=== PATIENT | male | born 1940 | race Caucasian/White ===

== ENCOUNTER 2023-10-12 15:30 | Inpatient (IN) | payer BC, SELFPAY ==
[2023-10-12 11:20] VITALS: BMI 30.5
[2023-10-12 11:23] VITALS: BP 116/66
[2023-10-12 11:57] LABS: % Basophils 0.5 % (0-2); % Eosinophils 4.1 % (0-6); % Immature Granulocytes 0.6 % (0-0.5); % Lymphocytes 19.3 % (20.5-51.1); % Monocytes 10.8 % (1.7-9.3); % Neutrophils 64.7 % (42.2-75.2); Absolute Eosinophils 0.3 10^3/uL (0-0.7); Absolute Immature Granulocytes 0.1 10^3/uL (0-0.05); Absolute Lymphocytes 1.6 10^3/uL (1.2-3.4); Absolute Monocytes 0.9 10^3/uL (0.1-0.6); Absolute Neutrophils 5.4 10^3/uL (1.4-6.5); Hematocrit 33.3 % (39.0-52.0); Hemoglobin 10.9 g/dL (13.0-18.0); Mean Corp Hgb Conc. 32.7 g/dL (33.0-37.0); Mean Corpuscular Hgb 30.1 pg (27.0-31.0); Mean Platelet Volume 9.4 fL (7.4-10.4); Nucleated Red Blood Cells % 0 % (-); Platelet Count 363 10^3/uL (130-400); Red Blood Cell Count 3.62 10^6/uL (4.70-6.10); Red Cell Dist. Width 12.8 % (11.5-14.5); White Blood Cell Count 8.4 10^3/uL (4.8-10.8)
[2023-10-12 12:00] VITALS: BP 109/48
[2023-10-12 12:03] LABS: INR 1.03; PT 13.3 Sec (11.4-14.6)
[2023-10-12 12:04] LABS: ALT (SGPT) 19 U/L (0-50); APTT 25.5 Sec (23.4-35.0); AST (SGOT) 25 U/L (17-59); Albumin 3.8 g/dl (3.5-5.0); Alkaline Phosphatase 104 U/L (38-126); Blood Urea Nitrogen 37 mg/dl (9-20); Calcium 9.1 mg/dl (8.4-10.2); Carbon Dioxide 31 mmol/L (22-30); Chloride 104 mmol/L (98-107); Estimated Creatinine Clearance 35 ml/min; Glucose 108 mg/dl (70-99); Potassium 4.3 mmol/L (3.5-5.1); Sodium 140 mmol/L (135-145); Total Bilirubin 0.3 mg/dl (0.2-1.3); Total Protein 6.3 g/dl (6.3-8.2); eGFR 30.85
[2023-10-12 12:20] LABS: Urine Albumin Negative (Neg - Trace); Urine Bilirubin Negative (Negative); Urine Character Clear (Clear); Urine Color Yellow; Urine Glucose Negative (Negative); Urine Ketone Negative (Negative); Urine Leukocyte Negative (Negative); Urine Nitrite Negative (Negative); Urine Occult Blood Negative (Negative); Urine Specific Gravity 1.015 (<1.030); Urine Urobilinogen Negative (Neg - 1+)
[2023-10-12 12:21] LABS: Troponin I 0.046 ng/ml
[2023-10-12 13:09] VITALS: BP 127/61
[2023-10-12] MEDS: NSS 500 IV (13:16)
--- NOTE | 2023-10-12 13:40 | ED.GENMED ---
History of Present Illness
<Khai Mathew MD - Last Filed: 10/12/23 15:04>
General
Chief Complaint: Change in Mental Status
Time Seen by Provider: 10/12/23 11:27
<Isadora Zimmerman MD, Resident - Last Filed: 10/12/23 14:49>
History of Present Illness
History of Present Illness:
83-year-old male, Mr. Preet Linda was brought to the ER by EMS for evaluation of mental status. History is taken from EMS and patient's who is at bedside. She mentioned that the patient was asleep from 6:30 AM until 9:30 AM in the morning
and after he woke up, she tried to take him to the restroom. He was not able to ambulate from his wheelchair onto the toilet seat and started screaming. Patient was at his baseline mental status until today a.m. No history of new onset focal
neurological deficit, recent acute vision loss, headaches, fevers. Patient has been complaining that his whole body hurts, his leg hurts from the past 2 to 3 weeks. Patient was started on doxycycline 2 weeks ago for his left lower extremity wound
and sacral wounds, and was being managed by wound care physician. Patient was seen earlier on August 27, 2019 by a psychiatrist who started him on memantine.
If applicable-neuro sx onset
Onset of symptoms known: Yes
Date of onset of symptoms: 10/12/23
Date last time pt seen normal: 10/11/23
Past History
<Khai Mathew MD - Last Filed: 10/12/23 15:04>
Past History
ED Past Medical History: CVA (Left sided weakness, right parietal stroke in 2011), HTN, Hypercholesterolemia and Other (Renal calculus, UTi, Scrotal hernia, Cellulitis)
ED Past Surgical History: Cardiac (pacemaker, RBBB), Tonsilectomy (and adnoids), Urological (Kidney stones) and Other (Right carotid endarterectomy herniorrhaphy, left orchiectomy)
Social History
Tobacco: Non-smoker
Alcohol: None
Drug: None
Personal:
Living: with family
Employment: Retired
Family History
Family History: Hypertension
Review of Systems
<Isadora Zimmerman MD, Resident - Last Filed: 10/12/23 14:49>
Review of Systems
All Other Systems: ROS reviewed and negative except as documented in HPI and ROS
Phy Exam
<Isadora Zimmerman MD, Resident - Last Filed: 10/12/23 14:49>
Physical Exam
Physical Exam:
GEN: Patient is moaning and screaming. Patient is responding 'I do not know' for the questions at the beginning of the encounter.
Eyes: PERRLA, EOMs intact, no scleral icterus, no photophobia
HENT: NCAT, oral mucosa slightly dry, no JVD, no cervical adenopathy.
Lungs: CTAB, no wheezes, rales, rhonchi, normal chest wall excursion
Cardiac: RRR, no M/R/G, no peripheral edema. Radial pulses 2+ bilat
Abdomen: S, NT, ND, NABS, no masses or hepatosplenomegaly, umbilical hernia
Neuro: Alert, follows some commands, not oriented to time, place and location. No pronator drift, sensations intact, right upper and lower extremity strength normal. Left upper and lower extremity-strength 4 /5.
Skin: No rashes, petechiae. Normal color, no pallor or jaundice. Open wound on the left dorsal aspect of the foot
Psych: Agitated
Course
<Khai Mathew MD - Last Filed: 10/12/23 15:04>
Orders/Labs/Results
Orders:
Orders
10/12/23 11:25
Electrocardiogram (*1) Urgent
Reason for Study: Other
Other Reason for Exam: Possible Stroke
EKG- Treatment ONCE
10/12/23 11:39
Complete Blood Count/With Diff Urgent
Comprehensive Metabolic Panel Urgent
PTT Urgent
Prothrombin Time Urgent
Troponin I Urgent
Urinalysis Reflex To Culture Urgent
Date Specimen was Collected: 10/12/23
Time Specimen was Collected: 11:25
10/12/23 12:36
CT Head W/o Iv Contrast Urgent
Comment:
Reason For Exam: mental status change
0.9% Sodium Chloride 500 ml [Nss] 500 ml IV BOLUS
10/12/23 13:19
Blood Culture Urgent
VIKI Source: Blood/Venous
Specimen Description:
10/12/23 13:20
Blood Culture Routine
VIKI Source: Blood/Venous
Specimen Description:
10/12/23 14:52
Admit/Transfer Patient As Directed
Co-Sign Provider:
Level of Care: Inpatient admission
Assign to:: Telemetry
Physician / Group: beni tena
Diagnosis: WARD, toxic metabolic encephalopathy,cellulitis
Reason for Telemetry: Arrhythmia
Date to Stop Telemetry: 10/15/23
Time to Stop Telemetry: 11:00
Reason for Hospitalization: WARD, toxic metabolic encephalopathy,cellulitis
Expected length of stay greater than two midnights?: Yes
ELOS- Estimated Length of Stay in days: 3
I certify the patient meets the requirements for IP care: Yes
Urine Creatinine Routine
Urine Sodium Routine
Bladder Scan As Directed
Follow Bladder Retention/Intermittent Cath Algorithm?: Yes
PRN if no void in __ hours: 6
Frequency: Per Retention Algorithm
If Bladder Scan Result >: 400
then:: Straight cath
Straight Cath As Directed
Frequency: Per Retention Algorithm
Additional Instructions: straight cath as needed per acute urinary retention algorithm for 24 hrs
Additional Instructions: for bladder scan greater than 400 mL
10/12/23 14:53
PRN Pain Medication Management As Directed
May give lesser potent ordered pain med per pt: Yes
preference::
Protocol:: Medication orders for pain may be administered in a
manner that supports deferring to patient preference
when the pt is:
- Requesting an ordered lesser potent pain medication.
Least to most potent pain medications are defined
as: acetaminophen < NSAID < tramadol < opioids
(morphine, oxycodone, hydromorphone).
- Requesting a lesser dose of the same medication IF
ORDERED.
- Requesting a less intrusive route of administration
if both routes are prescribed by the provider (PO <
IV).
10/12/23 14:54
Code Status As Directed
Resuscitation Status: Do not resuscitate
Reached after discussion with pt or family/Healthcare POA: Yes
10/12/23 14:55
DNR Bracelet Application ONCE
10/12/23 14:57
WOUND/OSTOMY CONSULT Routine
Reason for Consult: left foot ulcer, sacral wound
10/12/23 16:00
CeFAZolin 2 grams IV Push Q8H CeFAZolin 2 GRAM [Ancef] 2 grams in 10 ml IV Q8H
10/15/23 11:00
DC Protocol for Telemetry ONCE
Abnormal Lab Results
10/12/23
11:39
RBC 3.62 L 10^6/uL
(4.70-6.10)
Hgb 10.9 L g/dL
(13.0-18.0)
Hct 33.3 L %
(39.0-52.0)
MCHC 32.7 L g/dL
(33.0-37.0)
Abs Immat Gran (auto) 0.1 H 10^3/uL
(0-0.05)
Absolute Monos (auto) 0.9 H 10^3/uL
(0.1-0.6)
Immature Gran % 0.6 H %
(0-0.5)
Lymphocytes % 19.3 L %
(20.5-51.1)
Monocytes % 10.8 H %
(1.7-9.3)
Carbon Dioxide 31 H mmol/L
(22-30)
BUN 37 H mg/dl
(9-20)
Creatinine 2.1 H mg/dL
(0.7-1.3)
Glucose 108 H mg/dl
(70-99)
Troponin I 0.046 H* ng/ml
10/12/23 11:39
10/12/23 11:39
Vital Signs
Initial and Last Documented VS:
Initial Vital Signs
Temp
98.4 F
10/12/23 11:20
Last Documented Vital Signs
Temp Pulse Resp BP Pulse Ox
98.4 F 61 15 127/61 94
10/12/23 11:20 10/12/23 13:45 10/12/23 13:45 10/12/23 13:09 10/12/23 13:45
<[facility] Billy Sandy Zimmerman MD, Resident - Last Filed: 10/12/23 14:49>
Orders/Labs/Results
Orders:
Orders
10/12/23 11:25
Electrocardiogram (*1) Urgent
Reason for Study: Other
Other Reason for Exam: Possible Stroke
EKG- Treatment ONCE
10/12/23 11:39
Complete Blood Count/With Diff Urgent
Comprehensive Metabolic Panel Urgent
PTT Urgent
Prothrombin Time Urgent
Troponin I Urgent
Urinalysis Reflex To Culture Urgent
Date Specimen was Collected: 10/12/23
Time Specimen was Collected: 11:25
10/12/23 12:36
CT Head W/o Iv Contrast Urgent
Comment:
Reason For Exam: mental status change
0.9% Sodium Chloride 500 ml [Nss] 500 ml IV BOLUS
10/12/23 13:19
Blood Culture Urgent
VIKI Source: Blood/Venous
Specimen Description:
10/12/23 13:20
Blood Culture Routine
VIKI Source: Blood/Venous
Specimen Description:
10/12/23 14:52
Admit/Transfer Patient As Directed
Co-Sign Provider:
Level of Care: Inpatient admission
Assign to:: Telemetry
Physician / Group: beni tena
Diagnosis: WARD, toxic metabolic encephalopathy,cellulitis
Reason for Telemetry: Arrhythmia
Date to Stop Telemetry: 10/15/23
Time to Stop Telemetry: 11:00
Reason for Hospitalization: WARD, toxic metabolic encephalopathy,cellulitis
Expected length of stay greater than two midnights?: Yes
ELOS- Estimated Length of Stay in days: 3
I certify the patient meets the requirements for IP care: Yes
Urine Creatinine Routine
Urine Sodium Routine
Bladder Scan As Directed
Follow Bladder Retention/Intermittent Cath Algorithm?: Yes
PRN if no void in __ hours: 6
Frequency: Per Retention Algorithm
If Bladder Scan Result >: 400
then:: Straight cath
Straight Cath As Directed
Frequency: Per Retention Algorithm
Additional Instructions: straight cath as needed per acute urinary retention algorithm for 24 hrs
Additional Instructions: for bladder scan greater than 400 mL
10/12/23 14:53
PRN Pain Medication Management As Directed
May give lesser potent ordered pain med per pt: Yes
preference::
Protocol:: Medication orders for pain may be administered in a
manner that supports deferring to patient preference
when the pt is:
- Requesting an ordered lesser potent pain medication.
Least to most potent pain medications are defined
as: acetaminophen < NSAID < tramadol < opioids
(morphine, oxycodone, hydromorphone).
- Requesting a lesser dose of the same medication IF
ORDERED.
- Requesting a less intrusive route of administration
if both routes are prescribed by the provider (PO <
IV).
10/12/23 14:54
Code Status As Directed
Resuscitation Status: Do not resuscitate
Reached after discussion with pt or family/Healthcare POA: Yes
10/12/23 14:55
DNR Bracelet Application ONCE
10/12/23 14:57
WOUND/OSTOMY CONSULT Routine
Reason for Consult: left foot ulcer, sacral wound
10/12/23 16:00
CeFAZolin 2 grams IV Push Q8H CeFAZolin 2 GRAM [Ancef] 2 grams in 10 ml IV Q8H
10/15/23 11:00
DC Protocol for Telemetry ONCE
Abnormal Lab Results
10/12/23
11:39
RBC 3.62 L 10^6/uL
(4.70-6.10)
Hgb 10.9 L g/dL
(13.0-18.0)
Hct 33.3 L %
(39.0-52.0)
MCHC 32.7 L g/dL
(33.0-37.0)
Abs Immat Gran (auto) 0.1 H 10^3/uL
(0-0.05)
Absolute Monos (auto) 0.9 H 10^3/uL
(0.1-0.6)
Immature Gran % 0.6 H %
(0-0.5)
Lymphocytes % 19.3 L %
(20.5-51.1)
Monocytes % 10.8 H %
(1.7-9.3)
Carbon Dioxide 31 H mmol/L
(22-30)
BUN 37 H mg/dl
(9-20)
Creatinine 2.1 H mg/dL
(0.7-1.3)
Glucose 108 H mg/dl
(70-99)
Troponin I 0.046 H* ng/ml
10/12/23 11:39
10/12/23 11:39
Vital Signs
Initial and Last Documented VS:
Initial Vital Signs
Temp
98.4 F
10/12/23 11:20
Last Documented Vital Signs
Temp Pulse Resp BP Pulse Ox
98.4 F 61 15 127/61 94
10/12/23 11:20 10/12/23 13:45 10/12/23 13:45 10/12/23 13:09 10/12/23 13:45
<Isadora Zimmerman MD, Resident - Last Filed: 10/12/23 14:49>
MDM/Problems Addressed
Differential Diagnosis Includes:
Delirium versus toxic metabolic encephalopathy-likely from polypharmacy versus dehydration versus bacteremia from open wounds.
Labs�anemia, elevated renal function tests, non-[place] elevation of troponins, no evidence of UTI.
CT head report�no acute intracranial abnormality.The ventricles and sulci are normal in size and configuration. The periventricular, subcortical, and deep white matter is unremarkable. Old right superior frontal and left external capsule infarcts
again seen. There is global parenchymal volume loss commensurate with the patient's age. Periventricular and subcortical white matter hypoattenuation is present which is nonspecific, however likely related to cerebral small vessel disease. There is
no mass effect. There are no findings of acute transcortical infarction. No intra or extra-axial hemorrhage.
Although no criteria for sepsis, blood cultures were sent , concern for bacteremia from open wounds, atypical presentation of sepsis possible due to the age.
<Isadora Zimmerman MD, Resident - Last Filed: 10/12/23 14:49>
*Critical Care Note
Total Time (30-74mins, 75-104mins- exclusive of procedures): Not Applicable
ED Attending Note
<Khai Mathew MD - Last Filed: 10/12/23 15:04>
ED Attending Note
Patient seen and examined by attending physician: Yes
ED Attending Note:
Patient currently receiving antibiotics secondary to left foot infection, presents to ED secondary to sudden onset of mental status change noted by at home this morning. After he woke up from his nap in the morning, he was assisted to
bathroom, where patient started to yell uncontrollably, and not answering questions. Upon arrival, patient is found to be in same mental state, where he is yelling without any further complaints. No further information obtained initially. Per
spouse, left foot infection appears to be improving with treatment. Patient has an appointment with wound care center tomorrow afternoon. Along with abx, however, patient was started on lasix by PMD last week.
Physical Exam
General: mild distress, not acutely ill. afebrile
Head: nc/at. eomi
Neck: supple. no meningeal signs.
Heart: s1/s2 regular rate and rhythm, no murmur. equal radial pulses.
Lungs: no acute respiratory distress. clear bilaterally
Abdomen: normal bowel sounds. not tender.
Neuro: alert and awake. no focal neurological deficits
Skin: left foot: ruptured blister noted over medial aspect with mild erythema, without any drainage.
Psychiatric: agitated. uncooperative.
Extremities: no edema. no calf tenderness.
CT head: No acute findings.
Patient with altered mental status noted during observation ED, with differential diagnosis including sepsis, dehydration, or medication reaction. Patient will be admitted for further evaluation and treatment.
Blood cultures ordered. Will defer antibiotics to admitting team.
-
Portions of this chart may have been created with voice recognition software.� Occasional wrong word or��sound alike� substitutions may have occurred due to the inherent limitations of voice recognition software.
Discharge Plan
Departure
Patient Disposition: Admit
Date of Disposition: 10/12/23
Time of Disposition: 13:40
Presentation/result/management discussed w/ accepting MD/DO: Hospitalist
Discharge Problem:
Altered mental status
Prescriptions:
No Action
amlodipine 10 MG tablet
10 mg PO QPM
tamsulosin [Flomax] 0.4 MG capsule
0.4 mg PO DAILY
atorvastatin 80 MG tablet
40 mg PO QPM
calcium carbonate 600 MG tablet
600 mg PO DAILY
hydrochlorothiazide 25 MG tablet
25 mg PO DAILY
coenzyme [id number] [Co Q-10 (with Vit E)] 1 EACH capsule
100 mg PO QPM
metoprolol succinate [Toprol XL] 100 MG tablet extended release 24 hr
100 mg PO DAILY@1200
milk thistle 150 mg Capsule
300 mg PO QPM
Green Tea Capsule
2 cap PO NOON
baclofen 10 MG tablet
10 mg PO TID
aspirin 81 mg Tablet,Delayed Release (Dr/Ec)
81 mg PO DAILY
cephalexin 500 mg Capsule
500 mg PO Q8H
nystatin-triamcinolone 100,000-0.1 unit/g-% cream
1 applic TOPICAL BID
vitamin B complex [B Complete] Tablet
1 tab PO DAILY
furosemide [Lasix] 20 mg Tablet
20 mg PO DAILY
memantine 5 mg Tablet
5 mg PO DAILY
duloxetine [Cymbalta] 30 mg Capsule,Delayed Release(Dr/Ec)
60 mg PO HS
cyanocobalamin (vitamin B-12) 1,000 mcg Lozenge
1,000 mcg SUBLINGUAL DAILY@1200
mupirocin 2 % Ointment
1 applic TOPICAL DAILY
rivastigmine tartrate 4.5 mg Capsule
4.5 mg PO BID
Referrals:
Dubiel,Demetria, PA-C [Family Provider] -
Interventions
Interventions:
*Risk Screen - Suicide Last Done: 10/12/23 11:20
*General Assessment Last Done: 10/12/23 11:20
*Neglect/Abuse Screening Last Done: 10/12/23 11:20
*ED COVID-19 Vaccine History Last Done: 10/12/23 11:20
ED- Pulmonary Assessment Last Done: 10/12/23 11:42
ED- Neurological Assessment Last Done: 10/12/23 11:42
ED- Cardiac Assessment Last Done: 10/12/23 11:42
Discharge Date and Time
Print Language: KAZAKH
--- NOTE | 2023-10-12 14:58 | HPS.HSE ---
Family Physician
-
Family Physician: Demetria Parsons
Chief Complaint
-
Change in mental status
History of Present Illness
83-year-old male with past medical history of CVA with residual left-sided weakness, hypertension, hyperlipidemia, nephrolithiasis, UTI, scrotal hernia, pacemaker, right carotid enterectomy, suspect vascular dementia, movement disorder came to the
hospital with change in mental status. Patient at this time is lethargic so most of the history was taken from spouse at bedside. Per spouse at baseline patient mental status is slowly declining however at baseline he can hold conversation but
forgetful majority of the times. Started today he has been very sleepy which prompted her to bring him to the ED for evaluation. Patient was recently started on Lasix along with antibiotics by his primary care provider. Per labs from 09/28 patient
had creatinine of 0.56 and creatinine today is 2.1.
Medical History
Past Medical History
Past Medical History: Reports CVA, HTN, Hypercholesterolemia and Other (Renal calculus, cellulitis, scrotal hernia, right bundle branch block, pacemaker, suspect dementia, movement disorder)
Past Surgical History: Reports Cardiac (Pacemaker), Tonsilectomy, Urological and Other (Right carotid enterectomy)
Social History
Tobacco: Non-smoker
Family History
Family History: Not pertinent
Allergies / Home Medications
Allergies reflects when Allergies were last updated in [facility].
Home Medications with original date entered in [facility]
Allergy/Medication List:
Allergies
Allergy/AdvReac Type Severity Reaction Status Date / Time
doxycycline monohydrate Allergy MIGRAINE Verified 09/08/22 00:05
[From Vibramycin]
Sulfa (Sulfonamide Allergy difficulty Verified 09/08/22 00:05
Antibiotics) breathing,
[Sulfa(Sulfonamide hives
Antibiotics)]
vancomycin Allergy Unknown Verified 09/08/22 00:05
Home Medications
amlodipine 10 mg tablet 10 mg PO QPM Blood pressure 09/29/17
tamsulosin 0.4 mg capsule (Flomax) 0.4 mg PO DAILY Urinary issue 08/11/20
atorvastatin 80 mg tablet 40 mg PO QPM 06/17/21
calcium carbonate 600 mg PO DAILY 06/17/21
coenzyme [id number] E 100 mg-5 unit capsule (Co Q-10 (with Vit E)) 100 mg PO QPM 06/17/21
hydrochlorothiazide 25 mg tablet 25 mg PO DAILY 06/17/21
metoprolol succinate 100 mg tablet,extended release 24 hr (Toprol XL) 100 mg PO DAILY@1200 12/12/21
baclofen 10 mg tablet 10 mg PO TID 09/26/22
green tea leaf extract 2 cap PO NOON 09/26/22
milk thistle 150 mg capsule 300 mg PO QPM 09/26/22
aspirin 81 mg tablet,delayed release 81 mg PO DAILY 10/12/23
cephalexin 500 mg capsule 500 mg PO Q8H 10/12/23
cyanocobalamin (vitamin B-12) 1,000 mcg sublingual lozenge 1,000 mcg sublingual DAILY@1200 10/12/23
duloxetine 30 mg capsule,delayed release (Cymbalta) 60 mg PO HS 10/12/23
furosemide 20 mg tablet (Lasix) 20 mg PO DAILY 10/12/23
memantine 5 mg tablet 5 mg PO DAILY 10/12/23
mupirocin 2 % topical ointment 1 applic topical DAILY foot blister 10/12/23
nystatin-triamcinolone 100,000 unit/g-0.1 % topical cream 1 applic topical BID buttocks 10/12/23
rivastigmine tartrate 4.5 mg capsule 4.5 mg PO BID 10/12/23
vitamin B complex 1 tab PO DAILY 10/12/23
Review of Systems
-
Unable to obtain full review of systems at this time due to: Dementia
History Source: Patient and Family
A 12 point ROS was completed and negative except as noted: Yes
Constitutional: Reports Other (Pain)
Physical Exam
Vital Signs
Vital Signs
Temp Pulse Resp BP Pulse Ox
98.4 F 61 15 127/61 94
10/12/23 11:20 10/12/23 13:45 10/12/23 13:45 10/12/23 13:09 10/12/23 13:45
Physical Exam
General: No Apparent Distress and Comfortable
HEENT: Anicteric and Moist mucous membranes
Respiratory: Clear and Non Labored Respirations; No Wheezes
Cardiac: S1/S2 and Regular Rhythm
Breast: Deferred by me
GI: Soft, Non Tender, Non Distended and Normal Bowel Sounds
Genito-urinary: No Wilson
Musculoskeletal: Edema, Right Upper Extremity, Edema, Left Lower Extremity and Other (Left foot ulcer)
Neuro: Awake
Psych: Calm
Laboratory Results
-
10/12/23 11:39
10/12/23 11:39
Laboratory Results
PT 13.3 Sec (11.4-14.6) 10/12/23 11:39
INR 1.03 10/12/23 11:39
APTT 25.5 Sec (23.4-35.0) 10/12/23 11:39
Total Bilirubin 0.3 mg/dl (0.2-1.3) 10/12/23 11:39
AST 25 U/L (17-59) 10/12/23 11:39
ALT 19 U/L (0-50) 10/12/23 11:39
Alkaline Phosphatase 104 U/L (38-126) 10/12/23 11:39
Troponin I 0.046 ng/ml H* 10/12/23 11:39
Data Reviewed
-
Lab Data: Labs Reviewed by me and Discussed with Family
Impression/Plan
-
Change in mental status suspect likely toxic metabolic encephalopathy secondary to renal insufficiency and possible left lower extremity cellulitis
Start Ancef for now
Follow cultures
Wound care
Hold baclofen for now
Reviewed outpatient blood work from 09/29/2023 which showed creatinine of 0.56. Creatinine today 2.1
UA negative for UTI
Check bladder scan, urine lites
Gentle hydration
Acute renal insufficiency
Check bladder scan, urine lites
Monitor
Hold Lasix
mild trop elevation likely nonischemic myocardial injury
Continue to trend
History of CVA with residual left-sided weakness
Status post right carotid enterectomy
History of movement disorder
possible cognitive impairment; spouse unsure if has alzheimer's
Follows up with psychiatry at [place]
Recently put on memantine
Also on duloxetine, rivastigmine, baclofen, hold baclofen for now
History of right bundle branch block
History of pacemaker
History of CAD
History of hypertension
Continue therapy
History of renal calculus
History scrotal hernia
DVT prophylaxis
Heparin
DNR, discussed with spouse admission
I spent a total of 77 minutes with the patient or on the floor. More than 50% of this time involved counseling and coordination of care.
[2023-10-12] MEDS: ANCEF 10 IV ×2 (15:27→23:42)
[2023-10-12 16:30] VITALS: BP 120/59
[2023-10-12 16:45] LABS: Urine Sodium 101 mmol/L (30-90)
[2023-10-12] MEDS: NORVASC 10 MG PO (18:20)
[2023-10-12] MEDS: NSS 1000 IV (18:20)
[2023-10-12] MEDS: LIPITOR 40 MG PO (18:20)
[2023-10-12 19:20] VITALS: BP 117/54
[2023-10-12] MEDS: TYLENOL 650 MG PO (20:11)
[2023-10-12] MEDS: HEPARIN 5000 UNITS SC (20:12)
[2023-10-12] MEDS: MYCOLOG CREAM 1 APPLIC TOPICAL (21:41)
[2023-10-12] MEDS: CYMBALTA DELAYED RELEASE 60 MG PO (21:41)
[2023-10-12] MEDS: EXELON 4.5 MG PO (21:43)
[2023-10-12 22:21] LABS: Troponin I 0.055 ng/ml
[2023-10-12 23:19] VITALS: BP 143/67
[2023-10-13] VITALS (7 sets, daily range): BP systolic 121–155; BP diastolic 56–69; PULSE 68; O2SAT 99; BMI 28.6
[2023-10-13 04:14] LABS: % Basophils 0.6 % (0-2); % Eosinophils 3.4 % (0-6); % Immature Granulocytes 0.7 % (0-0.5); % Lymphocytes 18.7 % (20.5-51.1); % Neutrophils 66.6 % (42.2-75.2); Absolute Eosinophils 0.3 10^3/uL (0-0.7); Absolute Immature Granulocytes 0.1 10^3/uL (0-0.05); Absolute Lymphocytes 1.4 10^3/uL (1.2-3.4); Absolute Monocytes 0.7 10^3/uL (0.1-0.6); Absolute Neutrophils 4.8 10^3/uL (1.4-6.5); Hematocrit 27.6 % (39.0-52.0); Hemoglobin 9.3 g/dL (13.0-18.0); Mean Corp Hgb Conc. 33.7 g/dL (33.0-37.0); Mean Corpuscular Hgb 30.7 pg (27.0-31.0); Mean Corpuscular Volume 91.1 fL (80.0-94.0); Mean Platelet Volume 9.6 fL (7.4-10.4); Nucleated Red Blood Cells % 0 % (-); Platelet Count 328 10^3/uL (130-400); Red Blood Cell Count 3.03 10^6/uL (4.70-6.10); Red Cell Dist. Width 12.9 % (11.5-14.5); White Blood Cell Count 7.3 10^3/uL (4.8-10.8)
[2023-10-13 04:33] LABS: Blood Urea Nitrogen 30 mg/dl (9-20); Calcium 8.4 mg/dl (8.4-10.2); Carbon Dioxide 30 mmol/L (22-30); Chloride 105 mmol/L (98-107); Estimated Creatinine Clearance 40 ml/min; Glucose 91 mg/dl (70-99); Potassium 4.1 mmol/L (3.5-5.1); Sodium 140 mmol/L (135-145); eGFR 37.12
[2023-10-13 04:47] LABS: Troponin I 0.294 ng/ml
--- NOTE | 2023-10-13 05:00 | PTCARENOTE ---
0300 resulted at 0.294. Previous troponin was 0.055. Patient denies symptoms. Serial troponin ordered for 0900. Provider made aware of increase in lab.
--- NOTE | 2023-10-13 08:11 | VNURNOTE ---
Chart reviewed. Patient is current with [facility]. Will continue to follow hospital course.
[2023-10-13] MEDS: ANCEF 10 IV ×2 (08:33→16:00)
[2023-10-13] MEDS: B COMPLEX w/VITAMIN C 1 CAPLET PO (08:36)
[2023-10-13] MEDS: ASPIR LOW (ENTERIC COATED) 81 MG PO (08:37)
[2023-10-13] MEDS: EXELON 4.5 MG PO ×2 (08:37→21:28)
[2023-10-13] MEDS: FLOMAX 0.4 MG PO (08:37)
[2023-10-13] MEDS: OSCAL CAL 500 500 MG PO (08:37)
[2023-10-13] MEDS: HEPARIN 5000 UNITS SC ×2 (08:40→21:25)
[2023-10-13] MEDS: TYLENOL 650 MG PO (08:45)
[2023-10-13] MEDS: NAMENDA 5 MG PO (08:45)
[2023-10-13 09:54] LABS: Troponin I 0.456 ng/ml
--- NOTE | 2023-10-13 10:10 | CM ---
biodiesel division manager reviewed patient's chart and spoke with patient and spouse at bedside, case managers received a consult for AD however patient reports he has an AD copy of AD from prior admissions has been placed on patient's chart. Patient lives with
spouse in a 2 story home, patient has a first floor set up, patient is independent with adl's and uses a walker and w/c with ambulation. Patient is current with VN at home.
Pharmacy; [facility]
PCP: Demetria Parsons
Plan; To follow with patient progress and assist with discharge planning.
[2023-10-13] MEDS: MYCOLOG CREAM TOPICAL (12:31)
[2023-10-13] MEDS: VITAMIN B-12 1000 MCG PO (12:34)
[2023-10-13] MEDS: TOPROL XL 100 MG PO (12:34)
--- NOTE | 2023-10-13 12:36 | WOUNDNOTE ---
WON RN note: Patient admitted with altered mental status.
See H&P for complete history. Lives with , current with [facility]N.
PMH: CVA,HTN,UTI,PM(RBBB),R carotid endarterectomy, scrotal hernia with L orchiectomy.
Wound Location and type/assessment: Patient admitted with: L dorsal foot edema and open large blister. Sarah at bedside states blister on foot had allot of serous drainage, now dry. Tiny intact flat blisters noted on L 2nd and 3rd dorsal
toes. states he uses lymphedema pumps at home daily. + audible pulses with Doppler to L foot, palpable on R foot. Patient can ambulate to but mostly sits in recliner chair during the day, does not use an offloading cushion. Has 2 dry
suspected stage 2 PI on buttocks. Triamcinolone cream was ordered for buttocks. confirms that he is not incontinent, can make it to bathroom. Heels are intact. L groin skin fold mild MASD.
Appetite: Good.
Pressure redistribution devices in place: On versa care air bed, pillow under calves. Called [facility] for bariatric air chair cushion, nurse and PCT aware and will bring to . Smaller air cushion under L foot.
Plan: Honey gel applied to L foot with adaptic, ABD pad and chelsi. Skin prep and small Exuderm thins applied to buttocks. Will discontinue Triamcinolone cream for buttocks, fungal powder to skin folds. Adhesive foams applied to heels and silicone
foam to sacrum to protect. Will confirm orders with hospitalist and updated nurse Crys.
Updated care plan and will follow as needed.
Note to case management of equipment requested for discharge: Resume VN
Recommend follow up at wound care center upon discharge.
--- NOTE | 2023-10-13 13:02 | W.PN.HOSP.TC ---
Today's Communication/Plan
-
monitor vital signs and see plan
Echo
Continue to trend troponin
Cardiology evaluation
Monitor mental status
Monitor renal function
Assessment / Plan
Assessment / Plan
General: No Apparent Distress and Comfortable
HEENT: Anicteric and Moist mucous membranes
Respiratory: Clear and Non Labored Respirations; No Wheezes
Cardiac: S1/S2 and Regular Rhythm
GI: Soft, Non Tender, Non Distended and Normal Bowel Sounds
Genito-urinary: No Wilson
Musculoskeletal: Edema, Right Upper Extremity, Edema, Left Lower Extremity and Other (Left foot ulcer)
Neuro: Awake
Psych: Calm
Change in mental status suspect likely toxic metabolic encephalopathy secondary to renal insufficiency and possible left lower extremity cellulitis
Started Ancef for now
Follow cultures
Wound care
Restart baclofen, hold if needed
Reviewed outpatient blood work from 09/29/2023 which showed creatinine of 0.56. However his previous creatinine has always been 1.6-1.7 range. Does suspect he has some chronic kidney disease. Admission creatinine 2.1. Creatinine now 1.8
UA negative for UTI
Check bladder scan, urine lites
Gentle hydration
Acute renal insufficiency
Check bladder scan, urine lites
Monitor
Hold Lasix
mild trop elevation likely nonischemic myocardial injury
Continue to trend
check echo
History of CVA with residual left-sided weakness
Status post right carotid enterectomy
History of movement disorder
possible cognitive impairment; spouse unsure if has alzheimer's
Follows up with psychiatry at [facility]
Recently put on memantine
Also on duloxetine, rivastigmine, baclofen
History of right bundle branch block
History of pacemaker
History of CAD
History of hypertension
Continue therapy
History of renal calculus
History scrotal hernia
DVT prophylaxis
Heparin
DNR, discussed with spouse admission
Anticipated Discharge: 24 - 48 hours
Subjective/Interval History
-
Date of Service: October 13, 2023
denies pain
Objective Data
-
Labs:
Laboratory Results
10/13/23
03:01
WBC 7.3
Hgb 9.3 L
Hct 27.6 L
Plt Count 328
Sodium 140
Potassium 4.1
Chloride 105
Carbon Dioxide 30
BUN 30 H
Creatinine 1.8 H
Glucose 91
Calcium 8.4
Vital Signs:
Vital Signs
Temp Pulse Resp BP Pulse Ox
98.5 F 76 18 121/60 93
10/13/23 10:45 10/13/23 10:45 10/13/23 10:45 10/13/23 10:45 10/13/23 11:51
I&O
10/12/23 10/13/23 10/14/23
06:59 06:59 06:59
Intake Total 840 / 840
Output Total 650 / 650
Balance 190 / 190
[2023-10-13 14:22] LABS: Troponin I 0.354 ng/ml
--- NOTE | 2023-10-13 14:31 | CON.CAR ---
Addendum entered and electronically signed by Hugh Walter MD 10/13/23 17:26:
Patient seen and examined in collaboration with NURSE CASE MANAGER; agree with below.
-83-year-old male with medical history as outlined below, including permanent pacemaker implantation admitted with change in mental status; Cardiology consulted for confusion.
-The patient denies any cardiac symptoms currently.
-The patient's recent pacemaker interrogation (1 month ago) was unremarkable.
-The patient's echocardiogram today is unchanged compared to previous.
-The patient likely has a non-cardiac cause for his presentation.
-No further cardiac recommendations at this time; outpatient follow-up with Cardiology.
Original Note:
Consultation
Consultation Request
Date/Time Consultation Requested: 10/13/2023 13:00
Date/Time Consultation Performed: 10/13/2023 13:45
Requesting Provider: Dr. Levy
Performing Provider: AURELIO Rodriguez for Dr. Walter
Reason for Consultation: Abnormal troponin
Medical History
-
Chief Complaint: Change in mental status
History of Present Illness:
Preet Linda is an 83-year-old male (formerly known to Dr. Coyne, will be following with Dr. Cruz), with permanent pacemaker implant (complete heart block 05/2012), right carotid endarterectomy with old right-sided CVA with persistent
hemiparesis, hypertension, and dyslipidemia who presented to the emergency department with change in mental status. He presented yesterday after he woke up in the morning and was found to be confused and agitated. Per his daughter at the bedside,
he has been complaining of bodyaches for at least 2 weeks. At that time he was started on doxycycline for his left lower extremity wound in addition to his sacral wounds. A troponin was drawn and it was found to be abnormal. Cardiology has been
asked to consult. The patient has no chest pain, shortness of breath, dizziness, nor orthopnea.
Past Medical History
Past Medical History: Arrhythmias (Complete heart block s/p PPM [2013]), CVA, HTN and Hypercholesterolemia
Past Surgical History: Tonsilectomy and Other (CEA)
Social History
Alcohol: None
Drug: None
Personal:
Living: With Family
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
Family History
Family History: Reviewed & Not Pertinent
Allergies / Home Medications
Allergy/AdvReac Type Severity Reaction Status Date / Time
doxycycline monohydrate Allergy MIGRAINE Verified 10/12/23 18:35
[From Vibramycin]
Sulfa (Sulfonamide Allergy difficulty Verified 10/12/23 18:35
Antibiotics) breathing,
[Sulfa(Sulfonamide hives
Antibiotics)]
vancomycin Allergy dizziness,double Verified 10/12/23 18:35
vision
�Medication �Instructions �Recorded �Confirmed �Type
amlodipine 10 mg tablet 10 mg PO QPM Blood pressure 09/29/17 10/12/23 History
tamsulosin 0.4 mg capsule (Flomax) 0.4 mg PO DAILY Urinary issue 08/11/20 10/12/23 History
atorvastatin 80 mg tablet 40 mg PO QPM High Cholesterol 06/17/21 10/12/23 History
calcium carbonate 600 mg PO DAILY Supplement 06/17/21 10/12/23 History
coenzyme [id number] E 100 mg-5 100 mg PO QPM Supplement 06/17/21 10/12/23 History
unit capsule (Co Q-10 (with Vit E))
hydrochlorothiazide 25 mg tablet 25 mg PO DAILY Fluid 06/17/21 10/12/23 History
Retention/Swelling
metoprolol succinate 100 mg 100 mg PO DAILY@1200 Blood Pressure 12/12/21 10/12/23 History
tablet,extended release 24 hr
(Toprol XL)
baclofen 10 mg tablet 10 mg PO TID Muscle Spasms 09/26/22 10/12/23 History
green tea leaf extract 2 cap PO NOON Supplement 09/26/22 10/12/23 History
milk thistle 150 mg capsule 300 mg PO QPM Supplement 09/26/22 10/12/23 History
aspirin 81 mg tablet,delayed 81 mg PO DAILY Blood Clot 10/12/23 10/12/23 History
release Prevention/Tx
cephalexin 500 mg capsule 500 mg PO Q8H Infection 10/12/23 10/12/23 History
cyanocobalamin (vitamin B-12) 1,000 mcg sublingual DAILY@1200 10/12/23 10/12/23 History
1,000 mcg sublingual lozenge Supplement
duloxetine 30 mg capsule,delayed 60 mg PO HS Neurological Condition 10/12/23 10/12/23 History
release (Cymbalta)
furosemide 20 mg tablet (Lasix) 20 mg PO DAILY Fluid 10/12/23 10/12/23 History
Retention/Swelling
memantine 5 mg tablet 5 mg PO DAILY Alzheimer's 10/12/23 10/12/23 History
mupirocin 2 % topical ointment 1 applic topical DAILY foot blister 10/12/23 10/12/23 History
nystatin-triamcinolone 100,000 1 applic topical BID buttocks 10/12/23 10/12/23 History
unit/g-0.1 % topical cream
rivastigmine tartrate 4.5 mg 4.5 mg PO BID Neurological 10/12/23 10/12/23 History
capsule Condition
vitamin B complex 1 tab PO DAILY Supplement 10/12/23 10/12/23 History
Review of Systems
-
History Source: Patient
All other systems: Negative unless noted
Constitutional: Fatigue
EENT: No Symptoms
Respiratory: No Symptoms
Cardiac: No Symptoms
Abdomen/GI: No Symptoms
: No Symptoms
Musculoskeletal: No Symptoms
Skin: No Symptoms
Neurological: Weakness
Endocrine: No Symptoms
Hematologic/Lymphatic: No Symptoms
Physical Exam
Vital Signs
Temp Pulse Resp BP Pulse Ox
98.5 F 76 18 121/60 93
10/13/23 10:45 10/13/23 10:45 10/13/23 10:45 10/13/23 10:45 10/13/23 11:51
Lab Results
10/13/23 03:01
10/13/23 03:01
Troponin I 0.354 ng/ml H* 10/13/23 13:37
Physical Exam
General: Well Developed, Well Nourished, No Apparent Distress and Comfortable
HEENT: Normocephalic and Moist Mucous Membranes
Respiratory: Clear and Non Labored Respirations
Cardiac: S1/S2, Regular Rhythm and Peripheral Edema
Breast: Deferred by me
GI: Soft, Non Tender, Non Distended and Normal Bowel Sounds
Rectal: Deferred by Provider
Genito-urinary: No Costovertebral Tender
Musculoskeletal: No Clubbing and No Cyanosis
Skin: Warm and Dry
Neuro: Oriented (To himself and place)
Hematologic/Lymphatic: No Lymphadenopathy
Psych: Calm
Impression / Plan
-
Abnormal troponin, likely nonischemic myocardial injury
-Troponin peaked at 0.456
-No anginal symptoms
-His echocardiogram is pending
Hypertension, stable
Permanent pacemaker, placed 2012, generator change 2021, followed in outpatient device clinic, stable on last device check AP 19%, [employer] 100%, no atrial fibrillation episodes, no high ventricular rates
Acute confusion, per primary
RBBB
Chronic kidney disease
Chronic left lower extremity wound, chronic sacral wounds
Prior CVA with persistent hemiparesis
Status post right carotid endarterectomy
Left carotid artery stenosis, follows with vascular
Data Reviewed
-
EKG: Report Reviewed by me (Atrial sensed ventricular paced rhythm with PACs, rate 82)
CT Scan: Report Reviewed by me (Head: No acute intracranial abnormality)
Labs: Labs Reviewed by me
[2023-10-13] MEDS: LIORESAL 10 MG PO ×2 (16:04→21:24)
--- NOTE | 2023-10-13 17:03 | CARDSERVLU ---
Echocardiogram with [facility] completed after protocol screening completed. Allergies verified.
Patent IV site: _R hand___
IV site flushed with 0.9% NaCl pre and post administration.
Diluted bolus method utilized to enhance visualization of ventricular leung.
Total volume given: _3___ mL
Patient tolerated all procedures well without complications.
[2023-10-13] MEDS: LIPITOR 40 MG PO (17:26)
[2023-10-13] MEDS: NORVASC 10 MG PO (17:26)
[2023-10-13] MEDS: DESENEX/MITRAZOL/ZEASORB 1 APPLIC TOPICAL (21:24)
[2023-10-13] MEDS: CYMBALTA DELAYED RELEASE 60 MG PO (21:25)
[2023-10-14] VITALS (8 sets, daily range): BP systolic 109–139; BP diastolic 49–69; PULSE 70; O2SAT 92; BMI 29.2
[2023-10-14] MEDS: ANCEF 10 IV ×3 (00:24→16:54)
[2023-10-14] MEDS: B COMPLEX w/VITAMIN C 1 CAPLET PO (08:44)
[2023-10-14] MEDS: EXELON 4.5 MG PO ×2 (08:44→19:42)
[2023-10-14] MEDS: LIORESAL 10 MG PO ×3 (08:44→22:10)
[2023-10-14] MEDS: FLOMAX 0.4 MG PO (08:44)
[2023-10-14] MEDS: ASPIR LOW (ENTERIC COATED) 81 MG PO (08:44)
[2023-10-14] MEDS: HEPARIN 5000 UNITS SC ×2 (08:44→19:42)
[2023-10-14] MEDS: OSCAL CAL 500 500 MG PO (08:45)
[2023-10-14] MEDS: DESENEX/MITRAZOL/ZEASORB 1 APPLIC TOPICAL ×2 (08:45→19:44)
[2023-10-14] MEDS: NAMENDA 5 MG PO (08:45)
[2023-10-14 09:11] LABS: % Basophils 0.5 % (0-2); % Immature Granulocytes 0.7 % (0-0.5); % Lymphocytes 14.9 % (20.5-51.1); % Monocytes 9.7 % (1.7-9.3); % Neutrophils 72.2 % (42.2-75.2); Absolute Basophils 0.1 10^3/uL (0-0.2); Absolute Eosinophils 0.2 10^3/uL (0-0.7); Absolute Immature Granulocytes 0.1 10^3/uL (0-0.05); Absolute Lymphocytes 1.4 10^3/uL (1.2-3.4); Absolute Monocytes 0.9 10^3/uL (0.1-0.6); Absolute Neutrophils 6.6 10^3/uL (1.4-6.5); Hematocrit 33.5 % (39.0-52.0); Hemoglobin 11.2 g/dL (13.0-18.0); Mean Corp Hgb Conc. 33.4 g/dL (33.0-37.0); Mean Corpuscular Hgb 30.6 pg (27.0-31.0); Mean Corpuscular Volume 91.5 fL (80.0-94.0); Mean Platelet Volume 10.1 fL (7.4-10.4); Nucleated Red Blood Cells % 0 % (-); Platelet Count 326 10^3/uL (130-400); Red Blood Cell Count 3.66 10^6/uL (4.70-6.10); Red Cell Dist. Width 12.8 % (11.5-14.5); White Blood Cell Count 9.1 10^3/uL (4.8-10.8)
[2023-10-14 10:09] LABS: Blood Urea Nitrogen 25 mg/dl (9-20); Calcium 8.8 mg/dl (8.4-10.2); Carbon Dioxide 29 mmol/L (22-30); Chloride 104 mmol/L (98-107); Estimated Creatinine Clearance 43 ml/min; Glucose 98 mg/dl (70-99); Potassium 4.1 mmol/L (3.5-5.1); Sodium 138 mmol/L (135-145); eGFR 46.19
--- NOTE | 2023-10-14 13:06 | W.PN.HOSP.TC ---
Today's Communication/Plan
-
Monitor vital signs see plan
Monitor renal function
Monitor mental status
cw abx
Discussed with spouse at bedside
Assessment / Plan
Assessment / Plan
General: No Apparent Distress and Comfortable
HEENT: Anicteric and Moist mucous membranes
Respiratory: Clear and Non Labored Respirations; No Wheezes
Cardiac: S1/S2 and Regular Rhythm
GI: Soft, Non Tender, Non Distended and Normal Bowel Sounds
Genito-urinary: No Wilson
Musculoskeletal: Edema, Right Upper Extremity, Edema, Left Lower Extremity and Other (Left foot ulcer)
Neuro: Awake
Psych: Calm
Change in mental status suspect likely toxic metabolic encephalopathy secondary to renal insufficiency and possible left lower extremity cellulitis
Started Ancef for now
Follow cultures
Wound care
Restart baclofen, hold if needed
Reviewed outpatient blood work from 09/29/2023 which showed creatinine of 0.56. However his previous creatinine has always been 1.6-1.7 range. Does suspect he has some chronic kidney disease. Admission creatinine 2.1. Creatinine now 1.5
UA negative for UTI
Check bladder scan, urine lites
Gentle hydration
Acute renal insufficiency
Monitor
Hold Lasix
mild trop elevation likely nonischemic myocardial injury
echo noted, unchanged from prior
Cardiology following; f/u outpatient
History of CVA with residual left-sided weakness
Status post right carotid enterectomy
History of movement disorder
possible cognitive impairment; spouse unsure if has alzheimer's
gets periods of hallucinations at [facility] at [facility] per spouse
Follows up with psychiatry at [place]
Recently put on memantine
Also on duloxetine, rivastigmine, baclofen
History of right bundle branch block
History of pacemaker
History of CAD
History of hypertension
Continue therapy
History of renal calculus
History scrotal hernia
DVT prophylaxis
Heparin
DNR, discussed with spouse admission
Anticipated Discharge: Within 24 hours
Subjective/Interval History
-
Date of Service: October 14, 2023
No pain
Objective Data
-
Labs:
Laboratory Results
10/14/23
08:02
WBC 9.1
Hgb 11.2 L D
Hct 33.5 L
Plt Count 326
Sodium 138
Potassium 4.1
Chloride 104
Carbon Dioxide 29
BUN 25 H
Creatinine 1.5 H
Glucose 98
Calcium 8.8
Vital Signs:
Vital Signs
Temp Pulse Resp BP Pulse Ox
98.2 F 72 17 136/63 94
10/14/23 11:29 10/14/23 11:29 10/14/23 11:29 10/14/23 11:29 10/14/23 11:29
I&O
10/13/23 10/14/23 10/15/23
06:59 06:59 06:59
Intake Total 840 / 840 340 / 340
Output Total 650 / 650 250 / 250
Balance 190 / 190 90 / 90
[2023-10-14] MEDS: VITAMIN B-12 1000 MCG PO (13:23)
[2023-10-14] MEDS: TOPROL XL 100 MG PO (13:23)
--- NOTE | 2023-10-14 13:27 | PN.CDI ---
CDI
- -
CDI:
Physician Documentation Request
Admit Date: 10/12/23 15:30
Dear Doctor Cam,
Please review the following and provide your response in the progress notes.
Clinical Indicators:
10/13/23 12:36 (created 10/13/23 14:19) - Wound Note
Wound Location and type/assessment:
Patient admitted with:
#...L dorsal foot edema and open large blister.
#...Tiny intact flat blisters noted on L 2nd and 3rd dorsal toes.
#...+ audible pulses with Doppler to L foot, palpable on R foot.
#Has 2 dry suspected stage 2 PI on buttocks.
Physician documentation of the type and location of wounds is required for compliant documentation. Based on the above clinical findings and your assessment, please provide the following in your progress note:
Yes, Stage 2 PI buttocks(suspected), POA
No, Stage 2 PI buttocks
Other(please specify)
1. Location of the ulcer/wound, including laterality.
2. Type (etiology) of ulcer/wound:
- Diabetic ulcer
- Arterial (ischemic) ulcer
- Traumatic wound
- Venous stasis ulcer
- Pressure (decubitus) ulcer
3. If a pressure ulcer, please also include the stage* of the ulcer:
- Stage 1 - Skin intact, non-blanchable redness
- Stage 2 - Partial thickness loss of dermis, includes intact or open blister
- Stage 3 - Full thickness tissue not including bone, tendon or muscle
- Stage 4 - Full thickness tissue loss, including exposed bone, tendon or muscle
Use of terms such as suspected, likely, concern for, or probable (associated with a specific diagnosis that is being evaluated, monitored, or treated as if it exists) are acceptable and can be coded in the inpatient setting, when documented at the
time of discharge.
Thank you,
Caridad Anderson RN BSN CCDS
CDI Specialist
please contact via tiger text
Please use your independent medical judgment in providing your response.
*Source: National Pressure Ulcer Advisory Panel (NPUAP)
--- NOTE | 2023-10-14 13:34 | CM ---
Chart reviewed and patient to return to home with spouse when stable.
Plan; Home with spouse.
[2023-10-14] MEDS: LIPITOR 40 MG PO (16:55)
[2023-10-14] MEDS: NORVASC 10 MG PO (16:55)
[2023-10-14] MEDS: CYMBALTA DELAYED RELEASE 60 MG PO (22:10)
[2023-10-15] MEDS: ANCEF 10 IV ×3 (00:03→17:31)
[2023-10-15 03:14] VITALS: BP 125/61
[2023-10-15 05:26] VITALS: BMI 29.1
[2023-10-15 08:00] VITALS: BP 127/62
[2023-10-15 08:21] LABS: % Basophils 0.4 % (0-2); % Eosinophils 4.8 % (0-6); % Immature Granulocytes 0.8 % (0-0.5); % Monocytes 10.4 % (1.7-9.3); % Neutrophils 66.6 % (42.2-75.2); Absolute Eosinophils 0.4 10^3/uL (0-0.7); Absolute Immature Granulocytes 0.1 10^3/uL (0-0.05); Absolute Lymphocytes 1.4 10^3/uL (1.2-3.4); Absolute Monocytes 0.9 10^3/uL (0.1-0.6); Absolute Neutrophils 5.6 10^3/uL (1.4-6.5); Hematocrit 29.6 % (39.0-52.0); Hemoglobin 10.1 g/dL (13.0-18.0); Mean Corp Hgb Conc. 34.1 g/dL (33.0-37.0); Mean Corpuscular Hgb 30.7 pg (27.0-31.0); Mean Platelet Volume 9.4 fL (7.4-10.4); Nucleated Red Blood Cells % 0 % (-); Platelet Count 337 10^3/uL (130-400); Red Blood Cell Count 3.29 10^6/uL (4.70-6.10); Red Cell Dist. Width 12.9 % (11.5-14.5); White Blood Cell Count 8.5 10^3/uL (4.8-10.8)
[2023-10-15 08:52] LABS: Blood Urea Nitrogen 30 mg/dl (9-20); Calcium 8.5 mg/dl (8.4-10.2); Carbon Dioxide 29 mmol/L (22-30); Chloride 104 mmol/L (98-107); Estimated Creatinine Clearance 43 ml/min; Glucose 103 mg/dl (70-99); Potassium 3.9 mmol/L (3.5-5.1); Sodium 137 mmol/L (135-145); eGFR 46.19
[2023-10-15] MEDS: ASPIR LOW (ENTERIC COATED) 81 MG PO (08:57)
[2023-10-15] MEDS: LIORESAL 10 MG PO ×3 (08:57→21:48)
[2023-10-15] MEDS: EXELON 4.5 MG PO ×2 (08:57→20:42)
[2023-10-15] MEDS: HEPARIN 5000 UNITS SC ×2 (08:57→20:42)
[2023-10-15] MEDS: NAMENDA 5 MG PO (08:57)
[2023-10-15] MEDS: FLOMAX 0.4 MG PO (08:57)
[2023-10-15] MEDS: B COMPLEX w/VITAMIN C 1 CAPLET PO (08:57)
[2023-10-15] MEDS: OSCAL CAL 500 500 MG PO (08:57)
[2023-10-15] MEDS: DESENEX/MITRAZOL/ZEASORB 1 APPLIC TOPICAL ×2 (08:58→20:44)
[2023-10-15 11:14] LABS: Urine Albumin Negative (Neg - Trace); Urine Bilirubin Negative (Negative); Urine Character Clear (Clear); Urine Color Yellow; Urine Glucose Negative (Negative); Urine Ketone Negative (Negative); Urine Leukocyte Negative (Negative); Urine Nitrite Negative (Negative); Urine Occult Blood 1+ (Negative); Urine Specific Gravity 1.015 (<1.030); Urine Urobilinogen Negative (Neg - 1+)
--- NOTE | 2023-10-15 11:37 | WOUNDNOTE ---
[facility] RN NOTE: Reviewed chart and met with patient and Sarah. Patient seen by [facility] RNYaima on 10/12 for left foot and buttock wounds. Patient seen today for new serous filled blister of penis (stage 2 PI). Per TANIA Barriga report serous blister
occurred due to use of condom cath. The area was gently cleaned and petroleum gauze applied. Continence care provided with TANIA Barriga. Spoke to about prevention of skin breakdown at home as reports buttocks have recently broken down.
and patient willing to consider hospital bed and air overlay and heel off-loading boots. Foot wound care performed as ordered and wound appears to be progressing toward healing. Heels off-loaded on pillow, bariatric air cushion used to position
patient off-buttocks. TT with JACIEL Wynn about possibility of hospital bed at home with VN. Will confirm orders with hospitalist and update RN. Will follow as needed.
[2023-10-15 11:43] LABS: Urine Bacteria Few (Negative); Urine Red Blood Cell 16-20 /HPF (0-2)
--- NOTE | 2023-10-15 12:07 | W.PN.HOSP.TC ---
Addendum entered and electronically signed by Miguelito Levy MD 10/15/23 12:37:
patient has a medical condition which requires positioning of the body in ways not feasible with an ordinary bed and requires frequent body position changes. Patient with poor mobility.
Original Note:
Today's Communication/Plan
-
Monitor vital signs and see plan
Check urinalysis and culture again
Monitor renal function
Monitor mental status
Continue antibiotics
Assessment / Plan
Assessment / Plan
General: No Apparent Distress and Comfortable
HEENT: Anicteric and Moist mucous membranes
Respiratory: Clear and Non Labored Respirations; No Wheezes
Cardiac: S1/S2 and Regular Rhythm
GI: Soft, Non Tender, Non Distended and Normal Bowel Sounds
Genito-urinary: No Wilson
Musculoskeletal: Edema, Right Upper Extremity, Edema, Left Lower Extremity and Other (Left foot ulcer)
Neuro: Awake
Psych: Calm
Change in mental status suspect likely toxic metabolic encephalopathy secondary to renal insufficiency and possible left lower extremity cellulitis
Started Ancef for now
Follow cultures
Wound care
Restart baclofen, hold if needed
Reviewed outpatient blood work from 09/29/2023 which showed creatinine of 0.56. However his previous creatinine has always been 1.6-1.7 range. Does suspect he has some chronic kidney disease. Admission creatinine 2.1. Creatinine now 1.5
UA negative for UTI
Check bladder scan, urine lites
Gentle hydration
Outpatient urine cx with Pseudomonas
UA here on admission without any significant abnormality. Will check new urine culture to compare
patient mental status has been better
Acute renal insufficiency
Monitor
Hold Lasix
If creatinine does not improve then will likely stop memantine
mild trop elevation likely nonischemic myocardial injury
echo noted, unchanged from prior
Cardiology following; f/u outpatient
History of CVA with residual left-sided weakness
Status post right carotid enterectomy
History of movement disorder
possible cognitive impairment; spouse unsure if has alzheimer's
gets periods of hallucinations at [facility] at [facility] per spouse
Follows up with psychiatry at [place]
Recently put on memantine
Also on duloxetine, rivastigmine, baclofen
Stage 2 PI buttocks, POA
Left foot open large blister
History of right bundle branch block
History of pacemaker
History of CAD
History of hypertension
Continue therapy
History of renal calculus
History scrotal hernia
DVT prophylaxis
Heparin
DNR, discussed with spouse admission
Anticipated Discharge: Within 24 hours
Subjective/Interval History
-
Date of Service: October 15, 2023
denies pain
Objective Data
-
Labs:
Laboratory Results
10/15/23
07:54
WBC 8.5
Hgb 10.1 L
Hct 29.6 L
Plt Count 337
Sodium 137
Potassium 3.9
Chloride 104
Carbon Dioxide 29
BUN 30 H
Creatinine 1.5 H
Glucose 103 H
Calcium 8.5
Vital Signs:
Vital Signs
Temp Pulse Resp BP Pulse Ox
97.7 F 64 18 127/62 94
10/15/23 08:00 10/15/23 08:00 10/15/23 08:00 10/15/23 08:00 10/15/23 08:00
I&O
10/14/23 10/15/23 10/16/23
06:59 06:59 06:59
Intake Total 340 / 340 600 / 600
Output Total 1300 / 1300 750 / 750
Balance -960 / -960 -150 / -150
[2023-10-15 12:10] VITALS: BP 101/54
[2023-10-15] MEDS: TOPROL XL 100 MG PO (13:13)
[2023-10-15] MEDS: VITAMIN B-12 1000 MCG PO (13:13)
--- NOTE | 2023-10-15 13:22 | WOUNDNOTE ---
[facility] RN NOTE: Reviewed chart and met with patient and Sarah. Patient seen by [facility] RNYaima on 10/12 for left foot and buttock wounds. Patient seen today for new serous filled blister of penis. Per TANIA Barriga report serous blister occurred due to
use of condom cath. The area was gently cleaned and petroleum gauze applied. Continence care provided with TANIA Barriga. Spoke to about prevention of skin breakdown at home as reports buttocks have recently broken down. and patient
willing to consider hospital bed and air overlay and heel off-loading boots. Foot wound care performed as ordered and wound appears to be progressing toward healing. Heels off-loaded on pillow, bariatric air cushion used to position patient
off-buttocks. TT with JACIEL Wynn about possibility of hospital bed at home with VN. Will confirm orders with hospitalist and update RN. Will follow as needed.
--- NOTE | 2023-10-15 13:39 | VNURNOTE ---
Received information from that [facility] recommending hospital bed for home. Spoke to patient's spouse Sarah, who is agreeable to a hospital bed rental, would like info on cost/copays. DME info faxed to Erika at [facility]. Per Erika, there should not be a
copay as patient has a secondary insurance. They have a bed in stock, could be delivered either today or tomorrow. Awaiting confirmation from [facility].
[2023-10-15 16:00] VITALS: BP 119/63
[2023-10-15] MEDS: LIPITOR 40 MG PO (17:31)
[2023-10-15] MEDS: NORVASC PO (17:38)
[2023-10-15 19:43] VITALS: BP 121/59
--- NOTE | 2023-10-15 21:40 | PTCARENOTE ---
Pt reports feeling nauseous. House MEDICAL CASE WORKER Juliet Pace notified, order placed for IV Zofran 4mg q6h and provided to pt.
[2023-10-15] MEDS: ZOFRAN 4 MG IV (21:48)
[2023-10-15] MEDS: CYMBALTA DELAYED RELEASE 60 MG PO (21:48)
[2023-10-15] MEDS: TYLENOL 650 MG PO (21:48)
[2023-10-15 23:36] VITALS: BP 121/57
[2023-10-16] MEDS: ANCEF 10 IV ×2 (00:32→09:10)
[2023-10-16 05:35] VITALS: BP 115/63
[2023-10-16 06:00] VITALS: BMI 29.2
[2023-10-16 07:40] VITALS: BP 110/54
[2023-10-16 08:23] LABS: % Basophils 0.4 % (0-2); % Eosinophils 3.4 % (0-6); % Lymphocytes 11.5 % (20.5-51.1); % Monocytes 8.3 % (1.7-9.3); % Neutrophils 75.4 % (42.2-75.2); Absolute Eosinophils 0.3 10^3/uL (0-0.7); Absolute Immature Granulocytes 0.1 10^3/uL (0-0.05); Absolute Monocytes 0.7 10^3/uL (0.1-0.6); Absolute Neutrophils 6.7 10^3/uL (1.4-6.5); Hematocrit 30.4 % (39.0-52.0); Mean Corp Hgb Conc. 32.9 g/dL (33.0-37.0); Mean Corpuscular Volume 91.3 fL (80.0-94.0); Mean Platelet Volume 9.2 fL (7.4-10.4); Nucleated Red Blood Cells % 0 % (-); Platelet Count 327 10^3/uL (130-400); Red Blood Cell Count 3.33 10^6/uL (4.70-6.10); Red Cell Dist. Width 12.9 % (11.5-14.5); White Blood Cell Count 8.9 10^3/uL (4.8-10.8)
[2023-10-16 09:00] LABS: Blood Urea Nitrogen 30 mg/dl (9-20); Calcium 8.5 mg/dl (8.4-10.2); Carbon Dioxide 29 mmol/L (22-30); Chloride 104 mmol/L (98-107); Estimated Creatinine Clearance 43 ml/min; Glucose 106 mg/dl (70-99); Sodium 136 mmol/L (135-145); eGFR 46.19
[2023-10-16] MEDS: NAMENDA 5 MG PO (09:03)
[2023-10-16] MEDS: EXELON 4.5 MG PO (09:05)
[2023-10-16] MEDS: HEPARIN 5000 UNITS SC (09:06)
[2023-10-16] MEDS: B COMPLEX w/VITAMIN C 1 CAPLET PO (09:06)
[2023-10-16] MEDS: OSCAL CAL 500 500 MG PO (09:06)
[2023-10-16] MEDS: FLOMAX 0.4 MG PO (09:06)
[2023-10-16] MEDS: ASPIR LOW (ENTERIC COATED) 81 MG PO (09:06)
[2023-10-16] MEDS: DESENEX/MITRAZOL/ZEASORB 1 APPLIC TOPICAL (09:07)
[2023-10-16] MEDS: LIORESAL 10 MG PO ×2 (09:07→17:18)
[2023-10-16 11:00] VITALS: BP 121/60
--- NOTE | 2023-10-16 11:22 | W.PN.HOSP.TC ---
Addendum entered and electronically signed by Miguelito Levy MD 10/16/23 11:33:
Blood pressure has been normal here, discontinued HCTZ.
Original Note:
Today's Communication/Plan
-
Monitor vital signs and see plan
Discharge today on p.o. antibiotics
Repeat BMP next week
Patient to follow-up with psychiatry outpatient for memantine wean
Discussed with spouse at bedside
Time of discharge 37 minutes
Assessment / Plan
Assessment / Plan
General: No Apparent Distress and Comfortable
HEENT: Anicteric and Moist mucous membranes
Respiratory: Clear and Non Labored Respirations; No Wheezes
Cardiac: S1/S2 and Regular Rhythm
GI: Soft, Non Tender, Non Distended and Normal Bowel Sounds
Genito-urinary: No Wilson
Musculoskeletal: Edema, Right Upper Extremity, Edema, Left Lower Extremity and Other (Left foot ulcer)
Neuro: Awake
Psych: Calm
Change in mental status suspect likely toxic metabolic encephalopathy secondary to renal insufficiency and possible left lower extremity cellulitis
TME resolved
Started Ancef for now; switch to PO abx
Follow cultures
Wound care
Restart baclofen, hold if needed
Reviewed outpatient blood work from 09/29/2023 which showed creatinine of 0.56. However his previous creatinine has always been 1.6-1.7 range. Does suspect he has some chronic kidney disease. Admission creatinine 2.1. Creatinine now 1.5; advised
patient to get weaned off memantine outpatient. making good urine. repeat BMP next week outpatient
UA negative for UTI
Check bladder scan, urine lites
Gentle hydration
Outpatient urine cx with Pseudomonas
UA here on admission without any significant abnormality. Repeat UA with urine culture negative
patient mental status has been better
Acute renal insufficiency
Monitor
Hold Lasix
If creatinine does not improve then will likely stop memantine
mild trop elevation likely nonischemic myocardial injury
echo noted, unchanged from prior
Cardiology following; f/u outpatient
History of CVA with residual left-sided weakness
Status post right carotid enterectomy
History of movement disorder
possible cognitive impairment; spouse unsure if has alzheimer's
gets periods of hallucinations at at times at baseline per spouse
Follows up with psychiatry at [place]
Recently put on memantine
Also on duloxetine, rivastigmine, baclofen
Stage 2 PI buttocks, POA
Left foot open large blister
History of right bundle branch block
History of pacemaker
History of CAD
History of hypertension
Continue therapy
History of renal calculus
History scrotal hernia
DVT prophylaxis
Heparin
DNR, discussed with spouse admission
Anticipated Discharge: Today
Subjective/Interval History
-
Date of Service: October 16, 2023
denies pain
Objective Data
-
Labs:
Laboratory Results
10/16/23
08:05
WBC 8.9
Hgb 10.0 L
Hct 30.4 L
Plt Count 327
Sodium 136
Potassium 4.0
Chloride 104
Carbon Dioxide 29
BUN 30 H
Creatinine 1.5 H
Glucose 106 H
Calcium 8.5
Vital Signs:
Vital Signs
Temp Pulse Resp BP Pulse Ox
97.8 F 69 16 110/54 96
10/16/23 07:40 10/16/23 07:40 10/16/23 07:40 10/16/23 07:40 10/16/23 07:40
I&O
10/15/23 10/16/23 10/17/23
06:59 06:59 06:59
Intake Total 600 / 600 600 / 600
Output Total 750 / 750
Balance -150 / -150 600 / 600
--- NOTE | 2023-10-16 11:32 | W.DCSUMMARY ---
Discharge Summary
Discharge Data
Date of Admission: 10/12/23
Date of Discharge: 10/16/23
-
Pending Results: No
Hospital Course
83-year-old male with past medical history of CVA, movement disorder, cognitive impairment, right bundle branch block, history of pacemaker, CAD, hypertension, renal calculus history, scrotal hernia history came to the hospital with change in mental
status which was likely thought was secondary to toxic metabolic encephalopathy secondary to renal insufficiency and left lower extremity cellulitis. For his cellulitis he was started on IV antibiotics with no later transitioned to oral antibiotics
prior to discharge. For his renal insufficiency his creatinine continue to improve and stayed at 1.5 prior to discharge. He was instructed to speak to his psychiatrist regarding weaning off memantine and to also get his BMP checked outpatient.
His outpatient urine culture appears to be growing Pseudomonas however urine culture collected here was negative. His mental status continue to improve over time and was at baseline prior to discharge. Since his symptoms were improving, he was
then discharged home with instructions to follow-up with all his physicians outpatient.
Discharge Plan
-
Patient Disposition: Home with Home Care
Discharge Diagnosis/Procedures: Change in mental status suspect likely toxic metabolic encephalopathy secondary to renal insufficiency and possible left lower extremity cellulitis
Troponin elevation likely nonischemic myocardial injury
Diet: As tolerated
Activity: With assistance and As tolerated
Driving Restrictions: No driving
Bathing Restrictions: None
Blood Work: BMP next week with primary care provider
Activity Restrictions/Additional Instructions:
Wound Care Instructions
L foot: clean with soap and water, Honey gel, adaptic, ABD pad and chelsi daily.
Buttocks: clean with soap and water, Skin prep and small Exuderm thins change q 2-3 days and prn soilage.
Penis Wound/blister- Apply Petroleum gazue around wound daily and PRN
Bariatric air chair cushion can take home to use in chair
leg elevation when sitting, pillows under calves
Follow up at wound care center call for an appointment.
Referrals:
Demetria Parsons PA-C [Family Provider] - in less than 1 week
Additional Discharge Medication Instructions: We have stopped your hydrochlorothiazide
Prescriptions:
New
miconazole nitrate [Miconazorb AF] 2 % Powder
1 applic topical BID Qty: 85 0RF
Continued
amlodipine 10 MG tablet
10 mg PO QPM
tamsulosin [Flomax] 0.4 MG capsule
0.4 mg PO DAILY
atorvastatin 80 MG tablet
40 mg PO QPM
calcium carbonate 600 MG tablet
600 mg PO DAILY
coenzyme [id number] E [Co Q-10 (with Vit E)] 1 EACH capsule
100 mg PO QPM
metoprolol succinate [Toprol XL] 100 MG tablet extended release 24 hr
100 mg PO DAILY@1200
milk thistle 150 mg Capsule
300 mg PO QPM
green tea leaf extract Capsule
2 cap PO NOON
baclofen 10 MG tablet
10 mg PO TID
aspirin 81 mg Tablet,Delayed Release (Dr/Ec)
81 mg PO DAILY
nystatin-triamcinolone 100,000-0.1 unit/g-% cream
1 applic TOPICAL BID
vitamin B complex Tablet
1 tab PO DAILY
furosemide [Lasix] 20 mg Tablet
20 mg PO DAILY
memantine 5 mg Tablet
5 mg PO DAILY
duloxetine [Cymbalta] 30 mg Capsule,Delayed Release(Dr/Ec)
60 mg PO HS
cyanocobalamin (vitamin B-12) 1,000 mcg Lozenge
1,000 mcg SUBLINGUAL DAILY@1200
mupirocin 2 % Ointment
1 applic TOPICAL DAILY
rivastigmine tartrate 4.5 mg Capsule
4.5 mg PO BID
cephalexin 500 mg Capsule
500 mg PO Q8H Qty: 18 0RF
Discontinued
hydrochlorothiazide 25 MG tablet
25 mg PO DAILY
Discharge Orders:
Discharge Patient (As Directed); Ordered 10/16/23
Ordered By: Miguelito Levy
Discharge Date and Time
Discharge Date/Time: 10/16/23 18:43
Print Language: [place] CITIZEN
--- NOTE | 2023-10-16 11:43 | CM ---
technology program manager met with patient and spouse at bedside and plan is for discharge to home today, spouse to transport.
Plan; Home with VN.
[2023-10-16] MEDS: TYLENOL 650 MG PO (12:36)
[2023-10-16] MEDS: VITAMIN B-12 1000 MCG PO (12:37)
[2023-10-16] MEDS: TOPROL XL 100 MG PO (12:37)
--- NOTE | 2023-10-16 14:14 | VNURNOTE ---
This author spoke to patient's over the phone this AM to follow up on DME. She stated [facility] called her yesterday evening and she missed the call. Provided [facility] number to her. This author called Erika at [facility] who stated air mattress
overlay is not available until next week. They will swap out mattress at patient's home once available. Erika stated she will call today to coordinate delivery. Informed Erika patient is d/c'ed today.
[2023-10-16] MEDS: ANCEF IV (17:17)
[2023-10-16] MEDS: LIPITOR 40 MG PO (17:18)
[2023-10-16] MEDS: NORVASC 10 MG PO (17:18)
[2023-10-16 18:27] VITALS: BP 141/68
== END 2023-10-16 18:43 | disposition home health service (06) | DRG 602 ==
LOC: 4 WEST ACU 15:30
PROVIDERS: ADMITTING PHYSICIAN Internal Medicine; CONSULT PHYSICIAN Internal Medicine; EMERGENCY PHYSICIAN Emergency Medicine; FAMILY PHYSICIAN Physician Assistant
DX: L03.90 Cellulitis, unspecified (principal); G92.8 Other toxic encephalopathy; N17.9 Acute kidney failure, unspecified; I5A Non-ischemic myocardial injury (non-traumatic); N28.9 Disorder of kidney and ureter, unspecified; Z66 Do not resuscitate; L89.302 Pressure ulcer of unspecified buttock, stage 2
CPT/HCPCS: 70450; 80048; 80053; 81003; 81015; 82570; 84300; 84484; 85025; 85610; 85730; 87040; 87086; 93005; 93306; 96360; 97163; 97167; 97530; 99285; Q9950

== ENCOUNTER 2023-11-03 05:30 | Emergency (ER) | payer BC, SELFPAY ==
[2023-11-03 05:34] VITALS: BP 136/63
[2023-11-03 05:35] VITALS: BP 136/63; BMI 33.0
[2023-11-03 06:00] VITALS: BP 127/60
--- NOTE | 2023-11-03 07:02 | ED.GENMED ---
History of Present Illness
General
Chief Complaint: Fall
Source: patient
Exam Limitations: none
Time Seen by Provider: 11/03/23 06:25
Nursing documentation reviewed up to this point in time: agreed with
History of Present Illness
History of Present Illness:
Patient presents to ED for evaluation after fall in the bathroom this morning. Patient who typically utilizes wheelchair at all times, was once again wheeled to the bathroom by his to urinate. Shortly afterwards, he called for assistance.
did not hear any significant noise. When she went into the bathroom, patient was sitting in front of the toilet, leaning on the wall. Patient complained of back pain only. There was no blood noted in the bathroom. Per spouse, patient is
behaving normally. At the time exam in ED, patient is without any complaints. Denies headache. Denies neck pain. Denies chest pain. Denies abdominal pain. Denies loss of sensation or weakness. Patient currently has physical therapy and
Occupational Therapy coming to his house, as well as dizziness. Patient was recently admitted to the hospital and treated for acute drug reaction as well as left lower leg infection.
Past History
Past History
ED Past Medical History: CVA (Left sided weakness, right parietal stroke in 2011), HTN, Hypercholesterolemia and Other (Renal calculus, UTi, Scrotal hernia, Cellulitis)
ED Past Surgical History: Cardiac (pacemaker, RBBB), Tonsilectomy (and adnoids), Urological (Kidney stones) and Other (Right carotid endarterectomy herniorrhaphy, left orchiectomy)
Social History
Tobacco: Non-smoker
Alcohol: None
Drug: None
Personal:
Living: with family
Employment: Retired
Family History
Family History: Hypertension
Review of Systems
Review of Systems
Allergies reviewed?: Yes
All Other Systems: ROS reviewed and negative except as documented in HPI and ROS
Constitutional: Reports no symptoms
EENT: Reports no symptoms
Respiratory: Reports no symptoms
Cardiac: Reports no symptoms
ABD/GI: Reports no symptoms
Musculoskeletal: Reports back pain
Skin: Reports no symptoms
Neurological: Reports no symptoms
Phy Exam
Physical Exam
Physical Exam:
Physical Exam
General: no apparent distress, not acutely ill. afebrile
Head: nc/at. eomi
Neck: supple. normal range of motion.
Heart: s1/s2 regular rate and rhythm, no murmur. equal radial pulses.
Lungs: no acute respiratory distress. clear bilaterally. no chest wall tenderness to palpation.
Abdomen: normal bowel sounds. not tender.
Back: no midline tenderness.
Neuro: alert and oriented. no focal neurological deficits
Skin: no rash
Psychiatric: well kept. interactive and cooperative
Extremities: LE b/l edema. no calf tenderness.
Course
Vital Signs
Initial and Last Documented VS:
Initial Vital Signs
BP
136/63
11/03/23 05:34
Last Documented Vital Signs
Temp Pulse Resp BP Pulse Ox
97.9 F 60 15 132/74 96
11/03/23 05:35 11/03/23 07:19 11/03/23 07:19 11/03/23 07:19 11/03/23 06:00
MDM/Problems Addressed
MDM/Problems Addressed:
Patient without any significant evidence of trauma on exam. Patient subjectively and objectively without any pain on exam. Patient is able to stand with assistance without significant distress. at bedside confirms that he is currently at his
baseline, including difficulty standing up without assistance. As such, she feels comfortable having the patient be discharged home, especially with PT/OT already set up at home. In addition, discussed with regarding development of recurrent
small blister on the medial aspect of the left foot, which is to be reevaluated by visiting nurse this week.
*Critical Care Note
Total Time (30-74mins, 75-104mins- exclusive of procedures): Not Applicable
ED Attending Note
-
Portions of this chart may have been created with voice recognition software.� Occasional wrong word or��sound alike� substitutions may have occurred due to the inherent limitations of voice recognition software.
Discharge Plan
Departure
Patient Disposition: Home (Routine Discharge)
Date of Disposition: 11/03/23
Time of Disposition: 07:02
Patient with high blood pressure during this ER visit?: Yes
Condition: Good
Discharge Problem:
Fall
Instructions: Preventing falls in adults
Prescriptions:
No Action
amlodipine 10 MG tablet
10 mg PO QPM
tamsulosin [Flomax] 0.4 MG capsule
0.4 mg PO DAILY
atorvastatin 80 MG tablet
40 mg PO QPM
calcium carbonate 600 MG tablet
600 mg PO DAILY
coenzyme [id number] E [Co Q-10 (with Vit E)] 1 EACH capsule
100 mg PO QPM
metoprolol succinate [Toprol XL] 100 MG tablet extended release 24 hr
100 mg PO DAILY@1200
milk thistle 150 mg Capsule
300 mg PO QPM
green tea leaf extract Capsule
2 cap PO NOON
baclofen 10 MG tablet
10 mg PO TID
aspirin 81 mg Tablet,Delayed Release (Dr/Ec)
81 mg PO DAILY
nystatin-triamcinolone 100,000-0.1 unit/g-% cream
1 applic TOPICAL BID
vitamin B complex Tablet
1 tab PO DAILY
furosemide [Lasix] 20 mg Tablet
20 mg PO DAILY
memantine 5 mg Tablet
5 mg PO DAILY
duloxetine [Cymbalta] 30 mg Capsule,Delayed Release(Dr/Ec)
60 mg PO HS
cyanocobalamin (vitamin B-12) 1,000 mcg Lozenge
1,000 mcg SUBLINGUAL DAILY@1200
mupirocin 2 % Ointment
1 applic TOPICAL DAILY
rivastigmine tartrate 4.5 mg Capsule
4.5 mg PO BID
miconazole nitrate [Miconazorb AF] 2 % Powder
1 applic topical BID Qty: 85 0RF
cephalexin 500 mg Capsule
500 mg PO Q8H Qty: 18 0RF
Referrals:
Demetria Parsons PA-C [Family Provider] -
Activity Restrictions/Additional Instructions:
As discussed, please follow up with your primary care physician with any further concerns.
Interventions
Interventions:
*Risk Screen - Suicide Last Done: 11/03/23 05:35
*General Assessment Last Done: 11/03/23 05:35
*Neglect/Abuse Screening Last Done: 11/03/23 05:35
ED- Fall Risk Assessment Last Done: 11/03/23 05:35
*ED COVID-19 Vaccine History Last Done: 11/03/23 05:35
*Nursing Disposition Last Done: 11/03/23 07:52
ED-Musculoskeletal Assessment Last Done: 11/03/23 05:49
ED- Neurological Assessment Last Done: 11/03/23 07:00
ED-Skin Assessment Last Done: 11/03/23 05:49
Discharge Date and Time
Discharge Date/Time: 11/03/23 07:50
Print Language: ERITREAN
[2023-11-03 07:19] VITALS: BP 132/74
== END 2023-11-03 07:50 | disposition home or self-care (01) ==
LOC: EMR 05:30
PROVIDERS: EMERGENCY PHYSICIAN Emergency Medicine; FAMILY PHYSICIAN Physician Assistant
DX: M54.9 Dorsalgia, unspecified (principal); W19.XXXA Unspecified fall, initial encounter; I10 Essential (primary) hypertension
CPT/HCPCS: 99283

== ENCOUNTER 2024-01-31 20:59 | Inpatient (IN) | payer BC, SELFPAY ==
[2024-01-31 17:12] VITALS: BP 134/68
--- NOTE | 2024-01-31 17:50 | ED.GENMED ---
History of Present Illness
General
Chief Complaint: Skin Problem
Time Seen by Provider: 01/31/24 17:47
History of Present Illness
History of Present Illness:
TIME OF INITIAL ENCOUNTER: 5:55 PM
HPI:
I spoke to the daughter at bedside for history. The patient had been treating for blisters to the left lower extremity. He was placed on an ointment as well as Keflex. There was some improvement initially but now he has redness to the left foot
which is new. He also had some new abnormal movements today which concerned the family.
EXAM:
GENERAL: The patient appears chronically ill
HEENT: Moist oral mucosa
CARDIOVASCULAR: No murmurs, normal heart rate, regular rhythm, No chest wall tenderness
PULMONARY: No respiratory distress, breath sounds are clear and equal
ABDOMEN: Soft with no peritoneal signs, no tenderness
NEUROLOGIC: Fair strength all extremities, no coordination deficits
PSYCHIATRIC: Limited insight and judgment
EXTREMITIES: Excoriated tissue with unroofed blisters to the distal left foot, there is also edema noted along with warmth and erythema to the dorsal aspect of the left
SKIN: Pale
NUMBER AND COMPLEXITY OF PROBLEMS ADDRESSED AT THE ENCOUNTER
� Chronic conditions affecting care: High blood pressure, hyperlipidemia, BPH, has had stroke in the past, left-sided weakness
� Acute Exacerbation and/or Progression of Chronic Illness: This is an acute problem
� Differential Diagnosis includes: Cellulitis, sepsis, failure of outpatient treatment
AMOUNT AND/OR COMPLEXITY OF DATA TO BE REVIEWED AND ANALYZED
� I performed an independent evaluation of and my interpretation is:
EKG:
CT:
X-rays:
Laboratory Studies: White count 6.8, hemoglobin 10.3, creatinine 1.5 which is near baseline
Other:
� Review of other/old records: I reviewed records, the patient was treated with IV antibiotics for left lower extremity cellulitis and also had 'toxic metabolic encephalopathy'
� Clinical information was obtained by an independent historian: I spoke to the daughter at bedside
� Prescriptions/Medications Considered but not given:
� Further testing considered but not performed:
RISK OF COMPLICATIONS AND/OR MORBIDITY OR MORTALITY OF PATIENT MANAGEMENT
� Social determinants of health affecting care: Lives at home
� Discussion with other providers: I have asked hospitalist for admission at 7:37 PM, Dr. Martinez
� Escalation of care including admission/observation vs risk of discharge considered: The patient had already been on antibiotics. Had a foul-smelling odor earlier. However now has erythema and warmth. There is also concern
for increased change in mental status/abnormal movement. Given his overall debilitated state along with questionable change in his mental status similar to prior admission, will plan for admission to the hospital with IV antibiotics.
ANY OTHER UPDATES:
7:30 PM: On reassessment, the patient did have some desaturations while he slept in the emergency department down to 87%, the nurse placed him on supplemental oxygen. Daughter showed me a video of him on her phone and he had abnormal myoclonic
jerking movement as well. Overall he is generally chronically ill in appearance and recommend keeping him here for further evaluation.
Past History
Past History
ED Past Medical History: CVA (Left sided weakness, right parietal stroke in 2011), HTN, Hypercholesterolemia and Other (Renal calculus, UTi, Scrotal hernia, Cellulitis)
ED Past Surgical History: Cardiac (pacemaker, RBBB), Tonsilectomy (and adnoids), Urological (Kidney stones) and Other (Right carotid endarterectomy herniorrhaphy, left orchiectomy)
Social History
Tobacco: Non-smoker
Alcohol: None
Drug: None
Personal:
Living: with family
Employment: Retired
Family History
Family History: Hypertension
Phy Exam
Physical Exam
Physical Exam:
See HPI
Course
Orders/Labs/Results
Orders:
Orders
01/31/24 18:03
CeFAZolin 2 GRAM [Ancef] 2 grams in 10 ml IV NOW
01/31/24 18:11
Basic Metabolic Panel Urgent
Complete Blood Count/With Diff Urgent
Wound Culture [Wound/Abscess/Other Culture] Urgent
VIKI Source: Foot
Specimen Description: Left
Date Specimen was Collected: 01/31/24
Time Specimen was Collected: 18:09
01/31/24 18:19
Clindamycin 600 mg/50 ml [Cleocin] 600 mg in 50 ml IV NOW
01/31/24 19:49
Urinalysis Reflex To Culture Urgent
Abnormal Lab Results
01/31/24
18:11
RBC 3.46 L 10^6/uL
(4.70-6.10)
Hgb 10.3 L g/dL
(13.0-18.0)
Hct 33.1 L %
(39.0-52.0)
MCV 95.7 H fL
(80.0-94.0)
MCHC 31.1 L g/dL
(33.0-37.0)
Absolute Lymphs (auto) 0.8 L 10^3/uL
(1.2-3.4)
Absolute Monos (auto) 0.7 H 10^3/uL
(0.1-0.6)
Immature Gran % 0.6 H %
(0-0.5)
Lymphocytes % 11.8 L %
(20.5-51.1)
Monocytes % 10.6 H %
(1.7-9.3)
Carbon Dioxide 31 H mmol/L
(22-30)
BUN 28 H mg/dl
(9-20)
Creatinine 1.5 H mg/dL
(0.7-1.3)
Glucose 133 H mg/dl
(70-99)
01/31/24 18:11
01/31/24 18:11
Vital Signs
Initial and Last Documented VS:
Initial Vital Signs
Temp Pulse Resp BP Pulse Ox
98.3 F 92 16 134/68 96
01/31/24 17:12 01/31/24 17:12 01/31/24 17:12 01/31/24 17:12 01/31/24 17:12
Last Documented Vital Signs
Temp Pulse Resp BP Pulse Ox
98.3 F 72 19 144/67 95
01/31/24 17:12 01/31/24 18:45 01/31/24 18:45 01/31/24 18:14 01/31/24 18:55
*Critical Care Note
Total Time (30-74mins, 75-104mins- exclusive of procedures): Not Applicable
ED Attending Note
-
Portions of this chart may have been created with voice recognition software.� Occasional wrong word or��sound alike� substitutions may have occurred due to the inherent limitations of voice recognition software.
Discharge Plan
Departure
Patient Disposition: Admit
Date of Disposition: 01/31/24
Time of Disposition: 19:37
Presentation/result/management discussed w/ accepting MD/DO: Hospitalist
Discharge Problem:
Cellulitis
Prescriptions:
No Action
amlodipine 10 MG tablet
10 mg PO QPM
tamsulosin [Flomax] 0.4 MG capsule
0.4 mg PO DAILY
atorvastatin 80 MG tablet
40 mg PO QPM
calcium carbonate 600 MG tablet
600 mg PO DAILY
coenzyme [id number] E [Co Q-10 (with Vit E)] 1 EACH capsule
100 mg PO QPM
metoprolol succinate [Toprol XL] 100 MG tablet extended release 24 hr
100 mg PO DAILY@1200
milk thistle 150 mg Capsule
300 mg PO QPM
green tea leaf extract Capsule
2 cap PO NOON
baclofen 10 MG tablet
10 mg PO TID
aspirin 81 mg Tablet,Delayed Release (Dr/Ec)
81 mg PO DAILY
nystatin-triamcinolone 100,000-0.1 unit/g-% cream
1 applic TOPICAL BID
vitamin B complex Tablet
1 tab PO DAILY
furosemide [Lasix] 20 mg Tablet
20 mg PO DAILY
memantine 5 mg Tablet
5 mg PO DAILY
duloxetine [Cymbalta] 30 mg Capsule,Delayed Release(Dr/Ec)
60 mg PO HS
cyanocobalamin (vitamin B-12) 1,000 mcg Lozenge
1,000 mcg SUBLINGUAL DAILY@1200
mupirocin 2 % Ointment
1 applic TOPICAL DAILY
rivastigmine tartrate 4.5 mg Capsule
4.5 mg PO BID
miconazole nitrate [Miconazorb AF] 2 % Powder
1 applic topical BID Qty: 85 0RF
cephalexin 500 mg Capsule
500 mg PO Q8H Qty: 18 0RF
Referrals:
Demetria Parsons PA-C [Family Provider] -
Interventions
Interventions:
*Risk Screen - Suicide Last Done: 01/31/24 17:12
ED- Fall Risk Assessment Last Done: 01/31/24 18:55
ED-Skin Assessment Last Done: 01/31/24 18:55
Discharge Date and Time
Print Language: [place]
[2024-01-31 18:14] VITALS: BP 144/67
[2024-01-31 18:19] LABS: % Basophils 0.6 % (0-2); % Eosinophils 3.8 % (0-6); % Immature Granulocytes 0.6 % (0-0.5); % Lymphocytes 11.8 % (20.5-51.1); % Monocytes 10.6 % (1.7-9.3); % Neutrophils 72.6 % (42.2-75.2); Absolute Eosinophils 0.3 10^3/uL (0-0.7); Absolute Lymphocytes 0.8 10^3/uL (1.2-3.4); Absolute Monocytes 0.7 10^3/uL (0.1-0.6); Absolute Neutrophils 4.9 10^3/uL (1.4-6.5); Hematocrit 33.1 % (39.0-52.0); Hemoglobin 10.3 g/dL (13.0-18.0); Mean Corp Hgb Conc. 31.1 g/dL (33.0-37.0); Mean Corpuscular Hgb 29.8 pg (27.0-31.0); Mean Corpuscular Volume 95.7 fL (80.0-94.0); Mean Platelet Volume 9.4 fL (7.4-10.4); Nucleated Red Blood Cells % 0 % (-); Platelet Count 260 10^3/uL (130-400); Red Blood Cell Count 3.46 10^6/uL (4.70-6.10); Red Cell Dist. Width 13.2 % (11.5-14.5); White Blood Cell Count 6.8 10^3/uL (4.8-10.8)
[2024-01-31] MEDS: ANCEF 10 IV (18:23)
[2024-01-31 18:33] LABS: Blood Urea Nitrogen 28 mg/dl (9-20); Calcium 8.4 mg/dl (8.4-10.2); Carbon Dioxide 31 mmol/L (22-30); Chloride 106 mmol/L (98-107); Glucose 133 mg/dl (70-99); Potassium 4.4 mmol/L (3.5-5.1); Sodium 144 mmol/L (135-145); eGFR 46.19
[2024-01-31] MEDS: CLEOCIN 50 IV (18:35)
[2024-01-31 19:00] VITALS: BP 140/67
[2024-01-31 20:00] VITALS: BP 134/68
--- NOTE | 2024-01-31 20:13 | HPS.HSE ---
Family Physician
-
Family Physician: Demetria Parsons
Chief Complaint
-
L Foot Wounds / Malodor, Change in Mental Status
History of Present Illness
Patient is an 83y M with PMH significant for L hemiparesis s/p prior CVA, hypertension and dementia who presents to ED for evaluation of L foot swelling, redness and open, malodorous wounds of the toes. History obtained primarily from his
at the bedside. She states that the foot has been swollen and the toes started to weep with malodorous discharge about 5-6 days ago. On Thursday they presented to Urgent Care for evaluation. Cultures were reportedly obtained and patient was
started on Keflex at that time. The odor has improved according to his ; however, he has developed increased redness and swelling of the dorsum of the foot since that time.
Patient has had no fevers / chills, GI or complaints. He denies any cough or sore throat.
states that patient has also been more lethargic and more confused than usual. Today, he had some intermittent 'jerking movements' while sleeping that states he has had occasionally in the past with acute infections / illnesses.
At the time of my examination, patient is awake and interactive - if confused. states that he is more alert and talkative than earlier.
Medical History
Past Medical History
Past Medical History: Reports Other
Additional Past Medical History:
ASCVD / Prior CVA / Carotid Stenosis
L Hemiparesis
Hypertension
Heart Block
Nephrolithiasis
Dementia
Past Surgical History: Reports Other
Additional Past Surgical History:
Right CEA
T&A
PPM Placement
Herniorrhaphy
Left Orchiectomy
Ureteroscopies
Social History
Tobacco: Non-smoker
Alcohol: None
Drug: None
Personal:
Living: With Family
Family History
Family History: Not pertinent
Allergies / Home Medications
Allergies reflects when Allergies were last updated in [employer].
Home Medications with original date entered in [employer]
Allergy/Medication List:
Allergies
Allergy/AdvReac Type Severity Reaction Status Date / Time
doxycycline monohydrate Allergy MIGRAINE Verified 01/31/24 17:15
[From Vibramycin]
Sulfa (Sulfonamide Allergy difficulty Verified 01/31/24 17:15
Antibiotics) breathing,
[Sulfa(Sulfonamide hives
Antibiotics)]
vancomycin Allergy dizziness,double Verified 01/31/24 17:15
vision
Home Medications
amlodipine 10 mg tablet 10 mg PO QPM Blood pressure 09/29/17
tamsulosin 0.4 mg capsule (Flomax) 0.4 mg PO BID Urinary issue 08/11/20
atorvastatin 80 mg tablet 40 mg PO QPM High Cholesterol 06/17/21
calcium carbonate 600 mg PO DAILY Supplement 06/17/21
coenzyme [id number] 100 mg-5 unit capsule (Co Q-10 (with Vit E)) 100 mg PO QPM Supplement 06/17/21
metoprolol succinate 100 mg tablet,extended release 24 hr (Toprol XL) 100 mg PO DAILY@1200 Blood Pressure 12/12/21
baclofen 10 mg tablet 10 mg PO TID Muscle Spasms 09/26/22
green tea leaf extract 2 cap PO NOON Supplement 09/26/22
milk thistle 150 mg capsule 300 mg PO QPM Supplement 09/26/22
aspirin 81 mg tablet,delayed release 81 mg PO DAILY Blood Clot Prevention/Tx 10/12/23
cyanocobalamin (vitamin B-12) 1,000 mcg sublingual lozenge 1,000 mcg sublingual DAILY@1200 Supplement 10/12/23
duloxetine 30 mg capsule,delayed release (Cymbalta) 60 mg PO HS Neurological Condition 10/12/23
memantine 5 mg tablet 5 mg PO DAILY Alzheimer's 10/12/23
rivastigmine tartrate 4.5 mg capsule 4.5 mg PO BID Neurological Condition 10/12/23
vitamin B complex 1 tab PO DAILY Supplement 10/12/23
cephalexin 500 mg capsule 500 mg PO Q8H Infection #18 caps 10/16/23
Review of Systems
-
History Source: Patient and Family
A 12 point ROS was completed and negative except as noted: Yes
Constitutional: Reports Fatigue; Denies Fever or Chills
Respiratory: Reports Trouble Breathing (Chronic dyspnea with activity - very sedentary); Denies Cough
Cardiac: Denies Chest Pain or Palpitations
Abdomen/GI: Denies Abdominal Pain, Nausea, Vomiting or Diarrhea
: Reports Incontinence; Denies Dysuria, Frequency or Flank Pain
Musculoskeletal: Reports Edema; Denies Joint Pain
Neurological: Reports Weakness; Denies Dizzy or Headache
Psych: Reports Dementia; Denies Depression or Anxiety
Physical Exam
Vital Signs
Vital Signs
Temp Pulse Resp BP Pulse Ox
98.3 F 72 19 144/67 95
01/31/24 17:12 01/31/24 18:45 01/31/24 18:45 01/31/24 18:14 01/31/24 18:55
Physical Exam
General: Other (83y M in no acute distress. Awake and interactive. Not oriented to time, situation.)
HEENT: Moist mucous membranes and PERRLA
Respiratory: Clear; No Wheezes, Rales or Rhonchi
Cardiac: S1/S2 and Regular Rhythm; No Murmur
GI: Other (Obese / distended. Not tender. Pos BS.)
Musculoskeletal: No Clubbing, No Cyanosis and Other (Nodular edema b/l LEs - L > R. Dark erythema and edema over the dorsum of the L foot. Superficial skin breakdown / ulcerations / weeping from digits 2-5 on the L foot. Mild increased warmth.)
Neuro: Awake and Alert; No Oriented
Laboratory Results
-
01/31/24 18:11
01/31/24 18:11
Impression/Plan
-
A/P: Patient is an 83y M with PMH significant for hypertension, ASCVD / prior CVA and chronic L hemiparesis who presents to ED for evaluation of L foot swelling, redness and increased fatigue / coinfusion.
Left Foot Cellulitis
Left Foot Wounds
- Admit for further evaluation and treatment.
- IV abx with Ancef for now.
- Malodor is improved - though edema / erythema is increased per .
- Follow for continued clinical improvement.
- Wound care evaluation for local care of superficial wounds / ulcerations on toes.
- Lymphedema treatment with elevation / compression / etc.
Acute TME
Senile Dementia
- Increased confusion (and some abnormal movements) likely due to acute infectious process.
- Treat cellulitis as noted above.
- Already somewhat improved according to .
- Continue current med regimen without changes.
- Follow for continued improvement.
Benign Hypertension
- Stable. Continue outpatient med regimen and adjust as needed.
CKD III
- Stable. SCr is at / near known baseline.
- Follow for any changes.
Anemia of Chronic Disease
- Stable. Hgb is at / near known baseline.
- Follow for any changes.
ASCVD
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
- Stable. No new focal neuro deficits.
- Continue current CV med regimen including ASA, statin, etc.
- Continue supportive care including baclofen, etc.
BPH
- Stable. Continue tamsulosin.
- Bladder scan protocol.
DVT Prophylaxis: Subcut heparin
Code Status: Full
[2024-01-31 21:30] VITALS: BP 125/60; BMI 31.6
--- NOTE | 2024-01-31 21:30 | PTCARENOTE ---
Received patient via stretcher accompanied by PCT, pulled from stretcher to bed without difficulty. Nursing assessment completed and as documented. at bedside assisted with admission questions. Instructed use of call urrutia and within reach, VSS,
care ongoing.
[2024-01-31] MEDS: LIORESAL 10 MG PO (22:36)
[2024-01-31] MEDS: EXELON 1.5 MG PO (22:36)
[2024-01-31] MEDS: NORVASC 10 MG PO (22:36)
[2024-01-31] MEDS: FLOMAX 0.4 MG PO (22:36)
[2024-01-31] MEDS: EXELON 3 MG PO (22:36)
[2024-01-31] MEDS: LIPITOR 40 MG PO (22:36)
[2024-01-31] MEDS: CYMBALTA DELAYED RELEASE 60 MG PO (22:37)
[2024-01-31 22:53] VITALS: BP 122/58
--- NOTE | 2024-02-01 01:15 | PTCARENOTE ---
Patient with multiple and frequent verbal outburst of nonsensical conversation - hx of dementia, and unable to cooperative with staff. Remains in semi private room with oriented roommate - moved roommate to another room. Incontinence care provided
with PCT, patient became irate, grabbing staff, and screaming. Multiple staff members assisted in hygiene care, patient unable to orient at this time. Switch Inspector made aware of bed changes and patients mentation. Call urrutia within reach, VSS, care
ongoing.
[2024-02-01] MEDS: ANCEF 5 IV ×2 (03:43→13:19)
[2024-02-01 07:10] VITALS: BP 121/60
--- NOTE | 2024-02-01 07:52 | W.PN.HOSP.TC ---
Today's Communication/Plan
-
Continue antibiotics
Appreciate ID
Follow-up RUFINO and abdominal ultrasound
Assessment / Plan
Assessment / Plan
Physical Exam
General: Other (83y M in no acute distress. Awake and interactive. Not oriented to time, situation.)
HEENT: Moist mucous membranes
Respiratory: Clear to Auscultation Bilaterally
Cardiac: S1/S2 and Regular Rhythm
GI: Other (Obese / distended. Non-tender. Positive bowel sounds.)
Musculoskeletal: No Cyanosis and Other (Nodular edema bilateral lower extremities - Left > Right. Dark erythema and edema over the dorsum of the left foot. Superficial skin breakdown / ulcerations / weeping from digits 2-5 on the L foot. Mild
increased warmth.)
Neuro: Awake and Alert; No Oriented
Assessment/Plan
Patient is an 83y M with PMH significant for hypertension, ASCVD / prior CVA and chronic L hemiparesis who presents to ED for evaluation of L foot swelling, redness and increased fatigue / coinfusion.
Left Foot Cellulitis
Acute Left Foot wound with nonpurulent suprainfection
Chronic Lymphedema
- IV abx with Ancef for now.
- Malodor is improved - though edema / erythema is increased per .
- Follow for continued clinical improvement.
- Wound care evaluation for local care of superficial wounds / ulcerations on toes.
- Lymphedema treatment with elevation / compression / etc.
- Consulted ID, appreciate their evaluation and recommendation
- Check RUFINO
- Patient will need follow-up in lymphedema clinic
Possible anasarca
- Check limited abdominal ultrasound
History of Hyperglycemia
-Check A1c
Acute TME
Senile Dementia
History of movement disorder
possible cognitive impairment; spouse was recently unsure if patient had Alzheimer's Disease - gets periods of hallucinations at at times at baseline per spouse
- Increased confusion (and some abnormal movements) likely due to acute infectious process.
- Treat cellulitis as noted above.
- Already somewhat improved according to .
- Continue current med regimen without changes.
- Follow for continued improvement.
- Follows up with psychiatry at [place]
Pacemaker
Benign Hypertension
- Stable. Continue outpatient med regimen and adjust as needed.
CKD III
- Stable. SCr is at / near known baseline.
- Follow for any changes.
Anemia of Chronic Disease
- Stable. Hgb is at / near known baseline.
- Follow for any changes.
ASCVD
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
- Stable. No new focal neuro deficits.
- Continue current CV med regimen including ASA, statin, etc.
- Continue supportive care including baclofen, etc.
BPH
- Stable. Continue tamsulosin.
- Bladder scan protocol.
History of right bundle branch block
History of pacemaker
History of CAD
History of hypertension
Continue therapy
History of renal calculus
History scrotal hernia
DVT Prophylaxis: Subcut heparin
Code Status: Full
Anticipated Discharge: 24 - 48 hours
Subjective/Interval History
-
Date of Service: February 01, 2024
Patient was seen and examined. He denied any complaints, his Sarah was at bedside and said she thinks patient's cellulitis is improving.
Objective Data
-
Labs:
Laboratory Results
02/01/24
07:42
WBC Pending
Hgb Pending
Hct Pending
Plt Count Pending
Sodium Pending
Potassium Pending
Chloride Pending
Carbon Dioxide Pending
BUN Pending
Creatinine Pending
Glucose Pending
Calcium Pending
Vital Signs:
Vital Signs
Temp Pulse Resp BP Pulse Ox
97.8 F 67 20 122/58 92
01/31/24 22:53 11/17/24 22:53 01/31/24 22:53 01/31/24 22:53 02/01/24 02:07
[2024-02-01 08:14] LABS: Hemoglobin 9.6 g/dL (13.0-18.0); Mean Corpuscular Hgb 30.5 pg (27.0-31.0); Mean Corpuscular Volume 95.2 fL (80.0-94.0); Mean Platelet Volume 9.8 fL (7.4-10.4); Platelet Count 242 10^3/uL (130-400); Red Blood Cell Count 3.15 10^6/uL (4.70-6.10); Red Cell Dist. Width 13.1 % (11.5-14.5); White Blood Cell Count 7.7 10^3/uL (4.8-10.8)
[2024-02-01] MEDS: OSCAL CAL 500 500 MG PO (08:44)
[2024-02-01] MEDS: LIORESAL 10 MG PO ×3 (08:44→21:29)
[2024-02-01] MEDS: FLOMAX 0.4 MG PO ×2 (08:44→21:29)
[2024-02-01] MEDS: NAMENDA 5 MG PO (08:44)
[2024-02-01] MEDS: ASPIR LOW (ENTERIC COATED) 81 MG PO (08:45)
[2024-02-01] MEDS: EXELON 3 MG PO ×2 (08:45→21:27)
[2024-02-01] MEDS: EXELON 1.5 MG PO ×2 (08:46→21:27)
[2024-02-01] MEDS: DESENEX/MITRAZOL/ZEASORB 1 APPLIC TOPICAL ×2 (08:46→21:40)
[2024-02-01] MEDS: HEPARIN 5000 UNITS SC ×2 (08:54→21:27)
[2024-02-01 08:59] LABS: Blood Urea Nitrogen 26 mg/dl (9-20); Calcium 8.2 mg/dl (8.4-10.2); Carbon Dioxide 31 mmol/L (22-30); Chloride 106 mmol/L (98-107); Estimated Creatinine Clearance 48 ml/min; Glucose 110 mg/dl (70-99); Potassium 4.2 mmol/L (3.5-5.1); Sodium 143 mmol/L (135-145); eGFR 50.18
[2024-02-01 09:31] VITALS: BP 122/86; PULSE 66; O2SAT 94
[2024-02-01 09:36] VITALS: BP 122/86; PULSE 66; O2SAT 94
--- NOTE | 2024-02-01 10:30 | CON.ID ---
Consultation
-
Date/Time Consultation Requested: 02/01/24 8:37
Date/Time Consultation Performed: 02/01/24 10:30
Requesting Provider: Dr Figueroa
Performing Provider: Dr Reynolds
Reason for Consultation: LLE cellulitis, second episode in the past few months
Chief Complaint / Past History
Chief Complaint
L Foot Wounds / Malodor, Change in Mental Status
History of Present Illness
Mr Linda is an 83 year old male with history notable for L hemiparesis s/p CVA, chronic uncontrolled lymphedema, dementia who presented here 01/30 for L foot swelling, redness and open wound of the toes (unroofed blister). He is not known to have
DM2, I do not see a previous a1c on file, there are some episodes of mild hyperglycemia on file including fasting hyperglycemia. History obtained by chart review. noted that the foot was swollen with malodorous wound starting about 5-6 days
prior to arrival, they went to urgent care and he was started on keflex however he had increasing swelling of the dorsum of the foot. No roxann fevers or chills. has noted increased confusion and lethargy compared to his baseline. Family
reported jerking movements prior to arrival. At baseline he doesnt wear shoes, spends most of the day with his legs elevated in recliner. reports bilateral lower extremity swelling for years. They have SCDs but havent been using them.
Reports he doesnt typically wear compression garments.
Since arrival here he has been afebrile, bp stable, wbc initially 6.8 today 7.7, hgb 9.6, plt 242, cr 1.5 which is his baseline, CT head w/o contrast 10/12/23: old right superior frontal and left external capsule infarcts, there is a venous US on
file from 2019 - unremarkable, a wound culture was done and a mrsa nasal screen on the nose was completed, 10/13/23 TTE: normal EF does have a wall motion abnormality. he is currently on cefazolin and had a dose of clindamycin in the ER.
Past History
Additional Past Medical History:
ASCVD / Prior CVA / Carotid Stenosis
L Hemiparesis
Hypertension
Heart Block
Nephrolithiasis
Dementia
Additional Past Surgical History:
Right CEA
T&A
PPM Placement
Herniorrhaphy
Left Orchiectomy
Ureteroscopies
Allergy History:
doxycycline monohydrate [From Vibramycin] Allergy (Verified 01/31/24 17:15)
MIGRAINE
Sulfa (Sulfonamide Antibiotics) [Sulfa(Sulfonamide Antibiotics)] Allergy (Verified 01/31/24 17:15)
difficulty breathing, hives
vancomycin Allergy (Verified 01/31/24 17:15)
dizziness,double vision
Medications Reviewed: Yes
Social History
Tobacco: Non-Smoker
Alcohol: None
Drug: None
Family History
Family History: Not Pertinent
Review of Systems
Review of Systems
General: Negative Fever or Chills
All systems: All other systems were reviewed and were negative
Vital Signs
Temp Pulse Resp BP Pulse Ox
97.6 F 70 20 121/60 92
02/01/24 07:10 02/01/24 07:10 02/01/24 07:10 02/01/24 07:10 02/01/24 07:10
Physical Exam
Physical Exam
Constitutional: No Acute Distress
Cardiovascular: Regular Rate and S1/S2; Negative Murmur or Rub
Pulmonary: Clear and Symmetric; Negative Wheezes, Rales or Rhonchi
Gastrointestinal: Soft, Non Tender, Non Distended and Normal Bowel Sounds
Skin: Warm, Dry, Rash (superficial ruptured blisters on multiple toes) and Other (hyperkeratosis and papillomatosis of chronic lymphedema); Negative Jaundice
Lab / Diagnostic Study Results
02/01/24 07:42
02/01/24 07:42
Abs Immat Gran (auto) 0.0 10^3/uL (0-0.05) 01/31/24 18:11
Absolute Neuts (auto) 4.9 10^3/uL (1.4-6.5) 01/31/24 18:11
Absolute Lymphs (auto) 0.8 10^3/uL (1.2-3.4) L 01/31/24 18:11
Absolute Monos (auto) 0.7 10^3/uL (0.1-0.6) H 01/31/24 18:11
Absolute Basos (auto) 0.0 10^3/uL (0-0.2) 01/31/24 18:11
Immature Gran % 0.6 % (0-0.5) H 01/31/24 18:11
Neutrophils % 72.6 % (42.2-75.2) 01/31/24 18:11
Lymphocytes % 11.8 % (20.5-51.1) L 01/31/24 18:11
Monocytes % 10.6 % (1.7-9.3) H 01/31/24 18:11
Eosinophils % 3.8 % (0-6) 01/31/24 18:11
Basophils % 0.6 % (0-2) 01/31/24 18:11
Microbiology Results
Micro:
01/31/24 22:53 MRSA Screen - Pending
Nose
01/31/24 18:11 Wound Culture - Pending
Foot - Left Gram Stain - Pending
Assessment / Plan
Acute Foot wound with nonpurulent suprainfection
Chronic Lymphedema - un controlled
Possible anasarca
- TTE normal EF 4 months ago
Peripheral Vascular Disease - h/o CVA
CKD
Pacemaker
Dementia
- wound culture in progress, gram stain pending
- mrsa screen in progress
- h/o hyperglycemia - check a1c, not a known diabetic
- check RUFINO
- check limited abd US: for ascites/liver architecture - suspect anasarca
- compression and elevation; has SCDs at home
- agree with cefazolin - dose increased to 2 gm IV q8hrs; likely transition to orals in 24-48 hours
- follow overnight, on dc will need follow up in lymphedema clinic. Counseled on need for management of lymphedema or risk of ongoing recurrent infections.
--- NOTE | 2024-02-01 10:34 | CM ---
Spoke w/ spouse as pt has dementia.
Pt lives w/ spouse and son in [place] steps
Pt is non ambulatory and receives assistance w/ ambulation and transfers from family
Pt has cane and wheelchair for support
Received skilled rehab in the past at [facility]
Had [facility] in the past. Per spouse, she would like pt to receive [facility] again at d/c
Address, point of contact and insurance verified.
PCP: Dr. Demetria Parsons
Pharmacy: [facility]
Discussed PT/OT current recommendation of . Pt is currently a max assist x2
Per spouse, she does not want pt to go to rehab again, she wants pt to d/c home w/ [facility]
TT hospitalist for VN/PT order
[facility] referral completed in [facility], liaison made aware
Plan: Home w/ [facility]
--- NOTE | 2024-02-01 11:34 | VNURNOTE ---
Home Health Liaison spoke with patient's spouse Sarah to discuss [facility] nurse/therapy, visits, schedule and homebound status. She is familiar with VN services and is agreeable and understands that visits at home will be 2-3 x per week to assess and
teach medical management.
[facility] liaison provided contact information. Patient is aware that [facility] will contact them for start of care in 1-2 days after discharge from .
[facility] referral completed in [facility].
--- NOTE | 2024-02-01 11:47 | WOUNDNOTE ---
L 2-5TH TOES
--- NOTE | 2024-02-01 11:48 | WOUNDNOTE ---
L 5TH TOE
--- NOTE | 2024-02-01 11:50 | WOUNDNOTE ---
WON RN note: Patient admitted with Cellulitis of L foot.
See H&P for complete history. Lives with , current with VN.
PMH: CVA,HTN,UTI,PM(RBBB),R carotid endarterectomy, scrotal hernia with L orchiectomy, L foot blister.
Wound Location and type/assessment: Patient known to service, last seen 10/13/23 for L foot blister and cellulitis. today has dry open blisters on L 2-4th toes, intact serous blisters on 5th toe. Much less redness and edema per Sarah at
bedside. Heels are intact. + palpable pedal pulses, skin dry both legs. Patient stood with assist from at bedside. Buttocks now healed, mild MASD fungal powder in use and applied. Air chair cushion applied to chair. Legs elevated in recliner
chair. Wound culture pending from L toes.
Appetite: Good.
Pressure redistribution devices in place: On Accumax, nurse Geri to apply air overlay to bed. pillow under calves.
Plan: L toes: adaptic, folded gauze and chelsi. Adhesive foams applied to heels to protect. A&D ointment applied to both legs and feet, will order mineral oil for tomorrow. Will confirm orders with hospitalist and updated nurse.
Updated care plan and will follow as needed.
Note to case management of equipment requested for discharge: Resume VN
Recommend follow up at wound care center upon discharge.
[2024-02-01] MEDS: VITAMIN B-12 1000 MCG PO (13:19)
[2024-02-01] MEDS: TOPROL XL 100 MG PO (13:19)
--- NOTE | 2024-02-01 15:19 | PTCARENOTE ---
Report called to TANIA Patterson. Patient to be transferred to room 235.
[2024-02-01 15:43] VITALS: BP 122/56
[2024-02-01] MEDS: ANCEF 10 IV (17:31)
[2024-02-01] MEDS: NORVASC 10 MG PO (17:33)
[2024-02-01] MEDS: LIPITOR 40 MG PO (17:34)
[2024-02-01] MEDS: CYMBALTA DELAYED RELEASE 60 MG PO (21:26)
[2024-02-01 23:00] VITALS: BP 123/57
[2024-02-02] MEDS: ANCEF 10 IV ×2 (00:23→09:34)
--- NOTE | 2024-02-02 01:12 | PTCARENOTE ---
Patient ordered urinalysis. Patient grossly incontinent of urine. Messaged AURELIO Mcdaniel for straight cath order. Per Fanny, the UA order will be D/Patrick by her due to patient being afebrile, no white count, and mentation improving. Will
continue to monitor.
[2024-02-02 06:26] LABS: % Basophils 0.4 % (0-2); % Eosinophils 3.9 % (0-6); % Immature Granulocytes 0.4 % (0-0.5); % Lymphocytes 17.4 % (20.5-51.1); % Neutrophils 66.9 % (42.2-75.2); Absolute Eosinophils 0.3 10^3/uL (0-0.7); Absolute Lymphocytes 1.3 10^3/uL (1.2-3.4); Absolute Monocytes 0.8 10^3/uL (0.1-0.6); Hematocrit 31.5 % (39.0-52.0); Hemoglobin 9.9 g/dL (13.0-18.0); Mean Corp Hgb Conc. 31.4 g/dL (33.0-37.0); Mean Corpuscular Volume 95.5 fL (80.0-94.0); Mean Platelet Volume 9.7 fL (7.4-10.4); Nucleated Red Blood Cells % 0 % (-); Platelet Count 253 10^3/uL (130-400); Red Cell Dist. Width 12.9 % (11.5-14.5); White Blood Cell Count 7.5 10^3/uL (4.8-10.8)
[2024-02-02 07:00] LABS: Blood Urea Nitrogen 26 mg/dl (9-20); Calcium 8.2 mg/dl (8.4-10.2); Carbon Dioxide 30 mmol/L (22-30); Chloride 104 mmol/L (98-107); Estimated Creatinine Clearance 48 ml/min; Glucose 105 mg/dl (70-99); Magnesium 1.7 mg/dl (1.6-2.3); Potassium 4.3 mmol/L (3.5-5.1); Sodium 143 mmol/L (135-145); eGFR 50.18
[2024-02-02 07:35] VITALS: BP 139/71
--- NOTE | 2024-02-02 08:32 | W.PN.HOSP.TC ---
Today's Communication/Plan
-
IR consult for thora
Patient's report patient with intermittent dyspnea at home -- could be due to pleural effusion but check echo, ekg, proBNP
Assessment / Plan
Assessment / Plan
Physical Exam
General: Not in acute distress
HEENT: Moist mucous membranes
Respiratory: Clear to Auscultation Bilaterally
Cardiac: S1/S2 and Regular Rhythm
GI: Other (Obese / distended. Non-tender. Positive bowel sounds.)
Musculoskeletal: No Cyanosis and Other (Nodular edema bilateral lower extremities - Left > Right. Dark erythema and edema over the dorsum of the left foot. Superficial skin breakdown / ulcerations / weeping from digits 2-5 on the L foot. Mild
increased warmth. Covered on dressing)
Neuro: Awake and Alert; Not oriented

US Periph Art LOWER Ext w RUFINO Results (as per radiologist's report)
'IMPRESSION:
Right leg: RUFINO measures 1.04. TBI 0.98. Vessel leung appear heavily calcified, however there is multiphasic flow throughout the leg with no focal or flow-limiting stenosis appreciated. Multiphasic pedal flow.
Left leg: RUFINO within normal limits measuring 1.05. TBI is mild to moderately diminished measuring 0.54. Vessel leung appear heavily calcified, however there is multiphasic flow throughout the leg with no focal or flow limiting stenosis appreciated.
Multiphasic pedal flow.'
Abdominal Ultrasound Results (as per radiologist's report)
'IMPRESSION: No findings to confirm ascites.
Right pleural effusion.
Pancreas, distal abdominal aorta and left kidney not visualized, as noted above.
No focal abnormality of the liver or gallbladder.'

Assessment/Plan
Patient is an 83y M with PMH significant for hypertension, ASCVD / prior CVA and chronic L hemiparesis who presents to ED for evaluation of L foot swelling, redness and increased fatigue / coinfusion.
Left Foot Cellulitis
Acute Left Foot wound with nonpurulent suprainfection
Chronic Lymphedema
- Stopped Ancef
- Switch to Keflex for 5 more days
- Wound care evaluation for local care of superficial wounds / ulcerations on toes.
- Lymphedema treatment with elevation / compression / etc.
- Consulted ID, appreciate their evaluation and recommendation
- RUFINO showed multiphasic flow
- Patient will need follow-up in lymphedema clinic
Right Pleural Effusion on Abdominal Ultrasound
Intermitted Dyspnea on Exertion Prior to Arrival with history of cardiac disease
- IR consulted for thoracentesis
- Check proBNP, echo, ekg
History of Hyperglycemia
Prediabetes
-A1c is 5.9%
Acute TME
Senile Dementia
History of movement disorder
possible cognitive impairment; spouse was recently unsure if patient had Alzheimer's Disease - gets periods of hallucinations at at times at baseline per spouse
- Increased confusion (and some abnormal movements) likely due to acute infectious process.
- Treat cellulitis as noted above.
- Already somewhat improved according to .
- Continue current med regimen without changes.
- Follow for continued improvement.
- Follows up with psychiatry at [place]
Pacemaker
Benign Hypertension
- Stable. Continue outpatient med regimen and adjust as needed.
CKD III
- Stable. SCr is at / near known baseline.
- Follow for any changes.
Anemia of Chronic Disease
- Stable. Hgb is at / near known baseline.
- Follow for any changes.
ASCVD
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
- Stable. No new focal neuro deficits.
- Continue current CV med regimen including ASA, statin, etc.
- Continue supportive care including baclofen, etc.
BPH
- Stable. Continue tamsulosin.
- Bladder scan protocol.
History of right bundle branch block
History of pacemaker
History of CAD
History of hypertension
Continue therapy
History of renal calculus
History scrotal hernia
DVT Prophylaxis: Subcut heparin
Code Status: Full
Anticipated Discharge: 24 - 48 hours
Subjective/Interval History
-
Date of Service: February 02, 2024
Patient was seen and examined. Patient has been on and off confused, sleepy this morning, but awakens and responds.
Objective Data
-
Labs:
Laboratory Results
02/02/24
05:58
WBC 7.5
Hgb 9.9 L
Hct 31.5 L
Plt Count 253
Sodium 143
Potassium 4.3
Chloride 104
Carbon Dioxide 30
BUN 26 H
Creatinine 1.4 H
Glucose 105 H
Calcium 8.2 L
Vital Signs:
Vital Signs
Temp Pulse Resp BP Pulse Ox
97.8 F 63 20 139/71 97
02/02/24 07:35 02/02/24 07:35 02/02/24 07:35 02/02/24 07:35 02/02/24 07:35
I&O
02/01/24 02/02/24 02/03/24
06:59 06:59 06:59
Intake Total 240 / 240
Balance 240 / 240
[2024-02-02 08:38] LABS: Glycohemoglobin (HgbA1c) 5.9 % (4.0-5.6)
[2024-02-02] MEDS: LIORESAL 10 MG PO ×3 (09:30→21:39)
[2024-02-02] MEDS: EXELON 3 MG PO ×2 (09:30→21:50)
[2024-02-02] MEDS: FLOMAX 0.4 MG PO ×2 (09:31→21:39)
[2024-02-02] MEDS: EXELON 1.5 MG PO ×2 (09:31→21:39)
[2024-02-02] MEDS: NAMENDA 5 MG PO (09:31)
[2024-02-02] MEDS: OSCAL CAL 500 500 MG PO (09:31)
[2024-02-02] MEDS: ASPIR LOW (ENTERIC COATED) 81 MG PO (09:31)
[2024-02-02] MEDS: HYDROPHOR 1 APPLIC TOPICAL (09:32)
[2024-02-02] MEDS: HEPARIN 5000 UNITS SC ×2 (09:32→21:39)
[2024-02-02] MEDS: DESENEX/MITRAZOL/ZEASORB 1 APPLIC TOPICAL ×2 (09:34→21:50)
--- NOTE | 2024-02-02 09:46 | W.PN.ID1 ---
Date of Service
Date of Service: February 02, 2024
Today's Communication
- switch to keflex for 5 more days
- on dc will need follow up in lymphedema clinic. Counseled on need for management of lymphedema or risk of ongoing recurrent infections.
Assessment / Plan
Acute Foot wound with nonpurulent suprainfection
Chronic Lymphedema - un controlled
Possible anasarca
- TTE normal EF 4 months ago
Peripheral Vascular Disease - h/o CVA
CKD
Pacemaker
Dementia
- wound culture in progress, gram stain pending
- mrsa screen negtaive
- a1c c/w prediabetes, no treatment needed at this time
- RUFINO - multiphasic flow bilaterally
- limited abd US: no ascites and normal liver architecture
- compression and elevation; has SCDs at home
- switch to keflex for 5 more days
- on dc will need follow up in lymphedema clinic. Counseled on need for management of lymphedema or risk of ongoing recurrent infections.
Chief Complaint
-: Cellulitis
Subjective / Review of Systems
afebrile
bp stable
no overnight events
somewhat confused today
Vital Signs / Physical Exam
Vital Signs
Vital Signs
Temp Pulse Resp BP Pulse Ox
97.8 F 63 20 139/71 97
02/02/24 07:35 02/02/24 07:35 02/02/24 07:35 02/02/24 07:35 02/02/24 07:35
Physical Exam
Constitutional: No Acute Distress
Cardiovascular: Regular Rate and S1/S2; Negative Murmur or Rub
Pulmonary: Clear and Symmetric; Negative Wheezes or Rales
Gastrointestinal: Soft, Non Tender, Non Distended and Normal Bowel Sounds
Skin: Warm, Dry and Rash (resolved erythema, superficial blister healing, much improved edema); Negative Jaundice
Objective Data
Lab Data
Lab Results
02/02/24 05:58
02/02/24 05:58
Estimated Creat Clear 48 ml/min 02/02/24 05:58
Most recent labs reviewed.
Micro Results:
01/31/24 18:11 Wound Culture - Preliminary
Foot - Left Gram Stain - Preliminary
01/31/24 22:53 MRSA Screen - Final
Nose No Methicillin Resistant Staphylococcus aureus isolated.
Care Review
Plan reviewed with: Nurse (pasha early)
[2024-02-02] MEDS: VITAMIN B-12 PO (13:16)
[2024-02-02] MEDS: TOPROL XL PO (13:16)
[2024-02-02 15:36] VITALS: BP 141/66; PULSE 68
[2024-02-02 15:46] VITALS: BP 117/73
[2024-02-02] MEDS: KEFLEX 500 MG PO ×2 (17:36→21:39)
[2024-02-02] MEDS: NORVASC 10 MG PO (17:36)
[2024-02-02] MEDS: LIPITOR 40 MG PO (17:36)
[2024-02-02] MEDS: CYMBALTA DELAYED RELEASE 60 MG PO (21:39)
[2024-02-02 23:00] VITALS: BP 126/81
[2024-02-02 23:07] LABS: LDH 206 U/L (120-246); Total Protein 5.2 g/dl (6.3-8.2)
[2024-02-03] MEDS: TYLENOL 650 MG PO (02:55)
[2024-02-03 06:42] LABS: NT-proBNP 1160 pg/ml
[2024-02-03] MEDS: OSCAL CAL 500 500 MG PO (07:07)
[2024-02-03] MEDS: LIORESAL 10 MG PO ×3 (07:08→21:10)
[2024-02-03] MEDS: NAMENDA 5 MG PO (07:08)
[2024-02-03] MEDS: EXELON 1.5 MG PO ×2 (07:08→21:10)
[2024-02-03] MEDS: HEPARIN 5000 UNITS SC ×2 (07:08→21:10)
[2024-02-03] MEDS: EXELON 3 MG PO ×2 (07:08→21:09)
[2024-02-03] MEDS: KEFLEX 500 MG PO ×4 (07:08→21:10)
[2024-02-03] MEDS: FLOMAX 0.4 MG PO ×2 (07:08→21:10)
[2024-02-03] MEDS: ASPIR LOW (ENTERIC COATED) 81 MG PO (07:08)
[2024-02-03] MEDS: HYDROPHOR 1 APPLIC TOPICAL (07:12)
[2024-02-03] MEDS: DESENEX/MITRAZOL/ZEASORB 1 APPLIC TOPICAL ×2 (07:12→21:10)
[2024-02-03 07:15] VITALS: BP 119/56
[2024-02-03 08:12] LABS: Hematocrit 31.8 % (39.0-52.0); Mean Corp Hgb Conc. 31.4 g/dL (33.0-37.0); Mean Corpuscular Hgb 30.3 pg (27.0-31.0); Mean Corpuscular Volume 96.4 fL (80.0-94.0); Mean Platelet Volume 10.4 fL (7.4-10.4); Platelet Count 251 10^3/uL (130-400); Red Cell Dist. Width 12.9 % (11.5-14.5); White Blood Cell Count 7.4 10^3/uL (4.8-10.8)
[2024-02-03 08:21] LABS: Blood Urea Nitrogen 25 mg/dl (9-20); Calcium 8.1 mg/dl (8.4-10.2); Carbon Dioxide 31 mmol/L (22-30); Chloride 104 mmol/L (98-107); Estimated Creatinine Clearance 52 ml/min; Glucose 93 mg/dl (70-99); Magnesium 1.8 mg/dl (1.6-2.3); Potassium 4.9 mmol/L (3.5-5.1); Sodium 142 mmol/L (135-145); eGFR 54.85
[2024-02-03 09:05] VITALS: BP 154/74; BP_SYST 66
[2024-02-03 09:22] VITALS: BP 154/74
[2024-02-03 12:55] VITALS: PULSE 74; O2SAT 93
[2024-02-03] MEDS: TOPROL XL 100 MG PO (13:00)
[2024-02-03] MEDS: VITAMIN B-12 1000 MCG PO (13:12)
--- NOTE | 2024-02-03 13:36 | W.PN.HOSP.TC ---
Today's Communication/Plan
-
Continue antibiotics
Cardiology evaluation for patient's 's report of increased dyspnea on exertion, consideration for repeat echo
Appreciate Infectious Disease
Assessment / Plan
Assessment / Plan
Physical Exam
General: Not in acute distress
HEENT: Moist mucous membranes
Respiratory: Clear to Auscultation Bilaterally
Cardiac: S1/S2 and Regular Rhythm
GI: Other (Obese / distended. Non-tender. Positive bowel sounds.)
Musculoskeletal: No Cyanosis and Other (Nodular edema bilateral lower extremities - Left > Right. Dark erythema and edema over the dorsum of the left foot. Superficial skin breakdown / ulcerations / weeping from digits 2-5 on the L foot. Mild
increased warmth. Covered with dressing)
Neuro: Awake and Alert; Not oriented

US Periph Art LOWER Ext w RUFINO Results (as per radiologist's report)
'IMPRESSION:
Right leg: RUFINO measures 1.04. TBI 0.98. Vessel leung appear heavily calcified, however there is multiphasic flow throughout the leg with no focal or flow-limiting stenosis appreciated. Multiphasic pedal flow.
Left leg: RUFINO within normal limits measuring 1.05. TBI is mild to moderately diminished measuring 0.54. Vessel leung appear heavily calcified, however there is multiphasic flow throughout the leg with no focal or flow limiting stenosis appreciated.
Multiphasic pedal flow.'
Abdominal Ultrasound Results (as per radiologist's report)
'IMPRESSION: No findings to confirm ascites.
Right pleural effusion.
Pancreas, distal abdominal aorta and left kidney not visualized, as noted above.
No focal abnormality of the liver or gallbladder.'

Assessment/Plan
Patient is an 83y M with PMH significant for hypertension, ASCVD / prior CVA and chronic L hemiparesis who presents to ED for evaluation of L foot swelling, redness and increased fatigue / coinfusion.
Left Foot Cellulitis
Acute Left Foot wound with nonpurulent suprainfection
Chronic Lymphedema
- Stopped Ancef
- Switch to Keflex for 4 more days
- Wound care evaluation for local care of superficial wounds / ulcerations on toes.
- Lymphedema treatment with elevation / compression / etc.
- Consulted ID, appreciate their evaluation and recommendation
- RUFINO showed multiphasic flow
- Patient will need follow-up in lymphedema clinic
Right Pleural Effusion on Abdominal Ultrasound
Intermitted Dyspnea on Exertion Prior to Arrival with history of cardiac disease
- IR consulted for thoracentesis -- but there is too little fluid to remove, no thoracentesis was able to be performed
- proBNP not totally convincing given patient's age, but patient is obese
- Consulted cardiology, appreciate their evaluation and recommendations
History of Hyperglycemia
Prediabetes
-A1c is 5.9%
Acute TME
Senile Dementia
History of movement disorder
possible cognitive impairment; spouse was recently unsure if patient had Alzheimer's Disease - gets periods of hallucinations at at times at baseline per spouse
- Increased confusion (and some abnormal movements) likely due to acute infectious process and possibly contributed from being in the hospital
- Treat cellulitis as noted above.
- Already somewhat improved according to .
- Continue current med regimen without changes.
- Follow for continued improvement.
- Follows up with psychiatry at [facility]
Pacemaker
Benign Hypertension
- Stable. Continue outpatient med regimen and adjust as needed.
CKD III
- Stable. SCr is at / near known baseline.
- Follow for any changes.
Anemia of Chronic Disease
- Stable. Hgb is at / near known baseline.
- Follow for any changes.
ASCVD
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
- Stable. No new focal neuro deficits.
- Continue current CV med regimen including ASA, statin, etc.
- Continue supportive care including baclofen, etc.
BPH
- Stable. Continue tamsulosin.
- Bladder scan protocol.
History of right bundle branch block
History of pacemaker
History of CAD
History of hypertension
Continue therapy
History of renal calculus
History scrotal hernia
DVT Prophylaxis: Subcut heparin
Code Status: Full
Anticipated Discharge: 24 - 48 hours
Subjective/Interval History
-
Date of Service: February 03, 2024
Patient was seen and examined. No new significant symptoms or complaints.
Objective Data
-
Labs:
Laboratory Results
02/03/24
05:38
WBC 7.4
Hgb 10.0 L
Hct 31.8 L
Plt Count 251
Sodium 142
Potassium 4.9
Chloride 104
Carbon Dioxide 31 H
BUN 25 H
Creatinine 1.3
Glucose 93
Calcium 8.1 L
Vital Signs:
Vital Signs
Temp Pulse Resp BP Pulse Ox
97.6 F 77 20 108/58 92
02/03/24 09:05 02/03/24 13:00 02/03/24 09:22 02/03/24 13:00 02/03/24 09:05
I&O
02/02/24 02/03/24 02/04/24
06:59 06:59 06:59
Intake Total 240 / 240 240 / 240
Balance 240 / 240 240 / 240
--- NOTE | 2024-02-03 13:49 | CON.CAR ---
Addendum entered and electronically signed by Dexter Roach MD 02/03/24 16:54:
83 yo male with PMH of PPM, carotid disease, stroke, R CEA, CKD3a is admitted with cellulitis. There is also a report of SOB/KHAN. Exam with RRR, no murmurs, trace LE. EKG shows A sensed, Vpaced rhythm.
Echo today shows normal LVEF EF 55-60%, apical septal hypokinesis.
Overall, appears euvolemic, and not on diuretic.
He has not had ischemic evaluation.
Will plan for Lexiscan nuclear stress test in AM.
Original Note:
Consultation
Consultation Request
Date/Time Consultation Requested: 02/03/24 1335
Date/Time Consultation Performed: 02/03/24 1345
Requesting Provider: Dr. Figueroa
Performing Provider: Saumya CAREY for Dr. Roach
Reason for Consultation: KHAN
Medical History
-
Chief Complaint: left foot wound, change MS
History of Present Illness:
83 y/o male with CHB s/p pacemaker, right carotid endarterectomy, CVA with hemiparesis, hypertension, CKD3A (based on recent labs), and chronic BLE edema who is here for treatment of LLE wound. He has also been noted to be confused and there is
question of underlying dementia. He is being treated for cellulitis with antibiotics. We are consulted since patient has KHAN. This has been noted on and off for several weeks. He has expiratory wheezing currently, to my assessment. He is in no
distress and is on RA. He has stable weight, LE edema, and abdominal distention (no ascites on u/s). He denies any CP. He sleeps in recliner chronically due to post nasal drip. Denies any PND. family in room helps with history as patient has some
confusion.
Past Medical History
Past Medical History: Arrhythmias, CVA, HTN and Other (as above)
Social History
Tobacco: Non-Smoker
Personal:
Living: With Family
Family History
Family History: Reviewed & Not Pertinent
Allergies / Home Medications
Allergy/AdvReac Type Severity Reaction Status Date / Time
Sulfa (Sulfonamide Allergy difficulty Verified 01/31/24 17:15
Antibiotics) breathing,
[Sulfa(Sulfonamide hives
Antibiotics)]
vancomycin Allergy dizziness,double Verified 01/31/24 17:15
vision
doxycycline monohydrate AdvReac MIGRAINE Verified 02/01/24 10:32
[From Vibramycin]
�Medication �Instructions �Recorded �Confirmed �Type
amlodipine 10 mg tablet 10 mg PO QPM Blood pressure 09/29/17 01/31/24 History
tamsulosin 0.4 mg capsule (Flomax) 0.4 mg PO BID Urinary issue 08/11/20 01/31/24 History
atorvastatin 80 mg tablet 40 mg PO QPM High Cholesterol 06/17/21 01/31/24 History
calcium carbonate 600 mg PO DAILY Supplement 06/17/21 01/31/24 History
coenzyme Q40-weeykva E 100 mg-5 100 mg PO QPM Supplement 06/17/21 01/31/24 History
unit capsule (Co Q-10 (with Vit E))
metoprolol succinate 100 mg 100 mg PO DAILY@1200 Blood Pressure 12/12/21 01/31/24 History
tablet,extended release 24 hr
(Toprol XL)
baclofen 10 mg tablet 10 mg PO TID Muscle Spasms 09/26/22 01/31/24 History
green tea leaf extract 2 cap PO NOON Supplement 09/26/22 01/31/24 History
milk thistle 150 mg capsule 300 mg PO QPM Supplement 09/26/22 01/31/24 History
aspirin 81 mg tablet,delayed 81 mg PO DAILY Blood Clot 10/12/23 01/31/24 History
release Prevention/Tx
cyanocobalamin (vitamin B-12) 1,000 mcg sublingual DAILY@1200 10/12/23 01/31/24 History
1,000 mcg sublingual lozenge Supplement
duloxetine 30 mg capsule,delayed 60 mg PO HS Neurological Condition 10/12/23 01/31/24 History
release (Cymbalta)
memantine 5 mg tablet 5 mg PO DAILY Alzheimer's 10/12/23 01/31/24 History
rivastigmine tartrate 4.5 mg 4.5 mg PO BID Neurological 10/12/23 01/31/24 History
capsule Condition
vitamin B complex 1 tab PO DAILY Supplement 10/12/23 01/31/24 History
cephalexin 500 mg capsule 500 mg PO Q8H Infection #18 caps 10/16/23 01/31/24 Rx
Review of Systems
-
History Source: Patient and Family
All other systems: Negative unless noted
Constitutional: Other (confusion)
Respiratory: Trouble Breathing (KHAN)
Physical Exam
Vital Signs
Temp Pulse Resp BP Pulse Ox
97.6 F 77 20 108/58 92
02/03/24 09:05 02/03/24 13:00 02/03/24 09:22 02/03/24 13:00 02/03/24 09:05
Lab Results
02/03/24 05:38
02/03/24 05:38
Ozm-Z-Jkfnxcwzgrw Pept 1160 pg/ml 02/03/24 05:38
Physical Exam
General: Well Developed, Well Nourished and No Apparent Distress
HEENT: Normocephalic and Anicteric
Respiratory: Other (on RA, no rales)
Cardiac: Regular Rhythm and Peripheral Edema (+1 BLE edema, chronic unchanged per patient/family)
GI: Distended (chronic, unchanged)
Skin: Warm, Dry and Other (LLE dressing CDI)
Neuro: Awake, Alert and Other (some confusion is noted)
Impression / Plan
-
LLE cellulitis:
-on ABX
-wound care involved
KHAN:
-etiology is not clear. He denies history of smoking. BNP more elevated than prior, but no weight gain, PND, increase in LE edema or abdominal distension. CXR: Trace bilateral pleural effusions with likely adjacent atelectasis. Of note, he has been
on lasix as OP in past and did not help edema and was stopped due to his baseline kidney dysfunction. He is not obviously volume overloaded to my assessment.
-Echo today is stable. His EKG is stable. His recent device check 01/25/24 - stable. No CP.
-we will evaluate further with stress test to r/o ischemic cause
CHB:
-stable s/p pacemaker, which is functioning appropriately as above
HTN:
-BP stable overall. Continue meds and monitoring.
HLD:
-statin
Data Reviewed
-
EKG: Tracing Personally Visualized and interpreted ( [employer]UCER )
Radiology: Report Reviewed by me (CXR: Trace bilateral pleural effusions with likely adjacent atelectasis.)
Medical Tests (Nuc Med, Echo etc): Report Reviewed by me (Echo 10/13/23: TDS. Lumason contrast used. LVEF is >60-65%. Mild to moderate apical septal hypokinesis. Wall motion is also consistent with conduction abnormality/paced rhythm. Trace
tricuspid regurgitation. PAP 35-40 mmHg.)
Labs: Labs Reviewed by me
--- NOTE | 2024-02-03 14:21 | CM ---
Patient seen at bedside with also present. Plan is for patient to return home with [facility], but information provided about resources from [facility] and patient to follow up. CM will continue to follow for discharge planning needs.
Plan; home with [facility]; [facility] pending acceptance.
[2024-02-03 15:05] VITALS: BP 113/55
--- NOTE | 2024-02-03 15:24 | W.PN.ID1 ---
Date of Service
Date of Service: February 03, 2024
Today's Communication
- continue keflex for 4 more days
- on dc will need follow up in lymphedema clinic. Counseled on need for management of lymphedema or risk of ongoing recurrent infections.
Assessment / Plan
Acute Foot wound with nonpurulent suprainfection
Chronic Lymphedema - un controlled
Possible anasarca
- TTE normal EF 4 months ago
Peripheral Vascular Disease - h/o CVA
CKD
Pacemaker
Dementia
- wound culture polymicrobial; most likely colonizers, patient has already had robust response to treatment directed at strep which is most likely causative pathogen - would not change therapy based on these results
- mrsa screen negative
- Echo today: normal EF, persistent regional wall motion abnormalities
- compression and elevation; has SCDs at home
- continue keflex for 4 more days
- on dc will need follow up in lymphedema clinic. Counseled on need for management of lymphedema or risk of ongoing recurrent infections.
Chief Complaint
-: Cellulitis
Subjective / Review of Systems
afebrile
bp stable
urinary incontinence noted
no events overnight
Vital Signs / Physical Exam
Vital Signs
Vital Signs
Temp Pulse Resp BP Pulse Ox
97.7 F 77 17 113/55 92
02/03/24 15:05 02/03/24 15:05 02/03/24 15:05 02/03/24 15:05 02/03/24 15:05
Physical Exam
Constitutional: No Acute Distress and Chronically Ill
Cardiovascular: Regular Rate and S1/S2; Negative Murmur or Rub
Pulmonary: Clear and Symmetric; Negative Wheezes or Rales
Gastrointestinal: Soft, Non Tender, Non Distended and Normal Bowel Sounds
Skin: Warm and Dry; Negative Rash (resolved ) or Jaundice
Objective Data
Lab Data
Lab Results
02/03/24 05:38
02/03/24 05:38
Estimated Creat Clear 52 ml/min 02/03/24 05:38
Most recent labs reviewed.
Micro Results:
01/31/24 18:11 Wound Culture - Preliminary
Foot - Left Pseudomonas aeruginosa
Gram negative bacilli
Enterococcus species
Streptococcus agalactiae
Gram Stain - Preliminary
01/31/24 22:53 MRSA Screen - Final
Nose No Methicillin Resistant Staphylococcus aureus isolated.
[2024-02-03] MEDS: LIPITOR 40 MG PO (17:06)
[2024-02-03] MEDS: NORVASC 10 MG PO (17:07)
[2024-02-03] MEDS: CYMBALTA DELAYED RELEASE 60 MG PO (21:10)
[2024-02-03 23:14] VITALS: BP 113/55
[2024-02-04] MEDS: NAMENDA 5 MG PO (08:20)
[2024-02-04] MEDS: ASPIR LOW (ENTERIC COATED) 81 MG PO (08:20)
[2024-02-04] MEDS: FLOMAX 0.4 MG PO ×2 (08:22→21:04)
[2024-02-04] MEDS: HEPARIN 5000 UNITS SC ×2 (08:22→21:05)
[2024-02-04] MEDS: EXELON 1.5 MG PO ×2 (08:22→21:05)
[2024-02-04] MEDS: EXELON 3 MG PO ×2 (08:22→21:04)
[2024-02-04] MEDS: OSCAL CAL 500 500 MG PO (08:22)
[2024-02-04] MEDS: KEFLEX 500 MG PO ×4 (08:22→21:04)
[2024-02-04] MEDS: DESENEX/MITRAZOL/ZEASORB 1 APPLIC TOPICAL ×2 (08:30→21:06)
[2024-02-04] MEDS: HYDROPHOR 1 APPLIC TOPICAL (08:30)
[2024-02-04 08:31] VITALS: BP 138/63
[2024-02-04 08:33] LABS: % Basophils 0.6 % (0-2); % Eosinophils 3.6 % (0-6); % Immature Granulocytes 0.6 % (0-0.5); % Lymphocytes 11.9 % (20.5-51.1); % Monocytes 9.8 % (1.7-9.3); % Neutrophils 73.5 % (42.2-75.2); Absolute Lymphocytes 0.9 10^3/uL (1.2-3.4); Absolute Monocytes 0.7 10^3/uL (0.1-0.6); Absolute Neutrophils 5.3 10^3/uL (1.4-6.5); Hematocrit 32.1 % (39.0-52.0); Hemoglobin 10.4 g/dL (13.0-18.0); Mean Corp Hgb Conc. 32.4 g/dL (33.0-37.0); Mean Corpuscular Hgb 30.6 pg (27.0-31.0); Mean Corpuscular Volume 94.4 fL (80.0-94.0); Mean Platelet Volume 9.6 fL (7.4-10.4); Platelet Count 256 10^3/uL (130-400); Red Cell Dist. Width 12.8 % (11.5-14.5); White Blood Cell Count 7.2 10^3/uL (4.8-10.8)
[2024-02-04 08:34] LABS: Absolute Eosinophils 0.3 10^3/uL (0-0.7); Nucleated Red Blood Cells % 0 % (-)
[2024-02-04] MEDS: LIORESAL 10 MG PO ×3 (08:38→21:05)
--- NOTE | 2024-02-04 09:32 | W.PN.HOSP.TC ---
Today's Communication/Plan
-
SNF placement
Continue oral antibiotics
Stress test
Appreciate ID, pulm, cardio
Assessment / Plan
Assessment / Plan
Physical Exam
General: Not in acute distress
HEENT: Moist mucous membranes
Respiratory: Mild wheezing
Cardiac: S1/S2 and Regular Rhythm
GI: Other (Obese / distended. Non-tender. Positive bowel sounds.)
Musculoskeletal: No Cyanosis and Other (Nodular edema bilateral lower extremities - Left > Right. Dark erythema and edema over the dorsum of the left foot. Superficial skin breakdown / ulcerations / weeping from digits 2-5 on the L foot. Mild
increased warmth. Covered with dressing)
Neuro: Awake and Alert; Not oriented

US Periph Art LOWER Ext w RUFINO Results (as per radiologist's report)
'IMPRESSION:
Right leg: RUFINO measures 1.04. TBI 0.98. Vessel leung appear heavily calcified, however there is multiphasic flow throughout the leg with no focal or flow-limiting stenosis appreciated. Multiphasic pedal flow.
Left leg: RUFINO within normal limits measuring 1.05. TBI is mild to moderately diminished measuring 0.54. Vessel leung appear heavily calcified, however there is multiphasic flow throughout the leg with no focal or flow limiting stenosis appreciated.
Multiphasic pedal flow.'
Abdominal Ultrasound Results (as per radiologist's report)
'IMPRESSION: No findings to confirm ascites.
Right pleural effusion.
Pancreas, distal abdominal aorta and left kidney not visualized, as noted above.
No focal abnormality of the liver or gallbladder.'

Assessment/Plan
Patient is an 83y M with PMH significant for hypertension, ASCVD / prior CVA and chronic L hemiparesis who presents to ED for evaluation of L foot swelling, redness and increased fatigue / coinfusion.
Left Foot Cellulitis
Acute Left Foot wound with nonpurulent suprainfection
Chronic Lymphedema
- Stopped Ancef
- Switch to Keflex for 3 more days
- Wound care evaluation for local care of superficial wounds / ulcerations on toes.
- Lymphedema treatment with elevation / compression / etc.
- Consulted ID, appreciate their evaluation and recommendation
- RUFINO showed multiphasic flow
- Patient will need follow-up in lymphedema clinic
Right Pleural Effusion on Abdominal Ultrasound
Intermitted Dyspnea on Exertion Prior to Arrival with history of cardiac disease
- IR consulted for thoracentesis -- but there is too little fluid to remove, no thoracentesis was able to be performed
- proBNP not totally convincing given patient's age, but patient is obese
- Consulted cardiology, appreciate their evaluation and recommendations
- Stress test today
Mild Wheezing
- Consulted pulmonary: suspected patient has cardiac wheezing versus upper airway/VCD -- most wheezing is in upper airway
- PFTs could not be done due to advanced dementia, inability to understand/follow directions
- Trial of empiric prn Albuterol
- Follow-up with pulmonary outpatient
History of Hyperglycemia
Prediabetes
-A1c is 5.9%
Acute TME
Senile Dementia
History of movement disorder
possible cognitive impairment; spouse was recently unsure if patient had Alzheimer's Disease - gets periods of hallucinations at at times at baseline per spouse
- Increased confusion (and some abnormal movements) likely due to acute infectious process and possibly contributed from being in the hospital
- Treat cellulitis as noted above.
- Already somewhat improved according to .
- Continue current med regimen without changes.
- Follow for continued improvement.
- Follows up with psychiatry at [facility]
Pacemaker
Benign Hypertension
- Stable. Continue outpatient med regimen and adjust as needed.
CKD III
- Stable. SCr is at / near known baseline.
- Follow for any changes.
Anemia of Chronic Disease
- Stable. Hgb is at / near known baseline.
- Follow for any changes.
ASCVD
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
- Stable. No new focal neuro deficits.
- Continue current CV med regimen including ASA, statin, etc.
- Continue supportive care including baclofen, etc.
BPH
- Stable. Continue tamsulosin.
- Bladder scan protocol.
History of right bundle branch block
History of pacemaker
History of CAD
History of hypertension
Continue therapy
History of renal calculus
History scrotal hernia
DVT Prophylaxis: Subcutaneous heparin
Code Status: Full Code
Anticipated Discharge: 24 - 48 hours
Subjective/Interval History
-
Date of Service: February 04, 2024
Patient was seen and examined. He was more alert, awake and interactive today. Patient's reported patient was wheezing.
Objective Data
-
Labs:
Laboratory Results
02/04/24
08:09
WBC 7.2
Hgb 10.4 L
Hct 32.1 L
Plt Count 256
Sodium Pending
Potassium Pending
Chloride Pending
Carbon Dioxide Pending
BUN Pending
Creatinine Pending
Glucose Pending
Calcium Pending
Vital Signs:
Vital Signs
Temp Pulse Resp BP Pulse Ox
98.2 F 67 16 138/63 93
02/04/24 08:31 02/04/24 08:31 02/04/24 08:31 02/04/24 08:31 02/04/24 08:31
I&O
02/03/24 02/04/24 02/05/24
06:59 06:59 06:59
Intake Total 240 / 240 1500 / 1500
Balance 240 / 240 1500 / 1500
[2024-02-04 09:38] LABS: Blood Urea Nitrogen 28 mg/dl (9-20); Calcium 8.2 mg/dl (8.4-10.2); Carbon Dioxide 30 mmol/L (22-30); Chloride 103 mmol/L (98-107); Estimated Creatinine Clearance 52 ml/min; Glucose 109 mg/dl (70-99); Magnesium 1.7 mg/dl (1.6-2.3); Potassium 4.6 mmol/L (3.5-5.1); Sodium 141 mmol/L (135-145); eGFR 54.85
--- NOTE | 2024-02-04 09:47 | CON.PUL ---
Consultation
Consultation Request
Date/Time Consultation Requested: 02/04/24
Date/Time Consultation Performed: 02/04/24
Performing Provider: Jose Daniel
Reason for Consultation: Wheeze
Medical History
-
History of Present Illness:
Patient is an 83-year-old male with previous history of hypertension, CVA, heart block status post PPM, carotid stenosis status post CEA, frequent falls presenting with left foot swelling, redness and open malodorous wounds of the toes. This began
5 to 6 days ago and had presented to outpatient urgent care for evaluation. Cultures were obtained and he was started on outpatient dose of Keflex at that time. Odor had been improving but had noticed more lethargy and confusion. He was
notably confused in the ER.
He is admitted on 01/31 for left lower extremity cellulitis likely the cause of TME. He had been notably short of breath as well per particularly with exertion. Chest imaging on arrival demonstrating trace bilateral pleural effusions, proBNP
1160. He notably has chronic lymphedema as well.
No prior known history of lung disease, non-smoker. His son has asthma, but he was never personally diagnosed.
No exposures, no recent travel.
Past Medical History
Past Medical History: Other (see list below)
Social History
Tobacco: Non-smoker
Alcohol: None
Drug: None
Family History
Family History: Reviewed & Not Pertinent
Allergies / Home Medications
Allergies
Allergy/AdvReac Type Severity Reaction Status Date / Time
Sulfa (Sulfonamide Allergy difficulty Verified 01/31/24 17:15
Antibiotics) breathing,
[Sulfa(Sulfonamide hives
Antibiotics)]
vancomycin Allergy dizziness,double Verified 01/31/24 17:15
vision
doxycycline monohydrate AdvReac MIGRAINE Verified 02/01/24 10:32
[From Vibramycin]
Home Medications
�Medication �Instructions �Recorded �Confirmed �Last Taken �Type
amlodipine 10 mg tablet 10 mg PO QPM Blood pressure 0701/31/24 10/11/23 History
tamsulosin 0.4 mg capsule (Flomax) 0.4 mg PO BID Urinary issue 08/11/20 01/31/24 10/11/23 History
atorvastatin 80 mg tablet 40 mg PO QPM High Cholesterol 06/17/21 01/31/24 10/11/23 History
calcium carbonate 600 mg PO DAILY Supplement 06/17/21 01/31/24 10/11/23 History
coenzyme [id number] E 100 mg-5 100 mg PO QPM Supplement 06/17/21 01/31/24 10/11/23 History
unit capsule (Co Q-10 (with Vit E))
metoprolol succinate 100 mg 100 mg PO DAILY@1200 Blood Pressure 12/12/21 01/31/24 10/11/23 History
tablet,extended release 24 hr
(Toprol XL)
baclofen 10 mg tablet 10 mg PO TID Muscle Spasms 09/26/22 01/31/24 10/11/23 History
green tea leaf extract 2 cap PO NOON Supplement 09/26/22 01/31/24 10/11/23 History
milk thistle 150 mg capsule 300 mg PO QPM Supplement 09/26/22 01/31/24 10/11/23 History
aspirin 81 mg tablet,delayed 81 mg PO DAILY Blood Clot 10/12/23 01/31/24 10/11/23 History
release Prevention/Tx
cyanocobalamin (vitamin B-12) 1,000 mcg sublingual DAILY@1200 10/12/23 01/31/24 10/11/23 History
1,000 mcg sublingual lozenge Supplement
duloxetine 30 mg capsule,delayed 60 mg PO HS Neurological Condition 10/12/23 01/31/24 10/11/23 History
release (Cymbalta)
memantine 5 mg tablet 5 mg PO DAILY Alzheimer's 10/12/23 01/31/24 10/11/23 History
rivastigmine tartrate 4.5 mg 4.5 mg PO BID Neurological 10/12/23 01/31/24 10/11/23 History
capsule Condition
vitamin B complex 1 tab PO DAILY Supplement 10/12/23 01/31/24 10/11/23 History
cephalexin 500 mg capsule 500 mg PO Q8H Infection #18 caps 10/16/23 01/31/24 Unknown Rx
Review of Systems
-
History Source: Patient
All other systems: Negative unless noted
Vitals / Labs / Diagnostic Testing
Vital Signs
Temp Pulse Resp BP Pulse Ox
98.2 F 67 16 138/63 93
02/04/24 08:31 02/04/24 08:31 02/04/24 08:31 02/04/24 08:31 02/04/24 08:31
Lab Data
02/04/24 08:09
02/04/24 08:09
Microbiology
01/31/24 18:11 Foot - Left Wound Culture - Preliminary
Pseudomonas aeruginosa
Gram negative bacilli
Enterococcus species
Streptococcus agalactiae
01/31/24 18:11 Foot - Left Gram Stain - Preliminary
01/31/24 22:53 Nose MRSA Screen - Final
No Methicillin Resistant Staphylococcus aureus isolated.
Diagnostic Testing:
Physical Exam
-
HEENT: Normocephalic, Anicteric and Moist Mucous Membranes
Cardiovascular: S1/S2, Regular Rhythm and Peripheral Edema (chronic venous stasis changes noted)
Respiratory: Wheeze (upper airway mostly) and Non-Labored Respirations
GI: Soft and Non Distended
Neurology: Awake, Alert, Oriented (to self, but there is baseline confusion) and No Motor Deficits
Skin: Warm and Dry
General: Comfortable and Other (NAD)
Assessment
-
Patient is an 83-year-old male with previous history of hypertension, CVA, heart block status post PPM, carotid stenosis status post CEA, frequent falls presenting with left foot swelling, redness and open malodorous wounds of the toes. This began
5 to 6 days ago and had presented to outpatient urgent care for evaluation. Cultures were obtained and he was started on outpatient dose of Keflex at that time. Odor had been improving but had noticed more lethargy and confusion. He was
notably confused in the ER.
He is admitted on 01/31 for left lower extremity cellulitis likely the cause of TME. He had been notably short of breath as well per particularly with exertion. Chest imaging on arrival demonstrating trace bilateral pleural effusions, proBNP
1160. He notably has chronic lymphedema as well.
No prior known history of lung disease, non-smoker.
LLE cellulitis
TME from infection
SOB
Bilateral pleural effusions, chronic lymphedema
Acute HFpEF suspected
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
History of UTI (Aerococcus + 09/26/22, Morganella + 08/12/20, group D enterococcus 11/13/11)
Hypertension
Left Achilles Tear
Nephrolithiasis - Uric Acid (2016)
Large Left Inguinal Hernia s/p Open Inguinal Herniorrhaphy
Complete Heart Block-s/p PPM Placement, Medtronic, dual with 5086MRI leads 05/28/2012
Pacemaker pulse generator change, Medtronic, dual, model [id number] 06/17/2021
Hyperlipidemia
Carotid Stenosis s/p R CEA
CVA-Residual L Hemiparesis
Tonsillectomy
Left Orchiectomy
Left ureteroscopy 07/2013 and 08/2016
History of frequent falls
Dementia
Obesity BMI 31
Plan
No oxygen was needed on admission, currently saturating >90% on RA
Prior history of lung disease is not noted
Never had personal history of asthma growing up, lifelong nonsmoker, denies exposures
states he has occasional KHAN but not always
Suspect patient has cardiac wheeze vs upper airway/VCD
Most of his wheezing on exam is noted on upper airway, discussed that with
It would be unlikely at this decade in his life to have new onset lung disease
PFT attempted at bedside but could be performed due to advanced dementia, inability to understand/follow directions
We can add empiric albuterol neb PRN for now, if beneficial can continue at home
His mental status would likely not be amenable for HFA use
CXR/CT obtained indicating small trace effusions
In setting of proBNP elevation and LE edema, would treat for HF
Cards following
Prior ECHO results are reviewed indicating stable function, septal hk noted
Cardiac w/u ongoing
Weight loss measures recommended
Obesity likely contributing to respiratory symptoms
Risk factors assessed for underlying sleep disordered breathing also noted, PSG would be recommended but given his dementia, CPAP treatment may be difficult
Not much further can be offered for patient treatment smith
Reviewed this with his at bedside
We will follow
Diagnostic Data
Chest X-Ray: 02/03/24- Trace bilateral pleural effusions with likely adjacent atelectasis.
Chest US 02/03/24- Trace right pleural effusion. Amount of fluid present not sufficient for safe thoracentesis.
09/08/22- Mild right perihilar pneumonia
07/01/22- No acute disease of the chest. Mild cardiomegaly. New.
CT Scan: AP 05/16/22- Lung Bases: Moderate changes of gravity dependent atelectasis. Lung bases otherwise clear. There is cardiomegaly.
Echo: 02/03/24- Normal left ventricular systolic function. Left ventricular ejection fraction is 55-60%. Apical septal hypokinesis. Compared to 10/13/23: no significant change was found.
PFT's:
Reports and relevant images were personally reviewed.
Total time spent on this consultation __76__ includes review of history, physical exam, medications, laboratory data, personal review of imaging, extensive review of outpatient records, discussion with care team and respiratory therapy.
--- NOTE | 2024-02-04 10:34 | W.PN.ID1 ---
Date of Service
Date of Service: February 04, 2024
Today's Communication
- continue keflex for 3 more days
- on dc will need follow up in lymphedema clinic.
Assessment / Plan
Acute Foot wound with nonpurulent suprainfection
Chronic Lymphedema - un controlled
Possible anasarca
- TTE normal EF 4 months ago
Peripheral Vascular Disease - h/o CVA
CKD
Pacemaker
Dementia
- wound culture polymicrobial; most likely colonizers, patient has already had robust response to treatment directed at strep which is most likely causative pathogen - would not change therapy based on these results
- mrsa screen negative
- Echo today: normal EF, persistent regional wall motion abnormalities
- compression and elevation; has SCDs at home
- continue keflex for 3 more days
- on dc will need follow up in lymphedema clinic. Counseled on need for management of lymphedema or risk of ongoing recurrent infections.
Chief Complaint
-: Cellulitis
Subjective / Review of Systems
afebrile
bp stable
for stress test
Vital Signs / Physical Exam
Vital Signs
Vital Signs
Temp Pulse Resp BP Pulse Ox
98.2 F 67 16 138/63 93
02/04/24 08:31 02/04/24 08:31 02/04/24 08:31 02/04/24 08:31 02/04/24 08:31
Physical Exam
Constitutional: No Acute Distress
Cardiovascular: Regular Rate and S1/S2; Negative Murmur or Rub
Pulmonary: Clear and Symmetric; Negative Wheezes or Rales
Gastrointestinal: Soft, Non Tender, Non Distended and Normal Bowel Sounds
Skin: Warm and Dry; Negative Rash (resolved) or Jaundice
Objective Data
Lab Data
Lab Results
02/04/24 08:09
02/04/24 08:09
Estimated Creat Clear 52 ml/min 02/04/24 08:09
Most recent labs reviewed.
Micro Results:
01/31/24 18:11 Wound Culture - Preliminary
Foot - Left Pseudomonas aeruginosa
Gram negative bacilli
Enterococcus species
Streptococcus agalactiae
Gram Stain - Preliminary
01/31/24 22:53 MRSA Screen - Final
Nose No Methicillin Resistant Staphylococcus aureus isolated.
--- NOTE | 2024-02-04 11:29 | RESPNOTE ---
Patient unable to do bedside spirometry. Patient unable to follow instructions despite multiple attempts/coaching. Ordering MD notified.
--- NOTE | 2024-02-04 12:19 | W.PN.CD ---
Today's Communication / Plan
-
lexiscan nuclear stress today for ischemic evaluation
Impression / Plan
-
KHAN
-echo is stable, EF 55-60%, with apical septal hypokinesis
-lexiscan nuclear stress today for ischemic evaluation
LLE cellulitis:
-on ABX
-wound care involved
CHB:
-stable s/p pacemaker, which is functioning appropriately as above
HTN:
-BP stable overall. Continue meds and monitoring.
HLD:
-statin
Physical Exam
Vital Signs/Labs
Vital Signs
Temp Pulse Resp BP Pulse Ox
98.2 F 67 16 138/63 93
02/04/24 08:31 02/04/24 08:31 02/04/24 08:31 02/04/24 08:31 02/04/24 08:31
02/04/24 08:09
02/04/24 08:09
Magnesium 1.7 mg/dl (1.6-2.3) 02/04/24 08:09
02/03/24
05:38
Ero-C-Nfckulvqwyb Pept 1160
Physical Exam
Constitutional: No acute distress and Comfortable
EENT: Moist mucous membranes
Cardiovascular: Rhythm & rate is regular, JVD pressure is normal, Systolic murmur absent and Pedal edema present (trace)
Respiratory: Respiratory effort normal
Neuro/Psych: Alert
Data Reviewed
-
Date of Service: February 04, 2024
Echo: Tracing Personally Visualized and interpreted
Labs: Labs Reviewed by me
--- NOTE | 2024-02-04 13:36 | CM ---
PT recommends SNF when stable for discharge; spoke with patient's via phone; is agreeable; reviewed facility options in [place]; 's preferences are [facility]
Plan: Discharge to SNF when medically stable; pending bed availability
[2024-02-04] MEDS: TOPROL XL 100 MG PO (15:16)
[2024-02-04] MEDS: VITAMIN B-12 1000 MCG PO (15:19)
[2024-02-04 16:00] VITALS: BP 158/69
--- NOTE | 2024-02-04 16:39 | W.PN.UPDATE ---
Update Note
Progress Note Update
Moderate risk nuclear stress test. Discussed with patient and . Will plan for med management. No plan for cardiac cath.
Add imdur 30mg daily.
Please call us back with additional questions.
[2024-02-04] MEDS: LIPITOR 40 MG PO (18:16)
[2024-02-04] MEDS: NORVASC 10 MG PO (18:16)
[2024-02-04] MEDS: IMDUR (EXTENDED RELEASE) 30 MG PO (18:17)
[2024-02-04] MEDS: CYMBALTA DELAYED RELEASE 60 MG PO (21:04)
[2024-02-04 23:50] VITALS: BP 100/56
[2024-02-05 08:36] VITALS: BP 135/60
[2024-02-05 09:10] LABS: Albumin 2.9 g/dl (3.5-5.0)
[2024-02-05 09:13] LABS: Blood Urea Nitrogen 29 mg/dl (9-20); Calcium 8.2 mg/dl (8.4-10.2); Carbon Dioxide 32 mmol/L (22-30); Chloride 101 mmol/L (98-107); Estimated Creatinine Clearance 48 ml/min; Glucose 128 mg/dl (70-99); Potassium 4.7 mmol/L (3.5-5.1); Sodium 141 mmol/L (135-145); eGFR 50.18
[2024-02-05] MEDS: EXELON 1.5 MG PO (09:18)
[2024-02-05] MEDS: NAMENDA 5 MG PO (09:18)
[2024-02-05] MEDS: LIORESAL 10 MG PO (09:18)
[2024-02-05] MEDS: OSCAL CAL 500 500 MG PO (09:18)
[2024-02-05] MEDS: EXELON 3 MG PO (09:18)
[2024-02-05] MEDS: ASPIR LOW (ENTERIC COATED) 81 MG PO (09:19)
[2024-02-05] MEDS: IMDUR (EXTENDED RELEASE) 30 MG PO (09:19)
[2024-02-05] MEDS: KEFLEX 500 MG PO ×2 (09:19→13:42)
[2024-02-05] MEDS: HEPARIN 5000 UNITS SC (09:19)
[2024-02-05] MEDS: FLOMAX 0.4 MG PO (09:19)
[2024-02-05] MEDS: DESENEX/MITRAZOL/ZEASORB 1 APPLIC TOPICAL (09:20)
[2024-02-05] MEDS: HYDROPHOR 1 APPLIC TOPICAL (09:20)
--- NOTE | 2024-02-05 11:09 | W.PN.PUL3 ---
Today's Communication / Plan
-
Remains stable on RA, no further wheezing noted
Continue PRN albuterol, nebulizer device Rx for home
For discharge to rehab
Outpatient FU wtih Pulm as needed
Discussed in detail with at bedside
Assessment
-
Patient is an 83-year-old male with previous history of hypertension, CVA, heart block status post PPM, carotid stenosis status post CEA, frequent falls presenting with left foot swelling, redness and open malodorous wounds of the toes. This began
5 to 6 days ago and had presented to outpatient urgent care for evaluation. Cultures were obtained and he was started on outpatient dose of Keflex at that time. Odor had been improving but had noticed more lethargy and confusion. He was
notably confused in the ER.
He is admitted on 01/31 for left lower extremity cellulitis likely the cause of TME. He had been notably short of breath as well per particularly with exertion. Chest imaging on arrival demonstrating trace bilateral pleural effusions, proBNP
1160. He notably has chronic lymphedema as well.
No prior known history of lung disease, non-smoker.
LLE cellulitis
TME from infection
SOB
Bilateral pleural effusions, chronic lymphedema
Acute HFpEF suspected
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
History of UTI (Aerococcus + 09/26/22, Morganella + 08/12/20, group D enterococcus 11/13/11)
Hypertension
Left Achilles Tear
Nephrolithiasis - Uric Acid (2017)
Large Left Inguinal Hernia s/p Open Inguinal Herniorrhaphy
Complete Heart Block-s/p PPM Placement, Medtronic, dual with 5086MRI leads 05/28/2012
Pacemaker pulse generator change, Medtronic, dual, model W1DR01 06/17/2021
Hyperlipidemia
Carotid Stenosis s/p R CEA
CVA-Residual L Hemiparesis
Tonsillectomy
Left Orchiectomy
Left ureteroscopy 07/2013 and 08/2016
History of frequent falls
Dementia
Obesity BMI 31
Plan
No oxygen was needed on admission, currently saturating >90% on RA
Prior history of lung disease is not noted
Never had personal history of asthma growing up, lifelong nonsmoker, denies exposures
states he has occasional KHAN but not always
Suspect patient has cardiac wheeze vs upper airway/VCD
Most of his wheezing on exam is noted on upper airway, discussed that with
It would be unlikely at this decade in his life to have new onset lung disease
PFT attempted at bedside but could be performed due to advanced dementia, inability to understand/follow directions
Continue empiric albuterol neb PRN for now, if beneficial can continue at home
His mental status would likely not be amenable for HFA use
CXR/CT obtained indicating small trace effusions
In setting of proBNP elevation and LE edema, would treat for HF
Cards following
Prior ECHO results are reviewed indicating stable function, septal hk noted
Cardiac w/u ongoing
Weight loss measures recommended
Obesity likely contributing to respiratory symptoms
Risk factors assessed for underlying sleep disordered breathing also noted, PSG would be recommended but given his dementia, CPAP treatment may be difficult
Not much further can be offered for patient treatment smith
Reviewed this with his at bedside
Discharge planning per team
Diagnostic Data
Chest X-Ray: 02/03/24- Trace bilateral pleural effusions with likely adjacent atelectasis.
Chest US 02/03/24- Trace right pleural effusion. Amount of fluid present not sufficient for safe thoracentesis.
09/08/22- Mild right perihilar pneumonia
07/01/22- No acute disease of the chest. Mild cardiomegaly. New.
CT Scan: AP 05/16/22- Lung Bases: Moderate changes of gravity dependent atelectasis. Lung bases otherwise clear. There is cardiomegaly.
Echo: 02/03/24- Normal left ventricular systolic function. Left ventricular ejection fraction is 55-60%. Apical septal hypokinesis. Compared to 10/13/23: no significant change was found.
PFT's:
Reports and relevant images were personally reviewed.
Total time spent on this encounter __50__ minutes which includes review of history, physical exam, medications, laboratory data, personal review of imaging, extensive review of outpatient records, discussion with care team and respiratory therapy.
Subjective Data
-
Date of Service:
Date of Service: February 05, 2024
Chief Complaint: Pulmonary Follow Up
Subjective:
Doing well today, stable on RA
No further wheezing
at bedside
No events ON
Objective Data
Data Reviewed
Vital Signs / I&O / Oxygen:
Vital Signs
Temp Pulse Resp BP Pulse Ox
97.9 F 72 16 135/60 91
02/05/24 08:36 02/05/24 08:36 02/05/24 08:36 02/05/24 08:36 02/05/24 08:36
Intake and Output
02/04/24 02/05/24 02/06/24
06:59 06:59 06:59
Intake Total 1500 / 1500 20 / 20
Balance 1500 / 1500 20 / 20
SaO2 91
Nasal Cannula flow liters per 97
minute
Physical Exam
General: Comfortable and Other (NAD)
HEENT: Normocephalic, Anicteric and Moist Mucous Membranes
Cardiovascular: S1-S2 and Regular Rhythm
Respiratory: Clear and Non-Labored Respirations
GI: Soft, Non Distended and Non Tender
Neurology: Awake, Alert, No Motor Deficits and Other (confused at baseline)
Skin: Warm, Dry and Good Color
Labs/Micro/Reports
Lab Data
02/04/24 08:09
02/05/24 08:16
Microbiology
01/31/24 18:11 Foot - Left Wound Culture - Final
Pseudomonas aeruginosa
Enterobacter cloacae
Enterococcus faecalis
Streptococcus agalactiae
01/31/24 18:11 Foot - Left Gram Stain - Final
01/31/24 22:53 Nose MRSA Screen - Final
No Methicillin Resistant Staphylococcus aureus isolated.
[2024-02-05 11:34] VITALS: BP 124/60; PULSE 69; O2SAT 92
[2024-02-05 11:35] VITALS: BP 126/60; PULSE 70; O2SAT 92
--- NOTE | 2024-02-05 11:38 | PTOTSP ---
SPEECH THERAPY SWALLOW EVALUATION:
Patient exhibits clinical signs of oropharyngeal dysphagia, likely chronic related to history of CVA/dementia, and acutely exacerbated by confusion/lethargy secondary to TME/Left lower extremity cellulitis. Patient is not exhibiting any overt signs
of aspiration at this time. However, patient remains at risk for aspiration given tenuous respiratory respiratory status, confusion, and lethargy. CXR with trace Bilateral pleural effusions. WBC WNL. Recommend diet downgrade to IDDSI Level 4 Puree,
thin liquids. Medications crushed in puree. Aspiration precautions: 1:1 assistance and 100% supervision with meals; Upright positioning; Only feed when awake/alert; Small single sips/bites; Slow rate of intake; Only provide p.o. if SpO2>90% and
RR<30; Oral care 3x/day; Alternate textures; Monitor for signs of aspiration; Monitor CXR and labs; D/c oral diet if ANY decline in mental or respiratory status (LOW threshold to make NPO). Speech therapy to follow, assess diet tolerance and modify
as appropriate, monitor labs/CXR/temp, determine indication for instrumental assessment of swallowing as warranted, provide education regarding aspiration risks/precautions. Discussed with who reported patient may d/c to [facility] [place] [facility] today.
Recommend continued ST services upon discharge.
RECOMMEND:
1) IDDSI Level 4 Puree, thin liquids
2) Medications crushed in puree
3) Aspiration precautions: 1:1 assistance and 100% supervision with meals; Upright positioning; Only feed when awake/alert; Small single sips/bites; Slow rate of intake; Only provide p.o. if SpO2>90% and RR<30; Oral care 3x/day; Alternate textures;
Monitor for signs of aspiration; Monitor CXR and labs; D/c oral diet if ANY decline in mental or respiratory status (LOW threshold to make NPO)
4) Speech therapy to follow, determine indication for instrumental assessment of swallowing if warranted; Recommend continued ST services upon discharge
--- NOTE | 2024-02-05 11:43 | W.PN.HOSP.TC ---
Today's Communication/Plan
-
Discharge today
Assessment / Plan
Assessment / Plan
Physical Exam
General: Not in acute distress
HEENT: Moist mucous membranes
Respiratory: Faint wheezing, CTAB
Cardiac: S1/S2 and Regular Rhythm
GI: Other (Obese / distended. Non-tender. Positive bowel sounds.)
Musculoskeletal: No Cyanosis and Other (Nodular edema bilateral lower extremities - Left > Right. Dark erythema and edema over the dorsum of the left foot. Superficial skin breakdown / ulcerations / weeping from digits 2-5 on the L foot. Mild
increased warmth. Covered with dressing)
Neuro: Awake and Alert; Not oriented

US Periph Art LOWER Ext w RUFINO Results (as per radiologist's report)
'IMPRESSION:
Right leg: RUFINO measures 1.04. TBI 0.98. Vessel leung appear heavily calcified, however there is multiphasic flow throughout the leg with no focal or flow-limiting stenosis appreciated. Multiphasic pedal flow.
Left leg: RUFINO within normal limits measuring 1.05. TBI is mild to moderately diminished measuring 0.54. Vessel leung appear heavily calcified, however there is multiphasic flow throughout the leg with no focal or flow limiting stenosis appreciated.
Multiphasic pedal flow.'
Abdominal Ultrasound Results (as per radiologist's report)
'IMPRESSION: No findings to confirm ascites.
Right pleural effusion.
Pancreas, distal abdominal aorta and left kidney not visualized, as noted above.
No focal abnormality of the liver or gallbladder.'

Assessment/Plan
Patient is an 83y M with PMH significant for hypertension, ASCVD / prior CVA and chronic L hemiparesis who presents to ED for evaluation of L foot swelling, redness and increased fatigue / coinfusion.
Left Foot Cellulitis
Acute Left Foot wound with nonpurulent suprainfection
Chronic Lymphedema
- Stopped Ancef
- Continue Keflex for 2 more days
- Wound care evaluation for local care of superficial wounds / ulcerations on toes.
- Lymphedema treatment with elevation / compression / etc.
- Consulted ID, appreciate their evaluation and recommendation
- RUFINO showed multiphasic flow - follow-up with vascular surgeon outpatient given mild to moderately diminished TBI on RUFINO
- Patient will need follow-up in lymphedema clinic
Right Pleural Effusion on Abdominal Ultrasound
Intermitted Dyspnea on Exertion Prior to Arrival with history of cardiac disease
- IR consulted for thoracentesis -- but there is too little fluid to remove, no thoracentesis was able to be performed
- proBNP not totally convincing given patient's age, but patient is obese
- Consulted cardiology, appreciate their evaluation and recommendations
- Stress test on 02/05/24: moderate risk nuclear stress test.
- NEW MEDICATION: imdur 30mg daily.
Mild Wheezing
- Consulted pulmonary: suspected patient has cardiac wheezing versus upper airway/VCD -- most wheezing is in upper airway
- PFTs could not be done due to advanced dementia, inability to understand/follow directions
- Trial of empiric prn Albuterol
- Follow-up with pulmonary outpatient
History of Hyperglycemia
Prediabetes
-A1c is 5.9%
Acute TME
Senile Dementia
History of movement disorder
possible cognitive impairment; spouse was recently unsure if patient had Alzheimer's Disease - gets periods of hallucinations at at times at baseline per spouse
- Increased confusion (and some abnormal movements) likely due to acute infectious process and possibly contributed from being in the hospital
- Treat cellulitis as noted above.
- Already somewhat improved according to .
- Continue current med regimen without changes.
- Follow for continued improvement.
- Follows up with psychiatry at [place] [facility]
Pacemaker
Benign Hypertension
- Stable. Continue outpatient med regimen and adjust as needed.
CKD III
- Stable. SCr is at / near known baseline.
- Follow for any changes.
Anemia of Chronic Disease
- Stable. Hgb is at / near known baseline.
- Follow for any changes.
ASCVD
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
- Stable. No new focal neuro deficits.
- Continue current CV med regimen including ASA, statin, etc.
- Continue supportive care including baclofen, etc.
BPH
- Stable. Continue tamsulosin.
- Bladder scan protocol.
History of right bundle branch block
History of pacemaker
History of CAD
History of hypertension
Continue therapy
History of renal calculus
History scrotal hernia
DVT Prophylaxis: Subcutaneous heparin
Diet: IDDSI Level 4 Puree, Thin Liquids Diet
Code Status: Full Code
More than 30 minutes spent in discharge including
Final examination of the patient
Summarizing hospital stay
Instructions for continuing care to all relevant caregivers
Preparation of discharge records, prescriptions, and referral forms
Total time spent (in minutes): 36
Anticipated Discharge: Today
Subjective/Interval History
-
Date of Service: February 05, 2024
Patient was seen and examined. He reported no new symptoms or complaints.
Objective Data
-
Labs:
Laboratory Results
02/05/24
08:16
Sodium 141
Potassium 4.7
Chloride 101
Carbon Dioxide 32 H
BUN 29 H
Creatinine 1.4 H
Glucose 128 H
Calcium 8.2 L
Vital Signs:
Vital Signs
Temp Pulse Resp BP Pulse Ox
97.9 F 72 16 135/60 91
02/05/24 08:36 02/05/24 08:36 02/05/24 08:36 02/05/24 08:36 02/05/24 08:36
I&O
02/04/24 02/05/24 02/06/24
06:59 06:59 06:59
Intake Total 1500 / 1500
Balance 1500 / 1500
[2024-02-05] MEDS: VITAMIN B-12 1000 MCG PO (13:43)
[2024-02-05] MEDS: TOPROL XL 100 MG PO (13:43)
--- NOTE | 2024-02-05 13:46 | CM ---
CM spoke with [facility], able to offer patient bed, [facility] faxed to admissions. Patients , Sarah, agreeable to [facility]. Per [facility], patient has high deductible ($5,000), patients agreeable for rehab. Auth approved 02/04-02/08, call
updates to , auth #[id number], ambulance auth [id number]. Patient and seen bedside, IMM reviewed, signed, placed in chart. Patient scheduled for 3:30 p.m. ambulance transport. CM will continue to follow for all discharge planning
needs.
Plan; [facility], 3:30 p.m. ambulance transport
Report: [phone]
--- NOTE | 2024-02-05 15:04 | W.PN.ID1 ---
Date of Service
Date of Service: February 05, 2024
Today's Communication
two further days of keflex
Assessment / Plan
Acute Foot wound with nonpurulent suprainfection
Chronic Lymphedema - un controlled
Possible anasarca
- TTE normal EF 4 months ago
Peripheral Vascular Disease - h/o CVA
CKD
Pacemaker
Dementia
- wound culture polymicrobial; most likely colonizers, patient has already had robust response to treatment directed at strep which is most likely causative pathogen - would not change therapy based on these results
- mrsa screen negative
- Echo today: normal EF, persistent regional wall motion abnormalities
- compression and elevation; has SCDs at home
- continue keflex for 2 more days
- on dc will need follow up in lymphedema clinic.
ID service will no longer actively follow this patient please recall for further questions
Chief Complaint
-: Cellulitis
Subjective / Review of Systems
afebrile
bp stable
cr 1.4
rash resolved
Vital Signs / Physical Exam
Vital Signs
Vital Signs
Temp Pulse Resp BP Pulse Ox
97.9 F 79 16 123/59 91
02/05/24 08:36 02/05/24 13:43 02/05/24 08:36 02/05/24 13:43 02/05/24 08:36
Physical Exam
Constitutional: No Acute Distress
Cardiovascular: Regular Rate
Pulmonary: Symmetric and Non Labored
Gastrointestinal: Non Distended
Skin: Warm and Dry; Negative Rash or Jaundice
Wound: Other (deferred dressing take down)
Objective Data
Lab Data
Lab Results
02/04/24 08:09
02/05/24 08:16
Estimated Creat Clear 48 ml/min 02/05/24 08:16
Most recent labs reviewed.
Micro Results:
01/31/24 18:11 Wound Culture - Final
Foot - Left Pseudomonas aeruginosa
Enterobacter cloacae
Enterococcus faecalis
Streptococcus agalactiae
Gram Stain - Final
01/31/24 22:53 MRSA Screen - Final
Nose No Methicillin Resistant Staphylococcus aureus isolated.
[2024-02-05 15:54] VITALS: BP 137/56
== END 2024-02-05 15:34 | DRG 602 ==
LOC: 3 WEST ACU 20:59
PROVIDERS: Student in an Organized Health Care Education/Training Program; ADMITTING PHYSICIAN Hospitalist; ATTENDING PHYSICIAN Hospitalist; CONSULT PHYSICIAN Internal Medicine; EMERGENCY PHYSICIAN Emergency Medicine; FAMILY PHYSICIAN Physician Assistant
DX: L03.116 Cellulitis of left lower limb (principal); G92.8 Other toxic encephalopathy; I50.31 Acute diastolic (congestive) heart failure; I13.0 Hypertensive heart and chronic kidney disease with heart failure and stage 1 through stage 4 chronic kidney disease, or unspecified chronic kidney disease; I69.354 Hemiplegia and hemiparesis following cerebral infarction affecting left non-dominant side; J90 Pleural effusion, not elsewhere classified; I44.2 Atrioventricular block, complete; N18.31 Chronic kidney disease, stage 3a; D63.1 Anemia in chronic kidney disease; I25.10 Atherosclerotic heart disease of native coronary artery without angina pectoris; N40.0 Benign prostatic hyperplasia without lower urinary tract symptoms; I89.0 Lymphedema, not elsewhere classified; F03.90 Unspecified dementia, unspecified severity, without behavioral disturbance, psychotic disturbance, mood disturbance, and anxiety
CPT/HCPCS: 93308; 71046; 76604; 76700; 78452; 80048; 82040; 83036; 83615; 83735; 83880; 84155; 85025; 85027; 87070; 87071; 87077; 87186; 87205; 92610; 93005; 93017; 93321; 93325; 93922; 93925; 96365; 96375; 97163; 97167; 97530; 97535; 99285; A9500; J2785

== ENCOUNTER → 2024-02-08 11:24 | Outpatient (REF) | payer OTHER, BC, SELFPAY ==
[2024-02-08 12:03] LABS: Hematocrit 28.3 % (39.0-52.0); Hemoglobin 9.1 g/dL (13.0-18.0); Mean Corp Hgb Conc. 32.2 g/dL (33.0-37.0); Mean Corpuscular Hgb 30.3 pg (27.0-31.0); Mean Corpuscular Volume 94.3 fL (80.0-94.0); Mean Platelet Volume 10.3 fL (7.4-10.4); Platelet Count 259 10^3/uL (130-400); Red Cell Dist. Width 13.2 % (11.5-14.5); White Blood Cell Count 7.6 10^3/uL (4.8-10.8)
[2024-02-08 12:08] LABS: ALT (SGPT) 21 U/L (0-50); AST (SGOT) 30 U/L (17-59); Albumin 2.6 g/dl (3.5-5.0); Alkaline Phosphatase 86 U/L (38-126); Blood Urea Nitrogen 32 mg/dl (9-20); Calcium 8.2 mg/dl (8.4-10.2); Carbon Dioxide 32 mmol/L (22-30); Chloride 102 mmol/L (98-107); Glucose 101 mg/dl (70-99); Magnesium 1.9 mg/dl (1.6-2.3); Potassium 4.5 mmol/L (3.5-5.1); Sodium 140 mmol/L (135-145); Total Bilirubin 0.2 mg/dl (0.2-1.3); Total Protein 4.9 g/dl (6.3-8.2); eGFR 46.19
== END ==
LOC: OLABP 11:24
PROVIDERS: ATTENDING PHYSICIAN Family Medicine
DX: R06.09 Other forms of dyspnea (principal); I13.10 Hypertensive heart and chronic kidney disease without heart failure, with stage 1 through stage 4 chronic kidney disease, or unspecified chronic kidney disease; L03.116 Cellulitis of left lower limb; S91.302D Unspecified open wound, left foot, subsequent encounter; I89.0 Lymphedema, not elsewhere classified; J90 Pleural effusion, not elsewhere classified; M62.81 Muscle weakness (generalized); I25.10 Atherosclerotic heart disease of native coronary artery without angina pectoris; I45.10 Unspecified right bundle-branch block; Z95.0 Presence of cardiac pacemaker; N18.30 Chronic kidney disease, stage 3 unspecified; I69.959 Hemiplegia and hemiparesis following unspecified cerebrovascular disease affecting unspecified side
CPT/HCPCS: 36415; 80053; 83735; 85027

== ENCOUNTER → 2024-02-19 10:43 | Outpatient (REF) | payer OTHER, BC, SELFPAY ==
[2024-02-19 13:51] LABS: % Basophils 0.2 % (0-2); % Eosinophils 0.1 % (0-6); % Immature Granulocytes 0.5 % (0-0.5); % Monocytes 7.4 % (1.7-9.3); % Neutrophils 90.8 % (42.2-75.2); Absolute Immature Granulocytes 0.1 10^3/uL (0-0.05); Absolute Lymphocytes 0.1 10^3/uL (1.2-3.4); Absolute Monocytes 0.7 10^3/uL (0.1-0.6); Hematocrit 38.2 % (39.0-52.0); Hemoglobin 11.9 g/dL (13.0-18.0); Mean Corp Hgb Conc. 31.2 g/dL (33.0-37.0); Mean Corpuscular Hgb 29.8 pg (27.0-31.0); Mean Corpuscular Volume 95.5 fL (80.0-94.0); Mean Platelet Volume 10.3 fL (7.4-10.4); Nucleated Red Blood Cells % 0 % (-); Platelet Count 265 10^3/uL (130-400); Red Cell Dist. Width 13.6 % (11.5-14.5); White Blood Cell Count 9.9 10^3/uL (4.8-10.8)
[2024-02-19 14:02] LABS: Blood Urea Nitrogen 41 mg/dl (9-20); Calcium 8.5 mg/dl (8.4-10.2); Carbon Dioxide 26 mmol/L (22-30); Chloride 105 mmol/L (98-107); Glucose 148 mg/dl (70-99); Potassium 4.9 mmol/L (3.5-5.1); Sodium 141 mmol/L (135-145); eGFR 42.49
== END ==
LOC: OLABP 10:43
PROVIDERS: ATTENDING PHYSICIAN Family Medicine
DX: R06.09 Other forms of dyspnea (principal); I13.10 Hypertensive heart and chronic kidney disease without heart failure, with stage 1 through stage 4 chronic kidney disease, or unspecified chronic kidney disease; L03.116 Cellulitis of left lower limb; S91.302D Unspecified open wound, left foot, subsequent encounter; I89.0 Lymphedema, not elsewhere classified; J90 Pleural effusion, not elsewhere classified; M62.81 Muscle weakness (generalized); I25.10 Atherosclerotic heart disease of native coronary artery without angina pectoris; I45.10 Unspecified right bundle-branch block; Z95.0 Presence of cardiac pacemaker; N18.30 Chronic kidney disease, stage 3 unspecified; I69.959 Hemiplegia and hemiparesis following unspecified cerebrovascular disease affecting unspecified side; D64.9 Anemia, unspecified; F03.90 Unspecified dementia, unspecified severity, without behavioral disturbance, psychotic disturbance, mood disturbance, and anxiety; N40.0 Benign prostatic hyperplasia without lower urinary tract symptoms
CPT/HCPCS: 80048; 85025

== ENCOUNTER 2024-03-11 17:22 | Inpatient (IN) | payer BC, SELFPAY ==
[2024-03-11 13:35] VITALS: BP 121/69; BMI 31.3
[2024-03-11 13:35] LABS: Glucose - Point of Care 193 mg/dl (70-99)
--- NOTE | 2024-03-11 13:44 | ED.GENMED ---
History of Present Illness
General
Chief Complaint: Weakness
Source: ambulance crew
Exam Limitations: none
Time Seen by Provider: 03/11/24 13:36
Nursing documentation reviewed up to this point in time: agreed with
History of Present Illness
History of Present Illness:
Patient is an 84-year-old male past with history of carotid disease pacemaker carotid enterectomy, hypertension stroke with left hemiparesis dementia chronic kidney disease stage III sent to the ER for evaluation of lethargy. this patient at
bedside reports patient had physical therapy today and patient would not wake up with the physical therapist. The therapist called his name and even did a sternal rub. reports prior to that patient was up and did use the bathroom and even had
breakfast. She reports this is occurred several times in the past 1 time she does believe he had a UTI.
Patient does have a history of dementia and memory issues. reports patient is at baseline. She denies any recent illness fever chills.
Patient presents awake alert he has no complaints. He is aware he is in the hospital. He is not able to tell me why.
Past History
Past History
ED Past Medical History: CVA (Left sided weakness, right parietal stroke in 2011), HTN, Hypercholesterolemia and Other (Renal calculus, UTi, Scrotal hernia, Cellulitis)
ED Past Surgical History: Cardiac (pacemaker, RBBB), Tonsilectomy (and adnoids), Urological (Kidney stones) and Other (Right carotid endarterectomy herniorrhaphy, left orchiectomy)
Social History
Tobacco: Non-smoker
Alcohol: None
Drug: None
Personal:
Living: with family
Employment: Retired
Family History
Family History: Hypertension
Review of Systems
Review of Systems
Allergies reviewed?: Yes
Other source history: family
All Other Systems: ROS reviewed and negative except as documented in HPI and ROS
Constitutional: Reports other (pt was not waking up prior to arrival for family )
Respiratory: Reports no symptoms
ABD/GI: Reports no symptoms
Musculoskeletal: Reports no symptoms
Skin: Reports no symptoms
Psychiatric: Reports no symptoms
Phy Exam
General Physical Exam
General Presentation: no apparent distress
General age: appears stated age
General Skin: warm and dry
General Habitus: normal
General Mental: alert
General Hydration: appears well hydrated
Course
Orders/Labs/Results
Orders:
Orders
03/11/24 13:35
Electrocardiogram (*1) Urgent
Reason for Study: Fatigue / Weakness
EKG- Treatment ONCE
03/11/24 13:57
CT Head W/o Iv Contrast Urgent
Comment:
Reason For Exam: change in ms
03/11/24 13:58
Straight cath- Treatment ONCE
03/11/24 13:59
Cardiac Monitoring- Treatment ONCE
IV Insert/Care/Rem.- Treatment PRN
03/11/24 14:01
Electrocardiogram (*1) Stat
Reason for Study: Abdominal Pain
EKG- Treatment ONCE
03/11/24 14:11
Complete Blood Count/With Diff Urgent
Comprehensive Metabolic Panel Urgent
UA Reflex to Culture [Urinalysis Reflex To Culture] Urgent
Date Specimen was Collected: 03/11/24
Time Specimen was Collected: 14:09
Urine Microscopic Reflex Cult Urgent
Urine Culture Urgent
VIKI Source: U
Specimen Description:
Obtained by: Random
Date Specimen was Collected: 03/11/24
Time Specimen was Collected: 14:09
03/11/24 14:40
COVID-19 Antigen Urgent
Source: Nasal Swab
Influenza A+B Rapid Molecular Urgent
VIKI Source: Nasal Swab
Specimen Description:
03/11/24 15:01
0.9% Sodium Chloride 500 ml [Nss] 500 ml IV BOLUS
Abnormal Lab Results
03/11/24 03/11/24
13:34 14:11
RBC 3.39 L 10^6/uL
(4.70-6.10)
Hgb 10.2 L g/dL
(13.0-18.0)
Hct 32.4 L %
(39.0-52.0)
MCV 95.6 H fL
(80.0-94.0)
MCHC 31.5 L g/dL
(33.0-37.0)
Absolute Lymphs (auto) 1.1 L 10^3/uL
(1.2-3.4)
Absolute Monos (auto) 0.7 H 10^3/uL
(0.1-0.6)
Monocytes % 12.3 H %
(1.7-9.3)
Carbon Dioxide 35 H mmol/L
(22-30)
BUN 23 H mg/dl
(9-20)
Creatinine 1.5 H mg/dL
(0.7-1.3)
Glucose 140 H mg/dl
(70-99)
Total Protein 5.6 L g/dl
(6.3-8.2)
Albumin 3.2 L g/dl
(3.5-5.0)
Urine Nitrite (Reflex) Positive A
(Negative)
Leukocyte Esterase Rfl 1+ A
(Negative)
Urine WBC (Reflex) 11-15 A /HPF
(0-5)
Urine Bacteria (Reflex) Moderate A
(Negative)
POC Glucose 193 H mg/dl
(70-99)
03/11/24 14:11
03/11/24 14:11
Vital Signs
Initial and Last Documented VS:
Initial Vital Signs
Temp Pulse Resp BP Pulse Ox
98.3 F 66 18 121/69 95
03/11/24 13:35 03/11/24 13:35 03/11/24 13:35 03/11/24 13:35 03/11/24 13:35
Last Documented Vital Signs
Temp Pulse Resp BP Pulse Ox
98.3 F 66 18 121/69 98
03/11/24 13:35 03/11/24 13:35 03/11/24 13:35 03/11/24 13:35 03/11/24 13:35
MDM/Problems Addressed
MDM/Problems Addressed:
Patient is an 84-year-old male who was brought by EMS. reports patient was not waking up at the physical therapist today. This has occurred at times the patient has a UTI. Patient is awake alert he is confused however at baseline. Patient
is afebrile with a normal white count patient does have a history of chronic kidney disease and BUN/creatinine are elevated though he does appear dry and was given fluids. Straight cath urine does show positive nitrates 11�15 white blood cells.
With change in mental status will admit with IV antibiotics CT head negative.
*Critical Care Note
Total Time (30-74mins, 75-104mins- exclusive of procedures): Not Applicable
ED Attending Note
-
Portions of this chart may have been created with voice recognition software.� Occasional wrong word or��sound alike� substitutions may have occurred due to the inherent limitations of voice recognition software.
Discharge Plan
Departure
Patient Disposition: Admit
Date of Disposition: 03/11/24
Time of Disposition: 15:38
Admit to: Med/Surg
Admit to doctor: hospitalist
Presentation/result/management discussed w/ accepting MD/DO: Hospitalist
Patient with high blood pressure during this ER visit?: No
Covid-19: Not Applicable
Discharge Problem:
Acute UTI, Altered mental status
Prescriptions:
No Action
amlodipine 10 MG tablet
10 mg PO QPM
tamsulosin [Flomax] 0.4 MG capsule
0.4 mg PO BID
atorvastatin 80 MG tablet
40 mg PO QPM
calcium carbonate 600 MG tablet
600 mg PO DAILY
coenzyme [id number] [Co Q-10 (with Vit E)] 1 EACH capsule
100 mg PO QPM
metoprolol succinate [Toprol XL] 100 MG tablet extended release 24 hr
100 mg PO DAILY@1200
milk thistle 150 mg Capsule
300 mg PO QPM
green tea leaf extract Capsule
2 cap PO NOON
baclofen 10 MG tablet
10 mg PO TID
aspirin 81 mg Tablet,Delayed Release (Dr/Ec)
81 mg PO DAILY
vitamin B complex Tablet
1 tab PO DAILY
memantine 5 mg Tablet
5 mg PO DAILY
duloxetine [Cymbalta] 30 mg Capsule,Delayed Release(Dr/Ec)
60 mg PO HS
cyanocobalamin (vitamin B-12) 1,000 mcg Lozenge
1,000 mcg SUBLINGUAL DAILY@1200
rivastigmine tartrate 4.5 mg Capsule
4.5 mg PO BID
isosorbide mononitrate 30 mg Tablet Extended Release 24 Hr
30 mg PO DAILY Qty: 30 1RF
cephalexin 500 mg Capsule
500 mg PO QID 2 Days Qty: 8 0RF
albuterol sulfate 1.25 mg/3 mL solution for nebulization
1.25 mg inhalation Q4H PRN (Reason: shortness of breath or wheezing) Qty: 75 0RF
Referrals:
UNKNOWN - PT DOES,NOT KNOW [Family Provider] -
Interventions
Interventions:
*Risk Screen - Suicide Last Done: 03/11/24 13:35
*General Assessment Last Done: 03/11/24 13:44
*Neglect/Abuse Screening Last Done: 03/11/24 13:35
ED- Fall Risk Assessment Last Done: 03/11/24 13:49
*ED COVID-19 Vaccine History Last Done: 03/11/24 13:35
ED- Cardiac Assessment Last Done: 03/11/24 13:35
ED- Neurological Assessment Last Done: 03/11/24 15:09
ED- Pulmonary Assessment Last Done: 03/11/24 13:35
Discharge Date and Time
Print Language: KISWAHILI
[2024-03-11 14:26] LABS: % Basophils 0.7 % (0-2); % Eosinophils 4.9 % (0-6); % Immature Granulocytes 0.4 % (0-0.5); % Lymphocytes 20.6 % (20.5-51.1); % Monocytes 12.3 % (1.7-9.3); % Neutrophils 61.1 % (42.2-75.2); Absolute Eosinophils 0.3 10^3/uL (0-0.7); Absolute Lymphocytes 1.1 10^3/uL (1.2-3.4); Absolute Monocytes 0.7 10^3/uL (0.1-0.6); Absolute Neutrophils 3.3 10^3/uL (1.4-6.5); Hematocrit 32.4 % (39.0-52.0); Hemoglobin 10.2 g/dL (13.0-18.0); Mean Corp Hgb Conc. 31.5 g/dL (33.0-37.0); Mean Corpuscular Hgb 30.1 pg (27.0-31.0); Mean Corpuscular Volume 95.6 fL (80.0-94.0); Mean Platelet Volume 10.2 fL (7.4-10.4); Nucleated Red Blood Cells % 0 % (-); Platelet Count 236 10^3/uL (130-400); Red Blood Cell Count 3.39 10^6/uL (4.70-6.10); Red Cell Dist. Width 13.2 % (11.5-14.5); White Blood Cell Count 5.4 10^3/uL (4.8-10.8)
[2024-03-11 14:41] LABS: ALT (SGPT) 15 U/L (0-50); AST (SGOT) 20 U/L (17-59); Albumin 3.2 g/dl (3.5-5.0); Alkaline Phosphatase 88 U/L (38-126); Blood Urea Nitrogen 23 mg/dl (9-20); Calcium 8.5 mg/dl (8.4-10.2); Carbon Dioxide 35 mmol/L (22-30); Chloride 102 mmol/L (98-107); Estimated Creatinine Clearance 45 ml/min; Glucose 140 mg/dl (70-99); Potassium 4.7 mmol/L (3.5-5.1); Sodium 137 mmol/L (135-145); Total Bilirubin 0.2 mg/dl (0.2-1.3); Total Protein 5.6 g/dl (6.3-8.2); eGFR 45.91
[2024-03-11] MEDS: NSS 500 IV (15:08)
[2024-03-11 15:13] LABS: Urine Albumin Negative (Neg - Trace); Urine Bilirubin Negative (Negative); Urine Character Slightly Cloudy (Clear); Urine Color Yellow; Urine Glucose Negative (Negative); Urine Ketone Negative (Negative); Urine Leukocyte 1+ (Negative); Urine Nitrite Positive (Negative); Urine Occult Blood Negative (Negative); Urine Specific Gravity 1.015 (<1.030); Urine Urobilinogen Negative (Neg - 1+)
[2024-03-11 15:23] LABS: Urine Bacteria Moderate (Negative); Urine Red Blood Cell 0-2 /HPF (0-2); Urine Squamous Cell 0-2 /LPF (Few)
[2024-03-11 15:27] LABS: COVID-19 Antigen Negative (Negative)
--- NOTE | 2024-03-11 15:52 | HPS.HSE ---
Family Physician
-
Family Physician: NOT KNOW UNKNOWN - PT DOES
Chief Complaint
-
Change in mental status
History of Present Illness
84 years old male presented from home. History taken from the . Patient woke up today had breakfast as normal. He went back to sleep after it. Physical therapy was scheduled, noontime. He kept waking up asking about the appointment. When
PT arrived, they tried to wake him up with rubbing his chest but he did not open his eyes. His tried tactile stimulation with cold water, he grown. His vital signs at the times were stable and normal. EMT was called by the time they arrived,
he was at his baseline. In the ER, patient denied pain or discomfort. He seems back to his baseline. He did not have fever or leukocytosis or hypotension. He was noted to have a cloudy urine and was started on antibiotic for possible urinary
tract infection. Patient was recently in the hospital and discharged to [facility] where he stayed for 2 weeks. He was discharged back home with home physical therapy.
Medical History
Past Medical History
Past Medical History: Reports Other (Chronic kidney disease, dementia with hallucinations, TME, UTI, strokes, hypertension, HLD, status post pacemaker, gait dysfunction, peripheral arterial disease, acquired lymphedema,)
Past Surgical History: Reports Other (No recent major surgery)
Social History
Tobacco: Non-smoker
Alcohol: None
Drug: None
Personal:
Living: With Family
Employment: Retired
Family History
Family History: Not pertinent
Allergies / Home Medications
Allergies reflects when Allergies were last updated in [employer].
Home Medications with original date entered in [employer]
Allergy/Medication List:
Allergies
Allergy/AdvReac Type Severity Reaction Status Date / Time
Sulfa (Sulfonamide Allergy difficulty Verified 01/31/24 17:15
Antibiotics) breathing,
[Sulfa(Sulfonamide hives
Antibiotics)]
vancomycin Allergy dizziness,double Verified 01/31/24 17:15
vision
doxycycline monohydrate AdvReac MIGRAINE Verified 02/01/24 10:32
[From Vibramycin]
Home Medications
amlodipine 10 mg tablet 10 mg PO QPM Blood pressure 09/29/17
tamsulosin 0.4 mg capsule (Flomax) 0.4 mg PO BID Urinary issue 08/11/20
atorvastatin 80 mg tablet 40 mg PO QPM High Cholesterol 06/17/21
calcium carbonate 600 mg PO DAILY Supplement 06/17/21
metoprolol succinate 100 mg tablet,extended release 24 hr (Toprol XL) 100 mg PO NOON Blood Pressure 12/12/21
baclofen 10 mg tablet 10 mg PO TID Muscle Spasms 09/26/22
aspirin 81 mg tablet,delayed release 81 mg PO DAILY Blood Clot Prevention/Tx 10/12/23
duloxetine 30 mg capsule,delayed release (Cymbalta) 60 mg PO HS Neurological Condition 10/12/23
rivastigmine tartrate 4.5 mg capsule 4.5 mg PO BID Neurological Condition 10/12/23
vitamin B complex 1 tab PO NOON Supplement 10/12/23
isosorbide mononitrate 30 mg tablet,extended release 24 hr 30 mg PO DAILY #30 tabs 02/05/24
acetaminophen 325 mg tablet (Tylenol) 650 mg PO Q6HPRN PRN mild pain/fever 03/11/24
albuterol sulfate 1.25 mg/3 mL solution for nebulization 1.25 mg inhalation R BIDPRN PRN shortness of breath or wheezing 03/11/24
cyanocobalamin (vitamin B-12) 1,000 mcg sublingual tablet 1,000 mcg sublingual DAILY 03/11/24
Review of Systems
-
History Source: Patient
A 12 point ROS was completed and negative except as noted: Yes
Constitutional: Denies Fever
EENT: Denies Sore Throat
Respiratory: Denies Cough
Cardiac: Denies Chest Pain
Abdomen/GI: Denies Abdominal Pain
: Reports Incontinence; Denies Dysuria
Musculoskeletal: Denies Joint Pain
Skin: Denies Itching
Neurological: Denies Numbness
Hematologic/Lymphatic: Denies Bruising
Psych: Denies Panic Disorder
Physical Exam
Vital Signs
Vital Signs
Temp Pulse Resp BP Pulse Ox
98.3 F 66 18 121/69 98
03/11/24 13:35 03/11/24 13:35 03/11/24 13:35 03/11/24 13:35 03/11/24 13:35
Physical Exam
General: No Apparent Distress, Comfortable and Obese
HEENT: Moist mucous membranes and Atraumatic
Respiratory: Decreased Breath Sounds; No Wheezes
Cardiac: S1/S2
GI: Soft and Non Tender
Genito-urinary: Turbid Urine; No Bloody Urine
Musculoskeletal: No Cyanosis, Edema, Left Lower Extremity and Edema, Right Lower Extremity
Skin: No Jaundice
Neuro: Awake and Alert; No Slurred Speech or Tremors
Psych: Calm and Apparent Dementia
Laboratory Results
-
03/11/24 14:11
03/11/24 14:11
Laboratory Results
Total Bilirubin 0.2 mg/dl (0.2-1.3) 03/11/24 14:11
AST 20 U/L (17-59) 03/11/24 14:11
ALT 15 U/L (0-50) 03/11/24 14:11
Alkaline Phosphatase 88 U/L (38-126) 03/11/24 14:11
Impression/Plan
-
84 years old male presented with change in mental status that seems to resolve upon arrival
#Change in mental status/toxic metabolic encephalopathy status possible related to evolving urinary tract infection
History is limited from patient but he denies discomfort, does not recall events. Patient denies pain or discomfort. According to the history obtained from , patient was at his baseline but became lethargic around noon and could not wake up
when PT came to do the treatment.
In the ER no fever, no leukocytosis but cloudy urine
Patient has history of urinary tract infection in the past and toxic metabolic encephalopathy.
Admit the patient to the hospital on telemetry
No chest pain, EKG paced rhythm. Check troponin
Head CT no acute findings
No history of falls or involuntary/convulsion movements
Empiric antibiotic. Will follow-up with urine culture. Will do blood culture.
Monitor temperature curve and blood pressure
#History of advanced dementia with hallucination. Seems at baseline. He follows commands and answers simple questions.
# Acquired lymphedema of lower extremities. Will continue with diuretic therapy in the hospital. Monitor weight. Monitor renal function
#Pacemaker
Benign Hypertension
- Stable. Continue outpatient med regimen and adjust as needed.
CKD IIIb
SCr is at / near known baseline.
- Follow for any changes.
Anemia of Chronic Disease
- Stable. Hgb is at / near known baseline.
- Follow for any changes.
ASCVD
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
Gait dysfunction.
No new focal neuro deficits.
- Continue current CV med regimen including ASA, statin.
- Continue supportive care including baclofen, Cymbalta.
#BPH
Continue tamsulosin.
- Bladder scan protocol.
#History of right bundle branch block
History of pacemaker
#History of essential hypertension
Monitor for hypotension
# History scrotal hernia
DVT Prophylaxis: Subcutaneous heparin
# Code status
DNR , confirmed with
Total time spent to see the patient, examine the patient, review data and lab results, discuss the treatment plan with patient, ER doctor, nursing staff around 75 minutes
[2024-03-11] MEDS: ROCEPHIN 1000 MG IV (15:54)
[2024-03-11 17:17] LABS: Troponin I 0.037 ng/ml
[2024-03-11 19:30] VITALS: BP 137/47
[2024-03-11] MEDS: EXELON 4.5 MG PO (20:22)
[2024-03-11] MEDS: LASIX 40 MG IV (20:22)
[2024-03-11] MEDS: FLOMAX 0.4 MG PO (20:22)
[2024-03-11] MEDS: HEPARIN 5000 UNITS SC (20:23)
[2024-03-11] MEDS: NORVASC 10 MG PO (20:23)
[2024-03-11] MEDS: LIPITOR 40 MG PO (20:24)
[2024-03-11] MEDS: CYMBALTA DELAYED RELEASE 60 MG PO (21:26)
[2024-03-11] MEDS: TYLENOL 650 MG PO (21:26)
[2024-03-11] MEDS: LIORESAL 10 MG PO (21:26)
[2024-03-11 23:00] VITALS: BP 113/53
--- NOTE | 2024-03-12 01:30 | PTCARENOTE ---
Pt arrived to unit @ 19:25pm via stretcher with @ bedside. 3 RN assisted chain puller. Pt is ax2, vss, afebrile and was reoriented to surrounding. Pt has a hx of confusion. ADMISSION DOCUMENTATION COMPLETED BY RN WITH PRESENT. pt with call
urrutia in hand, and bed alarm for safety.
[2024-03-12 03:00] VITALS: BP 152/71
[2024-03-12] MEDS: NSS (PRESERVATIVE FREE) 0.125 ML IV (03:28)
[2024-03-12] MEDS: ATIVAN 0.25 MG IV (03:28)
--- NOTE | 2024-03-12 03:40 | PTCARENOTE ---
Pt very agitated throughout the night. Pt had to receive hygiene care due to an episode of incontinence. Pt was very combative and aggressive with staff. Pt attempted to push tech when helping with a turn. when pt had to be completed, upon turning
him pt acquired a skin tear. RN noticed when charge nurse made mention. Pt received a dose of ativan for continuous agitation and combative behavior towards staff. RN to continue monitoring
[2024-03-12 07:00] VITALS: BP 152/80
[2024-03-12 07:32] LABS: Blood Urea Nitrogen 20 mg/dl (9-20); Calcium 8.5 mg/dl (8.4-10.2); Carbon Dioxide 34 mmol/L (22-30); Chloride 97 mmol/L (98-107); Estimated Creatinine Clearance 49 ml/min; Glucose 114 mg/dl (70-99); Sodium 138 mmol/L (135-145); eGFR 49.87
[2024-03-12] MEDS: FLOMAX 0.4 MG PO (08:47)
[2024-03-12] MEDS: IMDUR (EXTENDED RELEASE) 30 MG PO (08:47)
[2024-03-12] MEDS: EXELON 4.5 MG PO (08:47)
[2024-03-12] MEDS: STERILE WATER FOR INJECTION 10 ML IV (08:48)
[2024-03-12] MEDS: LASIX 40 MG IV (08:48)
[2024-03-12] MEDS: LIORESAL 10 MG PO (08:48)
[2024-03-12] MEDS: ROCEPHIN 1000 MG IV (08:48)
[2024-03-12] MEDS: ASPIR LOW (ENTERIC COATED) 81 MG PO (08:48)
[2024-03-12] MEDS: HEPARIN 5000 UNITS SC (08:51)
[2024-03-12 11:00] VITALS: BP 103/51
--- NOTE | 2024-03-12 11:10 | W.PN.HOSP.TC ---
Addendum entered and electronically signed by Sugey Grubbs MD 03/12/24 16:45:
Addendum
Saw pt again with in room
He was sitting in chair. D/W bilingual case manager, home care services
d/w to c/w oral antibiotic for total of 7 days
End
Original Note:
Today's Communication/Plan
-
labor relations manager evaluation
Ordered PT/OT
Possible discharge
Assessment / Plan
Assessment / Plan
Physical Exam
General: No Apparent Distress, Comfortable and Obese
HEENT: Moist mucous membranes and Atraumatic
Respiratory: Decreased Breath Sounds; No Wheezes
Cardiac: S1/S2
GI: Soft and Non Tender
Genito-urinary: Turbid Urine; No Bloody Urine
Musculoskeletal: No Cyanosis, Edema, Left Lower Extremity and Edema, Right Lower Extremity
Skin: No Jaundice
Neuro: Awake and Alert; No Slurred Speech or Tremors
Psych: Calm and Apparent Dementia
84 years old male presented with change in mental status that seems to resolve upon arrival
#Change in mental status/toxic metabolic encephalopathy status possible related to evolving urinary tract infection
He became agitated over night and aggressive with staff, given 0.25 mg IV Ativan
This morning, he wanted to go home
d/w
d/w case mgr, wanted PT/OT
His lethargy, could be related to low BP? although reportedly his vitals were normal.
# Cloudy urine
No fever, no leukocytosis
Given Rocephin
I do not think his agitation is related but might be related to his cognitive imapirment
CT head no acute changes.
Tele no arrhythmias over night
#History of advanced dementia with hallucination. Seems at baseline. He follows commands and answers simple questions.
# Acquired lymphedema of lower extremities. s/p Lasix, did well .
#Pacemaker
# Positive troponin at 0.037
It is lower than previous readings during previous hospitalizations
No clinical significant with lack of chest pain or sob or hypoxia.
Benign Hypertension
- Stable. Continue outpatient med regimen and adjust as needed.
CKD IIIb
SCr is at / near known baseline.
- Follow for any changes.
Anemia of Chronic Disease
- Stable. Hgb is at / near known baseline.
- Follow for any changes.
ASCVD
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
Gait dysfunction.
No new focal neuro deficits.
- Continue current CV med regimen including ASA, statin.
- Continue supportive care including baclofen, Cymbalta.
#BPH
Continue tamsulosin.
- Bladder scan protocol.
#History of right bundle branch block
History of pacemaker
#History of essential hypertension
Monitor for hypotension
# History scrotal hernia
DVT Prophylaxis: Subcutaneous heparin
# Code status
DNR , confirmed with
Total dc time spent to see the patient, examine the patient, review data and lab results, discuss the discharge/ treatment plan with patient, of pt, bilingual case manager, nursing staff around 67 minutes
Anticipated Discharge: Today
Subjective/Interval History
-
Date of Service: March 12, 2024
No chest pain
No sob
He was agitated over night and had ativan
Objective Data
-
Labs:
Laboratory Results
03/12/24
06:45
Sodium 138
Potassium 4.0
Chloride 97 L
Carbon Dioxide 34 H
BUN 20
Creatinine 1.4 H
Glucose 114 H
Calcium 8.5
Vital Signs:
Vital Signs
Temp Pulse Resp BP Pulse Ox
97.5 F 82 18 152/80 93
03/12/24 07:00 03/12/24 07:00 03/12/24 07:00 03/12/24 07:00 03/12/24 07:00
I&O
03/11/24 03/12/24 03/13/24
06:59 06:59 06:59
Intake Total 480 / 480
Balance 480 / 480
--- NOTE | 2024-03-12 12:01 | CM ---
Sleepy confused patient who lives with Sarah and son Dez .He is assisted in all adls.He has hx of CVA. He is max assist of 1to2. He has a wheelchair walker shower chair chair lift. Bathes on toilet with assist.Hemiplegia to left side.
is home care nurse . PT OT to see him. requests return to Home with [facility]. refuses SNF. She requested dc today to home.Request ambulance transport. Medical nec form completed.
Encouraged to call [facility] to be evaluated for ankur care givers. She aid she will call.
Current with [facility].
[facility] current [facility].
Pharmacy [facility]
PCP Dr Parsons
PLAN Home with [facility]
[2024-03-12 12:15] VITALS: BP 95/52; PULSE 86; O2SAT 94
[2024-03-12 12:22] VITALS: BP 95/52; PULSE 86; O2SAT 94
[2024-03-12] MEDS: TOPROL XL 100 MG PO (12:26)
[2024-03-12 15:00] VITALS: BP 109/59
--- NOTE | 2024-03-12 15:14 | PTCARENOTE ---
patient cooperative with care, unable to reoriented, tolerating diet, sitting oob in chair, vss, at bedside, for discharge to home today, will continue to monitor.
--- NOTE | 2024-03-12 16:34 | W.DCSUMMARY ---
Discharge Summary
Discharge Data
Date of Admission: 03/11/24
Date of Discharge: 03/12/24
-
Pending Results: No
Hospital Course
84 years old male presented from home with change in mental status. He had an episode of lethargy with depressed responsiveness. reported frequency of urine at home. Upon arrival to emergency room, he did not have fever or leukocytosis, pain in
chest or abdomen, dysuria or hypotension. He was noted to have cloudy urine and was started on antibiotic for possible urinary tract infection. Bladder scan did not show retention. He had stable renal function. Patient did not want to stay in the
hospital but agreed for an overnight observation. Patient became agitated with staff at night and was given low dose lorazepam. He received IV antibiotic. He was monitored on telemetry and troponin was at 0.037 which was lower than previous
readings, EKG showed paced rhythm. Patient was evaluated by physical therapy and was close to his baseline, wanted home care services and not another skilled facility placement. manager clinical pharmacy evaluated also and discussed with patient and
the plan. Patient was advised to finish 7 days course of antibiotic. He remained hemodynamically stable and was discharged home in a stable condition.
Discharge Plan
-
Patient Disposition: Home with Home Care
Discharge Diagnosis/Procedures: Change in mentail status
Urine was positive for leukocytes and bacteria, culture was ordered. Continue with empiric oral antibiotic to finish the course.
Diet: As tolerated
Referrals:
Demetria Parsons PA-C [Family Provider] -
Prescriptions:
New
cefdinir 300 mg capsule
300 mg PO DAILY Qty: 5 0RF
Continued
amlodipine 10 MG tablet
10 mg PO QPM
tamsulosin [Flomax] 0.4 MG capsule
0.4 mg PO BID
atorvastatin 80 MG tablet
40 mg PO QPM
calcium carbonate 600 MG tablet
600 mg PO DAILY
metoprolol succinate [Toprol XL] 100 MG tablet extended release 24 hr
100 mg PO NOON
baclofen 10 MG tablet
10 mg PO TID
aspirin 81 mg Tablet,Delayed Release (Dr/Ec)
81 mg PO DAILY
vitamin B complex Tablet
1 tab PO NOON
duloxetine [Cymbalta] 30 mg Capsule,Delayed Release(Dr/Ec)
60 mg PO HS
rivastigmine tartrate 4.5 mg Capsule
4.5 mg PO BID
isosorbide mononitrate 30 mg Tablet Extended Release 24 Hr
30 mg PO DAILY Qty: 30 1RF
acetaminophen [Tylenol] 325 mg Tablet
650 mg PO Q6HPRN PRN (Reason: mild pain/fever)
cyanocobalamin (vitamin B-12) 1,000 mcg Tablet, Sublingual
1,000 mcg SUBLINGUAL DAILY
albuterol sulfate 1.25 mg/3 mL solution for nebulization
1.25 mg inhalation R BIDPRN PRN (Reason: shortness of breath or wheezing)
Discharge Orders:
Discharge Patient (As Directed); Ordered 03/12/24
Ordered By: Sugey Grubbs
Discharge Date and Time
Discharge Date/Time: 03/12/24 17:14
Print Language: IVORIAN
== END 2024-03-12 17:14 | disposition home health service (06) | DRG 689 ==
LOC: 3 WEST ACU 17:22
PROVIDERS: Nurse Practitioner; ADMITTING PHYSICIAN Internal Medicine; EMERGENCY PHYSICIAN Emergency Medicine; FAMILY PHYSICIAN Physician Assistant
DX: N39.0 Urinary tract infection, site not specified (principal); G92.8 Other toxic encephalopathy; I69.354 Hemiplegia and hemiparesis following cerebral infarction affecting left non-dominant side; N18.32 Chronic kidney disease, stage 3b; D63.1 Anemia in chronic kidney disease; I25.10 Atherosclerotic heart disease of native coronary artery without angina pectoris; N40.0 Benign prostatic hyperplasia without lower urinary tract symptoms; Z66 Do not resuscitate; Z11.52 Encounter for screening for COVID-19
CPT/HCPCS: 70450; 80048; 80053; 81003; 81015; 82962; 84484; 85025; 87077; 87086; 87186; 87502; 87811; 93005; 96361; 96374; 97163; 97167; 97530; 99285

== ENCOUNTER 2024-03-18 14:36 | Emergency (ER) | payer BC, SELFPAY ==
[2024-03-18 14:43] VITALS: BP 153/75
[2024-03-18 15:00] VITALS: BP 142/65
--- NOTE | 2024-03-18 15:15 | ED.GENMED ---
History of Present Illness
General
Chief Complaint: Weakness
Source: patient
Exam Limitations: none
Time Seen by Provider: 03/18/24 15:14
Nursing documentation reviewed up to this point in time: agreed with
History of Present Illness
History of Present Illness:
84-year-old male with history of CVA, left-sided weakness, HTN, HLD, pacemaker, BPH, UTI, kidney stones presents with at bedside who states she brought him here due to weakness. She states he does not walk rather pivots to his wheelchair when
she takes him to the bathroom and then back to bed. He is basically bedridden or in a wheelchair. At 6 AM she took him to the bathroom and then back to bed and let him sleep and until 1 PM. She went to wake him and he 'was flailing his arms and
legs and his eyes were wide open' and then he settled down and went back to sleep. She states he had 3-4 of these types of episodes as she tried to wake him from his sleep. When he drifted back to sleep she could arouse him by pinching his nose.
But his arms were limp and when she lifted his arms they were just flopped back down on the bed.
He was last seen active yesterday when the visiting nurse came. He he slept till 11 AM, he was 'feisty' and would not do his physical therapy, refusing his blood pressure check etc. while he settled down and was 'fine' for the visiting nurse.
He gets OT and PT twice a week at home.
7 days ago he was diagnosed with a UTI, was difficult to arouse came here, observed overnight and discharged on cefdinir 300 mg daily and yesterday was his last dose. is expressing concern that perhaps his urine infection was not cleared or he
has an infection somewhere since this is how he acted with the recent UTI. There has been no cough, trouble breathing. Tested Covid neg last week per
Past History
Past History
ED Past Medical History: CVA (Left sided weakness, right parietal stroke in 2011), HTN, Hypercholesterolemia and Other (Renal calculus, UTi, Scrotal hernia, Cellulitis)
ED Past Surgical History: Cardiac (pacemaker, RBBB), Tonsilectomy (and adnoids), Urological (Kidney stones) and Other (Right carotid endarterectomy herniorrhaphy, left orchiectomy)
Social History
Tobacco: Non-smoker
Alcohol: None
Drug: None
Personal:
Living: with family
Employment: Retired
Family History
Family History: Hypertension
Review of Systems
Review of Systems
Allergies reviewed?: Yes
All Other Systems: ROS reviewed and negative except as documented in HPI and ROS
Constitutional: Reports fatigue; Denies fever
EENT: Denies sore throat
Respiratory: Denies trouble breathing
Cardiac: Denies chest pain
ABD/GI: Denies abdominal pain, nausea, vomiting, diarrhea, constipated, bloody stools, black stools or anorexia
: Reports incontinence
Musculoskeletal: Reports no symptoms
Skin: Reports no symptoms
Neurological: Reports no symptoms
Phy Exam
Physical Exam
Physical Exam:
GENERAL: No acute distress. Quiet, alert, cannot say where he is 'in that place that I shouldn't be'
CONSTITUTIONAL: Afebrile.
EYES: clear, conjunctivae normal
ENMT: moist mucus membranes, Pharynx nl
RESPIRATORY: Regular respirations, nonlabored, lungs clear.
CARDIOVASCULAR: Regular rate and rhythm, no murmurs, no rubs.
GI: Soft, nontender, normal BS
MUSCULOSKELETAL: LLE mild to moderate lymphedema, intact blister dorsum left 2nd toe. Non ambulatory. Well perfused.
SKIN: Warm, dry, pink
PSYCH: Depressed mood and affect. Well kept, interactive and appropriate
NEUROLOGIC: Awake, alert and oriented x 1. Follows commands. Hand grasps equal 5/5, dorsiflexion strength 5/5. No focal neurological deficit. Generally slow normally
Course
Orders/Labs/Results
Orders:
Orders
03/18/24 15:25
Straight cath- Treatment ONCE
03/18/24 15:26
0.9% Sodium Chloride 250 ml [Nss] 250 ml IV BOLUS
03/18/24 15:38
Complete Blood Count/With Diff Urgent
Comprehensive Metabolic Panel Urgent
03/18/24 16:00
Urinalysis Reflex To Culture Urgent
Date Specimen was Collected: 03/18/24
Time Specimen was Collected: 15:45
Abnormal Lab Results
03/18/24
15:38
RBC 3.97 L 10^6/uL
(4.70-6.10)
Hgb 11.7 L g/dL
(13.0-18.0)
Hct 36.7 L %
(39.0-52.0)
MCHC 31.9 L g/dL
(33.0-37.0)
Abs Immat Gran (auto) 0.1 H 10^3/uL
(0-0.05)
Absolute Monos (auto) 0.8 H 10^3/uL
(0.1-0.6)
Immature Gran % 0.6 H %
(0-0.5)
Lymphocytes % 16.3 L %
(20.5-51.1)
Monocytes % 9.6 H %
(1.7-9.3)
Carbon Dioxide 35 H mmol/L
(22-30)
BUN 21 H mg/dl
(9-20)
Glucose 107 H mg/dl
(70-99)
Total Protein 6.2 L g/dl
(6.3-8.2)
03/18/24 15:38
03/18/24 15:38
Vital Signs
Initial and Last Documented VS:
Initial Vital Signs
Temp Pulse Resp BP Pulse Ox
97.9 F 87 18 153/75 93
03/18/24 14:43 03/18/24 14:43 03/18/24 14:43 03/18/24 14:43 03/18/24 14:43
Last Documented Vital Signs
Temp Pulse Resp BP Pulse Ox
97.9 F 76 21 128/90 94
03/18/24 14:43 03/18/24 19:30 03/18/24 19:30 03/18/24 19:00 03/18/24 16:30
MDM/Problems Addressed
MDM/Problems Addressed:
84-year-old male with history of CVA, left-sided weakness, HTN, HLD, pacemaker, BPH, UTI, kidney stones presents with at bedside who states she brought him here due to weakness. She states he does not walk rather pivots to his wheelchair when
she takes him to the bathroom and then back to bed. He is basically bedridden or in a wheelchair. At 6 AM she took him to the bathroom and then back to bed and let him sleep and until 1 PM. She went to wake him and he 'was flailing his arms and
legs and his eyes were wide open' and then he settled down and went back to sleep. She states he had 3-4 of these types of episodes as she tried to wake him from his sleep. When he drifted back to sleep she could arouse him by pinching his nose.
But his arms were limp and when she lifted his arms they were just flopped back down on the bed.
He was last seen active yesterday when the visiting nurse came. He he slept till 11 AM, he was 'feisty' and would not do his physical therapy, refusing his blood pressure check etc. while he settled down and was 'fine' for the visiting nurse.
He gets OT and PT twice a week at home.
7 days ago he was diagnosed with a UTI, was difficult to arouse came here, observed overnight and discharged on cefdinir 300 mg daily and yesterday was his last dose. is expressing concern that perhaps his urine infection was not cleared or he
has an infection somewhere since this is how he acted with the recent UTI. There has been no cough, trouble breathing. Tested Covid neg last week per
5:15 p.m.
after 200 ml IV fluids, Pt is much more alert, back to his baseline per but 'his eyes are a little glassy.' Pt is drinking apple juice. IV running slow. Gave 10 oz apple juice and he drank it all.
*Critical Care Note
Total Time (30-74mins, 75-104mins- exclusive of procedures): Not Applicable
ED Attending Note
-
Portions of this chart may have been created with voice recognition software.� Occasional wrong word or��sound alike� substitutions may have occurred due to the inherent limitations of voice recognition software.
Discharge Plan
Departure
Patient Disposition: Home (Routine Discharge)
Date of Disposition: 03/18/24
Time of Disposition: 17:20
Patient with high blood pressure during this ER visit?: No
Condition: Good
Discharge Problem:
Altered mental state, Blister of second toe of left foot, Lymphedema of left lower extremity
Instructions: Blisters, Lymphedema
Prescriptions:
No Action
amlodipine 10 MG tablet
10 mg PO QPM
tamsulosin [Flomax] 0.4 MG capsule
0.4 mg PO BID
atorvastatin 80 MG tablet
40 mg PO QPM
calcium carbonate 600 MG tablet
600 mg PO DAILY
metoprolol succinate [Toprol XL] 100 MG tablet extended release 24 hr
100 mg PO NOON
baclofen 10 MG tablet
10 mg PO TID
aspirin 81 mg Tablet,Delayed Release (Dr/Ec)
81 mg PO DAILY
vitamin B complex Tablet
1 tab PO NOON
duloxetine [Cymbalta] 30 mg Capsule,Delayed Release(Dr/Ec)
60 mg PO HS
rivastigmine tartrate 4.5 mg Capsule
4.5 mg PO BID
isosorbide mononitrate 30 mg Tablet Extended Release 24 Hr
30 mg PO DAILY Qty: 30 1RF
acetaminophen [Tylenol] 325 mg Tablet
650 mg PO Q6HPRN PRN (Reason: mild pain/fever)
cyanocobalamin (vitamin B-12) 1,000 mcg Tablet, Sublingual
1,000 mcg SUBLINGUAL DAILY
albuterol sulfate 1.25 mg/3 mL solution for nebulization
1.25 mg inhalation R BIDPRN PRN (Reason: shortness of breath or wheezing)
cefdinir 300 mg capsule
300 mg PO DAILY Qty: 5 0RF
Referrals:
Demetria Parsons PA-C [Family Provider] - Follow up in 5-7 days
Lenny Smalls MD [Active] - Next open appointment
Activity Restrictions/Additional Instructions:
As we discussed, I found nothing worrisome in Preet's exam or blood work. Urine is clear, no infection.
He is drinking well.
Keep the blister on his left 2nd toe covered with the nonstick dressing, so it doesn't sheer on his socks
If you note spreading redness, worse swelling, red streak up the foot, fever or seeming worse, see your doctor or return here immediately.
I gave you a referral to Vascular doctor, call and make next available appointment
Interventions
Interventions:
*Risk Screen - Suicide Last Done: 03/18/24 14:43
*General Assessment Last Done: 03/18/24 14:43
*Neglect/Abuse Screening Last Done: 03/18/24 14:43
ED- Fall Risk Assessment Last Done: 03/18/24 21:10
*Nursing Disposition Last Done: 03/18/24 21:10
ED- Cardiac Assessment Last Done: 03/18/24 16:49
ED- Neurological Assessment Last Done: 03/18/24 16:49
ED- Pulmonary Assessment Last Done: 03/18/24 16:49
Discharge Date and Time
Discharge Date/Time: 03/18/24 21:11
Print Language: WELSH
[2024-03-18 15:49] LABS: % Basophils 0.5 % (0-2); % Eosinophils 2.8 % (0-6); % Immature Granulocytes 0.6 % (0-0.5); % Lymphocytes 16.3 % (20.5-51.1); % Monocytes 9.6 % (1.7-9.3); % Neutrophils 70.2 % (42.2-75.2); Absolute Eosinophils 0.2 10^3/uL (0-0.7); Absolute Immature Granulocytes 0.1 10^3/uL (0-0.05); Absolute Lymphocytes 1.4 10^3/uL (1.2-3.4); Absolute Monocytes 0.8 10^3/uL (0.1-0.6); Hematocrit 36.7 % (39.0-52.0); Hemoglobin 11.7 g/dL (13.0-18.0); Mean Corp Hgb Conc. 31.9 g/dL (33.0-37.0); Mean Corpuscular Hgb 29.5 pg (27.0-31.0); Mean Corpuscular Volume 92.4 fL (80.0-94.0); Mean Platelet Volume 9.5 fL (7.4-10.4); Nucleated Red Blood Cells % 0 % (-); Platelet Count 267 10^3/uL (130-400); Red Blood Cell Count 3.97 10^6/uL (4.70-6.10); Red Cell Dist. Width 13.1 % (11.5-14.5); White Blood Cell Count 8.5 10^3/uL (4.8-10.8)
[2024-03-18] MEDS: NSS 250 IV (15:51)
[2024-03-18 16:00] VITALS: BP 143/66
[2024-03-18 16:03] LABS: ALT (SGPT) 17 U/L (0-50); AST (SGOT) 22 U/L (17-59); Albumin 3.5 g/dl (3.5-5.0); Alkaline Phosphatase 121 U/L (38-126); Blood Urea Nitrogen 21 mg/dl (9-20); Calcium 8.9 mg/dl (8.4-10.2); Carbon Dioxide 35 mmol/L (22-30); Chloride 100 mmol/L (98-107); Glucose 107 mg/dl (70-99); Potassium 4.5 mmol/L (3.5-5.1); Sodium 140 mmol/L (135-145); Total Bilirubin 0.3 mg/dl (0.2-1.3); Total Protein 6.2 g/dl (6.3-8.2); eGFR 54.51
[2024-03-18 16:23] LABS: Urine Albumin Negative (Neg - Trace); Urine Bilirubin Negative (Negative); Urine Character Clear (Clear); Urine Color Yellow; Urine Glucose Negative (Negative); Urine Ketone Negative (Negative); Urine Leukocyte Negative (Negative); Urine Nitrite Negative (Negative); Urine Occult Blood Negative (Negative); Urine Specific Gravity 1.005 (<1.030); Urine Urobilinogen Negative (Neg - 1+)
[2024-03-18 17:00] VITALS: BP 152/73
[2024-03-18 18:00] VITALS: BP 151/70
[2024-03-18 19:00] VITALS: BP 128/90
== END 2024-03-18 21:11 | disposition home or self-care (01) ==
LOC: EMR 14:36
PROVIDERS: Registered Nurse; EMERGENCY PHYSICIAN Emergency Medicine; FAMILY PHYSICIAN Physician Assistant
DX: R41.82 Altered mental status, unspecified (principal); S90.425A Blister (nonthermal), left lesser toe(s), initial encounter; X58.XXXA Exposure to other specified factors, initial encounter; I89.0 Lymphedema, not elsewhere classified; I10 Essential (primary) hypertension; E78.00 Pure hypercholesterolemia, unspecified; N40.0 Benign prostatic hyperplasia without lower urinary tract symptoms; I69.954 Hemiplegia and hemiparesis following unspecified cerebrovascular disease affecting left non-dominant side; Z95.0 Presence of cardiac pacemaker; Z90.79 Acquired absence of other genital organ(s)
CPT/HCPCS: 99283; 80053; 81003; 85025

== ENCOUNTER 2024-03-26 13:22 | Inpatient (IN) | payer BC, MEDICARE, SELFPAY ==
[2024-03-26] VITALS (14 sets, daily range): BP systolic 93–155; BP diastolic 41–74; BMI 32.6; BMI 31.8
--- NOTE | 2024-03-26 09:08 | ED.GENMED ---
History of Present Illness
General
Chief Complaint: Change in Mental Status
Source: spouse
Exam Limitations: clinical condition
Time Seen by Provider: 03/26/24 08:53
History of Present Illness
History of Present Illness:
Lethargy progressive over the last 24 hours. Patient unable to add history. History of similar episodes in the past. Symptoms are moderate in nature
Past History
Past History
ED Past Medical History: CVA (Left sided weakness, right parietal stroke in 2012), HTN, Hypercholesterolemia and Other (Renal calculus, UTi, Scrotal hernia, Cellulitis)
ED Past Surgical History: Cardiac (pacemaker, RBBB), Tonsilectomy (and adnoids), Urological (Kidney stones) and Other (Right carotid endarterectomy herniorrhaphy, left orchiectomy)
Social History
Tobacco: Non-smoker
Alcohol: None
Drug: None
Personal:
Living: with family
Employment: Retired
Family History
Family History: Hypertension
Review of Systems
Review of Systems
Unable to obtain full review of systems at this time due to: due to acuity
All Other Systems: Not applicable
Phy Exam
Physical Exam
Physical Exam:
GENERAL: Sleeping, lethargic, will open his eyes grunt and respond to verbal stimuli however
EYE: Orbits normal.
NECK: Supple, no significant adenopathy.
ENT: Pharynx without erythema
CARDIAC: Regular rate and rhythm without any obvious murmurs.
LUNGS: Mild inspiratory and expiratory rhonchi
ABDOMEN: Soft, without focal tenderness or distention
NEUROLOGICAL: Lethargic. Alert to name only. Grossly nonfocal
SKIN: Warm and dry, chronic hyperpigmentation changes of the lower extremities
MUSCULOSKELETAL: Minimal lower extremity edema
PSYCH: Poor eye contact.
Course
Orders/Labs/Results
Orders:
Orders
03/26/24 09:02
Cardiac Monitoring- Treatment ONCE
IV Insert/Care/Rem.- Treatment PRN
Acetaminophen 1000MG/100Ml [Ofirmev] 1,000 mg in 100 ml IV ONCE
Acetaminophen IV Indication:: Targeted Temp Management
O2 Therapy [RESP] Urgent
Titrate/Wean O2 to maintain O2 sat greater than (%): 93
Pulse Ox/cont/shift [RESP] Urgent
Quantity: 1
03/26/24 09:03
Electrocardiogram (*1) Urgent
Reason for Study: Other
Other Reason for Exam: sepsis
EKG- Treatment ONCE
03/26/24 09:04
0.9% Sodium Chloride 500 ml [Nss] 500 ml IV BOLUS
CR Chest Portable - 1 View Urgent
Comment:
Reason For Exam: weak fever
Reason Study Needs to be Portable: Patient Unstable
03/26/24 09:12
COVID-19 Antigen Urgent
Source: Nasal Swab
Complete Blood Count/With Diff Urgent
Comprehensive Metabolic Panel Urgent
Lactic Acid Q4H
Comment: CANCEL 2nd LACTIC ACID IF 1st LACTIC ACID IS LESS THAN 2
Urinalysis Reflex To Culture Urgent
Date Specimen was Collected: 03/26/24
Time Specimen was Collected: 09:10
Urine Microscopic Reflex Cult Urgent
Blood Culture Q30M
VIKI Source: Blood/Venous
Specimen Description:
Influenza A+B Rapid Molecular Urgent
VIKI Source: Nasal Swab
Specimen Description:
Urine Culture Urgent
VIKI Source: U
Specimen Description:
Date Specimen was Collected: 03/26/24
Time Specimen was Collected: 09:10
03/26/24 10:04
CT Abd/pel Without Iv Or Oral Urgent
Comment:
Reason For Exam: Recurrent UTI
03/26/24 10:06
Cefepime HCl [Maxipime] 2,000 mg IV NOW STA
03/26/24 10:33
Blood Culture Q30M
VIKI Source: Blood/Venous
Specimen Description:
03/26/24 13:03
Admit/Transfer Patient As Directed
Co-Sign Provider:
Level of Care: Inpatient admission
Assign to:: Telemetry
Physician / Group: Mirsky/Hospitalist
Diagnosis: UTI
Reason for Telemetry: Arrhythmia
Date to Stop Telemetry: 03/29/24
Time to Stop Telemetry: 11:00
Reason for Hospitalization: UTI
Toxic Metabolic Encephalopathy
Expected length of stay greater than two midnights?: Yes
ELOS- Estimated Length of Stay in days: 5
I certify the patient meets the requirements for IP care: Yes
03/26/24 13:04
PRN Pain Medication Management As Directed
May give lesser potent ordered pain med per pt: Yes
preference::
Protocol:: Medication orders for pain may be administered in a
manner that supports deferring to patient preference
when the pt is:
- Requesting an ordered lesser potent pain medication.
Least to most potent pain medications are defined
as: acetaminophen < NSAID < tramadol < opioids
(morphine, oxycodone, hydromorphone).
- Requesting a lesser dose of the same medication IF
ORDERED.
- Requesting a less intrusive route of administration
if both routes are prescribed by the provider (PO <
IV).
03/26/24 13:07
Code Status As Directed
Resuscitation Status: Do not resuscitate
Reached after discussion with pt or family/Healthcare POA: Yes
Decision communicated with: , at bedside
DNR Bracelet Application ONCE
03/26/24 13:15
Lactic Acid Q4H
Comment: CANCEL 2nd LACTIC ACID IF 1st LACTIC ACID IS LESS THAN 2
03/29/24 11:00
DC Protocol for Telemetry ONCE
Abnormal Lab Results
03/26/24
09:12
WBC 15.6 H 10^3/uL
(4.8-10.8)
RBC 3.35 L 10^6/uL
(4.70-6.10)
Hgb 9.9 L g/dL
(13.0-18.0)
Hct 31.1 L %
(39.0-52.0)
MCHC 31.8 L g/dL
(33.0-37.0)
Abs Immat Gran (auto) 0.2 H 10^3/uL
(0-0.05)
Absolute Neuts (auto) 12.4 H 10^3/uL
(1.4-6.5)
Absolute Lymphs (auto) 0.7 L 10^3/uL
(1.2-3.4)
Absolute Monos (auto) 2.4 H 10^3/uL
(0.1-0.6)
Immature Gran % 1.0 H %
(0-0.5)
Neutrophils % 79.2 H %
(42.2-75.2)
Lymphocytes % 4.2 L %
(20.5-51.1)
Monocytes % 15.4 H %
(1.7-9.3)
Carbon Dioxide 33 H mmol/L
(22-30)
BUN 26 H mg/dl
(9-20)
Creatinine 1.7 H mg/dL
(0.7-1.3)
Glucose 154 H mg/dl
(70-99)
Lactic Acid 0.6 L mmol/L
(0.7-2.0)
Calcium 7.7 L mg/dl
(8.4-10.2)
Total Protein 5.1 L g/dl
(6.3-8.2)
Albumin 2.7 L g/dl
(3.5-5.0)
Ur Occult Blood Reflex 3+ A
(Negative)
Urine Nitrite (Reflex) Positive A
(Negative)
Leukocyte Esterase Rfl 2+ A
(Negative)
Urine WBC (Reflex) >100 A /HPF
(0-5)
Urine Bacteria (Reflex) Many A
(Negative)
Urine Albumin (Reflex) 2+ A
(Neg - Trace)
03/26/24 09:12
03/26/24 09:12
Vital Signs
Initial and Last Documented VS:
Initial Vital Signs
Temp Pulse Resp BP Pulse Ox
100.8 F H 85 16 121/60 89
03/26/24 08:28 03/26/24 08:28 03/26/24 08:28 03/26/24 08:28 03/26/24 08:28
Last Documented Vital Signs
Temp Pulse Resp BP Pulse Ox
98.1 F 61 17 93/41 89
03/26/24 13:28 03/26/24 13:15 03/26/24 13:15 03/26/24 11:33 03/26/24 13:28
MDM/Problems Addressed
Differential Diagnosis Includes:
Patient with fever lethargy. Workup in progress. Multiple polyps small etiologies including recurrent UTI. If urine is positive we will also get a CT to rule out obstructing stone. Influenza COVID other viral illness. Respiratory illness with
mild inspiratory and expiratory rhonchi. Clearly warrants admission. Need further history from the
*Critical Care Note
Total Time (30-74mins, 75-104mins- exclusive of procedures): Not Applicable
Data Reviewed
Review of Other/Old Records Reveals: Labs, Records, Radiology Studies, Discharge Summary and Other (Echocardiogram)
ED Attending Note
-
Portions of this chart may have been created with voice recognition software.� Occasional wrong word or��sound alike� substitutions may have occurred due to the inherent limitations of voice recognition software.
Discharge Plan
Departure
Patient Disposition: Admit
Date of Disposition: 03/26/24
Time of Disposition: 10:07
Presentation/result/management discussed w/ accepting MD/DO: Hospitalist
Discharge Problem:
Complicated UTI, Possible pneumonia, Renal insufficiency
Interventions
Interventions:
*Risk Screen - Suicide Last Done: 03/26/24 08:28
*General Assessment Last Done: 03/26/24 08:28
*Neglect/Abuse Screening Last Done: 03/26/24 08:28
ED- Fall Risk Assessment Last Done: 03/26/24 09:09
ED- Neurological Assessment Last Done: 03/26/24 09:09
[2024-03-26] MEDS: OFIRMEV 100 IV (09:29)
[2024-03-26] MEDS: NSS 500 IV (09:29)
[2024-03-26 09:38] LABS: % Basophils 0.2 % (0-2); % Lymphocytes 4.2 % (20.5-51.1); % Monocytes 15.4 % (1.7-9.3); % Neutrophils 79.2 % (42.2-75.2); Absolute Immature Granulocytes 0.2 10^3/uL (0-0.05); Absolute Lymphocytes 0.7 10^3/uL (1.2-3.4); Absolute Monocytes 2.4 10^3/uL (0.1-0.6); Absolute Neutrophils 12.4 10^3/uL (1.4-6.5); Hematocrit 31.1 % (39.0-52.0); Hemoglobin 9.9 g/dL (13.0-18.0); Mean Corp Hgb Conc. 31.8 g/dL (33.0-37.0); Mean Corpuscular Hgb 29.6 pg (27.0-31.0); Mean Corpuscular Volume 92.8 fL (80.0-94.0); Mean Platelet Volume 9.4 fL (7.4-10.4); Nucleated Red Blood Cells % 0 % (-); Platelet Count 227 10^3/uL (130-400); Red Blood Cell Count 3.35 10^6/uL (4.70-6.10); Red Cell Dist. Width 13.4 % (11.5-14.5); White Blood Cell Count 15.6 10^3/uL (4.8-10.8)
[2024-03-26 09:49] LABS: Lactic Acid 0.6 mmol/L (0.7-2.0)
[2024-03-26 09:50] LABS: ALT (SGPT) 13 U/L (0-50); AST (SGOT) 17 U/L (17-59); Albumin 2.7 g/dl (3.5-5.0); Alkaline Phosphatase 114 U/L (38-126); Blood Urea Nitrogen 26 mg/dl (9-20); Calcium 7.7 mg/dl (8.4-10.2); Carbon Dioxide 33 mmol/L (22-30); Chloride 103 mmol/L (98-107); Estimated Creatinine Clearance 37 ml/min; Glucose 154 mg/dl (70-99); Potassium 3.9 mmol/L (3.5-5.1); Sodium 140 mmol/L (135-145); Total Bilirubin 0.4 mg/dl (0.2-1.3); Total Protein 5.1 g/dl (6.3-8.2); eGFR 39.51
[2024-03-26 09:51] LABS: COVID-19 Antigen Negative (Negative)
[2024-03-26 09:56] LABS: Urine Albumin 2+ (Neg - Trace); Urine Bilirubin Negative (Negative); Urine Character Clear (Clear); Urine Color Yellow; Urine Glucose Negative (Negative); Urine Ketone Negative (Negative); Urine Leukocyte 2+ (Negative); Urine Nitrite Positive (Negative); Urine Occult Blood 3+ (Negative); Urine Urobilinogen Negative (Neg - 1+)
[2024-03-26 10:11] LABS: Urine Bacteria Many (Negative); Urine White Cell >100 /HPF (0-5)
[2024-03-26] MEDS: MAXIPIME 2000 MG IV (10:29)
--- NOTE | 2024-03-26 11:45 | EDRN ---
This RN KI assumed care of this pt at this time.
--- NOTE | 2024-03-26 12:55 | W.PN.HOSP.TC ---
Today's Communication/Plan
-
empiric abx
speech therapy, NPO for now
Assessment / Plan
Assessment / Plan
Unresponsive/Toxic Metabolic Encephalopathy from UTI
UTI
Hx of CVA 2011
Underlying Dementia
WARD on CKD
Possible PNA
?aspiration from acute UTI illness
P:IVF
empiric abx
see dictated note
Pt is a DNR
Anticipated Discharge: > 48 hours
Subjective/Interval History
-
Date of Service: March 26, 2024
Essentially unresponsive
Objective Data
-
Labs:
Laboratory Results
03/26/24
09:12
WBC 15.6 H
Hgb 9.9 L
Hct 31.1 L
Plt Count 227
Sodium 140
Potassium 3.9
Chloride 103
Carbon Dioxide 33 H
BUN 26 H
Creatinine 1.7 H
Glucose 154 H
Calcium 7.7 L
Total Bilirubin 0.4
AST 17
ALT 13
Alkaline Phosphatase 114
Vital Signs:
Vital Signs
Temp Pulse Resp BP Pulse Ox
100.8 F H 62 19 98/42 93
03/26/24 08:28 03/26/24 11:00 03/26/24 11:00 03/26/24 11:00 03/26/24 11:00
Review of Systems
-
Unable to obtain full review of systems at this time due to: Dementia
History Source: Family ( at bedside)
Constitutional: Reports Fever (100.8)
Respiratory: Reports No Symptoms
Cardiac: Reports No Symptoms
Abdomen/GI: Reports No Symptoms
Physical Exam
-
General: Well Developed, Well Nourished, No Apparent Distress and Appears Chronically Ill; Negative Conversant
HEENT: Normocephalic, Atraumatic and Moist Mucous Membranes
Respiratory: Clear to Auscultation; Negative Wheezes, Rales or Rhonchi
Cardiac: Regular Rhythm and S1/S2
GI: Soft, Nontender and Nondistended
Musculoskeletal: No Clubbing and No Edema
Neuro: Negative Awake or Alert
--- NOTE | 2024-03-26 13:29 | EDRN ---
POX 89-90% on RA and pt placed on oxygen at 2lpm at this time.
--- NOTE | 2024-03-26 17:25 | EDRN ---
Spouse asking about pt eating. Dr. Bryant in ER and this RN spoke to him about a diet and he said he can be TT'd by RN now taking care of pt for a diet if he passes a swallow test. THis RN called floor RN who is taking care of pt and informed her of
this.
[2024-03-26] MEDS: IMDUR (EXTENDED RELEASE) 30 MG PO (21:42)
[2024-03-26] MEDS: D5/0.45%NSS with KCL 10 MEQ 1000 IV (21:42)
[2024-03-26] MEDS: STERILE WATER FOR INJECTION 10 ML IV (21:43)
[2024-03-26] MEDS: CYMBALTA DELAYED RELEASE 30 MG PO (21:43)
[2024-03-26] MEDS: FLOMAX 0.4 MG PO (21:43)
[2024-03-26] MEDS: MAXIPIME 1000 MG IV (21:43)
[2024-03-26] MEDS: NORVASC 10 MG PO (21:43)
[2024-03-26] MEDS: HEPARIN 5000 UNITS SC (21:44)
[2024-03-26] MEDS: EXELON 4.5 MG PO (21:45)
[2024-03-26] MEDS: ASPIR LOW (ENTERIC COATED) 81 MG PO (21:47)
[2024-03-26] MEDS: NAMENDA 5 MG PO (21:47)
[2024-03-26] MEDS: LIORESAL 10 MG PO (21:47)
[2024-03-26] MEDS: TOPROL XL 50 MG PO (21:48)
--- NOTE | 2024-03-26 23:26 | PTCARENOTE ---
[facility] 1700 pt admitted to room 437-2 from ED. at bedside. Pt confused and yelling out. Bed alarm placed for safety. Pt admission done with wifes help. TT sent to Dr Bella to address patients daily medications. Verbal taken for them. Pt with
IVF and IV abx for UTI.
[2024-03-27] VITALS (7 sets, daily range): BP systolic 102–117; BP diastolic 45–67
[2024-03-27] MEDS: TYLENOL 650 MG PO ×2 (00:27→09:03)
[2024-03-27 07:52] LABS: % Basophils 0.2 % (0-2); % Eosinophils 0.4 % (0-6); % Immature Granulocytes 0.8 % (0-0.5); % Lymphocytes 4.2 % (20.5-51.1); % Monocytes 13.7 % (1.7-9.3); % Neutrophils 80.7 % (42.2-75.2); Absolute Eosinophils 0.1 10^3/uL (0-0.7); Absolute Immature Granulocytes 0.1 10^3/uL (0-0.05); Absolute Lymphocytes 0.7 10^3/uL (1.2-3.4); Absolute Monocytes 2.3 10^3/uL (0.1-0.6); Absolute Neutrophils 13.5 10^3/uL (1.4-6.5); Hematocrit 30.6 % (39.0-52.0); Hemoglobin 9.9 g/dL (13.0-18.0); Mean Corp Hgb Conc. 32.4 g/dL (33.0-37.0); Mean Corpuscular Hgb 29.8 pg (27.0-31.0); Mean Corpuscular Volume 92.2 fL (80.0-94.0); Mean Platelet Volume 9.9 fL (7.4-10.4); Nucleated Red Blood Cells % 0 % (-); Platelet Count 233 10^3/uL (130-400); Red Blood Cell Count 3.32 10^6/uL (4.70-6.10); Red Cell Dist. Width 13.6 % (11.5-14.5); White Blood Cell Count 16.7 10^3/uL (4.8-10.8)
[2024-03-27 08:20] LABS: Blood Urea Nitrogen 30 mg/dl (9-20); Calcium 7.9 mg/dl (8.4-10.2); Carbon Dioxide 29 mmol/L (22-30); Chloride 103 mmol/L (98-107); Estimated Creatinine Clearance 35 ml/min; Glucose 156 mg/dl (70-99); Potassium 4.3 mmol/L (3.5-5.1); Sodium 138 mmol/L (135-145); eGFR 36.89
[2024-03-27] MEDS: EXELON 4.5 MG PO ×2 (08:42→20:35)
[2024-03-27] MEDS: FLOMAX 0.4 MG PO ×2 (08:43→20:34)
[2024-03-27] MEDS: NAMENDA 5 MG PO (08:43)
[2024-03-27] MEDS: ASPIR LOW (ENTERIC COATED) 81 MG PO (08:43)
[2024-03-27] MEDS: TOPROL XL 50 MG PO ×2 (08:44→20:44)
[2024-03-27] MEDS: LIORESAL 10 MG PO ×3 (08:44→21:45)
[2024-03-27] MEDS: HEPARIN 5000 UNITS SC ×2 (08:44→20:32)
[2024-03-27] MEDS: D5/0.45%NSS with KCL 10 MEQ 1000 IV (09:02)
[2024-03-27] MEDS: MAXIPIME 1000 MG IV ×2 (09:57→21:46)
[2024-03-27] MEDS: STERILE WATER FOR INJECTION 10 ML IV ×2 (09:57→21:47)
--- NOTE | 2024-03-27 12:58 | PTOTSP ---
SPEECH THERAPY SWALLOW EVALUATION:
Patient exhibits clinical signs of oropharyngeal dysphagia, likely chronic related to dementia/CVA and acutely exacerbated by TME 2/2 UTI, possible pneumonia. Patient remains at risk for aspiration given confusion. No overt signs of aspiration at
this time at bedside, but unable to exclude given current possible pneumonia. Recommend continue current IDDSI Level 6 Soft and Bite Size diet, thin liquids. Medications crushed in puree. Aspiration precautions: Upright positioning; 1:1 assistance;
100% supervision; Small single sips/bites; Slow rate of intake; Only feeding when awake/alert; Monitor for any signs of aspiration and d/c oral diet if any decline in mental/respiratory status. Oral care 3x/day. Consider VSE to further assess
swallow physiology should patient exhibit signs concerning for aspiration. ST to follow, assess diet tolerance and modify as appropriate, determine indication for VSE as appropriate.
RECOMMEND:
1) IDDSI Level 6 Soft and Bite Size diet, thin liquids
2) Medications crushed in puree
3) Aspiration precautions: Upright positioning; 1:1 assistance; 100% supervision; Small single sips/bites; Slow rate of intake; Only feeding when awake/alert; Monitor for any signs of aspiration and d/c oral diet if any decline in mental/respiratory
status
4) Oral care 3x/day
5) Consider VSE
6) ST to follow
[2024-03-27] MEDS: NORVASC PO (13:04)
[2024-03-27] MEDS: IMDUR (EXTENDED RELEASE) 30 MG PO (13:20)
--- NOTE | 2024-03-27 15:03 | W.PN.HOSP.TC ---
Today's Communication/Plan
-
CBC, CXR
continue current abx
Assessment / Plan
Assessment / Plan
Unresponsive/Toxic Metabolic Encephalopathy from UTI
markedly improved past 24 hrs, now talking, answering questions
UTI
UA demonstrates [id number]
WBC 15.6-->16.7k
Hx of CVA 2011
Underlying Dementia
essential HTN
BP slightly low at 102/48
Will decrease Norvasc 10-->5mg
WARD on CKD
Possible PNA
?aspiration from acute UTI illness
P:IVF
empiric abx
resumed diet (IDDSI6)
follow up CXR
Pt is a DNR
Anticipated Discharge: 24 - 48 hours
Subjective/Interval History
-
Date of Service: March 27, 2024
Incredibly more alert, talking today and answering questions
Objective Data
-
Labs:
Laboratory Results
03/27/24
07:11
WBC 16.7 H
Hgb 9.9 L
Hct 30.6 L
Plt Count 233
Sodium 138
Potassium 4.3
Chloride 103
Carbon Dioxide 29
BUN 30 H
Creatinine 1.8 H
Glucose 156 H
Calcium 7.9 L
Vital Signs:
Vital Signs
Temp Pulse Resp BP Pulse Ox
98.2 F 68 19 102/48 96
03/27/24 11:00 03/27/24 11:00 03/27/24 11:00 03/27/24 13:00 03/27/24 11:00
I&O
03/26/24 03/27/24 03/28/24
06:59 06:59 06:59
Intake Total 480 / 480 480 / 480
Balance 480 / 480 480 / 480
Review of Systems
-
Unable to obtain full review of systems at this time due to: Dementia (markedly improved, approaching baseline)
History Source: Family ( at bedside)
Constitutional: Reports Fever (100.8 on admission, now afebrile)
Respiratory: Reports No Symptoms
Cardiac: Reports No Symptoms
Abdomen/GI: Reports No Symptoms
Physical Exam
-
General: Well Developed, Well Nourished, No Apparent Distress, Conversant and Appears Chronically Ill
HEENT: Normocephalic, Atraumatic and Moist Mucous Membranes
Respiratory: Clear to Auscultation; Negative Wheezes, Rales or Rhonchi
Cardiac: Regular Rhythm and S1/S2
GI: Soft, Nontender and Nondistended
Musculoskeletal: No Clubbing and No Edema
Neuro: Awake and Alert
[2024-03-27] MEDS: CYMBALTA DELAYED RELEASE 30 MG PO (21:46)
[2024-03-28] MEDS: D5/0.45%NSS with KCL 10 MEQ IV (01:13)
[2024-03-28] MEDS: D5/0.45%NACL 1000 IV (01:54)
[2024-03-28 03:00] VITALS: BP 148/70
[2024-03-28 07:05] VITALS: BP 146/74
[2024-03-28 07:47] LABS: % Basophils 0.3 % (0-2); % Eosinophils 0.7 % (0-6); % Immature Granulocytes 0.6 % (0-0.5); % Lymphocytes 6.4 % (20.5-51.1); % Monocytes 13.2 % (1.7-9.3); % Neutrophils 78.8 % (42.2-75.2); Absolute Eosinophils 0.1 10^3/uL (0-0.7); Absolute Immature Granulocytes 0.1 10^3/uL (0-0.05); Absolute Lymphocytes 0.9 10^3/uL (1.2-3.4); Absolute Monocytes 1.8 10^3/uL (0.1-0.6); Absolute Neutrophils 10.9 10^3/uL (1.4-6.5); Hematocrit 32.6 % (39.0-52.0); Hemoglobin 10.6 g/dL (13.0-18.0); Mean Corp Hgb Conc. 32.5 g/dL (33.0-37.0); Mean Corpuscular Hgb 29.9 pg (27.0-31.0); Mean Corpuscular Volume 91.8 fL (80.0-94.0); Mean Platelet Volume 10.3 fL (7.4-10.4); Nucleated Red Blood Cells % 0 % (-); Platelet Count 255 10^3/uL (130-400); Red Blood Cell Count 3.55 10^6/uL (4.70-6.10); Red Cell Dist. Width 13.4 % (11.5-14.5); White Blood Cell Count 13.8 10^3/uL (4.8-10.8)
[2024-03-28 08:33] LABS: Blood Urea Nitrogen 32 mg/dl (9-20); Carbon Dioxide 26 mmol/L (22-30); Chloride 103 mmol/L (98-107); Estimated Creatinine Clearance 33 ml/min; Glucose 128 mg/dl (70-99); Potassium 3.9 mmol/L (3.5-5.1); Sodium 137 mmol/L (135-145); eGFR 34.57
--- NOTE | 2024-03-28 08:48 | VNURNOTE ---
Chart reviewed. Patient is current with [facility] nursing, PT, OT. Will continue to follow hospital course and DC plans.
[2024-03-28] MEDS: MAXIPIME 1000 MG IV ×2 (09:06→21:36)
[2024-03-28] MEDS: STERILE WATER FOR INJECTION 10 ML IV ×2 (09:06→21:37)
[2024-03-28] MEDS: EXELON 4.5 MG PO ×2 (09:06→19:53)
[2024-03-28] MEDS: NAMENDA 5 MG PO (09:06)
[2024-03-28] MEDS: TOPROL XL 50 MG PO ×2 (09:07→19:52)
[2024-03-28] MEDS: FLOMAX 0.4 MG PO ×2 (09:07→20:00)
[2024-03-28] MEDS: IMDUR (EXTENDED RELEASE) 30 MG PO (09:07)
[2024-03-28] MEDS: NORVASC 5 MG PO (09:07)
[2024-03-28] MEDS: LOW STRENGTH ASPIRIN 81 MG PO (09:07)
[2024-03-28] MEDS: HEPARIN 5000 UNITS SC ×2 (09:08→19:59)
[2024-03-28] MEDS: LIORESAL 10 MG PO ×3 (09:09→21:36)
--- NOTE | 2024-03-28 10:18 | PTOTSP ---
Videofluoroscopic swallow study
Summary: WFL oral and pharyngeal stages of swallowing based on videofluoroscopic swallow study. No aspiration. Given prolonged mastication of solids (meat) observed at the bedside and acute on chronic changes to cognition (UTI, dementia), continue
temporary IDDSI Level 6 soft and bite sized diet.
Recommend:
1. IDDSI Level 6 Soft and Bite Size diet, thin liquids
2. Medications crushed in puree
3. Aspiration precautions: Upright positioning; 100% supervision; Small single sips/bites; Slow rate of intake; Only feeding when awake/alert
4. Oral care 3x/day
5. Brief dysphagia tx f/u at the acute care level to determine if/when solid advancement appropriate.
[2024-03-28 11:00] VITALS: BP 105/49
[2024-03-28 14:17] LABS: Iron < 20 ug/dl (49-181)
[2024-03-28 14:23] LABS: Total Iron Binding Capacity 191 ug/dl (261-462)
[2024-03-28 14:29] LABS: Vitamin D, 25-OH*** 19.8 ng/mL (30-80)
[2024-03-28 15:02] LABS: Vitamin B12 524 pg/ml (239-931)
--- NOTE | 2024-03-28 15:07 | CM ---
Patient seen bedside with spouse in room.
IA completed.
Patient lives with spouse and son in a 2 tory home with ramp to enter.
Patient has 1st floor set up, WC, Walker, Reginald walker, grab bars, chair lift, hospital bed.
patient has been to skilled rehab, spouse does not want patient to go to rehab unless he absolutely needs (if he cannot pivot)
Son and spouse assist with all care.
Has had VN in the past, current with [facility].
Has been in [facility].
PT/OT requested.
Patient will require ambulance transport home.
PCP: DR Parsons
Pharmacy: [facility] on [facility].
Plan is home with services, current with [facility].
[2024-03-28 15:11] VITALS: BP 133/61
--- NOTE | 2024-03-28 15:39 | W.PN.HOSP.TC ---
Today's Communication/Plan
-
PT OT
Continue antibiotics
Iron supplement
Await identification sensitivities from urine
Assessment / Plan
Assessment / Plan
84-year-old man with history of CVA who continues to live at home with his and functional, with mental status change.
CVS: S1-S2 normal
Chest: CTA B/L
Abdomen: Soft, NT / Bowel sounds present
Extremities: No edema
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
# TME-Likely secondary to UTI-back to baseline
# UTI-urine cultures with gram-negative bacilli-continue cefepime
# Anemia- Discussed with patient's . IV iron ordered. She is aware that he needs further follow-up as outpatient.
# Acute kidney injury on CKD stage III-continue IV fluids. Check bladder scan
# Possible mild aspiration pneumonia-speech recommendations noted. Continue antibiotics-cefepime.
# Hypertension-continue amlodipine, metoprolol
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 Also on baclofen for muscle spasm
# Chronic HFrEF-continue beta-blockers
# Dysphagia-speech evaluation noted IDDSI 6 diet
# Cognitive dysfunction-on rivastigmine-substituted to Namenda here
# Enlarged prostate-continue Flomax
# History of coronary artery disease-continue aspirin, statin, Imdur, metoprolol
# GERD
# Hypoalbuminemia
# Constipation-resolved
# DVT prophylaxis-continue subcutaneous heparin
# DNR
Discussed with speech
Discussed with nursing
Discussed with at bedside
Anticipated Discharge: Within 24 hours
Subjective/Interval History
-
Date of Service: March 28, 2024
Objective Data
-
Labs:
Laboratory Results
03/28/24
06:12
WBC 13.8 H
Hgb 10.6 L
Hct 32.6 L
Plt Count 255
Sodium 137
Potassium 3.9
Chloride 103
Carbon Dioxide 26
BUN 32 H
Creatinine 1.9 H
Glucose 128 H
Calcium 8.0 L
Vital Signs:
Vital Signs
Temp Pulse Resp BP Pulse Ox
97.9 F 84 18 133/61 97
03/28/24 15:11 03/28/24 15:11 03/28/24 15:11 03/28/24 15:11 03/28/24 15:11
I&O
03/27/24 03/28/24 03/29/24
06:59 06:59 06:59
Intake Total 480 / 480 0 / 1680
Balance 480 / 480 0 / 1680
[2024-03-28] MEDS: DRISDOL (VITAMIN D2) 50000 UNITS PO (16:13)
[2024-03-28 19:21] VITALS: BP 129/65
[2024-03-28] MEDS: CYMBALTA DELAYED RELEASE 30 MG PO (21:36)
[2024-03-28] MEDS: ROBITUSSIN 200 MG PO (23:28)
[2024-03-28 23:31] VITALS: BP 104/88
[2024-03-29 03:15] VITALS: BP 128/62
[2024-03-29 07:08] LABS: Hematocrit 31.6 % (39.0-52.0); Mean Corp Hgb Conc. 31.6 g/dL (33.0-37.0); Mean Corpuscular Hgb 29.2 pg (27.0-31.0); Mean Corpuscular Volume 92.4 fL (80.0-94.0); Mean Platelet Volume 9.9 fL (7.4-10.4); Platelet Count 266 10^3/uL (130-400); Red Blood Cell Count 3.42 10^6/uL (4.70-6.10); Red Cell Dist. Width 13.4 % (11.5-14.5); White Blood Cell Count 9.3 10^3/uL (4.8-10.8)
[2024-03-29 07:55] VITALS: BP 119/59
[2024-03-29 08:27] LABS: Blood Urea Nitrogen 34 mg/dl (9-20); Calcium 7.9 mg/dl (8.4-10.2); Carbon Dioxide 27 mmol/L (22-30); Chloride 105 mmol/L (98-107); Estimated Creatinine Clearance 35 ml/min; Glucose 103 mg/dl (70-99); Sodium 140 mmol/L (135-145); eGFR 36.89
[2024-03-29 11:09] VITALS: BP 128/62
--- NOTE | 2024-03-29 11:11 | PN.CDI ---
Addendum entered and electronically signed by Ravin John MD 04/12/24 09:40:
Documentation is complete at this time.
Original Note:
CDI
- -
CDI:
Physician Documentation Request
Admit Date: 03/26/24 13:22
Dear Doctor Dora,
Clinical Indicators:
Patient admitted with TME, likely secondary to UTI.
WBC on admission:
03/26/24
09:12
WBC 15.6 H
Temp on admission:
03/26/24
08:28
Temp 100.8 F H
RR trend on admission:
03/26/24
08:29 03/26/24
08:45 03/26/24
09:00
Resp Rate 28 24 25
03/26/24
09:30 03/26/24
10:00
Resp Rate 22 21
Please clarify which of the following most accurately describes the status of the patient's infection:
Sepsis, POA
- Systemic manifestations of infection, with 2 or more SIRS criteria which include:
- Fever >100.4 degrees F or hypothermia < 96.8 degrees F
- Leukocytosis - WBC > 12,000 or leukopenia - WBC < 4,000 or > 10% bands
- Tachycardia > 90 beats per minute
- Tachypnea - RR > 20 breaths per minute or PaCO2 , 32mmHg
Source: Merck Manual 2013
Severe Sepsis with associated TME, POA
UTI Only, Without Systemic Illness
Other
Use of terms such as suspected, likely, concern for, or probable (associated with a specific diagnosis that is being evaluated, monitored, or treated as if it exists) are acceptable and can be coded in the inpatient setting, when documented at the
time of discharge.
Thank you,
Unique Finney RN BSN
CDI Specialist
available via tiger text
Please use your independent medical judgment in providing your response.
[2024-03-29] MEDS: ROBITUSSIN 200 MG PO ×2 (11:21→19:59)
--- NOTE | 2024-03-29 11:21 | CM ---
Addendum entered by Elina Onofre 03/29/24 16:39:
PT/OT recommending home with HC.
Patient followed by [facility].
Will need ambulance transport.
Plan: home with [facility] when stable.
Original Note:
Spoke with spouse bedside.
Patient has not been seen by therapy yet, will see today at 2 pm when returns.
Spouse would still like patient to return to home if baseline.
Plan: home with [facility] when stable.
[2024-03-29] MEDS: STERILE WATER FOR INJECTION 10 ML IV (11:22)
[2024-03-29] MEDS: MAXIPIME 1000 MG IV (11:22)
[2024-03-29] MEDS: EXELON 4.5 MG PO ×2 (11:22→20:22)
[2024-03-29] MEDS: NAMENDA 5 MG PO (11:25)
[2024-03-29] MEDS: LIORESAL 10 MG PO ×3 (11:28→21:06)
[2024-03-29] MEDS: VITAMIN D3 (cholecalciferol) 25 MCG PO (11:29)
[2024-03-29] MEDS: TYLENOL 650 MG PO ×2 (11:30→23:02)
[2024-03-29] MEDS: FLOMAX 0.4 MG PO ×2 (11:31→20:22)
[2024-03-29] MEDS: LOW STRENGTH ASPIRIN 81 MG PO (11:32)
[2024-03-29] MEDS: TOPROL XL 50 MG PO ×2 (11:32→20:34)
[2024-03-29] MEDS: NORVASC 5 MG PO (11:33)
[2024-03-29] MEDS: IMDUR (EXTENDED RELEASE) 30 MG PO (11:33)
[2024-03-29] MEDS: HEPARIN 5000 UNITS SC ×2 (11:34→20:23)
--- NOTE | 2024-03-29 13:57 | CON.ID ---
Consultation
-
Date/Time Consultation Requested: March 29, 2024 1052
Date/Time Consultation Performed: March 29, 2024 1400
Requesting Provider: Dr. Ravin John
Performing Provider: Dr. Camille Mccrary
Reason for Consultation: ESBL UTI
Chief Complaint / Past History
Chief Complaint
Lethargy
History of Present Illness
History obtained from family at bedside. He is an 84-year-old male with dementia who lives at home, history of CVA with left hemiparesis, CKD 3, nephrolithiasis, BPH who presented to the hospital on March 26 with change in mental status. Per
family he was extremely lethargic and unresponsive unresponsive.. In ED positive temperature of 100.8, white count of 15.6. UA positive nitrite 2+ leukocyte esterase, more than 100 white blood cells. chest x-ray possible atelectasis versus
pneumonia. He was started on cefepime. He passed video swallow without aspiration. Urine culture came back positive for ESBL E. coli 2 strains. Per family his mental status improved compared to admission, but somewhat worse compared to
yesterday. Patient could not recall having fevers at home. He feels cold. He states he does not feel well. He denies cough. Denies urinary urgency, frequency, or dysuria. No flank pain. No diarrhea.
Past History
Additional Past Medical History:
Dementia
CVA with L Hemiparesis
Hypertension
CKD3
Heart Block s/p PPM
Carotid Stenosis s/p R CEA
Nephrolithiasis
BPH
Hernia repair
Left orchiectomy
Allergy History:
doxycycline monohydrate [From Vibramycin] Allergy (Verified 03/28/24 23:17)
MIGRAINE
Sulfa (Sulfonamide Antibiotics) [Sulfa(Sulfonamide Antibiotics)] Allergy (Verified 03/26/24 08:27)
difficulty breathing, hives
vancomycin Allergy (Verified 03/26/24 08:27)
dizziness,double vision
Medications Reviewed: Yes
Current Antibiotics:
Cefepime day 4
Social History
Tobacco: Non-Smoker
Alcohol: None
Drug: None
Personal:
Family History
Family History: Not Pertinent
Review of Systems
Review of Systems
Unreliable due to dementia.
Vital Signs
Temp Pulse Resp BP Pulse Ox
99.1 F 93 20 128/62 96
03/29/24 11:09 03/29/24 11:09 03/29/24 11:09 03/29/24 11:09 03/29/24 11:09
Physical Exam
Physical Exam
Constitutional: Chronically Ill
Eyes: No Conjunctival Hemorrhage and Sclera Anicteric
Cardiovascular: Regular Rate and Other (Pacemaker site no erythema)
Pulmonary: Coarse (bilateral base)
Gastrointestinal: Soft, Non Tender, Non Distended and Normal Bowel Sounds
Extremities: Venous Insufficiency (LLE); Negative Edema
Wound: Other (superficial wounds on left toes without infection)
Neurological: Awake and Alert
Lab / Diagnostic Study Results
03/29/24 05:54
03/29/24 05:54
Abs Immat Gran (auto) 0.1 10^3/uL (0-0.05) H 03/28/24 06:12
Absolute Neuts (auto) 10.9 10^3/uL (1.4-6.5) H 03/28/24 06:12
Absolute Lymphs (auto) 0.9 10^3/uL (1.2-3.4) L 03/28/24 06:12
Absolute Monos (auto) 1.8 10^3/uL (0.1-0.6) H 03/28/24 06:12
Absolute Basos (auto) 0.0 10^3/uL (0-0.2) 03/28/24 06:12
Immature Gran % 0.6 % (0-0.5) H 03/28/24 06:12
Neutrophils % 78.8 % (42.2-75.2) H 03/28/24 06:12
Lymphocytes % 6.4 % (20.5-51.1) L 03/28/24 06:12
Monocytes % 13.2 % (1.7-9.3) H 03/28/24 06:12
Eosinophils % 0.7 % (0-6) 03/28/24 06:12
Basophils % 0.3 % (0-2) 03/28/24 06:12
Lactic Acid Cancelled 03/26/24 13:15
Ur Squamous Epith Cells 3-5 /LPF (Few) 03/26/24 09:12
Microbiology Results
Micro:
03/26/24 09:12 Blood Culture - Preliminary
Blood/Venous No Growth in 72 hours- Final report to follow
03/26/24 10:33 Blood Culture - Preliminary
Blood/Venous No Growth in 72 hours- Final report to follow
03/26/24 09:12 Urine Culture - Final
Urine Escherichia coli - ESBL
Escherichia coli - ESBL#2
03/26/24 09:12 Influenza Types A & B (MARITZA) - Final
Nasal Swab Negative for Influenza A & B, NAAT
Negative results must be combined with clinical observations
and patient history.
Nucleic Acid Amplification test (NAAT)performed on the
[employer] platform.
03/26/24 CT a/p: No evidence for urinary tract calculi. No significant ureteral or pelvicalyceal dilation. Mild stable atrophy of the left kidney. Bladder wall may be mildly trabeculated with a small superior diverticulum. No significant stranding of
the fat adjacent to the bladder. Mild enlargement of the prostate gland.
03/28/24 CXR: Stable right perihilar opacity compared to the chest radiograph from 03/26/2024, for which considerations again include atelectasis versus mild pneumonia.
Assessment / Plan
# ESBL- ecoli uti
# Fever resolved
# Leukocytosis resolved
- Bcx neg
-CT a/p no pyelo
- DC cefepime.
- Start Ertapenem IV q24 x 3 doses followed by po fosfomycin
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
Dementia
CVA with L Hemiparesis
Hypertension
CKD3
Heart Block s/p PPM
Carotid Stenosis s/p R CEA
Nephrolithiasis
BPH
Hernia repair
Left orchiectomy
[2024-03-29 14:20] VITALS: BP 106/54
--- NOTE | 2024-03-29 14:34 | W.PN.HOSP.TC ---
Addendum entered and electronically signed by Ravin John MD 03/30/24 09:33:
spoke to and updated yesterday
Original Note:
Today's Communication/Plan
-
IV AB
Aspiration prec
PT/OT consulted
Assessment / Plan
Assessment / Plan
84-year-old man with history of CVA who continues to live at home with his and functional, with mental status change.
CVS: S1-S2 normal
Chest: Few scattered wheezes
Abdomen: Soft, NT / Bowel sounds present
Extremities: No edema
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
# TME-Likely secondary to UTI-back to baseline
# GDV-ANKV-jymjaizhuvp changed to ertapenem
# Anemia- Discussed with patient's . IV iron ordered. She is aware that he needs further follow-up as outpatient.
# Acute kidney injury on CKD stage III-continue IV fluids. Bladder scan-with no significant retention
# Possible mild aspiration pneumonitis versus pneumonia-speech recommendations noted.-Antibiotics should cover
# Hypertension-continue amlodipine, metoprolol
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 Also on baclofen for muscle spasm
# Chronic HFrEF-continue beta-blockers
# Dysphagia-speech evaluation noted IDDSI 6 diet
# Cognitive dysfunction-on rivastigmine-substituted to Namenda here
# Enlarged prostate-continue Flomax
# History of coronary artery disease-continue aspirin, statin, Imdur, metoprolol
# GERD
# Hypoalbuminemia
# Constipation-resolved
# DVT prophylaxis-continue subcutaneous heparin
# DNR
Discussed with nursing at bedside
Called and left a message
Anticipated Discharge: 24 - 48 hours
Subjective/Interval History
-
Date of Service: March 29, 2024
Objective Data
-
Labs:
Laboratory Results
03/29/24
05:54
WBC 9.3
Hgb 10.0 L
Hct 31.6 L
Plt Count 266
Sodium 140
Potassium 4.0
Chloride 105
Carbon Dioxide 27
BUN 34 H
Creatinine 1.8 H
Glucose 103 H
Calcium 7.9 L
Vital Signs:
Vital Signs
Temp Pulse Resp BP Pulse Ox
99.1 F 93 20 128/62 96
03/29/24 11:09 03/29/24 11:09 03/29/24 11:09 03/29/24 11:09 03/29/24 11:09
I&O
03/28/24 03/29/24 03/30/24
06:59 06:59 06:59
Intake Total 1680 / 1680 960 / 960
Balance 1680 / 1680 960 / 960
[2024-03-29 15:30] VITALS: BP 117/56
[2024-03-29] MEDS: INVANZ 60 MG IV (15:55)
--- NOTE | 2024-03-29 18:00 | PTCARENOTE ---
1800 Pt can be confuse and forgetful, Pt's Sarah did prefer and requested all four side rails to be up at all times for safety while pt in bed, continue to monitor pt closely.
[2024-03-29] MEDS: FERRLECIT 110 MG IV (20:02)
[2024-03-29] MEDS: CYMBALTA DELAYED RELEASE 30 MG PO (21:06)
[2024-03-29 23:25] VITALS: BP 123/56
[2024-03-30] MEDS: TYLENOL 650 MG PO ×4 (03:16→20:15)
[2024-03-30 07:33] VITALS: BP 132/64
[2024-03-30] MEDS: HEPARIN 5000 UNITS SC ×2 (07:48→20:14)
[2024-03-30] MEDS: FLOMAX 0.4 MG PO ×2 (07:49→20:14)
[2024-03-30] MEDS: LOW STRENGTH ASPIRIN 81 MG PO (07:49)
[2024-03-30] MEDS: NAMENDA 5 MG PO (07:49)
[2024-03-30] MEDS: TOPROL XL 50 MG PO ×2 (07:50→20:15)
[2024-03-30] MEDS: VITAMIN D3 (cholecalciferol) 25 MCG PO (07:50)
[2024-03-30] MEDS: EXELON 4.5 MG PO ×2 (07:50→20:14)
[2024-03-30] MEDS: LIORESAL 10 MG PO ×3 (07:51→20:15)
[2024-03-30] MEDS: NORVASC 5 MG PO (07:51)
[2024-03-30] MEDS: IMDUR (EXTENDED RELEASE) 30 MG PO (07:51)
[2024-03-30] MEDS: FERRLECIT 110 MG IV (13:07)
--- NOTE | 2024-03-30 13:15 | W.PN.ID1 ---
Date of Service
Date of Service: March 30, 2024
Today's Communication
See below.
Assessment / Plan
# ESBL- ecoli uti
# Fever resolved
# Leukocytosis resolved
- Bcx neg
-CT a/p no pyelo
- Continue Ertapenem IV q24 (day 2 of 3) followed by po fosfomycin on day 4
- Doubt mental status change is due to 'UTI' as no improvement on appropriate abx.
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
Dementia
CVA with L Hemiparesis
Hypertension
CKD3
Heart Block s/p PPM
Carotid Stenosis s/p R CEA
Nephrolithiasis
BPH
Hernia repair
Left orchiectomy
Chief Complaint
-: UTI
Subjective / Review of Systems
Per family, mental status is not better.
Vital Signs / Physical Exam
Vital Signs
Vital Signs
Temp Pulse Resp BP Pulse Ox
98.2 F 75 18 132/64 92
03/30/24 07:33 03/30/24 07:33 03/30/24 07:33 03/30/24 07:33 03/30/24 07:33
Physical Exam
Constitutional: No Acute Distress and Chronically Ill
Pulmonary: Clear
Gastrointestinal: Soft, Non Tender and Non Distended
Genito-Urinary: Negative CVA Tenderness
Neurological: Awake and Alert
Objective Data
Lab Data
Lab Results
03/29/24 05:54
03/29/24 05:54
Estimated Creat Clear 35 ml/min 03/29/24 05:54
Lactic Acid Cancelled 03/26/24 13:15
Total Bilirubin 0.4 mg/dl (0.2-1.3) 03/26/24 09:12
AST 17 U/L (17-59) 03/26/24 09:12
ALT 13 U/L (0-50) 03/26/24 09:12
Alkaline Phosphatase 114 U/L (38-126) 03/26/24 09:12
Most recent labs reviewed.
Micro Results:
03/26/24 09:12 Blood Culture - Preliminary
Blood/Venous No Growth in 4 days- Final report to follow
03/26/24 10:33 Blood Culture - Preliminary
Blood/Venous No Growth in 4 days- Final report to follow
03/26/24 09:12 Urine Culture - Final
Urine Escherichia coli - ESBL
Escherichia coli - ESBL#2
03/26/24 09:12 Influenza Types A & B (MARITZA) - Final
Nasal Swab Negative for Influenza A & B, NAAT
Negative results must be combined with clinical observations
and patient history.
Nucleic Acid Amplification test (NAAT)performed on the
[employer] platform.
03/26/24 CT a/p: No evidence for urinary tract calculi. No significant ureteral or pelvicalyceal dilation. Mild stable atrophy of the left kidney. Bladder wall may be mildly trabeculated with a small superior diverticulum. No significant stranding of
the fat adjacent to the bladder. Mild enlargement of the prostate gland.
03/28/24 CXR: Stable right perihilar opacity compared to the chest radiograph from 03/26/2024, for which considerations again include atelectasis versus mild pneumonia.
--- NOTE | 2024-03-30 13:55 | CM ---
manager public reviewed patient's chart and met with patient and spouse at bedside, plan is to home with [facility] and ambulance transport.
Plan; Home with spouse and [facility], ambulance transport to home.
[2024-03-30] MEDS: INVANZ 60 MG IV (14:44)
[2024-03-30 15:32] VITALS: BP 145/74
--- NOTE | 2024-03-30 15:50 | W.PN.HOSP.TC ---
Today's Communication/Plan
-
Continue IV antibiotics
Possible discharge tomorrow with a prescription of fosfomycin to start Thursday
Assessment / Plan
Assessment / Plan
84-year-old man with history of CVA who continues to live at home with his and functional, with mental status change.
CVS: S1-S2 normal
Chest: Few scattered wheezes
Abdomen: Soft, NT / Bowel sounds present
Extremities: No edema
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
# TME-Likely secondary to UTI-back to baseline
# BIJ-CTNX-hkicotxhisp changed to ertapenem
# Anemia- Discussed with patient's . IV iron ordered. She is aware that he needs further follow-up as outpatient.
# Acute kidney injury on CKD stage III-continue IV fluids. Bladder scan-with no significant retention
# Possible mild aspiration pneumonitis versus pneumonia-speech recommendations noted.-Antibiotics should cover
# Hypertension-continue amlodipine, metoprolol
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 Also on baclofen for muscle spasm
# Chronic HFrEF-continue beta-blockers
# Dysphagia-speech evaluation noted IDDSI 6 diet
# Cognitive dysfunction-on rivastigmine-substituted to Namenda here
# Enlarged prostate-continue Flomax
# History of coronary artery disease-continue aspirin, statin, Imdur, metoprolol
# GERD
# Hypoalbuminemia
# Constipation-resolved
# DVT prophylaxis-continue subcutaneous heparin
# DNR
Discussed with at bedside
Anticipated Discharge: Within 24 hours
Subjective/Interval History
-
Date of Service: March 30, 2024
Objective Data
-
Vital Signs:
Vital Signs
Temp Pulse Resp BP Pulse Ox
97.6 F 84 18 145/74 92
03/30/24 15:32 03/30/24 15:32 03/30/24 15:32 03/30/24 15:32 03/30/24 15:32
I&O
03/29/24 03/30/24 03/31/24
06:59 06:59 06:59
Intake Total 960 / 960 1090 / 1090
Balance 960 / 960 1090 / 1090
[2024-03-30] MEDS: MIRALAX 17 GRAMS PO (18:16)
[2024-03-30] MEDS: SENOKOT 8.6 MG PO (18:16)
[2024-03-30] MEDS: CYMBALTA DELAYED RELEASE 30 MG PO (20:15)
[2024-03-30 23:16] VITALS: BP 123/60
[2024-03-31] MEDS: TYLENOL 650 MG PO ×2 (03:44→18:02)
[2024-03-31 05:41] VITALS: BMI 31.1
[2024-03-31 07:59] LABS: Hematocrit 31.3 % (39.0-52.0); Mean Corp Hgb Conc. 31.9 g/dL (33.0-37.0); Mean Corpuscular Hgb 29.3 pg (27.0-31.0); Mean Corpuscular Volume 91.8 fL (80.0-94.0); Mean Platelet Volume 9.6 fL (7.4-10.4); Platelet Count 286 10^3/uL (130-400); Red Blood Cell Count 3.41 10^6/uL (4.70-6.10); Red Cell Dist. Width 13.4 % (11.5-14.5); White Blood Cell Count 6.9 10^3/uL (4.8-10.8)
[2024-03-31 08:14] LABS: Blood Urea Nitrogen 29 mg/dl (9-20); Carbon Dioxide 35 mmol/L (22-30); Chloride 104 mmol/L (98-107); Estimated Creatinine Clearance 41 ml/min; Glucose 109 mg/dl (70-99); Potassium 4.2 mmol/L (3.5-5.1); Sodium 141 mmol/L (135-145); eGFR 45.91
[2024-03-31] MEDS: EXELON 4.5 MG PO ×2 (08:25→21:13)
[2024-03-31] MEDS: SENOKOT 17.2 MG PO ×2 (08:26→21:08)
[2024-03-31] MEDS: NAMENDA 5 MG PO (08:26)
[2024-03-31] MEDS: IMDUR (EXTENDED RELEASE) 30 MG PO (08:26)
[2024-03-31] MEDS: LOW STRENGTH ASPIRIN 81 MG PO (08:26)
[2024-03-31] MEDS: FLOMAX 0.4 MG PO ×2 (08:26→21:07)
[2024-03-31] MEDS: LIORESAL 10 MG PO ×3 (08:27→21:09)
[2024-03-31] MEDS: VITAMIN D3 (cholecalciferol) 25 MCG PO (08:27)
[2024-03-31] MEDS: TOPROL XL 50 MG PO ×2 (08:27→21:09)
[2024-03-31] MEDS: NORVASC 5 MG PO (08:27)
[2024-03-31] MEDS: HEPARIN 5000 UNITS SC ×2 (08:28→21:10)
[2024-03-31 08:41] VITALS: BP 113/59
--- NOTE | 2024-03-31 11:26 | W.PN.ID1 ---
Date of Service
Date of Service: March 31, 2024
Today's Communication
- Last day Ertapenem IV q24 (day 3 of 3) today
- Can dc home with prescription for fosfomycin 3g po x 1, to take on 04/01/24.
Assessment / Plan
# ESBL- ecoli uti
# Fever resolved
# Leukocytosis resolved
- Doubt mental status change is due to 'UTI' as no improvement on appropriate abx.
- Bcx neg
-CT a/p no pyelo
- Last day Ertapenem IV q24 (day 3 of 3) today
- Can dc home with prescription for fosfomycin 3g po x 1, to take on 04/01/24.
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
Dementia
CVA with L Hemiparesis
Hypertension
CKD3
Heart Block s/p PPM
Carotid Stenosis s/p R CEA
Nephrolithiasis
BPH
Hernia repair
Left orchiectomy
Chief Complaint
-: UTI
Vital Signs / Physical Exam
Vital Signs
Vital Signs
Temp Pulse Resp BP Pulse Ox
97.9 F 79 20 113/59 95
03/31/24 08:41 03/31/24 08:41 03/31/24 08:41 03/31/24 08:41 03/31/24 08:41
Physical Exam
Constitutional: No Acute Distress and Comfortable
Cardiovascular: Regular Rate and S1/S2
Pulmonary: Clear
Gastrointestinal: Soft, Non Tender and Non Distended
Genito-Urinary: Negative CVA Tenderness
Neurological: Awake and Alert
Objective Data
Lab Data
Lab Results
03/31/24 07:06
03/31/24 07:06
Estimated Creat Clear 41 ml/min 03/31/24 07:06
Lactic Acid Cancelled 03/26/24 13:15
Total Bilirubin 0.4 mg/dl (0.2-1.3) 03/26/24 09:12
AST 17 U/L (17-59) 03/26/24 09:12
ALT 13 U/L (0-50) 03/26/24 09:12
Alkaline Phosphatase 114 U/L (38-126) 03/26/24 09:12
Most recent labs reviewed.
Micro Results:
03/26/24 10:33 Blood Culture - Final
Blood/Venous No Growth - Final Report
03/26/24 09:12 Blood Culture - Preliminary
Blood/Venous No Growth in 4 days- Final report to follow
03/26/24 09:12 Urine Culture - Final
Urine Escherichia coli - ESBL
Escherichia coli - ESBL#2
03/26/24 09:12 Influenza Types A & B (MARITZA) - Final
Nasal Swab Negative for Influenza A & B, NAAT
Negative results must be combined with clinical observations
and patient history.
Nucleic Acid Amplification test (NAAT)performed on the
[employer] platform.
03/26/24 CT a/p: No evidence for urinary tract calculi. No significant ureteral or pelvicalyceal dilation. Mild stable atrophy of the left kidney. Bladder wall may be mildly trabeculated with a small superior diverticulum. No significant stranding of
the fat adjacent to the bladder. Mild enlargement of the prostate gland.
03/28/24 CXR: Stable right perihilar opacity compared to the chest radiograph from 03/26/2024, for which considerations again include atelectasis versus mild pneumonia.
--- NOTE | 2024-03-31 11:44 | CM ---
Chart reviewed and plan is to home with spouse when stable, patient will require ambulance transport to home.
Plan; Home with spouse and [facility], ambulance transport,
[2024-03-31] MEDS: FERRLECIT 110 MG IV (13:01)
[2024-03-31] MEDS: INVANZ 60 MG IV (13:51)
--- NOTE | 2024-03-31 15:03 | W.PN.HOSP.TC ---
Addendum entered and electronically signed by Ravin John MD 03/31/24 15:27:
spoke to and updated.
Original Note:
Today's Communication/Plan
-
CXR
Pulmicort
Nebs
Acapella
Mucinex
Assessment / Plan
Assessment / Plan
84-year-old man with history of CVA who continues to live at home with his and functional, with mental status change.
CVS: S1-S2 normal
Chest: wheezes
Abdomen: Soft, NT / Bowel sounds present
Extremities: No edema
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
# Possible mild aspiration pneumonitis versus pneumonia-speech recommendations noted.-Antibiotics should cover. Has wheezes. will get CXR. Add Mucinex, nebs and Pulmicort.
# TME-Likely secondary to UTI-back to baseline
# UFP-ETAW-jyefpscdseo changed to ertapenem. Will get Fosfomycin tomorrow
# Anemia- Discussed with patient's . IV iron ordered. She is aware that he needs further follow-up as outpatient.
# Acute kidney injury on CKD stage III-continue IV fluids. Bladder scan-with no significant retention
# Hypertension-continue amlodipine, metoprolol
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 Also on baclofen for muscle spasm
# Chronic HFrEF-continue beta-blockers
# Dysphagia-speech evaluation noted IDDSI 6 diet
# Cognitive dysfunction-on rivastigmine-substituted to Namenda here
# Enlarged prostate-continue Flomax
# History of coronary artery disease-continue aspirin, statin, Imdur, metoprolol
# GERD
# Hypoalbuminemia
# Constipation-resolved
# DVT prophylaxis-continue subcutaneous heparin
# DNR
Discussed with RN at bedside
Called and left a message for call back
Anticipated Discharge: Within 24 hours
Subjective/Interval History
-
Date of Service: March 31, 2024
Objective Data
-
Labs:
Laboratory Results
03/31/24
07:06
WBC 6.9
Hgb 10.0 L
Hct 31.3 L
Plt Count 286
Sodium 141
Potassium 4.2
Chloride 104
Carbon Dioxide 35 H
BUN 29 H
Creatinine 1.5 H
Glucose 109 H
Calcium 8.0 L
Vital Signs:
Vital Signs
Temp Pulse Resp BP Pulse Ox
97.9 F 79 20 113/59 95
03/31/24 08:41 03/31/24 08:41 03/31/24 08:41 03/31/24 08:41 03/31/24 08:41
I&O
03/30/24 03/31/24 04/01/24
06:59 06:59 06:59
Intake Total 1090 / 1090 600 / 600
Balance 1090 / 1090 600 / 600
[2024-03-31 15:11] VITALS: BP 128/69; PULSE 85; PULSE 95
[2024-03-31] MEDS: VENTOLIN NEBULES 2.5 MG INH ×2 (15:41→19:38)
[2024-03-31] MEDS: PULMICORT 0.25 MG INH (15:42)
[2024-03-31] MEDS: MILK OF MAGNESIA 30 ML PO (15:54)
[2024-03-31] MEDS: MUCINEX 600 MG PO ×2 (15:54→21:07)
[2024-03-31 16:00] VITALS: BP 128/69
[2024-03-31] MEDS: PULMICORT 0.5 MG INH (19:38)
[2024-03-31] MEDS: CYMBALTA DELAYED RELEASE 30 MG PO (21:10)
[2024-03-31 23:18] VITALS: BP 112/69
[2024-04-01] MEDS: TYLENOL 650 MG PO ×2 (00:34→16:25)
[2024-04-01 06:00] VITALS: BMI 31.1
[2024-04-01] MEDS: VENTOLIN NEBULES 2.5 MG INH ×4 (07:57→20:36)
[2024-04-01] MEDS: PULMICORT 0.5 MG INH ×2 (07:57→20:36)
[2024-04-01 08:00] VITALS: BP 144/78
[2024-04-01] MEDS: EXELON 4.5 MG PO ×2 (09:56→20:25)
[2024-04-01] MEDS: SENOKOT 17.2 MG PO ×2 (09:56→20:25)
[2024-04-01] MEDS: IMDUR (EXTENDED RELEASE) 30 MG PO (09:56)
[2024-04-01] MEDS: NORVASC 5 MG PO (09:57)
[2024-04-01] MEDS: MUCINEX 600 MG PO ×2 (09:57→20:25)
[2024-04-01] MEDS: LIORESAL 10 MG PO ×3 (09:57→21:05)
[2024-04-01] MEDS: TOPROL XL 50 MG PO ×2 (09:57→20:25)
[2024-04-01] MEDS: LOW STRENGTH ASPIRIN 81 MG PO (09:57)
[2024-04-01] MEDS: FLOMAX 0.4 MG PO (09:57)
[2024-04-01] MEDS: VITAMIN D3 (cholecalciferol) 25 MCG PO (09:57)
[2024-04-01] MEDS: NAMENDA 5 MG PO (09:57)
[2024-04-01] MEDS: HEPARIN 5000 UNITS SC ×2 (10:03→20:25)
[2024-04-01] MEDS: MIRALAX 17 GRAMS PO (10:04)
--- NOTE | 2024-04-01 11:34 | W.PN.ID1 ---
Addendum entered and electronically signed by Camille Mccrary MD 04/01/24 13:16:
COVID19 positive. Pt symptomatic. URI sxs. CXR no PNA. O2 sat normal RA.
Start Paxlovid 150/100 mg (renally adjusted) po bid x 5 days.
Hold tamsulosin while on Paxlovid.
Discussed with Dr. John.
Original Note:
Date of Service
Date of Service: April 01, 2024
Today's Communication
- s/p 3 days Ertapenem IV q24
- One dose of fosfomycin 3g po today.
ID will sign off.
Assessment / Plan
# ESBL- ecoli uti
# Fever resolved
# Leukocytosis resolved
- Bcx neg
-CXR no PNA
-CT a/p no pyelo
- s/p 3 days Ertapenem IV q24
- One dose of fosfomycin 3g po today.
ID will sign off.
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
Dementia
CVA with L Hemiparesis
Hypertension
CKD3
Heart Block s/p PPM
Carotid Stenosis s/p R CEA
Nephrolithiasis
BPH
Hernia repair
Left orchiectomy
Chief Complaint
-: UTI
Subjective / Review of Systems
No new complaints. No cough.
Vital Signs / Physical Exam
Vital Signs
Vital Signs
Temp Pulse Resp BP Pulse Ox
99.0 F 78 18 112/69 97
03/31/24 23:18 04/01/24 07:59 04/01/24 07:59 03/31/24 23:18 04/01/24 07:59
Physical Exam
Constitutional: Chronically Ill
Pulmonary: Clear
Gastrointestinal: Soft, Non Tender, Non Distended and Normal Bowel Sounds
Neurological: Awake
Objective Data
Lab Data
Lab Results
03/31/24 07:06
03/31/24 07:06
Estimated Creat Clear 41 ml/min 03/31/24 07:06
Lactic Acid Cancelled 03/26/24 13:15
Total Bilirubin 0.4 mg/dl (0.2-1.3) 03/26/24 09:12
AST 17 U/L (17-59) 03/26/24 09:12
ALT 13 U/L (0-50) 03/26/24 09:12
Alkaline Phosphatase 114 U/L (38-126) 03/26/24 09:12
Most recent labs reviewed.
Micro Results:
03/26/24 09:12 Blood Culture - Final
Blood/Venous No Growth - Final Report
03/26/24 10:33 Blood Culture - Final
Blood/Venous No Growth - Final Report
03/26/24 09:12 Urine Culture - Final
Urine Escherichia coli - ESBL
Escherichia coli - ESBL#2
03/26/24 09:12 Influenza Types A & B (MARITZA) - Final
Nasal Swab Negative for Influenza A & B, NAAT
Negative results must be combined with clinical observations
and patient history.
Nucleic Acid Amplification test (NAAT)performed on the
[employer] platform.
03/26/24 CT a/p: No evidence for urinary tract calculi. No significant ureteral or pelvicalyceal dilation. Mild stable atrophy of the left kidney. Bladder wall may be mildly trabeculated with a small superior diverticulum. No significant stranding of
the fat adjacent to the bladder. Mild enlargement of the prostate gland.
03/28/24 CXR: Stable right perihilar opacity compared to the chest radiograph from 03/26/2024, for which considerations again include atelectasis versus mild pneumonia.
Care Review
Plan reviewed with: Physician (Dr. John)
[2024-04-01] MEDS: FERRLECIT 110 MG IV (12:00)
[2024-04-01] MEDS: MONUROL 3 GM PO (12:00)
--- NOTE | 2024-04-01 12:32 | CM ---
Addendum entered by Annette Blancas 04/01/24 15:26:
Transfer to home held today per physician.
Plan: Home with [facility].
Original Note:
Chart reviewed and plan is for patient to return to home today with [facility], nursing PT/OT and an aide. Acute care ambulance company will provided transportation to home, patient has a ramp to enter home.
Plan; Home today 4pm orange picker by ambulance with [facility].
[2024-04-01 12:38] LABS: COVID-19 Antigen Positive (Negative)
--- NOTE | 2024-04-01 13:11 | W.PN.UPDATE ---
Update Note
Progress Note Update
COVID19 positive. Pt symptomatic. URI sxs. CXR no PNA. O2 sat normal RA.
Start Paxlovid 150/100 mg (renally adjusted) po bid x 5 days.
Hold tamsulosin while on Paxlovid.
Discussed with Dr. John.
--- NOTE | 2024-04-01 13:34 | W.PN.HOSP.TC ---
Today's Communication/Plan
-
With patient now coming back positive for COVID requesting to keep him here until tomorrow with start of the new medicine-Paxlovid
Watch on Paxlovid
If stable discharge tomorrow
Assessment / Plan
Assessment / Plan
84-year-old man with history of CVA who continues to live at home with his and functional, with mental status change.
CVS: S1-S2 normal
Chest: wheezes, better
Abdomen: Soft, NT / Bowel sounds present
Extremities: No edema
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
# Wheezing and URI symptoms. COVID test came back positive now. He was negative on admission
Started on Paxlovid
# TME-Likely secondary to UTI-back to baseline
# UTI-ESBL- Completed ertapenem. Got a dose of fosfomycin today. No more antibiotics planned
# Anemia- Discussed with patient's . IV iron ordered. She is aware that he needs further follow-up as outpatient.
# Acute kidney injury on CKD stage III-continue IV fluids. Bladder scan-with no significant retention
# Hypertension-continue amlodipine, metoprolol
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 Also on baclofen for muscle spasm
# Chronic HFrEF-continue beta-blockers
# Dysphagia-speech evaluation noted IDDSI 6 diet
# Cognitive dysfunction-on rivastigmine-substituted to Namenda here
# Enlarged prostate-continue Flomax
# History of coronary artery disease-continue aspirin, statin, Imdur, metoprolol
# Vitamin D deficiency-replace
# GERD
# Hypoalbuminemia
# Constipation-resolved
# DVT prophylaxis-continue subcutaneous heparin
# DNR
Discussed with RN at bedside
D/W Case management
D/W ID
Discussed with at bedside
Anticipated Discharge: Within 24 hours
Subjective/Interval History
-
Date of Service: April 01, 2024
Objective Data
-
Vital Signs:
Vital Signs
Temp Pulse Resp BP Pulse Ox
98.8 F 95 18 144/78 90
04/01/24 08:00 04/01/24 08:00 04/01/24 08:00 04/01/24 08:00 04/01/24 08:00
I&O
03/31/24 04/01/24 04/02/24
06:59 06:59 06:59
Intake Total 600 / 600 1420 / 1420
Balance 600 / 600 1420 / 1420
[2024-04-01] MEDS: PAXLOVID 150-100 MG DOSE PACK 1 DOSE PO ×2 (15:20→20:25)
[2024-04-01 16:00] VITALS: BP 102/54
[2024-04-01] MEDS: CYMBALTA DELAYED RELEASE 30 MG PO (21:05)
--- NOTE | 2024-04-02 05:59 | W.PN.HOSP.TC ---
Today's Communication/Plan
-
discharge
Assessment / Plan
Assessment / Plan
Physical Exam
General: no acute distress. Appears comfortable at this time
CVS: S1-S2 normal
Chest: Clear to auscultation b/l
Abdomen: Soft, NT / Bowel sounds present
Extremities: No edema
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
84-year-old man with history of CVA at home with his p/w mental status change.
# Wheezing and URI symptoms. COVID positive. Negative on admission
Started on Paxlovid 04/01/24 renally dosed
# TME-Likely secondary to UTI-back to baseline
# UTI-ESBL- Completed 3 days ertapenem. received one dose of fosfomycin. No Further antibiotics planned as per ID
# Iron Deficiency Anemia
#Anemia of Chronic disease
Received 4 days IV iron, to transition to PO on discharge
repeat Iron studies with primary care provider in 1 month of discharge
# Acute kidney injury on CKD stage III
since improved following IVF from Cr high 1.9 to 1.5, possibly baseline
# Hypertension-continue amlodipine, metoprolol
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 Also on baclofen for muscle spasm
# Chronic HFrEF-continue beta-blockers
# Dysphagia-speech evaluation noted IDDSI 6 diet
# Cognitive dysfunction-on rivastigmine-substituted to Namenda here
# Enlarged prostate-hold Flomax while on Paxlovid
# History of coronary artery disease-continue aspirin, statin, Imdur, metoprolol
# Vitamin D deficiency-replace
# GERD
# Hypoalbuminemia
# Constipation-resolved
# DVT prophylaxis-continue subcutaneous heparin
# DNR
Medically stable for discharge home with home services and outpatient follow up recommendations.
Discussed with patient and patient's Sarah
Total Time Preparing Discharge ___40____ minutes including examination of the patient, summary of the hospital stay, instructions for continuing care to all relevant caregivers; and preparation of discharge records, prescriptions, and referral
forms if necessary.
Anticipated Discharge: Today
Subjective/Interval History
-
Date of Service: April 02, 2024
Seen and examined at bedside in no acute distress resting comfortably in bed. No new acute issues. Looking forward to going home. Sarah present during evaluation.
Objective Data
-
Labs:
Laboratory Results
04/02/24
06:00
WBC Pending
Hgb Pending
Hct Pending
Plt Count Pending
Sodium Pending
Potassium Pending
Chloride Pending
Carbon Dioxide Pending
BUN Pending
Creatinine Pending
Glucose Pending
Calcium Pending
Vital Signs:
Vital Signs
Temp Pulse Resp BP Pulse Ox
98.3 F 84 16 110/52 92
04/01/24 23:42 04/01/24 23:42 04/01/24 23:42 04/01/24 20:25 04/01/24 23:42
I&O
03/31/24 04/01/24 04/02/24
06:59 06:59 06:59
Intake Total 600 / 600 1420 / 1420 200 / 200
Balance 600 / 600 1420 / 1420 200 / 200
[2024-04-02 07:58] VITALS: BP 107/67
[2024-04-02] MEDS: PULMICORT 0.5 MG INH (08:04)
[2024-04-02] MEDS: VENTOLIN NEBULES 2.5 MG INH ×2 (08:04→11:25)
[2024-04-02 09:03] LABS: Hematocrit 32.1 % (39.0-52.0); Hemoglobin 10.2 g/dL (13.0-18.0); Mean Corp Hgb Conc. 31.8 g/dL (33.0-37.0); Mean Corpuscular Hgb 29.6 pg (27.0-31.0); Mean Platelet Volume 9.7 fL (7.4-10.4); Platelet Count 317 10^3/uL (130-400); Red Blood Cell Count 3.45 10^6/uL (4.70-6.10); Red Cell Dist. Width 13.4 % (11.5-14.5); White Blood Cell Count 5.5 10^3/uL (4.8-10.8)
[2024-04-02 09:24] LABS: Blood Urea Nitrogen 25 mg/dl (9-20); Calcium 7.8 mg/dl (8.4-10.2); Carbon Dioxide 36 mmol/L (22-30); Chloride 99 mmol/L (98-107); Estimated Creatinine Clearance 41 ml/min; Glucose 94 mg/dl (70-99); Potassium 4.3 mmol/L (3.5-5.1); Sodium 138 mmol/L (135-145); eGFR 45.91
[2024-04-02] MEDS: EXELON 4.5 MG PO (09:29)
[2024-04-02] MEDS: VITAMIN D3 (cholecalciferol) 25 MCG PO (09:31)
[2024-04-02] MEDS: LIORESAL 10 MG PO ×2 (09:31→15:27)
[2024-04-02] MEDS: MUCINEX 600 MG PO (09:31)
[2024-04-02] MEDS: SENOKOT 17.2 MG PO (09:31)
[2024-04-02] MEDS: IMDUR (EXTENDED RELEASE) 30 MG PO (09:31)
[2024-04-02] MEDS: NORVASC 5 MG PO (09:32)
[2024-04-02] MEDS: NAMENDA 5 MG PO (09:32)
[2024-04-02] MEDS: TOPROL XL 50 MG PO (09:32)
[2024-04-02] MEDS: LOW STRENGTH ASPIRIN 81 MG PO (09:33)
[2024-04-02] MEDS: MIRALAX 17 GRAMS PO (09:33)
[2024-04-02] MEDS: HEPARIN 5000 UNITS SC (09:33)
[2024-04-02] MEDS: PAXLOVID 150-100 MG DOSE PACK 1 DOSE PO (09:34)
[2024-04-02] MEDS: FERRLECIT IV ×2 (13:50→14:02)
[2024-04-02 15:00] VITALS: BP 113/57
[2024-04-02 15:35] VITALS: BP 113/57
[2024-04-02] MEDS: VENTOLIN NEBULES INH ×2 (16:12→18:35)
--- NOTE | 2024-04-02 16:12 | CM ---
CM reviewed chart, met with patient and bedside, discussed plan for discharge today, home with VN services. Patient has ramp to enter home, will be home when patient arrives. IMM verbally reviewed, agreeable to discharge, provided with
copy, form placed in chart. Patient scheduled for 7:30 p.m. ambulance transport. CM will continue to follow for all discharge planning needs.
Plan: home with [facility], 7:30 p.m. ambulance transport
--- NOTE | 2024-04-02 16:47 | W.DCSUMMARY ---
Discharge Summary
Discharge Data
Date of Admission: 03/26/24
Date of Discharge: 04/02/24
-
Pending Results: No
Hospital Course
84-year-old man with history of CVA at home with his p/w mental status change, wheezing, and URI symptoms. COVID positive. Negative on admission
Started on Paxlovid 04/01/24 renally dosed. TME likely secondary to UTI- back to baseline following treatment. UTI-ESBL- Completed 3 days ertapenem. received one dose of fosfomycin. No Further antibiotics planned as per ID. Iron Deficiency
Anemia, Anemia of Chronic disease, received 4 days IV iron, transitioned to PO on discharge,
repeat Iron studies with primary care provider in 1 month of discharge recommended. Acute kidney injury on CKD stage III, since improved following IVF from Cr high 1.9 to 1.5, likely baseline. Hypertension, continued home amlodipine and
metoprolol. History of CVA in 2011 with a left hemiparesis, continued aspirin and statin- also on baclofen for muscle spasm. Chronic HFrEF, continued beta-blockers. Dysphagia, speech evaluation noted appropriate for IDDSI 6 diet. Cognitive
dysfunction-on rivastigmine- substituted to Namenda while here. Enlarged prostate- hold on Flomax was recommended while on Paxlovid. History of coronary artery disease, continued aspirin, statin, Imdur, metoprolol. Vitamin D deficiency was noted,
supplementation was provided. Medically stable, patient was discharged home with home services and outpatient follow up recommendations.
Discharge Plan
-
Patient Disposition: Home with Home Care
Discharge Diagnosis/Procedures: COVID-19 infection
ESBL UTI
Anemia-Iron Deficiency
Vitamin D Deficiency
Acute Kidney Injury
Chronic Kidney Disease Stage III
Aspiration pneumonitis
Hypertension
Dysphagia
Cognitive dysfunction
Enlarged prostate
History of coronary artery disease
Condition: Fair
Diet: Other diet
Additional Diets: Soft and bite sized diet. Medication crused in puree. Aspiration Precautions. Upright positioning with 100% supervision. Small single sips/bites. Slow rate of intake. Only feeding when awake and alert. Oral Care 3 times a day.
Activity: As tolerated
Driving Restrictions: No driving
Bathing Restrictions: None
Blood Work: Please repeat CBC and BMP with primary care provider in 1 week of discharge.
Repeat Iron Studies and Vitamin D level with primary care provider in 1 month of discharge.
Other Services: VN and PT
Activity Restrictions/Additional Instructions:
Workup of iron deficiency and anemia as outpatient. Follow-up with your primary physician. Use Acapella and incentive spirometry
Please follow up with your primary care provider in 1 week of discharge.
Regarding COVID, you tested positive 04/01/24. It is recommended that you continue to quarantine for total 5 days 04/01/24-04/05/24 then continue to mask when around other people for the last 5 days 04/06/24-04/10/24
Referrals:
Demetria Parsons PA-C [Family Provider] - in one week
Additional Discharge Medication Instructions: Metoprolol was changed from 100 mg daily to 50 mg twice a day for better rate/blood pressure control. Please follow up with primary care provider before considering to resume old regimen.
You are due for 7 more doses of Paxlovid including evening dose 04/02/24. 04/05/24 is your last day for Paxlovid. You do not have to finish the blister pack.
Please continue to hold Flomax while on Paxlovid due to concern for interaction. Resume Flomax 04/06/24 after completion of Paxlovid regimen.
Amlodipine 5 mg daily has been prescribed, blood pressure has been well controlled on this dose during hospitalization.
Oral Iron supplementation has been prescribed for Iron deficiency anemia. This can cause constipation, scheduled colace has been prescribed to provide prophylaxis against constipation, hold if diarrhea or regular bowel movements. Miralax has also
been prescribed as needed for constipation.
Vitamin D supplementation has been prescribed for Vitamin D deficiency.
Please take medications as prescribed/recommended and follow up with primary care provider and/or other healthcare provider involved in your care for refills and/or further adjustment to your medication regimen as necessary.
Prescriptions:
New
metoprolol succinate 50 mg Tablet Extended Release 24 Hr
50 mg PO BID Qty: 60 0RF
ferrous sulfate 325 mg (65 mg iron) tablet
325 mg PO DAILY Qty: 30 0RF
Paxlovid 150-100 mg tablets,dose pack
See Rx Instructions .ROUTE .COMPLEX Qty: 20 0RF
Rx Instructions:
orally per package directions
amlodipine 5 mg tablet
5 mg PO DAILY Qty: 30 0RF
docusate sodium [Colace] 100 mg capsule
100 mg PO BID Qty: 60 0RF
Rx Instructions:
Hold if diarrhea or regular bowel movements
polyethylene glycol 3350 [Miralax] 17 gram powder in packet
17 g PO DAILY PRN (Reason: Constipation) Qty: 30 0RF
cholecalciferol (vitamin D3) 25 mcg (1,000 unit) Tablet
25 mcg PO DAILY Qty: 30 0RF
Continued
atorvastatin 80 MG tablet
40 mg PO QPM
calcium carbonate 600 MG tablet
600 mg PO DAILY
baclofen 10 MG tablet
10 mg PO TID
aspirin 81 mg Tablet,Delayed Release (Dr/Ec)
81 mg PO DAILY
vitamin B complex Tablet
1 tab PO NOON
rivastigmine tartrate 4.5 mg Capsule
4.5 mg PO BID
acetaminophen [Tylenol] 325 mg Tablet
650 mg PO Q6HPRN PRN (Reason: mild pain/fever)
cyanocobalamin (vitamin B-12) 1,000 mcg Tablet, Sublingual
1,000 mcg SUBLINGUAL DAILY
albuterol sulfate 1.25 mg/3 mL solution for nebulization
1.25 mg inhalation R BIDPRN PRN (Reason: shortness of breath or wheezing)
milk thistle 150 mg Capsule
300 mg PO DAILY
coenzyme Q10-vit E-vit E mixed 100-20-15 mg Capsule
1 cap PO DAILY
isosorbide mononitrate 30 mg Tablet Extended Release 24 Hr
30 mg PO DAILY Qty: 30 1RF
duloxetine 30 mg Capsule,Delayed Release(Dr/Ec)
60 mg PO HS
Held
tamsulosin [Flomax] 0.4 MG capsule
0.4 mg PO BID
Hold Instructions: Hold while on Paxlovid due to concern interaction. Resume next day following completion Paxlovid regimen.
Discontinued
amlodipine 10 MG tablet
10 mg PO QPM
metoprolol succinate [Toprol XL] 100 MG tablet extended release 24 hr
100 mg PO NOON
duloxetine [Cymbalta] 30 mg Capsule,Delayed Release(Dr/Ec)
60 mg PO HS
green tea leaf ext-green tea 150-250 mg Capsule
2 cap PO DAILY
Discharge Orders:
Discharge Patient (As Directed); Ordered 04/02/24
Ordered By: Tani Luong
Discharge Date and Time
Discharge Date/Time: 04/02/24 21:13
Print Language: ZAMBIAN
[2024-04-02] MEDS: TYLENOL 650 MG PO (18:02)
[2024-04-02] MEDS: PULMICORT INH (18:45)
== END 2024-04-02 21:13 | disposition home health service (06) | DRG 91 ==
LOC: 4 WEST ACU 13:22
PROVIDERS: Hospitalist; ADMITTING PHYSICIAN Internal Medicine; ATTENDING PHYSICIAN Internal Medicine; CONSULT PHYSICIAN Internal Medicine Infectious Disease; EMERGENCY PHYSICIAN Emergency Medicine; FAMILY PHYSICIAN Physician Assistant
DX: G92.8 Other toxic encephalopathy (principal); J69.0 Pneumonitis due to inhalation of food and vomit; U07.1 COVID-19; N39.0 Urinary tract infection, site not specified; Z16.12 Extended spectrum beta lactamase (ESBL) resistance; N17.9 Acute kidney failure, unspecified; I50.22 Chronic systolic (congestive) heart failure; I69.354 Hemiplegia and hemiparesis following cerebral infarction affecting left non-dominant side; J98.11 Atelectasis; I12.9 Hypertensive chronic kidney disease with stage 1 through stage 4 chronic kidney disease, or unspecified chronic kidney disease; N18.30 Chronic kidney disease, stage 3 unspecified; Z66 Do not resuscitate; Z95.0 Presence of cardiac pacemaker
CPT/HCPCS: 71045; 71046; 74176; 74230; 80048; 80053; 81003; 81015; 82306; 82607; 82728; 83540; 83550; 83605; 85025; 85027; 87040; 87077; 87086; 87186; 87502; 87811; 92526; 92610; 92611; 93005; 94640; 94760; 96361; 96365; 96375; 97163; 97167; 97530; 99285; J1335; J2916; J3480

== ENCOUNTER 2024-04-20 12:29 | Inpatient (IN) | payer BC, MEDICARE, SELFPAY ==
[2024-04-20] VITALS (7 sets, daily range): BP systolic 108–135; BP diastolic 53–70; BMI 28.1; BMI 29.3
[2024-04-20 10:11] LABS: Urine Albumin 2+ (Neg - Trace); Urine Bilirubin Negative (Negative); Urine Character Cloudy (Clear); Urine Color Yellow; Urine Glucose Negative (Negative); Urine Ketone Negative (Negative); Urine Leukocyte 3+ (Negative); Urine Nitrite Negative (Negative); Urine Occult Blood 2+ (Negative); Urine Urobilinogen Negative (Neg - 1+)
[2024-04-20 10:21] LABS: % Basophils 0.6 % (0-2); % Eosinophils 2.4 % (0-6); % Immature Granulocytes 0.4 % (0-0.5); % Lymphocytes 14.2 % (20.5-51.1); % Neutrophils 71.4 % (42.2-75.2); Absolute Basophils 0.1 10^3/uL (0-0.2); Absolute Eosinophils 0.2 10^3/uL (0-0.7); Absolute Lymphocytes 1.3 10^3/uL (1.2-3.4); Absolute Neutrophils 6.4 10^3/uL (1.4-6.5); Hematocrit 36.2 % (39.0-52.0); Hemoglobin 12.1 g/dL (13.0-18.0); Mean Corp Hgb Conc. 33.4 g/dL (33.0-37.0); Mean Corpuscular Hgb 30.3 pg (27.0-31.0); Mean Corpuscular Volume 90.5 fL (80.0-94.0); Mean Platelet Volume 10.3 fL (7.4-10.4); Nucleated Red Blood Cells % 0 % (-); Platelet Count 190 10^3/uL (130-400); Red Cell Dist. Width 13.4 % (11.5-14.5); Urine Squamous Cell 0-2 /LPF (Few); Urine White Cell >100 /HPF (0-5)
[2024-04-20 10:22] LABS: Urine Bacteria Many (Negative); Urine Red Blood Cell 16-20 /HPF (0-2)
--- NOTE | 2024-04-20 10:33 | ED.GENMED ---
History of Present Illness
General
Chief Complaint: Change in Mental Status
Source: patient, records and spouse
Exam Limitations: altered mental status and dementia
Time Seen by Provider: 04/20/24 10:04
Nursing documentation reviewed up to this point in time: agreed with
History of Present Illness
History of Present Illness:
84-year-old male history of dementia stroke admitted a few weeks ago with UTI and COVID treated with antibiotics went to rehab couple days ago he was able to participate in PT past few days he has been fatigued confused sleeping a lot not eating so
much, drooling started empirically on Cipro for a UTI
Records briefly reviewed had ESBL E. coli, cefepime switched to ertapenem
Past History
Past History
ED Past Medical History: CVA (Left sided weakness, right parietal stroke in 2012), HTN, Hypercholesterolemia and Other (Renal calculus, UTi, Scrotal hernia, Cellulitis)
ED Past Surgical History: Cardiac (pacemaker, RBBB), Tonsilectomy (and adnoids), Urological (Kidney stones) and Other (Right carotid endarterectomy herniorrhaphy, left orchiectomy)
Social History
Tobacco: Non-smoker
Alcohol: None
Drug: None
Personal:
Living: with family
Employment: Retired
Family History
Family History: Hypertension
Review of Systems
Review of Systems
Unable to obtain full review of systems at this time due to: dementia
Other source history: family
All Other Systems: Not applicable
Constitutional: Reports fatigue; Denies fever
Phy Exam
Physical Exam
Physical Exam:
Physical Exam
General: Confused demented male
Neck: Dry
Heart: s1/s2 regular rate and rhythm, no murmur. equal radial pulses.
Lungs: no acute respiratory distress. No wheeze
Abdomen: Nontender
Neuro: Confused localize to painful stimuli
Skin: no rash
Psychiatric: Unable to assess
Extremities: no edema.
Course
Orders/Labs/Results
Orders:
Orders
04/20/24 09:59
Basic Metabolic Panel Urgent
Complete Blood Count/With Diff Urgent
Urinalysis Reflex To Culture Urgent
Date Specimen was Collected: 04/20/24
Time Specimen was Collected: 09:56
Urine Microscopic Reflex Cult Urgent
Urine Culture Urgent
VIKI Source: U
Specimen Description:
Obtained by: Random
Date Specimen was Collected: 04/20/24
Time Specimen was Collected: 09:56
04/20/24 10:49
0.9% Sodium Chloride 1000 ml [Nss] 1,000 ml IV BOLUS
04/20/24 10:50
Electrocardiogram (*1) Urgent
Reason for Study: Fatigue / Weakness
EKG- Treatment ONCE
04/20/24 11:19
Meropenem [Merrem] 500 mg IV NOW STA
04/20/24 11:26
INFECTIOUS DISEASE CONSULT Routine
Consulting Provider: Shanita Reynolds
Was physician already notified: Yes
Abnormal Lab Results
04/20/24
09:59
RBC 4.00 L 10^6/uL
(4.70-6.10)
Hgb 12.1 L g/dL
(13.0-18.0)
Hct 36.2 L %
(39.0-52.0)
Absolute Monos (auto) 1.0 H 10^3/uL
(0.1-0.6)
Lymphocytes % 14.2 L %
(20.5-51.1)
Monocytes % 11.0 H %
(1.7-9.3)
Potassium 5.7 H mmol/L
(3.5-5.1)
BUN 26 H mg/dl
(9-20)
Creatinine 1.6 H mg/dL
(0.7-1.3)
Glucose 110 H mg/dl
(70-99)
Ur Occult Blood Reflex 2+ A
(Negative)
Leukocyte Esterase Rfl 3+ A
(Negative)
Urine RBC 16-20 A /HPF
(0-2)
Urine WBC (Reflex) >100 A /HPF
(0-5)
Urine Bacteria (Reflex) Many A
(Negative)
Urine Albumin (Reflex) 2+ A
(Neg - Trace)
04/20/24 09:59
04/20/24 09:59
Vital Signs
Initial and Last Documented VS:
Initial Vital Signs
Temp Pulse Resp BP Pulse Ox
98.4 F 67 18 117/64 94
04/20/24 09:50 04/20/24 09:50 04/20/24 09:50 04/20/24 09:50 04/20/24 09:50
Last Documented Vital Signs
Temp Pulse Resp BP Pulse Ox
98.4 F 60 14 123/56 91
04/20/24 09:50 04/20/24 10:45 04/20/24 10:45 04/20/24 10:00 04/20/24 10:15
MDM/Problems Addressed
Differential Diagnosis Includes:
UTI toxic metabolic electrolyte abnormality
MDM/Problems Addressed:
Confusion
Chronic conditions affecting care: Neurological disorder
Acute Exacerbation and/or Progression of Chronic Illness: Neurological disorder
*Pulse Oximetry
Patient hypoxic: no
*Critical Care Note
Total Time (30-74mins, 75-104mins- exclusive of procedures): Not Applicable
Data Reviewed
Review of Other/Old Records Reveals: Labs and Discharge Summary
Source: patient and spouse
Prescriptions/Medications Considered But Not Given:
To be determined
Further Testing Considered But Not Given:
CT scan
Update Note
Update Note:
Update prior urine culture noted prior infectious disease notes reviewed straight cath UA abnormal here
ED Attending Note
-
Portions of this chart may have been created with voice recognition software.� Occasional wrong word or��sound alike� substitutions may have occurred due to the inherent limitations of voice recognition software.
Discharge Plan
Departure
Patient Disposition: Admit
Date of Disposition: 04/20/24
Time of Disposition: 11:26
Admit to: Med/Surg
Presentation/result/management discussed w/ accepting MD/DO: Hospitalist
Patient with high blood pressure during this ER visit?: No
Condition: Fair
Covid-19: Not Applicable
Discharge Problem:
Acute UTI, Altered mental status, Hemiparesis affecting left side as late effect of cerebrovascular accident, CKD (chronic kidney disease), stage III, Cognitive dysfunction
Prescriptions:
No Action
atorvastatin 80 MG tablet
40 mg PO QPM
calcium carbonate 600 MG tablet
600 mg PO DAILY
baclofen 10 MG tablet
10 mg PO TID
aspirin 81 mg Tablet,Delayed Release (Dr/Ec)
81 mg PO DAILY
vitamin B complex Tablet
1 tab PO NOON
rivastigmine tartrate 4.5 mg Capsule
4.5 mg PO BID
acetaminophen [Tylenol] 325 mg Tablet
650 mg PO Q6HPRN PRN (Reason: mild pain/fever)
albuterol sulfate 1.25 mg/3 mL solution for nebulization
1.25 mg inhalation R BIDPRN PRN (Reason: shortness of breath or wheezing)
milk thistle 150 mg Capsule
300 mg PO HS
coenzyme Q10-vit E-vit E mixed 100-20-15 mg Capsule
1 cap PO DAILY
metoprolol succinate 50 mg Tablet Extended Release 24 Hr
50 mg PO BID Qty: 60 0RF
ferrous sulfate 325 mg (65 mg iron) tablet
325 mg PO DAILY Qty: 30 0RF
isosorbide mononitrate 30 mg Tablet Extended Release 24 Hr
30 mg PO DAILY Qty: 30 1RF
amlodipine 5 mg tablet
5 mg PO DAILY Qty: 30 0RF
docusate sodium [Colace] 100 mg capsule
100 mg PO BID Qty: 60 0RF
Rx Instructions:
Hold if diarrhea or regular bowel movements
cholecalciferol (vitamin D3) 25 mcg (1,000 unit) Tablet
25 mcg PO DAILY Qty: 30 0RF
duloxetine 30 mg Capsule,Delayed Release(Dr/Ec)
60 mg PO HS
cyanocobalamin (vitamin B-12) 1,000 mcg Tablet
1,000 mcg PO DAILY
ciprofloxacin HCl [Cipro] 250 mg Tablet
250 mg PO BID
Rx Instructions:
to start on 04/20/24-04/25/24
magnesium hydroxide [Milk of Magnesia] 400 mg/5 mL Suspension
2,400 mg PO HSPRN PRN (Reason: if no bm by 3rd day)
tamsulosin [Flomax] 0.4 mg Capsule
0.4 mg PO BID
bisacodyl [Dulcolax (bisacodyl)] 10 mg Suppository
10 mg CA DAILYPRN PRN (Reason: if no bm aftr mom)
polyethylene glycol 3350 [Miralax] 17 gram powder in packet
17 g PO DAILYPRN PRN (Reason: Constipation)
Referrals:
UNKNOWN,NO INTERVIEW [Family Provider] -
Interventions
Interventions:
*Risk Screen - Suicide Last Done: 04/20/24 09:55
*General Assessment Last Done: 04/20/24 09:55
*Neglect/Abuse Screening Last Done: 04/20/24 09:55
ED- Fall Risk Assessment Last Done: 04/20/24 09:57
*ED COVID-19 Vaccine History Last Done: 04/20/24 09:58
ED- Neurological Assessment Last Done: 04/20/24 09:57
ED- Cardiac Assessment Last Done: 04/20/24 09:57
Discharge Date and Time
Print Language: KYRGYZ
[2024-04-20 10:44] LABS: Blood Urea Nitrogen 26 mg/dl (9-20); Carbon Dioxide 29 mmol/L (22-30); Chloride 103 mmol/L (98-107); Estimated Creatinine Clearance 36 ml/min; Glucose 110 mg/dl (70-99); Potassium 5.7 mmol/L (3.5-5.1); Sodium 138 mmol/L (135-145); eGFR 42.49
--- NOTE | 2024-04-20 10:57 | HPS.HSE ---
Family Physician
-
Family Physician: NO INTERVIEW UNKNOWN
Chief Complaint
-
Change in mental status for a few days duration
History of Present Illness
84 years old male presented from [facility]. History taken from the . Patient was noted to have progressive decline in mentation with lethargy and hallucination last a few days. He was started on ciprofloxacin for presumed urinary
tract infection. No history of fevers. No history of GI symptoms. No history of seizures. Patient was recently in the hospital and discharged to [facility] but reported he did not thrive there.
In the ER, he did not have leukocytosis. He was started on meropenem for urinary tract infection.
Medical History
Past Medical History
Past Medical History: Reports Other (Chronic kidney disease, dementia with hallucinations, TME, UTI, strokes, hypertension, HLD, status post pacemaker, gait dysfunction, peripheral arterial disease, acquired lymphedema,))
Past Surgical History: Reports Other (No recent major surgery)
Social History
Unable to obtain full social history at this time due to: Other (Social history taken from previous records)
Tobacco: Non-smoker
Alcohol: None
Drug: None
Personal:
Living: Jail
Employment: Retired
Family History
Family History: Not pertinent
Allergies / Home Medications
Allergies reflects when Allergies were last updated in [employer].
Home Medications with original date entered in [employer]
Allergy/Medication List:
Allergies
Allergy/AdvReac Type Severity Reaction Status Date / Time
doxycycline monohydrate Allergy MIGRAINE Verified 04/20/24 09:49
[From Vibramycin]
Sulfa (Sulfonamide Allergy difficulty Verified 04/20/24 09:49
Antibiotics) breathing,
[Sulfa(Sulfonamide hives
Antibiotics)]
vancomycin Allergy dizziness,double Verified 04/20/24 09:49
vision
Home Medications
atorvastatin 80 mg tablet 40 mg PO QPM High Cholesterol 06/17/21
calcium carbonate 600 mg PO DAILY Supplement 06/17/21
baclofen 10 mg tablet 10 mg PO TID Muscle Spasms 09/26/22
aspirin 81 mg tablet,delayed release 81 mg PO DAILY Blood Clot Prevention/Tx 10/12/23
rivastigmine tartrate 4.5 mg capsule 4.5 mg PO BID memory 10/12/23
vitamin B complex 1 tab PO NOON Supplement 10/12/23
acetaminophen 325 mg tablet (Tylenol) 650 mg PO Q6HPRN PRN mild pain/fever 03/11/24
albuterol sulfate 1.25 mg/3 mL solution for nebulization 1.25 mg inhalation R BIDPRN PRN shortness of breath or wheezing 03/11/24
coenzyme Q10 100 mg-vitamin E 20 mg-vitamin E mixed 15 mg capsule 1 cap PO DAILY Supplement 03/26/24
milk thistle 150 mg capsule 300 mg PO HS Supplement 03/26/24
ferrous sulfate 325 mg (65 mg iron) tablet 325 mg PO DAILY anemia #30 tabs 03/30/24
isosorbide mononitrate 30 mg tablet,extended release 24 hr 30 mg PO DAILY Heart disease/condition #30 tabs 03/30/24
metoprolol succinate 50 mg tablet,extended release 24 hr 50 mg PO BID Heart disease/condition #60 tabs 03/30/24
amlodipine 5 mg tablet 5 mg PO DAILY #30 tabs 04/02/24
cholecalciferol (vitamin D3) 25 mcg (1,000 unit) tablet 25 mcg PO DAILY #30 tabs 04/02/24
docusate sodium 100 mg capsule (Colace) 100 mg PO BID #60 caps 04/02/24
duloxetine 30 mg capsule,delayed release 60 mg PO HS 04/02/24
bisacodyl 10 mg rectal suppository (Dulcolax (bisacodyl)) 10 mg DE DAILYPRN PRN if no bm aftr mom 04/20/24
ciprofloxacin HCl 250 mg tablet (Cipro) 250 mg PO BID 04/20/24
cyanocobalamin (vitamin B-12) 1,000 mcg tablet 1,000 mcg PO DAILY 04/20/24
magnesium hydroxide 400 mg/5 mL oral suspension (Milk of Magnesia) 2,400 mg PO HSPRN PRN if no bm by 3rd day 04/20/24
polyethylene glycol 3350 17 gram oral powder packet (Miralax) 17 g PO DAILYPRN PRN Constipation 04/20/24
tamsulosin 0.4 mg capsule (Flomax) 0.4 mg PO BID 04/20/24
Review of Systems
-
Unable to obtain full review of systems at this time due to: Other (Patient is confused, unable to answer all questions but denied headache or pain in chest or abdomen.)
Physical Exam
Vital Signs
Vital Signs
Temp Pulse Resp BP Pulse Ox
98.4 F 60 14 123/56 91
04/20/24 09:50 04/20/24 10:45 04/20/24 10:45 04/20/24 10:00 04/20/24 10:15
Physical Exam
General: No Apparent Distress and Obese
HEENT: Atraumatic and Other (Dry mucous memberanes )
Respiratory: Decreased Breath Sounds; No Wheezes
Cardiac: S1/S2
GI: Soft, Non Tender and Non Distended
Rectal: No Maroon Stools
Genito-urinary: No Bloody Urine or Wilson
Musculoskeletal: No Cyanosis and No Edema
Skin: No Jaundice
Neuro: Other (Patient is confused, unable to follow commands or answer questions)
Psych: Other (Lethargic)
Laboratory Results
-
04/20/24 09:59
04/20/24 09:59
Laboratory Results
Total Bilirubin Cancelled 04/20/24 09:59
AST Cancelled 04/20/24 09:59
ALT Cancelled 04/20/24 09:59
Alkaline Phosphatase Cancelled 04/20/24 09:59
Impression/Plan
-
84 years old male presented with change in mental status that seems to resolve upon arrival
#Change in mental status/toxic metabolic encephalopathy status possible related to evolving urinary tract infection
Patient denied pain or discomfort. According to the history obtained from , patient came from [facility] and was not showing much improvement with.'s of lethargy and agitation noted
Patient has history of urinary tract infection in the past and toxic metabolic encephalopathy.
Admit the patient to the hospital
No chest pain, no abdominal pain or tenderness on examination
Order head CT
No fever. No leukocytosis.
No history of falls or involuntary/convulsion movements
Empiric antibiotic. Will follow-up with urine culture. Will do blood culture.
Monitor temperature curve and blood pressure
Appreciate ID input
# Hyperkalemia, will give dextrose with insulin and recheck.
#History of advanced dementia with hallucination. Seems worsening. Patient is having visual hallucination time. Will verify last time of baclofen for possible withdrawal.
# Acquired lymphedema of lower extremities. Will continue with diuretic therapy in the hospital. Monitor weight. Monitor renal function
#Pacemaker
#Benign Hypertension
- Stable. Continue outpatient med regimen and adjust as needed.
CKD IIIb
SCr is at / near known baseline.
- Follow for any changes.
#Anemia of Chronic Disease
- Stable. Hgb is at / near known baseline.
- Follow for any changes.
# History of stroke
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
Gait dysfunction.
- Continue current CV med regimen including ASA, statin.
- Continue supportive care including baclofen, Cymbalta.
#BPH
Continue tamsulosin.
- Bladder scan protocol.
#History of right bundle branch block
History of pacemaker
#History of essential hypertension
Monitor for hypotension
# History scrotal hernia
DVT Prophylaxis: Subcutaneous heparin
# Code status
DNR , confirmed with
Total time spent to see the patient, examine the patient, review data and lab results, discuss the treatment plan with patient,, ER doctor, nursing staff around 75 minutes
[2024-04-20] MEDS: MERREM 500 MG IV ×2 (12:40→23:43)
[2024-04-20] MEDS: NSS 1000 IV ×2 (12:40→14:23)
[2024-04-20 14:21] LABS: Glucose - Point of Care 84 mg/dl (70-99)
[2024-04-20] MEDS: NOVOLIN R 10 UNITS IV (14:23)
[2024-04-20] MEDS: DEXTROSE 50% SYRINGE 25 GRAMS IV (14:23)
--- NOTE | 2024-04-20 14:44 | EDRN ---
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 rpt accucheck done @ 1447 per daughter request.
[2024-04-20 14:48] LABS: Glucose - Point of Care 152 mg/dl (70-99)
--- NOTE | 2024-04-20 16:00 | CON.ID ---
Consultation
-
Date/Time Consultation Requested: 04/20/24 11:26
Date/Time Consultation Performed: 04/20/24 16:01
Requesting Provider: Dr Gallardo
Performing Provider: Dr Reynolds
Reason for Consultation: UTI
Chief Complaint / Past History
Chief Complaint
Change in mental status for a few days duration
History of Present Illness
Mr Linda is an 84 year old male with history of CKD, lymphedema, dementia with hallucinations who presented here today for letheragy and hallucination. He was recently started on ciprofloxacin for suspected UTI. No fevers, GI symptoms.
Since arrival here he has been afebrile, BP stable, wbc initially 9.0, hgb 12, plt 190, no L shift, cr 1.6, K 57, Na 138, UA >100 wbc/hpf, CT head: no abnormalities, diffuse atrophy, urine culture in progress, currently on meropenem
Past History
Additional Past Medical History:
Chronic kidney disease, dementia with hallucinations, TME, UTI, strokes, hypertension, HLD, status post pacemaker, gait dysfunction, peripheral arterial disease, acquired lymphedema
Additional Past Surgical History:
pacemaker
No recent major surgery)
Allergy History:
doxycycline monohydrate [From Vibramycin] Allergy (Verified 04/20/24 09:49)
MIGRAINE
Sulfa (Sulfonamide Antibiotics) [Sulfa(Sulfonamide Antibiotics)] Allergy (Verified 04/20/24 09:49)
difficulty breathing, hives
vancomycin Allergy (Verified 04/20/24 09:49)
dizziness,double vision
Medications Reviewed: Yes
Social History
Tobacco: Non-Smoker
Alcohol: None
Drug: None
Family History
Family History: Not Pertinent
Review of Systems
Review of Systems
General: Negative Fever or Chills
unable to obtain full ROS due to the condition of the patient
Vital Signs
Temp Pulse Resp BP Pulse Ox
98.7 F 71 16 135/68 94
04/20/24 15:57 04/20/24 15:57 04/20/24 15:57 04/20/24 15:57 04/20/24 15:57
Physical Exam
Physical Exam
Constitutional: No Acute Distress and Chronically Ill
Cardiovascular: Regular Rate and S1/S2; Negative Murmur or Rub
Pulmonary: Clear and Symmetric; Negative Wheezes, Rales or Rhonchi
Gastrointestinal: Soft, Non Tender, Non Distended and Normal Bowel Sounds
Skin: Warm and Dry; Negative Rash or Jaundice
Lab / Diagnostic Study Results
04/20/24 09:59
Abs Immat Gran (auto) 0.0 10^3/uL (0-0.05) 04/20/24 09:59
Absolute Neuts (auto) 6.4 10^3/uL (1.4-6.5) 04/20/24 09:59
Absolute Lymphs (auto) 1.3 10^3/uL (1.2-3.4) 04/20/24 09:59
Absolute Monos (auto) 1.0 10^3/uL (0.1-0.6) H 04/20/24 09:59
Absolute Basos (auto) 0.1 10^3/uL (0-0.2) 04/20/24 09:59
Immature Gran % 0.4 % (0-0.5) 04/20/24 09:59
Neutrophils % 71.4 % (42.2-75.2) 04/20/24 09:59
Lymphocytes % 14.2 % (20.5-51.1) L 04/20/24:59
Monocytes % 11.0 % (1.7-9.3) H 04/20/24 09:59
Eosinophils % 2.4 % (0-6) 04/20/24:59
Basophils % 0.6 % (0-2) 04/20/24 09:59
Ur Squamous Epith Cells 0-2 /LPF (Few) 04/20/24 09:59
Microbiology Results
Micro:
04/20/24 12:39 Blood Culture - Pending
Blood/Venous
04/20/24 09:59 Urine Culture - Pending
Urine
Assessment / Plan
Probable UTI
AMS, h/o Dementia
- urine culture in progress
- blood cultures x2
- agree with meropenem
- follow clinically
[2024-04-20] MEDS: LIORESAL 10 MG PO (16:18)
[2024-04-20] MEDS: DEXTROSE 50% SYRINGE 12.5 GRAMS IV (16:38)
[2024-04-20 16:44] LABS: Glucose - Point of Care 59 mg/dl (70-99)
[2024-04-20 17:02] LABS: Glucose - Point of Care 97 mg/dl (70-99)
[2024-04-20 18:02] LABS: Glucose - Point of Care 76 mg/dl (70-99)
[2024-04-20] MEDS: D5/0.45%NACL 1000 IV (18:08)
[2024-04-20 19:04] LABS: Glucose - Point of Care 93 mg/dl (70-99)
[2024-04-20] MEDS: HEPARIN 5000 UNITS SC (20:07)
[2024-04-20 20:09] LABS: Glucose - Point of Care 108 mg/dl (70-99)
[2024-04-20 20:11] LABS: Potassium 4.5 mmol/L (3.5-5.1)
[2024-04-20 22:06] LABS: Glucose - Point of Care 133 mg/dl (70-99)
[2024-04-20] MEDS: STERILE WATER FOR INJECTION 10 ML IV (23:46)
[2024-04-21 00:26] LABS: Glucose - Point of Care 123 mg/dl (70-99)
[2024-04-21 02:51] LABS: Glucose - Point of Care 115 mg/dl (70-99)
[2024-04-21] MEDS: NSS (PRESERVATIVE FREE) 0.125 ML IV ×2 (03:26→15:37)
[2024-04-21] MEDS: ATIVAN 0.25 MG IV ×2 (03:26→15:37)
[2024-04-21] MEDS: D5/0.45%NACL 1000 IV ×2 (04:22→15:36)
[2024-04-21 05:40] LABS: Glucose - Point of Care 111 mg/dl (70-99)
[2024-04-21 07:20] VITALS: BP 125/54
[2024-04-21] MEDS: RISPERDAL 0.25 MG PO (08:29)
[2024-04-21] MEDS: LIORESAL 10 MG PO ×2 (08:29→19:48)
[2024-04-21] MEDS: HEPARIN 5000 UNITS SC ×2 (08:29→19:49)
--- NOTE | 2024-04-21 09:23 | W.PN.HOSP.TC ---
Today's Communication/Plan
-
Order CBC & BMP
Low dose Risperdal for agitation
Resume essential oral medications.
Speech evaluation
Assessment / Plan
Assessment / Plan
Physical Exam
General: No Apparent Distress and Obese
HEENT: Atraumatic and Other (Dry mucous membranes )
Respiratory: Decreased Breath Sounds; No Wheezes
Cardiac: S1/S2
GI: Soft, Non Tender and Non Distended
Rectal: No Maroon Stools
Genito-urinary: No Bloody Urine or Wilson
Musculoskeletal: No Cyanosis and No Edema
Skin: No Jaundice
Neuro: More awake, Other (Patient is confused, he followed simple commands).
Psych: agitated.
84 years old male presented with change in mental status that seems to resolve upon arrival
#Change in mental status/toxic metabolic encephalopathy status possible related to evolving urinary tract infection
Patient denied pain or discomfort. According to the history obtained from , patient came from [facility] and was not showing much improvement with periods of lethargy and agitation noted
Patient has history of urinary tract infection in the past and toxic metabolic encephalopathy.
He is more awake, followed simple commands.
No chest pain, no abdominal pain or tenderness on examination
CT head no acute findings, moderate diffuse cortical atrophy with moderate nonspecific white matter changes, old 2.5 cm lacunar infarct on the left
No fever. No leukocytosis.
No history of falls or involuntary/convulsion movements
Empiric antibiotic. Will follow-up with urine culture, blood culture.
Monitor temperature curve and blood pressure
Add low dose Risperdal for agitation
Appreciate ID input
# Hyperkalemia, resolved with IVF
#History of advanced dementia with hallucination. Seems worsening. Patient is having visual hallucination time. Will verify last time of baclofen for possible withdrawal.
#Pacemaker
#Benign Hypertension
Resume amlodipine, BB
CKD IIIb
SCr is at / near known baseline.
- Follow for any changes.
#Anemia of Chronic Disease
- Stable. Hgb is at / near known baseline.
- Follow for any changes.
# History of stroke
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
Gait dysfunction.
- Continue current CV med regimen including ASA, statin.
- Continue supportive care including baclofen, Cymbalta.
#BPH
Continue tamsulosin.
- Bladder scan protocol.
#History of right bundle branch block
History of pacemaker
#History of essential hypertension
Monitor for hypotension
# History scrotal hernia
DVT Prophylaxis: Subcutaneous heparin
# Code status
DNR , confirmed with
Total time spent to see the patient, examine the patient, review data and lab results, discuss the treatment plan with patient, nursing staff around 55 minutes
Anticipated Discharge: > 48 hours
Subjective/Interval History
-
Date of Service: April 21, 2024
He denies pain or distress
Sometimes he screams
Objective Data
-
Vital Signs:
Vital Signs
Temp Pulse Resp BP Pulse Ox
98.0 F 73 17 125/54 93
04/21/24 07:20 04/21/24 07:20 04/21/24 07:20 04/21/24 07:20 04/21/24 07:20
--- NOTE | 2024-04-21 10:09 | VATNOTE ---
Notified by PCN that pt's IV had infiltrated. IV discontinued, infiltrate of IV fluids approximately 8 cm x 5 cm, red, swollen, and painful. Heat applied. New IV started, will continue to monitor.
[2024-04-21 11:17] LABS: Hematocrit 33.7 % (39.0-52.0); Hemoglobin 11.2 g/dL (13.0-18.0); Mean Corp Hgb Conc. 33.2 g/dL (33.0-37.0); Mean Corpuscular Hgb 29.9 pg (27.0-31.0); Mean Corpuscular Volume 90.1 fL (80.0-94.0); Mean Platelet Volume 10.4 fL (7.4-10.4); Platelet Count 187 10^3/uL (130-400); Red Blood Cell Count 3.74 10^6/uL (4.70-6.10); Red Cell Dist. Width 13.6 % (11.5-14.5); White Blood Cell Count 9.3 10^3/uL (4.8-10.8)
[2024-04-21] MEDS: STERILE WATER FOR INJECTION 20 ML IV ×2 (11:29→23:43)
[2024-04-21] MEDS: MERREM 500 MG IV ×2 (11:29→23:43)
[2024-04-21 11:48] LABS: Blood Urea Nitrogen 22 mg/dl (9-20); Calcium 8.3 mg/dl (8.4-10.2); Carbon Dioxide 27 mmol/L (22-30); Chloride 108 mmol/L (98-107); Estimated Creatinine Clearance 35 ml/min; Glucose 117 mg/dl (70-99); Magnesium 1.6 mg/dl (1.6-2.3); Potassium 4.3 mmol/L (3.5-5.1); Sodium 139 mmol/L (135-145); eGFR 42.49
--- NOTE | 2024-04-21 12:43 | PTOTSP ---
Dypshagia Evaluation
Patient with acute on chronic dysphagia risk factors (i.e., UTI with TME; chronic dementia, stroke) but appropriate for diet below with precautions. Videofluoroscopic swallow study 03/28/2024 with [facility] oral/pharyngeal swallow.
Recommend:
1. Regular (assist to cut solids), Thin Liquids
2. Medications: crushed in puree if medically cleared
3. Strategies: upright to 90 degrees, full supervision, assist to cut foods into bite sized pieces and fee, small sips/bites, slow rate
4. Oral care 3x daily
No further dysphagia tx warranted at the acute care level. Please reconsult as appropriate.
[2024-04-21 14:25] VITALS: BP 125/67; PULSE 91; O2SAT 93
[2024-04-21 14:38] VITALS: BP 125/67; PULSE 91; O2SAT 93
[2024-04-21 15:20] VITALS: BP 106/56
--- NOTE | 2024-04-21 16:31 | CM ---
Patient with dementia, CM called to patient and VM left. unable to complete IA at this time.
[2024-04-21] MEDS: EXELON 4.5 MG PO (19:48)
[2024-04-21] MEDS: LOPRESSOR 25 MG PO (19:50)
[2024-04-21 21:22] LABS: Glucose - Point of Care 150 mg/dl (70-99)
[2024-04-21 23:24] VITALS: BP 129/58
[2024-04-22] VITALS (9 sets, daily range): BP systolic 99–141; BP diastolic 51–71; PULSE 64; O2SAT 94
[2024-04-22] MEDS: D5/0.45%NACL 1000 IV ×2 (01:29→11:22)
[2024-04-22] MEDS: CYMBALTA DELAYED RELEASE 60 MG PO (08:48)
[2024-04-22] MEDS: LOPRESSOR 25 MG PO ×2 (08:48→19:15)
[2024-04-22] MEDS: HEPARIN 5000 UNITS SC ×2 (08:48→19:16)
[2024-04-22] MEDS: LIORESAL 10 MG PO (08:48)
[2024-04-22] MEDS: LOW STRENGTH ASPIRIN 81 MG PO (08:48)
[2024-04-22] MEDS: FLOMAX 0.8 MG PO (08:48)
[2024-04-22] MEDS: EXELON 4.5 MG PO ×2 (08:48→19:15)
[2024-04-22] MEDS: RISPERDAL 0.25 MG PO (08:48)
[2024-04-22 10:43] LABS: Glucose - Point of Care 175 mg/dl (70-99)
--- NOTE | 2024-04-22 11:01 | W.PN.ID1 ---
Date of Service
Date of Service: April 22, 2024
Today's Communication
- c/w meropenem x2 weeks
Assessment / Plan
Probable Prostatitis, UTI
AMS, h/o Dementia
- urine culture 100K ESBL E coli
- blood cultures x2 no growth to date
- c/w meropenem x2 weeks
- stable for dc from ID perspective
Chief Complaint
-: UTI (due to MDRO)
Subjective / Review of Systems
afebrile
bp stable
tolerating current therapies
Vital Signs / Physical Exam
Vital Signs
Vital Signs
Temp Pulse Resp BP Pulse Ox
98.7 F 76 20 141/71 94
04/22/24 08:11 04/22/24 08:11 04/22/24 08:11 04/22/24 08:11 04/22/24 08:11
Physical Exam
Constitutional: No Acute Distress
Cardiovascular: Regular Rate and S1/S2; Negative Murmur or Rub
Pulmonary: Clear and Symmetric; Negative Wheezes or Rales
Gastrointestinal: Soft, Non Tender, Non Distended and Normal Bowel Sounds
Skin: Warm and Dry; Negative Rash or Jaundice
Objective Data
Lab Data
Lab Results
04/21/24 10:36
04/21/24 10:36
Estimated Creat Clear 35 ml/min 04/21/24 10:36
Total Bilirubin Cancelled 04/20/24 09:59
AST Cancelled 04/20/24 09:59
ALT Cancelled 04/20/24 09:59
Alkaline Phosphatase Cancelled 04/20/24 09:59
Most recent labs reviewed.
Micro Results:
04/20/24 09:59 Urine Culture - Final
Urine Escherichia coli - ESBL
04/20/24 17:10 MRSA Screen - Final
Nose No Methicillin Resistant Staphylococcus aureus isolated.
04/20/24 17:42 Blood Culture - Preliminary
Blood/Venous No Growth in 24 hours- Final report to follow
04/20/24 12:39 Blood Culture - Preliminary
Blood/Venous No Growth in 24 hours- Final report to follow
--- NOTE | 2024-04-22 11:37 | W.PN.HOSP.TC ---
Today's Communication/Plan
-
f/w ID recommendations
Stop IVF
Hold next dose of Baclofen
Assessment / Plan
Assessment / Plan
Physical Exam
General: No Apparent Distress and Obese
HEENT: Atraumatic and normal mucous membranes.
Respiratory: Decreased Breath Sounds; No Wheezes
Cardiac: S1/S2
GI: Soft, Non Tender and Non Distended
Rectal: No Maroon Stools
Genito-urinary: No Bloody Urine or Wilson
Musculoskeletal: No Cyanosis and No Edema
Skin: No Jaundice
Neuro: More awake, Other (Patient is confused, he followed simple commands).
Psych: agitated.
84 years old male presented with change in mental status that seems to resolve upon arrival
#Change in mental status/toxic metabolic encephalopathy status possible related to evolving urinary tract infection
Patient denied pain or discomfort. According to the history obtained from , patient came from shelter and was not showing much improvement with periods of lethargy and agitation noted
Patient has history of urinary tract infection in the past and toxic metabolic encephalopathy.
He is more awake, followed simple commands.
No chest pain, no abdominal pain or tenderness on examination
CT head no acute findings, moderate diffuse cortical atrophy with moderate nonspecific white matter changes, old 2.5 cm lacunar infarct on the left
No fever. No leukocytosis.
No history of falls or involuntary/convulsion
Urine culture is positive for ESBL E Coli
Negative blood culture.
Monitor temperature curve and blood pressure
Add low dose Risperdal for agitation
Appreciate ID input
# Hyperkalemia, resolved with IVF
#History of advanced dementia with hallucination. Seems worsening. Patient is having visual hallucination time. Will verify last time of baclofen for possible withdrawal.
#Pacemaker
#Benign Hypertension
Resumed amlodipine, BB
CKD IIIb
SCr is at / near known baseline.
- Follow for any changes.
#Anemia of Chronic Disease
- Stable. Hgb is at / near known baseline.
- Follow for any changes.
# History of stroke
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
Gait dysfunction.
- Continue current CV med regimen including ASA, statin.
- Continue supportive care including baclofen, Cymbalta.
#BPH
Continue tamsulosin.
- Bladder scan protocol.
#History of right bundle branch block
History of pacemaker
#History of essential hypertension
Monitor for hypotension
# History scrotal hernia
DVT Prophylaxis: Subcutaneous heparin
# Code status
DNR , confirmed with
Total time spent to see the patient, examine the patient, review data and lab results, discuss the treatment plan with patient and his at bedside , nursing staff around 55 minutes
Anticipated Discharge: 24 - 48 hours
Subjective/Interval History
-
Date of Service: April 22, 2024
No chest pain
No abdominal pain
Objective Data
-
Vital Signs:
Vital Signs
Temp Pulse Resp BP Pulse Ox
97.4 F 65 20 122/51 94
04/22/24 11:00 04/22/24 11:00 04/22/24 08:11 04/22/24 11:25 04/22/24 11:25
I&O
04/21/24 04/22/24 04/23/24
06:59 06:59 06:59
Intake Total 360 / 360
Balance 360 / 360
--- NOTE | 2024-04-22 11:48 | PTCARENOTE ---
Patient with change in coloring. Patient looks more pale. C/o of abd pain. Bp 99/51. MD made aware. Baclofen on hold and d/c IVF. at bedside and call urrutia within reach.
[2024-04-22] MEDS: MERREM 500 MG IV ×2 (12:00→21:38)
[2024-04-22] MEDS: STERILE WATER FOR INJECTION 10 ML IV ×2 (12:00→21:38)
--- NOTE | 2024-04-22 14:56 | CM ---
Addendum entered by Alexa Woo 04/22/24 15:06:
patient gave cell phone number [phone]
Original Note:
Patient spoke with patient today. Patient lives with her in a 2 story home with first floor set up. Patient has been at skilled rehab at [facility] but due to issues with bathroom would like to check on [facility] if not able to go there
she will consider returning to [facility]. Patient has dementia and his PCP is Dr. Parsons and he uses the Pharmacy in [facility] [address]. Patient plan is for patient to go to SNF when discharged. CM will continue to follow for discharge planning
needs.
Plan; SNF; [facility] referrals sent
[2024-04-23] MEDS: MERREM 500 MG IV ×3 (05:23→21:31)
[2024-04-23] MEDS: STERILE WATER FOR INJECTION 10 ML IV ×3 (05:24→21:32)
[2024-04-23 07:20] VITALS: BP 129/61
[2024-04-23 07:40] LABS: Blood Urea Nitrogen 18 mg/dl (9-20); Calcium 8.3 mg/dl (8.4-10.2); Carbon Dioxide 31 mmol/L (22-30); Chloride 103 mmol/L (98-107); Estimated Creatinine Clearance 45 ml/min; Glucose 108 mg/dl (70-99); Potassium 4.3 mmol/L (3.5-5.1); Sodium 136 mmol/L (135-145); eGFR 49.87
[2024-04-23 07:50] LABS: Hematocrit 32.4 % (39.0-52.0); Hemoglobin 10.5 g/dL (13.0-18.0); Mean Corp Hgb Conc. 32.4 g/dL (33.0-37.0); Mean Corpuscular Hgb 29.7 pg (27.0-31.0); Mean Corpuscular Volume 91.8 fL (80.0-94.0); Mean Platelet Volume 9.9 fL (7.4-10.4); Platelet Count 217 10^3/uL (130-400); Red Blood Cell Count 3.53 10^6/uL (4.70-6.10); Red Cell Dist. Width 13.2 % (11.5-14.5)
[2024-04-23] MEDS: CYMBALTA DELAYED RELEASE 60 MG PO (08:05)
[2024-04-23] MEDS: LOW STRENGTH ASPIRIN 81 MG PO (08:05)
[2024-04-23] MEDS: LIORESAL 10 MG PO ×2 (08:05→21:30)
[2024-04-23] MEDS: EXELON 4.5 MG PO ×2 (08:05→21:30)
[2024-04-23] MEDS: LOPRESSOR 25 MG PO ×2 (08:06→21:30)
[2024-04-23] MEDS: FLOMAX 0.8 MG PO (08:06)
[2024-04-23] MEDS: HEPARIN 5000 UNITS SC ×2 (08:06→21:32)
--- NOTE | 2024-04-23 10:18 | W.PN.HOSP.TC ---
Today's Communication/Plan
-
discharge
will need IV Meropenem
Assessment / Plan
Assessment / Plan
Physical Exam
General: No Apparent Distress and Obese
HEENT: Atraumatic and normal mucous membranes.
Respiratory: Decreased Breath Sounds; No Wheezes
Cardiac: S1/S2
GI: Soft, Non Tender and Non Distended
Rectal: No Maroon Stools
Genito-urinary: No Bloody Urine or Wilson
Musculoskeletal: No Cyanosis and No Edema
Skin: No Jaundice
Neuro: More awake, Other (Patient is confused, he followed simple commands).
Psych: agitated.
84 years old male presented with change in mental status that seems to resolve upon arrival
#Change in mental status/toxic metabolic encephalopathy status possible related to evolving urinary tract infection
Patient denied pain or discomfort. According to the history obtained from , patient came from group home and was not showing much improvement with periods of lethargy and agitation noted
Patient has history of urinary tract infection in the past and toxic metabolic encephalopathy.
He is more awake, followed simple commands.
No chest pain, no abdominal pain or tenderness on examination
CT head no acute findings, moderate diffuse cortical atrophy with moderate nonspecific white matter changes, old 2.5 cm lacunar infarct on the left
No fever. No leukocytosis.
No history of falls or involuntary/convulsion
Urine culture is positive for ESBL E Coli
Negative blood culture.
Monitored temperature curve and blood pressure
Add low dose Risperdal for agitation
Appreciate ID input, dc on IV meropenem x2 weeks, order pic line
# Hyperkalemia, resolved with IVF
#History of advanced dementia with hallucination. Seems worsening. Patient is having visual hallucination time. Will verify last time of baclofen for possible withdrawal.
#Pacemaker
#Benign Hypertension
Resumed amlodipine, BB
CKD IIIb
SCr is at / near known baseline.
- Follow for any changes.
#Anemia of Chronic Disease
- Stable. Hgb is at / near known baseline.
- Follow for any changes.
# History of stroke
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
Gait dysfunction.
- Continue current CV med regimen including ASA, statin.
- Continue supportive care including baclofen, Cymbalta.
#BPH
Continue tamsulosin.
- Bladder scan protocol.
#History of right bundle branch block
History of pacemaker
#History of essential hypertension
Monitor for hypotension
# History scrotal hernia
DVT Prophylaxis: Subcutaneous heparin
# Code status
DNR , confirmed with
Total time spent to see the patient, examine the patient, review data and lab results, discuss the treatment plan with patient and his at bedside , nursing staff around 57 minutes
Anticipated Discharge: Within 24 hours
Subjective/Interval History
-
Date of Service: April 23, 2024
No fever
Confused most time
Objective Data
-
Labs:
Laboratory Results
04/23/24
07:03
WBC 7.0
Hgb 10.5 L
Hct 32.4 L
Plt Count 217
Sodium 136
Potassium 4.3
Chloride 103
Carbon Dioxide 31 H
BUN 18
Creatinine 1.4 H
Glucose 108 H
Calcium 8.3 L
Vital Signs:
Vital Signs
Temp Pulse Resp BP Pulse Ox
97.8 F 71 18 129/61 93
04/23/24 07:20 04/23/24 08:06 04/23/24 07:20 04/23/24 08:06 04/23/24 07:20
I&O
04/22/24 04/23/24 04/24/24
06:59 06:59 06:59
Intake Total 360 / 360 480 / 480
Balance 360 / 360 480 / 480
[2024-04-23 15:15] VITALS: BP 122/63
[2024-04-23 23:35] VITALS: BP 134/64
[2024-04-24] MEDS: RISPERDAL 0.25 MG PO (00:50)
[2024-04-24] MEDS: MERREM 500 MG IV ×3 (05:43→21:37)
[2024-04-24] MEDS: STERILE WATER FOR INJECTION 10 ML IV ×3 (05:43→21:37)
[2024-04-24 07:20] VITALS: BP 137/65
--- NOTE | 2024-04-24 08:46 | W.PN.HOSP.TC ---
Today's Communication/Plan
-
dc
Assessment / Plan
Assessment / Plan
Physical Exam
General: No Apparent Distress and Obese
HEENT: Atraumatic and normal mucous membranes.
Respiratory: Decreased Breath Sounds; No Wheezes
Cardiac: S1/S2
GI: Soft, Non Tender and Non Distended
Rectal: No Maroon Stools
Genito-urinary: No Bloody Urine or Wilson
Musculoskeletal: No Cyanosis and No Edema
Skin: No Jaundice
Neuro: More awake, Other (Patient is confused, he followed simple commands).
Psych: agitated.
84 years old male presented with change in mental status that seems to resolve upon arrival
#Change in mental status/toxic metabolic encephalopathy status possible related to evolving urinary tract infection
Patient denied pain or discomfort. According to the history obtained from , [facility] and was not showing much improvement with periods of lethargy and agitation noted
Patient has history of urinary tract infection in the past and toxic metabolic encephalopathy.
He is more awake, followed simple commands.
No chest pain, no abdominal pain or tenderness on examination
CT head no acute findings, moderate diffuse cortical atrophy with moderate nonspecific white matter changes, old 2.5 cm lacunar infarct on the left
No fever. No leukocytosis.
No history of falls or involuntary/convulsion
Urine culture is positive for ESBL E Coli
Negative blood culture.
Monitored temperature curve and blood pressure
Add low dose Risperdal for agitation
Appreciate ID input, dc on IV meropenem x2 weeks, placed midline 2/8 right basilic vein.
# Hyperkalemia, resolved with IVF
#History of advanced dementia with hallucination. Seems worsening. Patient is having visual hallucination time. Will verify last time of baclofen for possible withdrawal.
#Pacemaker
#Benign Hypertension
Resumed amlodipine, BB
CKD IIIb
SCr is at / near known baseline.
- Follow for any changes.
#Anemia of Chronic Disease
- Stable. Hgb is at / near known baseline.
- Follow for any changes.
# History of stroke
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
Gait dysfunction.
- Continue current CV med regimen including ASA, statin.
- Continue supportive care including baclofen, Cymbalta.
#BPH
Continue tamsulosin.
- Bladder scan protocol.
#History of right bundle branch block
History of pacemaker
#History of essential hypertension
Monitor for hypotension
# History scrotal hernia
DVT Prophylaxis: Subcutaneous heparin
# Code status
DNR , confirmed with
Total time spent to see the patient, examine the patient, review data and lab results, discuss the treatment plan with patient and his at bedside , nursing staff around 57 minutes
Anticipated Discharge: Today
Subjective/Interval History
-
Date of Service: April 24, 2024
Objective Data
-
Vital Signs:
Vital Signs
Temp Pulse Resp BP Pulse Ox
97.6 F 76 16 137/65 93
04/24/24 07:20 04/24/24 07:20 04/24/24 07:20 04/24/24 07:20 04/24/24 07:20
I&O
04/23/24 04/24/24 04/25/24
06:59 06:59 06:59
Intake Total 480 / 480 960 / 960
Balance 480 / 480 960 / 960
[2024-04-24] MEDS: LIORESAL 10 MG PO ×2 (09:43→20:07)
[2024-04-24] MEDS: FLOMAX 0.8 MG PO (09:43)
[2024-04-24] MEDS: LOPRESSOR 25 MG PO ×2 (09:43→20:07)
[2024-04-24] MEDS: EXELON 4.5 MG PO ×2 (09:43→20:07)
[2024-04-24] MEDS: CYMBALTA DELAYED RELEASE 60 MG PO (09:43)
[2024-04-24] MEDS: HEPARIN 5000 UNITS SC ×2 (09:44→20:07)
[2024-04-24] MEDS: LOW STRENGTH ASPIRIN 81 MG PO (09:44)
[2024-04-24 13:00] VITALS: BP 116/66; BP 122/62; PULSE 64; PULSE 79; O2SAT 94
[2024-04-24 13:27] VITALS: BP 116/66; BP 122/62; PULSE 64; PULSE 79; O2SAT 94
[2024-04-24 15:20] VITALS: BP 122/65
[2024-04-24] MEDS: MILK OF MAGNESIA 30 ML PO (17:02)
[2024-04-24 23:10] VITALS: BP 131/45
[2024-04-25] MEDS: DULCOLAX 10 MG RECTAL (03:32)
[2024-04-25] MEDS: MERREM 500 MG IV ×3 (05:32→21:38)
[2024-04-25] MEDS: STERILE WATER FOR INJECTION 10 ML IV ×3 (05:32→21:38)
[2024-04-25 07:45] VITALS: BP 131/61
[2024-04-25] MEDS: FLOMAX 0.8 MG PO (08:21)
[2024-04-25] MEDS: LOW STRENGTH ASPIRIN 81 MG PO (08:21)
[2024-04-25] MEDS: EXELON 4.5 MG PO ×2 (08:21→21:29)
[2024-04-25] MEDS: CYMBALTA DELAYED RELEASE 60 MG PO (08:21)
[2024-04-25] MEDS: LIORESAL 10 MG PO ×2 (08:21→21:28)
[2024-04-25] MEDS: LOPRESSOR 25 MG PO ×2 (08:22→21:28)
[2024-04-25] MEDS: HEPARIN 5000 UNITS SC ×2 (08:26→21:28)
[2024-04-25 10:14] VITALS: BMI 29.4
[2024-04-25 11:13] LABS: Glucose - Point of Care 354 mg/dl (70-99)
[2024-04-25 13:56] LABS: Hematocrit 32.3 % (39.0-52.0); Hemoglobin 10.7 g/dL (13.0-18.0); Mean Corp Hgb Conc. 33.1 g/dL (33.0-37.0); Mean Corpuscular Hgb 29.6 pg (27.0-31.0); Mean Corpuscular Volume 89.2 fL (80.0-94.0); Mean Platelet Volume 9.6 fL (7.4-10.4); Platelet Count 203 10^3/uL (130-400); Red Blood Cell Count 3.62 10^6/uL (4.70-6.10); Red Cell Dist. Width 13.1 % (11.5-14.5); White Blood Cell Count 7.9 10^3/uL (4.8-10.8)
--- NOTE | 2024-04-25 14:05 | W.PN.ID1 ---
Date of Service
Date of Service: April 25, 2024
Today's Communication
Continue antibiotics.
Assessment / Plan
Suspected Prostatitis
Complicated UTI
AMS, h/o Dementia
- urine culture 100K ESBL E coli
- blood cultures x2 no growth to date
-Continue meropenem (d#5) to complete a 2 week course in total.
Chief Complaint
-: UTI (due to MDRO)
Subjective / Review of Systems
Review of Systems: No Fever and No Chills
Vital Signs / Physical Exam
Vital Signs
Vital Signs
Temp Pulse Resp BP Pulse Ox
97.8 F 69 20 131/61 96
04/25/24 07:45 04/25/24 08:22 04/25/24 07:45 04/25/24 08:22 04/25/24 10:02
Physical Exam
Constitutional: No Acute Distress, Comfortable, Chronically Ill and Non-toxic
Cardiovascular: Regular Rate and S1/S2; Negative Murmur
Pulmonary: Clear and Symmetric; Negative Wheezes or Rales
Gastrointestinal: Soft, Non Tender, Non Distended and Normal Bowel Sounds
Skin: Warm and Dry; Negative Rash or Jaundice
Neurological: Awake and Alert
Psychological: Calm
Objective Data
Lab Data
Lab Results
04/25/24 13:37
Estimated Creat Clear 45 ml/min 04/23/24 07:03
Total Bilirubin Cancelled 04/20/24 09:59
AST Cancelled 04/20/24 09:59
ALT Cancelled 04/20/24 09:59
Alkaline Phosphatase Cancelled 04/20/24 09:59
Most recent labs reviewed.
Micro Results:
04/20/24 12:39 Blood Culture - Final
Blood/Venous No Growth - Final Report
04/20/24 17:42 Blood Culture - Preliminary
Blood/Venous No Growth in 4 days- Final report to follow
04/20/24 09:59 Urine Culture - Final
Urine Escherichia coli - ESBL
04/20/24 17:10 MRSA Screen - Final
Nose No Methicillin Resistant Staphylococcus aureus isolated.
[2024-04-25 14:24] LABS: Blood Urea Nitrogen 27 mg/dl (9-20); Calcium 8.2 mg/dl (8.4-10.2); Carbon Dioxide 29 mmol/L (22-30); Chloride 99 mmol/L (98-107); Estimated Creatinine Clearance 47 ml/min; Glucose 121 mg/dl (70-99); Potassium 5.2 mmol/L (3.5-5.1); Sodium 133 mmol/L (135-145); eGFR > 60.00
[2024-04-25] MEDS: FLUSH (NSS) 2 FLUSH IV (14:24)
[2024-04-25 15:05] VITALS: BP 133/67
--- NOTE | 2024-04-25 15:39 | CM ---
Patient seen at bedside.
Per Annette liaison patient was at [facility]
Left message with Sarah to discuss SNF
Referrals in [facility]
Will need insurance authorization
PLAN: SNF, pending bed availability, will need to obtain auth.
--- NOTE | 2024-04-25 16:06 | W.PN.HOSP.TC ---
Today's Communication/Plan
-
Assessment / Plan
Assessment / Plan
Physical Exam
General: No Apparent Distress and Obese
HEENT: Atraumatic and normal mucous membranes.
Respiratory: Decreased Breath Sounds; No Wheezes
Cardiac: S1/S2
GI: Soft, Non Tender and Non Distended
Rectal: No Maroon Stools
Genito-urinary: No Bloody Urine or Wilson
Musculoskeletal: No Cyanosis and No Edema
Skin: No Jaundice
Neuro: More awake, confused, no tremor
84 years old male presented with change in mental status that seemed to resolve upon arrival
#Change in mental status/toxic metabolic encephalopathy related to evolving urinary tract infection
-Urine culture is positive for ESBL E Coli sensitive to meropenem
-Negative blood culture.
-Continue meropenem via right upper extremity midline (placed 04/23) to complete 14 day course
-Add low dose Risperdal for agitation
-Awaiting SNF placement
# Hyperkalemia
-Recurrent, will give IVF as needed
#History of advanced dementia with hallucination.
-Seems worsening. Patient is having visual hallucination time.
-Added low-dose Risperdal as needed
#Pacemaker
#Benign Hypertension
Resumed amlodipine, BB
CKD IIIb
SCr is at / near known baseline.
- Follow for any changes.
#Anemia of Chronic Disease
- Stable. Hgb is at / near known baseline.
- Follow for any changes.
# History of stroke
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
Gait dysfunction.
- Continue current CV med regimen including ASA, statin.
- Continue supportive care including baclofen, Cymbalta.
#BPH
Continue tamsulosin.
- Bladder scan protocol.
#History of right bundle branch block
History of pacemaker
#History of essential hypertension
Monitor for hypotension
# History scrotal hernia
DVT Prophylaxis: Subcutaneous heparin
# Code status
DNR , confirmed with
Total time spent to see the patient, examine the patient, review data and lab results, discuss the treatment plan with patient and his at bedside , nursing staff around 57 minutes
Anticipated Discharge: 24 - 48 hours
Subjective/Interval History
-
Date of Service: April 25, 2024
Patient was seen and examined at bedside this morning. No acute distress. Awaiting SNF placement.
Objective Data
-
Labs:
Laboratory Results
04/25/24
13:37
WBC 7.9
Hgb 10.7 L
Hct 32.3 L
Plt Count 203
Sodium 133 L
Potassium 5.2 H
Chloride 99
Carbon Dioxide 29
BUN 27 H
Creatinine 1.2
Glucose 121 H
Calcium 8.2 L
Vital Signs:
Vital Signs
Temp Pulse Resp BP Pulse Ox
97.8 F 69 20 131/61 96
04/25/24 07:45 04/25/24 08:22 04/25/24 07:45 04/25/24 08:22 04/25/24 10:02
I&O
04/24/24 04/25/24 04/26/24
06:59 06:59 06:59
Intake Total 960 / 960 720 / 720
Balance 960 / 960 720 / 720
Review of Systems
-
History Source: Patient and Family
All other systems: Reviewed and negative
Physical Exam
-
General: No Apparent Distress
[2024-04-25 23:25] VITALS: BP 119/66
[2024-04-26] MEDS: STERILE WATER FOR INJECTION 10 ML IV ×3 (05:31→21:07)
[2024-04-26] MEDS: MERREM 500 MG IV ×3 (05:31→21:07)
[2024-04-26 07:46] VITALS: BP 120/60
[2024-04-26] MEDS: LIORESAL 10 MG PO ×2 (08:57→19:31)
[2024-04-26] MEDS: FLOMAX 0.8 MG PO (08:57)
[2024-04-26] MEDS: LOPRESSOR 25 MG PO ×2 (08:57→21:05)
[2024-04-26] MEDS: LOW STRENGTH ASPIRIN 81 MG PO (08:57)
[2024-04-26] MEDS: CYMBALTA DELAYED RELEASE 60 MG PO (08:57)
[2024-04-26] MEDS: EXELON 4.5 MG PO ×2 (08:57→19:30)
[2024-04-26] MEDS: HEPARIN 5000 UNITS SC ×2 (08:57→19:30)
[2024-04-26 12:56] VITALS: BP 113/53; PULSE 67; O2SAT 95
--- NOTE | 2024-04-26 13:50 | W.DCSUMMARY ---
Addendum entered and electronically signed by Abel Lorenzo DO 04/27/24 13:19:
Patient actually left the hospital via transport 04/27/2024.
Original Note:
Discharge Summary
Discharge Data
Date of Admission: 04/20/24
Date of Discharge: 04/26/24
-
Pending Results: No
Hospital Course
Mr. Linda is a 84-year-old male with medical history of dementia with hallucinations, recurrent UTI, strokes, hypertension CKD stage IIIb, PAD, and lymphedema who presented from his shelter with encephalopathy. He was found to have UTI with
urine cultures positive for ESBL E. coli sensitive to meropenem. He will need to continue treatment with meropenem for a total of 14 days (last dose 05/06/2024). A right upper extremity midline was placed 04/23 for antibiotic treatment. His
mentation has significantly improved with current treatment. His home blood pressure medications (amlodipine and isosorbide mononitrate) were held because he was normotensive without them. His blood pressure should be monitored in the outpatient
setting and antihypertensive medications can be restarted as needed. His home metoprolol succinate was changed to metoprolol tartrate 25 mg twice daily which is adequately controlling his heart rate. Low-dose risperidone was added as needed for
agitation in the setting of advancing dementia. He will be discharged to SNF where he will complete his antibiotic course. He was medically stable at time of hospital discharge.
General: No Apparent Distress and calm
HEENT: Atraumatic and normal mucous membranes.
Respiratory: Clear to auscultation; No Wheezes
Cardiac: S1/S2, no murmur
GI: Soft, Non Tender and Non Distended
Genito-urinary: No Bloody Urine or Wilson
Musculoskeletal: No Cyanosis and No Edema
Skin: No Jaundice
Neuro: More awake, confused, no tremor
Discharge Plan
-
Patient Disposition: Skilled Nursing/SNF
Discharge Diagnosis/Procedures: Metabolic encephalopathy, urinary tract infection with ESBL E. coli
Activity: With assistance and As tolerated
Other Services: PT and OT
Activity Restrictions/Additional Instructions:
Mr. Linda is a 84-year-old male with medical history of dementia with hallucinations, recurrent UTI, strokes, hypertension CKD stage IIIb, PAD, and lymphedema who presented from his shelter with encephalopathy. He was found to have UTI with
urine cultures positive for ESBL E. coli sensitive to meropenem. He will need to continue treatment with meropenem for a total of 14 days. A right upper extremity midline was placed 04/23 for antibiotic treatment. His mentation has significantly
improved with current treatment. His home blood pressure medications (amlodipine and isosorbide mononitrate) were held because he was normotensive without them. His blood pressure should be monitored in the outpatient setting and antihypertensive
medications can be restarted as needed. His home metoprolol succinate was changed to metoprolol tartrate 25 mg twice daily which is adequately controlling his heart rate. Low-dose risperidone was added as needed for agitation in the setting of
advancing dementia. He will be discharged to SNF where he will complete his antibiotic course. He was medically stable at time of hospital discharge.
Referrals:
UNKNOWN,NO INTERVIEW [Family Provider] -
Prescriptions:
New
risperidone 0.25 mg Tablet
0.25 mg PO Q6HPRN PRN (Reason: agitation) Qty: 15 0RF
metoprolol tartrate 25 mg Tablet
25 mg PO BID 30 Days Qty: 60 0RF
meropenem 500 mg recon soln
500 mg IV Q8@0600,1400,2200 Qty: 10 0RF
Continued
atorvastatin 80 MG tablet
40 mg PO QPM
calcium carbonate 600 MG tablet
600 mg PO DAILY
baclofen 10 MG tablet
10 mg PO TID
aspirin 81 mg Tablet,Delayed Release (Dr/Ec)
81 mg PO DAILY
vitamin B complex Tablet
1 tab PO NOON
rivastigmine tartrate 4.5 mg Capsule
4.5 mg PO BID
acetaminophen [Tylenol] 325 mg Tablet
650 mg PO Q6HPRN PRN (Reason: mild pain/fever)
albuterol sulfate 1.25 mg/3 mL solution for nebulization
1.25 mg inhalation R BIDPRN PRN (Reason: shortness of breath or wheezing)
milk thistle 150 mg Capsule
300 mg PO HS
coenzyme Q10-vit E-vit E mixed 100-20-15 mg Capsule
1 cap PO DAILY
ferrous sulfate 325 mg (65 mg iron) tablet
325 mg PO DAILY Qty: 30 0RF
docusate sodium [Colace] 100 mg capsule
100 mg PO BID Qty: 60 0RF
Rx Instructions:
Hold if diarrhea or regular bowel movements
cholecalciferol (vitamin D3) 25 mcg (1,000 unit) Tablet
25 mcg PO DAILY Qty: 30 0RF
duloxetine 30 mg Capsule,Delayed Release(Dr/Ec)
60 mg PO HS
cyanocobalamin (vitamin B-12) 1,000 mcg Tablet
1,000 mcg PO DAILY
magnesium hydroxide [Milk of Magnesia] 400 mg/5 mL Suspension
2,400 mg PO HSPRN PRN (Reason: if no bm by 3rd day)
tamsulosin [Flomax] 0.4 mg Capsule
0.4 mg PO BID
bisacodyl [Dulcolax (bisacodyl)] 10 mg Suppository
10 mg CO DAILYPRN PRN (Reason: if no bm aftr mom)
polyethylene glycol 3350 [Miralax] 17 gram powder in packet
17 g PO DAILYPRN PRN (Reason: Constipation)
Held
isosorbide mononitrate 30 mg Tablet Extended Release 24 Hr
30 mg PO DAILY Qty: 30 1RF
Hold Instructions: hold bc pt has been normotensive without BP medications, restart if needed.
amlodipine 5 mg tablet
5 mg PO DAILY Qty: 30 0RF
Hold Instructions: holding bc pt has been normotensive without BP medications, resume if needed.
Discontinued
metoprolol succinate 50 mg Tablet Extended Release 24 Hr
50 mg PO BID Qty: 60 0RF
ciprofloxacin HCl [Cipro] 250 mg Tablet
250 mg PO BID
Rx Instructions:
to start on 04/20/24-04/25/24
Discharge Orders:
Discharge Patient (As Directed); Ordered 04/26/24
Ordered By: Abel Lorenzo
Discharge Date and Time
Print Language: MAURITANIAN
[2024-04-26 13:57] VITALS: BP 113/53; PULSE 67; O2SAT 95
--- NOTE | 2024-04-26 14:18 | PTCARENOTE ---
rec'd D/C order per CM pt will need auth, working on placement. pt worked with PT sitting OOB to chair. remains confused, and intermittently agitated although able to be redirected. No change in assessment CB in reach alarm in place.
--- NOTE | 2024-04-26 15:01 | CM ---
Addendum entered by Brigida Root 04/26/24 16:04:
Bed available at [facility] NPI #: [id number]
Dr. Lam Beaver NPI#: [id number]
CM to start insurance authorization process
[facility]
report #: [phone]
fax #: [phone]
Original Note:
Spoke with Sarah - [phone]
No SNF beds available at [facility]
Await [facility] SNF if bed available
PLAN: SNF, pending available bed - will need to obtain ins auth
[2024-04-26 15:31] VITALS: BP 111/70
--- NOTE | 2024-04-26 15:56 | W.PN.ID1 ---
Date of Service
Date of Service: April 26, 2024
Today's Communication
-Continue meropenem (d#)
stable for dc from ID perspective
Assessment / Plan
Suspected Prostatitis
Complicated UTI
AMS, h/o Dementia
- urine culture 100K ESBL E coli
- blood cultures x2 no growth to date
-Continue meropenem (d#)
stable for dc from ID perspective
Chief Complaint
-: UTI (due to MDRO)
Subjective / Review of Systems
afebrile
bp stable
tolerating current therapies
Vital Signs / Physical Exam
Vital Signs
Vital Signs
Temp Pulse Resp BP Pulse Ox
98.1 F 94 17 111/70 93
04/26/24 15:31 04/26/24 15:31 04/26/24 15:31 04/26/24 15:31 04/26/24 15:31
Physical Exam
Constitutional: No Acute Distress
Cardiovascular: Regular Rate and S1/S2; Negative Murmur or Rub
Pulmonary: Clear and Symmetric; Negative Wheezes or Rales
Gastrointestinal: Soft, Non Tender, Non Distended and Normal Bowel Sounds
Genito-Urinary: Negative Suprapubic Tenderness
Skin: Warm and Dry; Negative Rash or Jaundice
Objective Data
Lab Data
Lab Results
04/25/24 13:37
04/25/24 13:37
Estimated Creat Clear 47 ml/min 04/25/24 13:37
Total Bilirubin Cancelled 04/20/24 09:59
AST Cancelled 04/20/24 09:59
ALT Cancelled 04/20/24 09:59
Alkaline Phosphatase Cancelled 04/20/24 09:59
Most recent labs reviewed.
Micro Results:
04/20/24 17:42 Blood Culture - Final
Blood/Venous No Growth - Final Report
04/20/24 12:39 Blood Culture - Final
Blood/Venous No Growth - Final Report
04/20/24 09:59 Urine Culture - Final
Urine Escherichia coli - ESBL
04/20/24 17:10 MRSA Screen - Final
Nose No Methicillin Resistant Staphylococcus aureus isolated.
--- NOTE | 2024-04-26 16:43 | CM ---
Initiated insurance authorization with Tali from [facility]
Auth approved 6 days skilled rehab at [facility]
Start date 04/27/24, NRD 05/02/24
Auth # [id number]
Ambulance auth with [facility] to MDR review
pended reference # [id number]
[2024-04-26 23:20] VITALS: BP 114/62
[2024-04-27] MEDS: MERREM 500 MG IV ×2 (05:01→13:00)
[2024-04-27] MEDS: STERILE WATER FOR INJECTION 10 ML IV ×2 (05:01→13:00)
[2024-04-27 06:00] VITALS: BMI 29.2
[2024-04-27 07:23] VITALS: BP 120/58
[2024-04-27] MEDS: LOPRESSOR 25 MG PO (07:57)
[2024-04-27] MEDS: CYMBALTA DELAYED RELEASE 60 MG PO (07:57)
[2024-04-27] MEDS: LOW STRENGTH ASPIRIN 81 MG PO (07:57)
[2024-04-27] MEDS: FLOMAX 0.8 MG PO (07:59)
[2024-04-27] MEDS: HEPARIN 5000 UNITS SC (08:00)
--- NOTE | 2024-04-27 08:43 | CM ---
Addendum entered by Brigida Root 04/27/24 12:43:
1545 transport today to [facility]
Annette liaison notified & Sarah notified
tt hospitalist
Original Note:
Faxed midline information to Annette liaison at [facility].
SNF Auth approved 6 days skilled rehab at [facility]
Start date 04/27/24, NRD 05/02/24
Auth # [id number]
Insurance approval information for SNF given to Annette - Still awaiting ambulance approval from ins - Ambulance auth with Acute Care (P) to MDR review
pended reference # [id number]
PLAN:[facility]
report #: [phone]
fax #: [phone]
transportation forms on chart
[2024-04-27] MEDS: LIORESAL 10 MG PO (09:56)
[2024-04-27] MEDS: EXELON 4.5 MG PO (09:57)
--- NOTE | 2024-04-27 10:41 | W.PN.ID1 ---
Addendum entered and electronically signed by Shanita Reynolds MD 04/28/24 16:10:
Prostatitis is a valid diagnosis for this patient
Original Note:
Date of Service
Date of Service: April 27, 2024
Today's Communication
-Continue meropenem (d#)
stable for dc from ID perspective
Assessment / Plan
Suspected Prostatitis
Complicated UTI
AMS, h/o Dementia
- urine culture 100K ESBL E coli
- blood cultures x2 no growth to date
-Continue meropenem (d#)
stable for dc from ID perspective
Chief Complaint
-: UTI (due to MDRO)
Subjective / Review of Systems
afebrile
bp stable
no complaints
Vital Signs / Physical Exam
Vital Signs
Vital Signs
Temp Pulse Resp BP Pulse Ox
97.4 F 81 16 120/58 94
04/27/24 07:23 04/27/24 07:57 04/27/24 07:23 04/27/24 07:57 04/27/24 07:23
Physical Exam
Constitutional: No Acute Distress
Cardiovascular: Regular Rate and S1/S2; Negative Murmur or Rub
Pulmonary: Clear and Symmetric; Negative Wheezes or Rales
Gastrointestinal: Soft, Non Tender, Non Distended and Normal Bowel Sounds
Genito-Urinary: Negative Suprapubic Tenderness
Skin: Warm and Dry; Negative Rash or Jaundice
Objective Data
Lab Data
Lab Results
04/25/24 13:37
04/25/24 13:37
Estimated Creat Clear 47 ml/min 04/25/24 13:37
Total Bilirubin Cancelled 04/20/24 09:59
AST Cancelled 04/20/24 09:59
ALT Cancelled 04/20/24 09:59
Alkaline Phosphatase Cancelled 04/20/24 09:59
Most recent labs reviewed.
Micro Results:
04/20/24 17:42 Blood Culture - Final
Blood/Venous No Growth - Final Report
04/20/24 12:39 Blood Culture - Final
Blood/Venous No Growth - Final Report
04/20/24 09:59 Urine Culture - Final
Urine Escherichia coli - ESBL
04/20/24 17:10 MRSA Screen - Final
Nose No Methicillin Resistant Staphylococcus aureus isolated.
--- NOTE | 2024-04-27 12:06 | CM ---
[facility]
Ambulance auth with Acute Care approved
reference # [id number]
--- NOTE | 2024-04-27 14:24 | PTCARENOTE ---
report called to Tawny muse 15:45 knot picker cloth. incont care provided, Q2T continue no change in assessment
[2024-04-27 15:31] VITALS: BP 130/57
--- NOTE | 2024-04-28 15:05 | PN.CDI ---
CDI
- -
CDI:
Physician Documentation Request
Admit Date: 04/20/24 12:29
Dear Doctor Gail,
Patient admitted with UTI.
04/27 ID PN, 'Suspected Prostatitis.'
Please clarify in your note the following:
Prostatitis is a valid diagnosis for this patient
After careful study, prostatitis is not a valid diagnosis for this patient
Other
Use of terms such as suspected, likely, concern for, or probable (associated with a specific diagnosis that is being evaluated, monitored, or treated as if it exists) are acceptable and can be coded in the inpatient setting, when documented at the
time of discharge.
Thank you,
Divina ARITA,RN,CCDS
CDI Specialist
Available via tiger text
Please use your independent medical judgment in providing your response.
== END 2024-04-27 16:08 | DRG 727 ==
LOC: 2 NORTH 12:29
PROVIDERS: ADMITTING PHYSICIAN Internal Medicine; ATTENDING PHYSICIAN Internal Medicine; CONSULT PHYSICIAN Student in an Organized Health Care Education/Training Program; EMERGENCY PHYSICIAN Emergency Medicine
DX: N41.9 Inflammatory disease of prostate, unspecified (principal); G92.8 Other toxic encephalopathy; N39.0 Urinary tract infection, site not specified; I69.354 Hemiplegia and hemiparesis following cerebral infarction affecting left non-dominant side; F03.92 Unspecified dementia, unspecified severity, with psychotic disturbance; Z66 Do not resuscitate; E78.00 Pure hypercholesterolemia, unspecified; I12.9 Hypertensive chronic kidney disease with stage 1 through stage 4 chronic kidney disease, or unspecified chronic kidney disease; N18.32 Chronic kidney disease, stage 3b; N40.0 Benign prostatic hyperplasia without lower urinary tract symptoms; E87.5 Hyperkalemia; R44.1 Visual hallucinations; D63.1 Anemia in chronic kidney disease; I89.0 Lymphedema, not elsewhere classified; B96.20 Unspecified Escherichia coli [E. coli] as the cause of diseases classified elsewhere; I73.9 Peripheral vascular disease, unspecified; Z88.1 Allergy status to other antibiotic agents; Z88.2 Allergy status to sulfonamides; Z79.899 Other long term (current) drug therapy; Z79.82 Long term (current) use of aspirin; Z95.0 Presence of cardiac pacemaker; Z87.442 Personal history of urinary calculi
CPT/HCPCS: 70450; 80048; 81003; 81015; 82962; 83735; 84132; 85025; 85027; 87040; 87070; 87077; 87086; 87186; 92610; 93005; 96361; 96374; 96375; 97110; 97163; 97167; 97530; 97535; 99284; J2185

== ENCOUNTER 2024-05-08 02:27 | Inpatient (IN) | payer BC, MEDICARE, SELFPAY ==
[2024-05-07 23:10] VITALS: BP 105/52; BMI 27.6
[2024-05-07 23:17] VITALS: BP 105/52
--- NOTE | 2024-05-07 23:45 | EDRN ---
Patient had come in incontinent to urine and small amount of stool, patients brief was changed, linen removed from under him and clean brief placed
[2024-05-07 23:47] LABS: % Basophils 0.4 % (0-2); % Eosinophils 1.6 % (0-6); % Immature Granulocytes 0.5 % (0-0.5); % Lymphocytes 3.1 % (20.5-51.1); % Monocytes 10.2 % (1.7-9.3); % Neutrophils 84.2 % (42.2-75.2); Absolute Eosinophils 0.2 10^3/uL (0-0.7); Absolute Immature Granulocytes 0.1 10^3/uL (0-0.05); Absolute Lymphocytes 0.3 10^3/uL (1.2-3.4); Absolute Monocytes 0.9 10^3/uL (0.1-0.6); Absolute Neutrophils 7.7 10^3/uL (1.4-6.5); Hematocrit 35.6 % (39.0-52.0); Hemoglobin 11.4 g/dL (13.0-18.0); Mean Corpuscular Hgb 29.9 pg (27.0-31.0); Mean Corpuscular Volume 93.4 fL (80.0-94.0); Mean Platelet Volume 9.4 fL (7.4-10.4); Nucleated Red Blood Cells % 0 % (-); Platelet Count 245 10^3/uL (130-400); Red Blood Cell Count 3.81 10^6/uL (4.70-6.10); Red Cell Dist. Width 13.8 % (11.5-14.5); White Blood Cell Count 9.1 10^3/uL (4.8-10.8)
[2024-05-08] VITALS (12 sets, daily range): BP systolic 96–147; BP diastolic 47–70; BMI 26.3
[2024-05-08 00:03] LABS: ALT (SGPT) 22 U/L (0-50); AST (SGOT) 25 U/L (17-59); Alkaline Phosphatase 160 U/L (38-126); Blood Urea Nitrogen 35 mg/dl (9-20); Calcium 8.4 mg/dl (8.4-10.2); Carbon Dioxide 30 mmol/L (22-30); Chloride 103 mmol/L (98-107); Estimated Creatinine Clearance 42 ml/min; Glucose 143 mg/dl (70-99); Lactic Acid 2.4 mmol/L (0.7-2.0); Potassium 4.6 mmol/L (3.5-5.1); Sodium 138 mmol/L (135-145); Total Bilirubin 0.3 mg/dl (0.2-1.3); Total Protein 5.7 g/dl (6.3-8.2); eGFR 45.91
[2024-05-08 00:07] LABS: COVID-19 Antigen Negative (Negative)
--- NOTE | 2024-05-08 00:19 | ED.GENMED ---
History of Present Illness
General
Chief Complaint: Breathing Problem
Source: spouse
Exam Limitations: dementia
Time Seen by Provider: 05/07/24 23:25
Nursing documentation reviewed up to this point in time: agreed with
History of Present Illness
History of Present Illness:
The patient is an 84-year-old man sent from [facility] rehab facility for increased work of breathing and low oxygen levels. Patient found to have a fever here in the ED. His is at the bedside and reports that he has been coughing for at
least 5 days. She reports he seems to be getting better but worsened last night. reports he generally does not use oxygen. On room air, patient's pulse ox is 84%. Patient is chronically disoriented due to dementia
Past History
Past History
ED Past Medical History: CVA (Left sided weakness, right parietal stroke in 2011), HTN, Hypercholesterolemia and Other (Renal calculus, UTi, Scrotal hernia, Cellulitis)
ED Past Surgical History: Cardiac (pacemaker, RBBB), Tonsilectomy (and adnoids), Urological (Kidney stones) and Other (Right carotid endarterectomy herniorrhaphy, left orchiectomy)
Social History
Tobacco: Non-smoker
Alcohol: None
Drug: None
Personal:
Living: other (Rehab facility)
Employment: Retired
Family History
Family History: Hypertension
Review of Systems
Review of Systems
Allergies reviewed?: Yes
Other source history: family
All Other Systems: Not applicable (Limited due to dementia)
Constitutional: Reports fever and fatigue
Respiratory: Reports cough and trouble breathing
ABD/GI: Reports nausea and anorexia
Phy Exam
Physical Exam
Physical Exam:
Physical Exam
General: Patient appears tachypneic but is alert
Neck: supple. no meningeal signs. normal psoterior pharynx
Heart: s1/s2 regular rate and rhythm,
Lungs: Tachypneic. Frequent coughing
Abdomen: normal bowel sounds. not tender. no CVAT
Neuro: alert and disoriented. Nonfocal
Skin: no rash
Psychiatric: Cooperative.
Extremities: no edema. no calf tenderness. negative homans. good distal pulses
Scores
Heart Failure Risk
Heart Failure Risk Score: Not Applicable
Course
Orders/Labs/Results
Orders:
Orders
05/07/24 23:29
Electrocardiogram (*1) Urgent
Reason for Study: Other
Other Reason for Exam: Possible Sepsis
Cardiac Monitoring- Treatment ONCE
EKG- Treatment ONCE
IV Insert/Care/Rem.- Treatment PRN
O2 Therapy [RESP] Urgent
Titrate/Wean O2 to maintain O2 sat greater than (%): 93
Special Instructions: TO MAINTAIN CONTINUOUS O2 SATS > OR = 93%
Pulse Ox/cont/shift [RESP] Urgent
Quantity: 1
Special Instructions: CONTINUOUS
05/07/24 23:33
Complete Blood Count/With Diff Urgent
Comprehensive Metabolic Panel Urgent
Lactic Acid Q4H
Comment: ON ICE, CANCEL 2ND ORDER IF FIRST LACTIC ACID LEVEL <2
05/07/24 23:47
COVID-19 Antigen Urgent
Source: Nasal Swab
Influenza A+B Rapid Molecular Urgent
VIKI Source: Nasal Swab
Specimen Description:
05/08/24 00:10
CR Chest - 2 Views Urgent
Reason For Exam: suspected infection
05/08/24 00:42
Acetaminophen 1000MG/100Ml [Ofirmev] 1,000 mg IV NOW STA
Acetaminophen 1000MG/100Ml [Ofirmev] 1,000 mg in 100 ml .ROUTE .STK-MED
05/08/24 01:05
Acetaminophen 1000MG/100Ml [Ofirmev] 1,000 mg in 100 ml IV ONCE
Acetaminophen IV Indication:: No OK & No Enteral Access
05/08/24 01:06
0.9% Sodium Chloride 1000 ml [Nss] 1,000 ml IV BOLUS
05/08/24 03:30
Lactic Acid Q4H
Comment: ON ICE, CANCEL 2ND ORDER IF FIRST LACTIC ACID LEVEL <2
Abnormal Lab Results
05/07/24
23:33
RBC 3.81 L 10^6/uL
(4.70-6.10)
Hgb 11.4 L g/dL
(13.0-18.0)
Hct 35.6 L %
(39.0-52.0)
MCHC 32.0 L g/dL
(33.0-37.0)
Abs Immat Gran (auto) 0.1 H 10^3/uL
(0-0.05)
Absolute Neuts (auto) 7.7 H 10^3/uL
(1.4-6.5)
Absolute Lymphs (auto) 0.3 L 10^3/uL
(1.2-3.4)
Absolute Monos (auto) 0.9 H 10^3/uL
(0.1-0.6)
Neutrophils % 84.2 H %
(42.2-75.2)
Lymphocytes % 3.1 L %
(20.5-51.1)
Monocytes % 10.2 H %
(1.7-9.3)
BUN 35 H mg/dl
(9-20)
Creatinine 1.5 H mg/dL
(0.7-1.3)
Glucose 143 H mg/dl
(70-99)
Lactic Acid 2.4 H mmol/L
(0.7-2.0)
Alkaline Phosphatase 160 H U/L
(38-126)
Total Protein 5.7 L g/dl
(6.3-8.2)
Albumin 3.0 L g/dl
(3.5-5.0)
05/07/24 23:33
05/07/24 23:33
Vital Signs
Initial and Last Documented VS:
Initial Vital Signs
Temp Pulse Resp BP Pulse Ox
100.7 F H 70 18 105/52 85
05/07/24 23:10 05/07/24 23:10 05/07/24 23:10 05/07/24 23:10 05/07/24 23:10
Last Documented Vital Signs
Temp Pulse Resp BP Pulse Ox
103.0 F H 69 18 111/57 90
05/08/24 00:11 05/08/24 00:00 05/08/24 00:00 05/08/24 00:00 05/08/24 00:54
MDM/Problems Addressed
Differential Diagnosis Includes:
Pneumonia, PE, CHF
MDM/Problems Addressed:
Patient presents with acute dyspnea and hypoxia
Chronic conditions affecting care: Cardiomyopathy
Acute Exacerbation and/or Progression of Chronic Illness:
Patient may have acute CHF due to chronic progression of cardiomyopathy
Acute Exacerbation and/or Progression of Chronic Illness: HTN
*Pulse Oximetry
Patient hypoxic: yes
*EKG
Interpreted by ED Provider?: Yes
Interpretation: abnormal
Comparison EKG: no changes
Rate: normal
Rhythm: av sequential
Mcdonough: left axis deviation
*Bulb Farmworker Interpretation
Rate: normal
Interpretation: abnormal
Rhythm: av sequential
*Critical Care Note
Total Time (30-74mins, 75-104mins- exclusive of procedures): 35 minutes (35 minutes of critical care given the patient including frequent assessments of his pulse ox, respiratory effort, counseling his , and reviewing his recent admissions for
UTI)
Data Reviewed
Review of Other/Old Records Reveals: Testing (Cardiac echo reviewed from 2023)
Source: spouse
Patient Management
Social determinants of health affecting care: Living situation
Discussion with other providers: Hospitalist
Escalation/DeEscalation of care consider admission/obs:
Due to patient's increased respiratory distress and acute hypoxia, decision made to admit him for respiratory support. I suspect this is due to influenza A infection.
Update Note
Update Note:
Chest x-ray ordered by me. Chest x-ray has not been done yet. Can be followed by admitting team.
ED Attending Note
-
Portions of this chart may have been created with voice recognition software.� Occasional wrong word or��sound alike� substitutions may have occurred due to the inherent limitations of voice recognition software.
Discharge Plan
Departure
Patient Disposition: Admit
Date of Disposition: 05/08/24
Time of Disposition: 01:06
Admit to: Med/Surg
Presentation/result/management discussed w/ accepting MD/DO: Hospitalist
Patient with high blood pressure during this ER visit?: No
Condition: Fair
Covid-19: Negative COVID-19
Discharge Problem:
Acute hypoxic respiratory failure, Influenza A
Prescriptions:
No Action
atorvastatin 80 MG tablet
40 mg PO QPM
calcium carbonate 600 MG tablet
600 mg PO DAILY
baclofen 10 MG tablet
10 mg PO TID
aspirin 81 mg Tablet,Delayed Release (Dr/Ec)
81 mg PO DAILY
vitamin B complex Tablet
1 tab PO NOON
rivastigmine tartrate 4.5 mg Capsule
4.5 mg PO BID
acetaminophen [Tylenol] 325 mg Tablet
650 mg PO Q6HPRN PRN (Reason: mild pain/fever)
albuterol sulfate 1.25 mg/3 mL solution for nebulization
1.25 mg inhalation R BIDPRN PRN (Reason: shortness of breath or wheezing)
milk thistle 150 mg Capsule
300 mg PO HS
coenzyme Q10-vit E-vit E mixed 100-20-15 mg Capsule
1 cap PO DAILY
ferrous sulfate 325 mg (65 mg iron) tablet
325 mg PO DAILY Qty: 30 0RF
docusate sodium [Colace] 100 mg capsule
100 mg PO BID Qty: 60 0RF
Rx Instructions:
Hold if diarrhea or regular bowel movements
cholecalciferol (vitamin D3) 25 mcg (1,000 unit) Tablet
25 mcg PO DAILY Qty: 30 0RF
duloxetine 30 mg Capsule,Delayed Release(Dr/Ec)
60 mg PO HS
cyanocobalamin (vitamin B-12) 1,000 mcg Tablet
1,000 mcg PO DAILY
magnesium hydroxide [Milk of Magnesia] 400 mg/5 mL Suspension
2,400 mg PO HSPRN PRN (Reason: if no bm by 3rd day)
tamsulosin [Flomax] 0.4 mg Capsule
0.4 mg PO BID
bisacodyl [Dulcolax (bisacodyl)] 10 mg Suppository
10 mg OK DAILYPRN PRN (Reason: if no bm aftr mom)
polyethylene glycol 3350 [Miralax] 17 gram powder in packet
17 g PO DAILYPRN PRN (Reason: Constipation)
risperidone 0.25 mg Tablet
0.25 mg PO Q6HPRN PRN (Reason: agitation) Qty: 15 0RF
metoprolol tartrate 25 mg Tablet
25 mg PO BID 30 Days Qty: 60 0RF
Interventions
Interventions:
*General Assessment Last Done: 05/07/24 23:10
*Neglect/Abuse Screening Last Done: 05/07/24 23:10
ED- Fall Risk Assessment Last Done: 05/08/24 00:55
*ED COVID-19 Vaccine History Last Done: 05/07/24 23:10
ED- Cardiac Assessment Last Done: 05/08/24 00:55
ED- Pulmonary Assessment Last Done: 05/08/24 00:54
Discharge Date and Time
Print Language: CROATIAN
[2024-05-08] MEDS: OFIRMEV 1000 MG IV (00:42)
[2024-05-08] MEDS: NSS 1000 IV ×2 (01:37→08:49)
--- NOTE | 2024-05-08 01:53 | EDRN ---
Dr. Martinez at bedside working on admission, at bedside as well.
--- NOTE | 2024-05-08 02:19 | HPS.HSE ---
Family Physician
-
Family Physician: Demetria Parsons
Chief Complaint
-
Cough, Hypoxemia
History of Present Illness
Patient is an 84y M with PMH significant for L hemiparesis s/p prior CVA, hypertension and dementia who presents to ED from SNF for evaluation of cough and hypoxemia. Patient has been admitted to on multiple occasions recently for UTI and
related symptoms. He was most recently discharged to SNF to complete a course of meropenem for ESBL E coli UTI. at bedside notes that patient had some cough about 5 days ago. She has not noted any significant cough since that time. This
evening, patient was noted to have recurrent coughing at the DE. His SpO2 was in the 80s requiring supplemental O2 and he was transferred to the ED for evaluation.
Here in the ED, patient is noted to have fever to 103 and is positive for influenza A. He did have the seasonal flu vaccine.
Medical History
Past Medical History
Past Medical History: Reports Other
Additional Past Medical History:
ASCVD / Prior CVA / Carotid Stenosis
L Hemiparesis
Hypertension
Heart Block
Nephrolithiasis
Dementia
Past Surgical History: Reports Other
Additional Past Surgical History:
Right CEA
T&A
PPM Placement
Herniorrhaphy
Left Orchiectomy
Ureteroscopies
Social History
Unable to obtain full social history at this time due to: Other (Social history taken from previous records)
Tobacco: Non-smoker
Alcohol: None
Drug: None
Personal:
Living: Prison
Employment: Retired
Family History
Family History: Not pertinent
Allergies / Home Medications
Allergies reflects when Allergies were last updated in [employer].
Home Medications with original date entered in [employer]
Allergy/Medication List:
Allergies
Allergy/AdvReac Type Severity Reaction Status Date / Time
doxycycline monohydrate Allergy MIGRAINE Verified 05/07/24 23:28
[From Vibramycin]
Sulfa (Sulfonamide Allergy difficulty Verified 05/07/24 23:28
Antibiotics) breathing,
[Sulfa(Sulfonamide hives
Antibiotics)]
vancomycin Allergy dizziness,double Verified 05/07/24 23:28
vision
Home Medications
atorvastatin 80 mg tablet 40 mg PO QPM High Cholesterol 06/17/21
calcium carbonate 600 mg PO DAILY Supplement 06/17/21
baclofen 10 mg tablet 10 mg PO TID Muscle Spasms 09/26/22
aspirin 81 mg tablet,delayed release 81 mg PO DAILY Blood Clot Prevention/Tx 10/12/23
rivastigmine tartrate 4.5 mg capsule 4.5 mg PO BID memory 10/12/23
vitamin B complex 1 tab PO NOON Supplement 10/12/23
acetaminophen 325 mg tablet (Tylenol) 650 mg PO Q6HPRN PRN mild pain/fever 03/11/24
albuterol sulfate 1.25 mg/3 mL solution for nebulization 1.25 mg inhalation R BIDPRN PRN shortness of breath or wheezing 03/11/24
coenzyme Q10 100 mg-vitamin E 20 mg-vitamin E mixed 15 mg capsule 1 cap PO DAILY Supplement 03/26/24
milk thistle 150 mg capsule 300 mg PO HS Supplement 03/26/24
ferrous sulfate 325 mg (65 mg iron) tablet 325 mg PO DAILY anemia #30 tabs 03/30/24
cholecalciferol (vitamin D3) 25 mcg (1,000 unit) tablet 25 mcg PO DAILY #30 tabs 04/02/24
docusate sodium 100 mg capsule (Colace) 100 mg PO BID #60 caps 04/02/24
duloxetine 30 mg capsule,delayed release 60 mg PO HS 04/02/24
bisacodyl 10 mg rectal suppository (Dulcolax (bisacodyl)) 10 mg OR DAILYPRN PRN if no bm aftr mom 04/20/24
cyanocobalamin (vitamin B-12) 1,000 mcg tablet 1,000 mcg PO DAILY 04/20/24
magnesium hydroxide 400 mg/5 mL oral suspension (Milk of Magnesia) 2,400 mg PO HSPRN PRN if no bm by 3rd day 04/20/24
polyethylene glycol 3350 17 gram oral powder packet (Miralax) 17 g PO DAILYPRN PRN Constipation 04/20/24
tamsulosin 0.4 mg capsule (Flomax) 0.4 mg PO BID 04/20/24
metoprolol tartrate 25 mg tablet 25 mg PO BID 30 days #60 tabs 04/26/24
risperidone 0.25 mg tablet 0.25 mg PO Q6HPRN PRN agitation #15 tabs 04/26/24
Review of Systems
-
Unable to obtain full review of systems at this time due to: Dementia
History Source: Family
A 12 point ROS was completed and negative except as noted: Yes
Constitutional: Reports Fever and Fatigue
Respiratory: Reports Cough
Abdomen/GI: Denies Nausea, Vomiting or Diarrhea
Physical Exam
Vital Signs
Vital Signs
Temp Pulse Resp BP Pulse Ox
103.0 F H 69 18 111/57 90
05/08/24 00:11 05/08/24 00:00 05/08/24 00:00 05/08/24 00:00 05/08/24 00:54
Physical Exam
General: Other (Ill-appearing 84y M. Wakes to verbal stimuli and follows commands. )
HEENT: Other (Dry MM. Neck supple.)
Respiratory: Other (Decreased BS at bases - otherwise clear.)
Cardiac: S1/S2 and Regular Rhythm
GI: Other (Obese, not tender, pos BS.)
Musculoskeletal: No Clubbing, No Cyanosis and Other (Nodular / brawny edema b/l LEs.)
Neuro: Other (Chronic L hemiparesis. No new focal deficits.)
Psych: Apparent Dementia
Laboratory Results
-
05/07/24 23:33
05/07/24 23:33
Laboratory Results
Lactic Acid 2.4 mmol/L (0.7-2.0) H 05/07/24:
Total Bilirubin 0.3 mg/dl (0.2-1.3) 05/07/24:
AST 25 U/L (17-59) 05/07/24:
ALT 22 U/L (0-50) 05/07/24:
Alkaline Phosphatase 160 U/L (38-126) H 05/07/24:
Impression/Plan
-
A/P: Patient is an 84y M with PMH significant for L hemiparesis, prior CVA, dementia and recurrent UTIs who presents to ED for evaluation of cough and hypoxemia noted at SNF this evening.
Influenza A
Acute Hypoxemic Respiratory Failure secondary to the above
- Admit for further evaluation and treatment.
- Tamiflu BID.
- Supportive care with mucolytics, albuterol, OI2 support, etc.
- Follow proper precautions.
- Follow for clinical improvement.
ESBL E coli UTI
- Patient has completed course of meropenem (last doses 05/07).
- Follow for any new symptoms / complaints.
WARD on CKD III
- Stable. SCr = 1.5 with most recent baseline about 1.2.
- Gentle IVFs overnight.
- Follow for return to baseline.
Benign Hypertension
- Stable. Continue outpatient med regimen and adjust as needed.
Anemia of Chronic Disease
- Stable. Hgb is at / near known baseline.
- Follow for any changes.
ASCVD
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
- Stable. No new focal neuro deficits.
- Continue current CV med regimen including ASA, statin, etc.
- Continue supportive care including baclofen, etc.
Senile Dementia with Behavioral Disturbance
- Stable. Newly started on risperidone during most recent hospital stay.
- Continue PRN use.
- Continue other current psychotropic medications.
BPH
- Stable. Continue tamsulosin.
- Bladder scan protocol.
DVT Prophylaxis: Subcut heparin
Code Status: DNR
--- NOTE | 2024-05-08 04:52 | TRANSFER ---
Pt received from ED on 6L NC. Fall alarm in place. at bedside to answer intake questions. pt changed. Call urrutia and belongings within reach.
[2024-05-08] MEDS: DUONEB 3 ML INH ×5 (05:09→19:44)
[2024-05-08 05:27] LABS: Hematocrit 29.1 % (39.0-52.0); Hemoglobin 9.5 g/dL (13.0-18.0); Mean Corp Hgb Conc. 32.6 g/dL (33.0-37.0); Mean Corpuscular Hgb 29.7 pg (27.0-31.0); Mean Corpuscular Volume 90.9 fL (80.0-94.0); Mean Platelet Volume 9.4 fL (7.4-10.4); Platelet Count 222 10^3/uL (130-400); Red Cell Dist. Width 13.9 % (11.5-14.5); White Blood Cell Count 7.6 10^3/uL (4.8-10.8)
[2024-05-08 05:46] LABS: Blood Urea Nitrogen 36 mg/dl (9-20); Calcium 7.7 mg/dl (8.4-10.2); Carbon Dioxide 25 mmol/L (22-30); Chloride 109 mmol/L (98-107); Estimated Creatinine Clearance 49 ml/min; Glucose 118 mg/dl (70-99); Potassium 4.9 mmol/L (3.5-5.1); Sodium 138 mmol/L (135-145); eGFR 54.51
--- NOTE | 2024-05-08 06:39 | PTCARENOTE ---
0448: Clinical Research Analyst Wood contacted for Neb treatment for insp and ex wheezing.
Resp administered neb. Wheezing improved.
0544: Rn request STOVE TENDER to come and look at the patient due to lack of improved breath sounds (course crackles throughout) retractions (supraclavicular, subclavicular), tachypnea and use of accessory muscles and head bobbing.
Order for morphine was placed. Rn communicated concern due to patients lethargic presentation and and looking as though he is tuckering out.
STOVE TENDER suggested that we look at put him on Hi flow despite his SPO2 sitting at 96 on 6L NC.
0615: Respiratory came down and assessed the pt. She agreed that the pt did not qualify for high flow but was placed on mid flow incase there are increased O2 demands.
0630: Pt was bladder scanned for 157 after speaking to the STOVE TENDER about the drop in hgb.
[2024-05-08 07:29] LABS: Venous Blood Gas HCO3 25.7 mmol/L (22-27); Venous Blood Gas pCO2 51 mmHg (35-48); Venous Blood Gas pH 7.31 (7.32-7.43); Venous Blood Gas pO2 190 mmHg (30-50)
[2024-05-08 07:30] LABS: Venous Blood Gas O2 Therapy HF
[2024-05-08 07:50] LABS: NT-proBNP 2190 pg/ml
[2024-05-08 07:57] LABS: Procalcitonin 0.22 ng/ml (0.0-0.25)
[2024-05-08] MEDS: FEOSOL 325 MG PO (08:50)
[2024-05-08] MEDS: EXELON 3 MG PO ×2 (08:50→20:45)
[2024-05-08] MEDS: EXELON 1.5 MG PO ×2 (08:50→20:45)
[2024-05-08] MEDS: MUCINEX 600 MG PO ×2 (08:50→20:45)
[2024-05-08] MEDS: LASIX 40 MG IV ×2 (08:50→15:47)
[2024-05-08] MEDS: TAMIFLU 30 MG PO ×2 (08:51→20:46)
[2024-05-08] MEDS: ASPIR LOW (ENTERIC COATED) 81 MG PO (08:51)
[2024-05-08] MEDS: COLACE 100 MG PO ×2 (08:51→20:45)
[2024-05-08] MEDS: LIORESAL 10 MG PO ×3 (08:51→20:46)
[2024-05-08] MEDS: HEPARIN 5000 UNITS SC (08:51)
[2024-05-08] MEDS: OSCAL CAL 500 600 MG PO (08:51)
[2024-05-08] MEDS: VITAMIN D3 (cholecalciferol) 25 MCG PO (08:52)
[2024-05-08] MEDS: FLOMAX 0.4 MG PO ×2 (08:52→20:45)
[2024-05-08] MEDS: LOPRESSOR 25 MG PO ×2 (08:52→20:46)
--- NOTE | 2024-05-08 09:42 | W.PN.HOSP.TC ---
Today's Communication/Plan
-
See PN
attempted to call -reached VM
Assessment / Plan
Assessment / Plan
84yo M with COPD, dementia, HFpEF, CAD, HLD, WINSTON, anxiety, BPH, Hx of PPM, R CEA, CVA with residual L sided weakness broguht from [facility] with hypoxia, found Influenza A and CHF
A.P:
#Acute hypoxic hypercapnic respiratory failure 2/2 Influenza A and acute on chronic HFpEF exacerbation
#Cannot exclude aspiration pneumonia
CKD stage 3a
Tamiflu
Lasix, daily weight, echo, follow Cr and electrolytes
Droplet precautions
Unasyn reasonable
Telemetry
wean off O2
follow VBG with diuresis
#Advanced unspecified dementia
#BPH
#WINSTON
#Hx of PPM
#Anxiety d/o
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
watch for urinary retention
FOllow Hgb
cont home meds
DVT ppx on SCDs (2/2 anemia)
DNR/DNI
I have spent at least 57min reviewing chart, test results and providing direct patient care
Anticipated Discharge: > 48 hours
Subjective/Interval History
-
Date of Service: May 08, 2024
Objective Data
-
Labs:
Laboratory Results
05/07/24 05/08/24 05/08/24
23:33 05:04 14:00
WBC 9.1 7.6
Hgb 11.4 L 9.5 L Pending
Hct 35.6 L 29.1 L Pending
Plt Count 245 222
Sodium 138 138
Potassium 4.6 4.9
Chloride 103 109 H
Carbon Dioxide 30 25
BUN 35 H 36 H
Creatinine 1.5 H 1.3
Glucose 143 H 118 H
Calcium 8.4 7.7 L
Total Bilirubin 0.3
AST 25
ALT 22
Alkaline Phosphatase 160 H
Vital Signs:
Vital Signs
Temp Pulse Resp BP Pulse Ox
97.5 F 92 18 118/57 96
05/08/24 07:00 05/08/24 08:50 05/08/24 07:25 05/08/24 08:50 05/08/24 07:25
Review of Systems
-
Unable to obtain full review of systems at this time due to: Dementia
Physical Exam
-
General: No Apparent Distress
HEENT: Normocephalic
Respiratory: Rhonchi and Crackles
Cardiac: Regular Rhythm
GI: Soft, Nontender and Nondistended
Musculoskeletal: No Clubbing, No Cyanosis, Edema, Right Lower Extrem and Edema, Left Lower Extrem
Neuro: Awake and Alert; Negative Oriented
Psych: Calm and Apparent Dementia
[2024-05-08] MEDS: UNASYN IV ×3 (09:58→22:19)
--- NOTE | 2024-05-08 14:24 | CM ---
CM following re: discharge planning.
Reviewed pt's chart, met with pt and pt's spouse at bedside.
Pt is an 84 year old male, admitted with primary dx of Acute hypoxic hypercapnic respiratory failure 2/2 Influenza A and acute on chronic HFpEF exacerbation.
Pt is not a great historian, information obtained from pt's spouse. Pt lives with spouse and a son in a 2SH, 1 step to enter. Per spouse pt has been at [facility] 2 times with a short stay at between. Pt's spouse stated that pt will need
to go back to a SNF to increase his strength and be able to stand. Per spouse pt will return back to [facility] SNF and in meantime she requested additional SNFs: [facility], [facility], [facility]. A referral to above SNFs including [facility]
SNF made.
PCP: Demetria Parsons
pharmacy: [facility].
D/C plan: preferred SNF: [facility], [facility], [facility], [facility].
CM will follow to assit pt with discharge to a preferred SNF.
[2024-05-08 14:27] LABS: Hematocrit 33.9 % (39.0-52.0)
[2024-05-08 14:29] LABS: Venous Blood Gas B.E. 2.2 mmol/L (-4 to +4); Venous Blood Gas HCO3 28.7 mmol/L (22-27); Venous Blood Gas O2 Sat % 91.7 %; Venous Blood Gas pCO2 52 mmHg (35-48); Venous Blood Gas pH 7.35 (7.32-7.43); Venous Blood Gas pO2 58 mmHg (30-50)
[2024-05-08] MEDS: TYLENOL 650 MG PO (15:47)
[2024-05-08] MEDS: LIPITOR 40 MG PO (18:09)
[2024-05-08] MEDS: CYMBALTA DELAYED RELEASE 60 MG PO (20:46)
[2024-05-09] VITALS (10 sets, daily range): BP systolic 78–152; BP diastolic 44–80; PULSE 83; O2SAT 93; BMI 25.7
[2024-05-09] MEDS: UNASYN IV ×4 (04:26→23:15)
[2024-05-09 06:35] LABS: % Basophils 0.4 % (0-2); % Eosinophils 3.4 % (0-6); % Immature Granulocytes 0.4 % (0-0.5); % Lymphocytes 9.8 % (20.5-51.1); % Monocytes 16.8 % (1.7-9.3); % Neutrophils 69.2 % (42.2-75.2); Absolute Eosinophils 0.2 10^3/uL (0-0.7); Absolute Lymphocytes 0.5 10^3/uL (1.2-3.4); Absolute Monocytes 0.8 10^3/uL (0.1-0.6); Absolute Neutrophils 3.3 10^3/uL (1.4-6.5); Hematocrit 31.4 % (39.0-52.0); Mean Corp Hgb Conc. 31.8 g/dL (33.0-37.0); Mean Corpuscular Hgb 29.9 pg (27.0-31.0); Mean Corpuscular Volume 93.7 fL (80.0-94.0); Mean Platelet Volume 9.5 fL (7.4-10.4); Nucleated Red Blood Cells % 0 % (-); Platelet Count 226 10^3/uL (130-400); Red Blood Cell Count 3.35 10^6/uL (4.70-6.10); White Blood Cell Count 4.7 10^3/uL (4.8-10.8)
[2024-05-09 07:12] LABS: ALT (SGPT) 23 U/L (0-50); AST (SGOT) 33 U/L (17-59); Albumin 2.5 g/dl (3.5-5.0); Alkaline Phosphatase 127 U/L (38-126); Blood Urea Nitrogen 33 mg/dl (9-20); Calcium 8.2 mg/dl (8.4-10.2); Carbon Dioxide 32 mmol/L (22-30); Chloride 101 mmol/L (98-107); Estimated Creatinine Clearance 42 ml/min; Glucose 104 mg/dl (70-99); Potassium 4.5 mmol/L (3.5-5.1); Sodium 139 mmol/L (135-145); Total Bilirubin 0.3 mg/dl (0.2-1.3); Total Protein 4.9 g/dl (6.3-8.2); eGFR 45.91
[2024-05-09] MEDS: DUONEB 3 ML INH ×4 (07:35→20:31)
[2024-05-09 07:57] LABS: Magnesium 1.7 mg/dl (1.6-2.3)
--- NOTE | 2024-05-09 07:57 | W.PN.HOSP.TC ---
Today's Communication/Plan
-
Stop Lasix and add 250 cc bolus of normal saline IV fluids due to hypotension
EKG, troponins, echocardiogram
Closely monitor vital signs
Assessment / Plan
Assessment / Plan
Physical Exam
General: No Apparent Distress
HEENT: Normocephalic
Respiratory: Rhonchi and Crackles
Cardiac: Regular Rhythm
GI: Soft, Nontender and Nondistended
Musculoskeletal: No Clubbing, No Cyanosis, Edema, Right Lower Extrem and Edema, Left Lower Extrem
Neuro: Awake and Alert; Negative Oriented
Psych: Calm and Apparent Dementia
Assessment/Plan
84yo M with COPD, dementia, HFpEF, CAD, HLD, WINSTON, anxiety, BPH, Hx of PPM, R CEA, CVA with residual L sided weakness broguht from [facility] with hypoxia, found Influenza A and CHF
#Acute hypoxic hypercapnic respiratory failure 2/2 Influenza A and acute on chronic HFpEF exacerbation
#Cannot exclude aspiration pneumonia
#Suspected LLL pneumonia
Secretions have improved today, as per patient's daughter who was present in the patient's room at the time of encounter
CKD stage 3a
Tamiflu
Stop Lasix due to hypotension -- patient has been receiving IV Lasix since 05/08/24, last dose was on 05/09/24 morning
Droplet precautions
Unasyn
Speech consulted -- okay for regular, thin liquids diet with aspiration precautions
Continue to monitor on telemetry
wean off O2 as able
#Hypotension with a little dizziness on 05/09/24 morning
-SBP in the upper 70s to 80s morning of 05/09/24 after working with physical therapy, when he sat up in bed, remaining vital signs are stable and unremarkable as per patient's nurse
-NSS 250 cc IV fluid bolus ordered
-Monitor BP closely
-Stop IV Lasix
-Check echocardiogram, EKG, troponins
#Hypertension
#History of coronary artery disease
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
#BPH - Continue tamsulosin. Bladder scan protocol.
#WINSTON
#Hx of PPM
#History of right bundle branch block
#Anxiety d/o
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
#History of carotid disease, right carotid endarterectomy
watch for urinary retention
FOllow Hgb
cont home meds
# History scrotal hernia
DVT ppx on SCDs. Heparin subq.
Speech/Diet: 05/09/24: ok for regular, thin liquid diet w/ 1:1 supervision and assistance when awake/alert, meds crushed in puree. No signs of aspiration at this time. Video swallow 03/28/2024 without dysphagia/aspiration.
DNR/DNI
Anticipated Discharge: > 48 hours
Subjective/Interval History
-
Date of Service: May 09, 2024
Patient was seen and examined, his daughter was present in the room. No new issues/complaints, patient did have some hypotension with dizziness after working with physical therapy this morning at when he was sitting up in bed.
Objective Data
-
Labs:
Laboratory Results
05/09/24
05:54
WBC 4.7 L
Hgb 10.0 L
Hct 31.4 L
Plt Count 226
Sodium 139
Potassium 4.5
Chloride 101
Carbon Dioxide 32 H
BUN 33 H
Creatinine 1.5 H
Glucose 104 H
Calcium 8.2 L
Total Bilirubin 0.3
AST 33
ALT 23
Alkaline Phosphatase 127 H
Vital Signs:
Vital Signs
Temp Pulse Resp BP Pulse Ox
99.8 F 94 16 152/80 96
05/09/24 03:08 05/09/24 07:37 05/09/24 07:37 05/09/24 03:08 05/09/24 07:37
I&O
05/08/24 05/09/24 05/10/24
06:59 06:59 06:59
Intake Total 480 / 480
Balance 480 / 480
[2024-05-09] MEDS: LASIX 40 MG IV (08:46)
[2024-05-09] MEDS: RISPERDAL 0.25 MG PO (08:46)
[2024-05-09] MEDS: EXELON 1.5 MG PO ×2 (08:46→19:54)
[2024-05-09] MEDS: MUCINEX 600 MG PO (08:46)
[2024-05-09] MEDS: VITAMIN D3 (cholecalciferol) 25 MCG PO (08:47)
[2024-05-09] MEDS: LOPRESSOR 25 MG PO ×2 (08:47→19:55)
[2024-05-09] MEDS: TAMIFLU 30 MG PO ×2 (08:47→19:56)
[2024-05-09] MEDS: OSCAL CAL 500 600 MG PO (08:47)
[2024-05-09] MEDS: ASPIR LOW (ENTERIC COATED) 81 MG PO (08:47)
[2024-05-09] MEDS: FLOMAX 0.4 MG PO ×2 (08:47→19:57)
[2024-05-09] MEDS: LIORESAL 10 MG PO ×3 (08:47→23:15)
[2024-05-09] MEDS: FEOSOL 325 MG PO (08:47)
[2024-05-09] MEDS: EXELON 3 MG PO ×2 (08:48→19:54)
[2024-05-09] MEDS: COLACE PO (08:48)
[2024-05-09] MEDS: TYLENOL 650 MG PO ×2 (08:57→20:00)
--- NOTE | 2024-05-09 09:34 | PTOTSP ---
Dysphagia Evaluation
Suspect within functional limits for oral/pharyngeal swallowing with no signs of aspiration. Acute elevated risk for dysphagia given influenza, CHF exacerbation, and comorbidities (i.e., dementia, COPD, CVA, CHF). Video swallow study 03/28/2024 [facility]
oral/pharyngeal swallow with no aspiration.
Recommend:
1. Regular (assist to cut solids), Thin Liquids
2. Medications: crushed in puree if medically cleared
3. Strategies: upright to 90 degrees, full supervision, PO only when awake/alert, assist to cut foods into bite sized pieces and feed patient, small sips/bites, slow rate, liquid wash as needed
4. Oral care 3x daily
No further dysphagia tx warranted at the acute care level. Please reconsult as appropriate. If concerned for silent aspiration please reconsult via video swallow. Low suspicion for this at this time.
--- NOTE | 2024-05-09 12:06 | PTCARENOTE ---
Blood pressure decreased, MD made aware. Pt c/o dizziness when sat up on side of bed with PT/OT. MD made aware, new order provided, see MAR.
[2024-05-09] MEDS: NSS 250 IV ×2 (12:09→13:45)
[2024-05-09 13:23] LABS: Troponin I 0.109 ng/ml
--- NOTE | 2024-05-09 13:29 | PTCARENOTE ---
Lab informed this RN of critical troponin, result= 0.109. made aware.
--- NOTE | 2024-05-09 13:30 | PTCARENOTE ---
Blood pressure rechecked, 97/48. made aware, new order provided, see MAR.
--- NOTE | 2024-05-09 14:45 | CARDSERVLU ---
Echocardiogram with Lumason completed after protocol screening completed. Allergies verified.
Patent IV site: __R AC___
IV site flushed with 0.9% NaCl pre and post administration.
Diluted bolus method utilized to enhance visualization of ventricular leung.
Total volume given: __2.5__ mL
Patient tolerated all procedures well without complications.
--- NOTE | 2024-05-09 16:09 | PN.CDI ---
CDI
- -
CDI:
Physician Documentation Request
Admit Date: 05/08/24 02:27
Dear Doctor Henry,
Please review the following and provide your response in the progress notes.
Clinical Indicators:
H+P, 05/08
#...in the ED, patient is noted to have fever to 103 and is positive for influenza A.
#Influenza A
#Acute Hypoxemic Respiratory Failure secondary to the above
#WARD on CKD III
#...- Stable. SCr = 1.5 with most recent baseline about 1.2.
PN, 05/09
#Acute hypoxic hypercapnic respiratory failure 04/17 Influenza A
#...and acute on chronic HFpEF exacerbation
#Cannot exclude aspiration pneumonia
#Suspected LLL pneumonia
Laboratory Tests
05/07/24 05/08/24 05/09/24
23:33 05:04 05:54
WBC 9.1 7.6 4.7 L
Laboratory Tests
05/07/24 05/08/24
23:33 05:04
Lactic Acid 2.4 H 2.0
Selected Entries
05/07/24
23:10 05/08/24
00:11 05/08/24
00:15
Temp 100.7 F H 103.0 F H
Resp Rate 25
Selected Entries
05/08/24
02:47 05/08/24
03:00
Temp 101.0 F H
Pulse 102
Please clarify which of the following most accurately describes the status of the patient's infection:
Sepsis/Severe Sepsis, POA, (if severe sepsis, please document associated organ failure)
Sepsis evolved during admission
Localized Infection Only, Without Systemic Illness
- indicate the site/source, such as UTI, pneumonia etc.
Other (please specify)
Sepsis
- Systemic manifestations of infection, with 2 or more SIRS criteria which include:
- Fever >100.4 degrees F or hypothermia < 96.8 degrees F
- Leukocytosis - WBC > 12,000 or leukopenia - WBC < 4,000 or > 10% bands
- Tachycardia > 90 beats per minute
- Tachypnea - RR > 20 breaths per minute or PaCO2 , 32mmHg
Source: Merck Manual 2013
- Indicate the known or suspected underlying infection, such as UTI, pneumonia or cellulitis
Severe Sepsis
- Sepsis with associated acute organ dysfunction, such as renal or respiratory failure
- Documentation should indicate the association between the sepsis and the organ dysfunction
Use of terms such as suspected, likely, concern for, or probable (associated with a specific diagnosis that is being evaluated, monitored, or treated as if it exists) are acceptable and can be coded in the inpatient setting, when documented at the
time of discharge.
Thank you,
Caridad Anderson RN BSN CCDS
CDI Specialist
please contact via tiger text
Please use your independent medical judgment in providing your response.
[2024-05-09] MEDS: LIPITOR PO (17:18)
[2024-05-09] MEDS: MUCINEX PO (19:56)
[2024-05-09] MEDS: HEPARIN 5000 UNITS SC (20:00)
[2024-05-09] MEDS: COLACE 100 MG PO (20:01)
[2024-05-09 20:52] LABS: Troponin I 0.093 ng/ml
[2024-05-09] MEDS: CYMBALTA DELAYED RELEASE 60 MG PO (23:15)
[2024-05-10 02:56] LABS: Troponin I 0.083 ng/ml
[2024-05-10 03:15] VITALS: BP 134/67
[2024-05-10] MEDS: UNASYN IV ×2 (05:22→09:40)
[2024-05-10 06:00] VITALS: BMI 25.7
[2024-05-10 06:36] LABS: Hematocrit 32.8 % (39.0-52.0); Hemoglobin 10.2 g/dL (13.0-18.0); Mean Corp Hgb Conc. 31.1 g/dL (33.0-37.0); Mean Corpuscular Hgb 29.2 pg (27.0-31.0); Mean Platelet Volume 9.2 fL (7.4-10.4); Platelet Count 224 10^3/uL (130-400); Red Blood Cell Count 3.49 10^6/uL (4.70-6.10); White Blood Cell Count 3.4 10^3/uL (4.8-10.8)
[2024-05-10 07:06] LABS: Troponin I 0.083 ng/ml
[2024-05-10] MEDS: DUONEB 3 ML INH ×4 (07:23→19:35)
[2024-05-10 07:38] LABS: ALT (SGPT) 28 U/L (0-50); AST (SGOT) 43 U/L (17-59); Albumin 2.4 g/dl (3.5-5.0); Alkaline Phosphatase 118 U/L (38-126); Blood Urea Nitrogen 31 mg/dl (9-20); Calcium 8.2 mg/dl (8.4-10.2); Carbon Dioxide 34 mmol/L (22-30); Chloride 101 mmol/L (98-107); Estimated Creatinine Clearance 45 ml/min; Glucose 100 mg/dl (70-99); Magnesium 1.7 mg/dl (1.6-2.3); Potassium 4.4 mmol/L (3.5-5.1); Sodium 139 mmol/L (135-145); Total Bilirubin 0.6 mg/dl (0.2-1.3); eGFR 49.87
[2024-05-10 07:58] VITALS: BP 133/63
--- NOTE | 2024-05-10 09:23 | W.PN.HOSP.TC ---
Today's Communication/Plan
-
See plan
Assessment / Plan
Assessment / Plan
Physical Exam
General: No Apparent Distress
HEENT: Normocephalic
Respiratory: Rhonchi and Crackles
Cardiac: Regular Rhythm
GI: Soft, Nontender and Nondistended
Musculoskeletal: No Clubbing, No Cyanosis, Edema, Right Lower Extrem and Edema, Left Lower Extrem
Neuro: Awake and Alert; Negative Oriented
Psych: Calm and Apparent Dementia
Assessment/Plan
84yo M with COPD, dementia, HFpEF, CAD, HLD, WINSTON, anxiety, BPH, Hx of PPM, R CEA, CVA with residual L sided weakness broguht from [facility] with hypoxia, found Influenza A and CHF
#Acute hypoxic hypercapnic respiratory failure 2/2 Influenza A and acute on chronic HFpEF exacerbation
#Cannot exclude aspiration pneumonia
#Suspected LLL pneumonia
#Sepsis POA
Secretions have improved
CKD stage 3a
Tamiflu
Stopped Lasix on 05/09/24 due to hypotension -- patient has been receiving IV Lasix since 05/08/24, last dose was on 05/09/24 morning
Droplet precautions
Augmentin
Speech consulted -- okay for regular, thin liquids diet with aspiration precautions
Continue to monitor on telemetry
wean off O2 as able
#Hypotension with a little dizziness on 05/09/24 morning - RESOLVED
-SBP in the upper 70s to 80s morning of 05/09/24 after working with physical therapy, when he sat up in bed, remaining vital signs are stable and unremarkable as per patient's nurse, NSS 500 cc IV fluid bolus ordered
-Continue to monitor BP closely
-Stoped IV Lasix
-Checked echocardiogram, EKG, troponins
#RV reduced systolic function on echo
-Could be from pneumonia/hypoxemia
-With elevation in proBNP and hypoxia, consulted Pulm to assess for possible PE, cannot do CT Chest PE study given elevated creatinine
-Cannot do V/Q scan either
-Check lower extremity ultrasound, D-Dimer
#Hypertension
#History of coronary artery disease
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
#BPH - Continue tamsulosin. Bladder scan protocol.
#WINSTON
#Hx of PPM
#History of right bundle branch block
#Anxiety d/o
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
#History of carotid disease, right carotid endarterectomy
watch for urinary retention
FOllow Hgb
cont home meds
# History scrotal hernia
DVT ppx on SCDs. Heparin subq.
Speech/Diet: 05/09/24: ok for regular, thin liquid diet w/ 1:1 supervision and assistance when awake/alert, meds crushed in puree. No signs of aspiration at this time. Video swallow 03/28/2024 without dysphagia/aspiration.
DNR/DNI
Evaluate need for IV and nursing order -- patient needs a new IV access but refused it on 05/10/24
Anticipated Discharge: > 48 hours
Subjective/Interval History
-
Date of Service: May 10, 2024
Patient was seen and examined. He denied any complaints or symptoms when he was seen this morning.
Objective Data
-
Labs:
Laboratory Results
05/10/24
06:20
WBC 3.4 L
Hgb 10.2 L
Hct 32.8 L
Plt Count 224
Sodium 139
Potassium 4.4
Chloride 101
Carbon Dioxide 34 H
BUN 31 H
Creatinine 1.4 H
Glucose 100 H
Calcium 8.2 L
Total Bilirubin 0.6
AST 43
ALT 28
Alkaline Phosphatase 118
Vital Signs:
Vital Signs
Temp Pulse Resp BP Pulse Ox
97.9 F 77 20 133/63 97
05/10/24 07:58 05/10/24 07:58 05/10/24 07:58 05/10/24 07:58 05/10/24 07:58
I&O
05/09/24 05/10/24 05/11/24
06:59 06:59 06:59
Intake Total 480 / 480 1670 / 1670
Balance 480 / 480 1670 / 1670
[2024-05-10] MEDS: HEPARIN 5000 UNITS SC ×2 (09:33→20:30)
[2024-05-10] MEDS: ASPIR LOW (ENTERIC COATED) 81 MG PO (09:35)
[2024-05-10] MEDS: MUCINEX PO ×2 (09:35→20:30)
[2024-05-10] MEDS: EXELON 3 MG PO ×2 (09:35→20:29)
[2024-05-10] MEDS: FEOSOL 325 MG PO (09:36)
[2024-05-10] MEDS: FLOMAX 0.4 MG PO ×2 (09:36→20:28)
[2024-05-10] MEDS: TAMIFLU 30 MG PO ×2 (09:36→20:28)
[2024-05-10] MEDS: COLACE PO (09:38)
[2024-05-10] MEDS: LOPRESSOR 25 MG PO ×2 (09:38→20:29)
[2024-05-10] MEDS: LIORESAL 10 MG PO ×3 (09:38→22:30)
[2024-05-10] MEDS: EXELON 1.5 MG PO ×2 (09:38→20:27)
[2024-05-10] MEDS: VITAMIN D3 (cholecalciferol) 25 MCG PO (09:38)
[2024-05-10] MEDS: OSCAL CAL 500 500 MG PO (09:43)
[2024-05-10] MEDS: OSCAL CAL 500 PO (09:47)
--- NOTE | 2024-05-10 10:01 | PTCARENOTE ---
Incontinent of a large unmeasured amount. PVR 236ml on bladder scan.
[2024-05-10 11:39] VITALS: BP 136/65
--- NOTE | 2024-05-10 12:46 | CON.PUL ---
Consultation
Consultation Request
Date/Time Consultation Requested: 05/10/2024
Date/Time Consultation Performed: 05/10/2024
Requesting Provider: Dr. Figueroa
Performing Provider: Dr. Natanael Parikh
Reason for Consultation: Hypoxemia/pneumonia/RV dysfunction on echocardiogram.
Medical History
-
History of Present Illness:
Patient is an 83-year-old male with previous history of hypertension, CVA with left hemiparesis, heart block status post PPM, carotid stenosis status post CEA,
Admission to 02/01/2024 for left lower extremity cellulitis likely the cause of TME/CHF.
Readmitted to [facility] 05/07/2024 presented from a detention facility for cough and hypoxemia. More recently has been admitted to the hospital for UTI.
Has history of ESBL and completed a course of meropenem.
Apparently coughing for the last 5 days prior to admission.
He was found to have pulse ox of 80% at the long term prior to admission.
He was found to have influenza A positive for possible bacterial superinfection. He was treated with antibiotics.
He was also given some diuretics for increased proBNP.
Due to persistent hypoxemia, RV dysfunction on echocardiogram we were consulted on 05/10/2024 for evaluation.
Records reviewed.
Patient is a poor historian due to underlying dementia.
-
No prior known history of lung disease, non-smoker. His son has asthma, but he was never personally diagnosed.
Past Medical History
Past Medical History: Other (see list below)
Social History
Tobacco: Non-smoker
Alcohol: None
Drug: None
Family History
Family History: Reviewed & Not Pertinent
Allergies / Home Medications
Allergies
Allergy/AdvReac Type Severity Reaction Status Date / Time
doxycycline monohydrate Allergy MIGRAINE Verified 05/07/24 23:28
[From Vibramycin]
Sulfa (Sulfonamide Allergy difficulty Verified 05/07/24 23:28
Antibiotics) breathing,
[Sulfa(Sulfonamide hives
Antibiotics)]
vancomycin Allergy dizziness,double Verified 05/07/24 23:28
vision
Home Medications
�Medication �Instructions �Recorded �Confirmed �Last Taken �Type
atorvastatin 80 mg tablet 40 mg PO QPM High Cholesterol 06/17/21 05/08/24 03/10/24 History
calcium carbonate 600 mg PO DAILY Supplement 06/17/21 05/08/24 03/10/24 History
baclofen 10 mg tablet 10 mg PO TID Muscle Spasms 09/26/22 05/08/24 04/20/24 08:00 History
aspirin 81 mg tablet,delayed 81 mg PO DAILY Blood Clot 10/12/23 05/08/24 03/11/24 History
release Prevention/Tx
rivastigmine tartrate 4.5 mg 4.5 mg PO BID memory/cognition 10/12/23 05/08/24 03/11/24 History
capsule
vitamin B complex 1 tab PO NOON Supplement 10/12/23 05/08/24 03/10/24 History
acetaminophen 325 mg tablet 650 mg PO Q6HPRN PRN mild 03/11/24 05/08/24 Unknown History
(Tylenol) pain/fever
albuterol sulfate 1.25 mg/3 mL 1.25 mg inhalation R BIDPRN PRN 03/11/24 05/08/24 Unknown History
solution for nebulization shortness of breath or wheezing
coenzyme Q10 100 mg-vitamin E 20 1 cap PO DAILY Supplement 03/26/24 05/08/24 Unknown History
mg-vitamin E mixed 15 mg capsule
milk thistle 150 mg capsule 300 mg PO HS Supplement 03/26/24 05/08/24 Unknown History
ferrous sulfate 325 mg (65 mg 325 mg PO DAILY anemia #30 tabs 03/30/24 05/08/24 Unknown Rx
iron) tablet
cholecalciferol (vitamin D3) 25 25 mcg PO DAILY #30 tabs 04/02/24 05/08/24 Unknown Rx
mcg (1,000 unit) tablet
docusate sodium 100 mg capsule 100 mg PO BID #60 caps 04/02/24 05/08/24 Unknown Rx
(Colace)
duloxetine 30 mg capsule,delayed 60 mg PO HS depression/anxiety 04/02/24 05/08/24 Unknown History
release
bisacodyl 10 mg rectal suppository 10 mg KS DAILYPRN PRN if no bm 04/20/24 05/08/24 Unknown History
(Dulcolax (bisacodyl)) aftr mom
cyanocobalamin (vitamin B-12) 1,000 mcg PO DAILY Supplement 04/20/24 05/08/24 Unknown History
1,000 mcg tablet
magnesium hydroxide 400 mg/5 mL 2,400 mg PO HSPRN PRN if no bm by 04/20/24 05/08/24 Unknown History
oral suspension (Milk of Magnesia) 3rd day
polyethylene glycol 3350 17 gram 17 g PO DAILYPRN PRN Constipation 04/20/24 05/08/24 Unknown History
oral powder packet (Miralax)
tamsulosin 0.4 mg capsule (Flomax) 0.4 mg PO BID Urinary Issue 04/20/24 05/08/24 Unknown History
metoprolol tartrate 25 mg tablet 25 mg PO BID 30 days #60 tabs 04/26/24 05/08/24 Unknown Rx
risperidone 0.25 mg tablet 0.25 mg PO Q6HPRN PRN agitation 04/26/24 05/08/24 Unknown Rx
#15 tabs
Review of Systems
Vitals / Labs / Diagnostic Testing
Vital Signs
Temp Pulse Resp BP Pulse Ox
97.8 F 68 20 136/65 99
05/10/24 11:39 05/10/24 11:39 05/10/24 11:39 05/10/24 11:39 05/10/24 11:39
Lab Data
05/10/24 06:20
05/10/24 06:20
Microbiology
05/07/24 23:47 Nasal Swab Influenza Types A & B (MARITZA) - Final
Influenza A Positive, NAAT
Diagnostic Testing:
Assessment
-
Patient is an 83-year-old male with previous history of hypertension, CVA left mid thyroid, heart block status post PPM, carotid stenosis status post CEA, frequent falls, dementia, admitted from a detention facility for hypoxemia and coughing.
Found to have influenza positive. Hypoxemia started on Tamiflu and antibiotics. He also received diuretics. Due to persistent hypoxemia as well as RV dysfunction on echocardiogram we were consulted for evaluation.
Pt unable to provide history due to dementia. Confused at baseline.
Acute hypoxemic respiratory failure requiring 6 L- due to influenza A cannot rule out bacterial superinfection/aspiration pneumonitis.
Chest x-ray 05/08/2024: Left lower airspace consolidation. Possible right hilar fullness.
VB.35/52/58
Increased proBNP:2190
Echocardiogram 05/09/2024 --normal LVEF. 55%. Possible apical hypokinesis. Limited RV views-possible reduced systolic function. No significant valve abnormalities. Pacer wire in the right ventricle. Right heart pressures could not be
determined.
Acute kidney injury on CKD
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
History of ESBL UTI
Prior admission to the hospital 01/2024 heart failure cellulitis.
History of UTI (Aerococcus + 09/26/22, Morganella + 08/12/20, group D enterococcus 11/13/11)
Hypertension
Left Achilles Tear
Nephrolithiasis - Uric Acid (2016)
Large Left Inguinal Hernia s/p Open Inguinal Herniorrhaphy
Complete Heart Block-s/p PPM Placement, Medtronic, dual with 5086MRI leads 05/28/2012
Pacemaker pulse generator change, Medtronic, dual, model [id number] 06/17/2021
Hyperlipidemia
Carotid Stenosis s/p R CEA
CVA-Residual L Hemiparesis
Tonsillectomy
Left Orchiectomy
Left ureteroscopy 07/2013 and 08/2016
History of frequent falls
Dementia
Obesity BMI 31
Plan
Consulted for evaluation of hypoxemia in the setting of influenza A and possible aspiration pneumonia.
Echocardiogram performed due to increased proBNP and showed normal LVEF and possible RV dysfunction.
Whether there is pulm embolic disease or not it is not entirely clear.
-
High risk to receive contrast due to chronic kidney disease and acute kidney injury.
Developed hypotension after diuresis. Given her increased proBNP as above.
Unlikely to cooperate with VQ scan due to dementia/stroke.
Currently not tachycardic.
Will start with obtaining lower extremity Dopplers.
Obtain D-dimer. Would be helpful only if negative.
Encourage incentive spirometry
-
Continue ox supplementation to maintain pulse ox above 90%
Complete 7 days of Augmentin
Tamiflu
-
Part of her hypoxemia may be from subsegmental atelectasis due to immobility/morbid obesity.
RV dysfunction may be explained by hypoxemia from pneumonia as well.
proBNP may also be increased due to poor GFR of 45 chronically. Though, it is noted that is elevated compared to prior.
-
Will continue to follow.
Further recommendation will depend on above results.

Diagnostic Data
Chest X-Ray: 02/03/24- Trace bilateral pleural effusions with likely adjacent atelectasis.
Chest US 02/03/24- Trace right pleural effusion. Amount of fluid present not sufficient for safe thoracentesis.
09/08/22- Mild right perihilar pneumonia
07/01/22- No acute disease of the chest. Mild cardiomegaly. New.
CT Scan: AP 05/16/22- Lung Bases: Moderate changes of gravity dependent atelectasis. Lung bases otherwise clear. There is cardiomegaly.
Echo: 02/03/24- Normal left ventricular systolic function. Left ventricular ejection fraction is 55-60%. Apical septal hypokinesis. Compared to 10/13/23: no significant change was found.
PFT's:
Reports and relevant images were personally reviewed.
[2024-05-10 14:45] LABS: D-Dimer 5.36 ug/mlFEU (0.00-0.50)
[2024-05-10 15:00] VITALS: BP 134/73
[2024-05-10] MEDS: LIPITOR 40 MG PO (15:57)
--- NOTE | 2024-05-10 16:31 | CM ---
Per [employer] there are a few facilities that will be able to take patient. Will discuss options with patient and family.
Plan: Case management will continue to follow and assist with discharge planning. SNF.
[2024-05-10] MEDS: TYLENOL 650 MG PO (17:22)
--- NOTE | 2024-05-10 18:29 | PTCARENOTE ---
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 Figueroa aware. When , Sarah, came to visit, goals of care discussed, and reports 'even if he was in his right
mind, he wouldn't want any of this.' Hospitalist aware.
[2024-05-10 19:20] VITALS: BP 106/62
[2024-05-10] MEDS: AUGMENTIN 875 MG/125 MG 1 TABLET PO (20:27)
[2024-05-10] MEDS: COLACE 100 MG PO (20:28)
[2024-05-10] MEDS: CYMBALTA DELAYED RELEASE 60 MG PO (22:30)
[2024-05-10 23:06] VITALS: BP 128/67
[2024-05-11] VITALS (8 sets, daily range): BP systolic 110–151; BP diastolic 52–73; PULSE 66–72; O2SAT 91–92; BMI 25.6
[2024-05-11 06:38] LABS: Hematocrit 30.9 % (39.0-52.0); Hemoglobin 9.9 g/dL (13.0-18.0); Mean Corpuscular Hgb 29.6 pg (27.0-31.0); Mean Corpuscular Volume 92.2 fL (80.0-94.0); Mean Platelet Volume 9.6 fL (7.4-10.4); Platelet Count 243 10^3/uL (130-400); Red Blood Cell Count 3.35 10^6/uL (4.70-6.10); Red Cell Dist. Width 13.7 % (11.5-14.5); White Blood Cell Count 4.5 10^3/uL (4.8-10.8)
[2024-05-11 07:13] LABS: ALT (SGPT) 27 U/L (0-50); AST (SGOT) 36 U/L (17-59); Albumin 2.5 g/dl (3.5-5.0); Alkaline Phosphatase 112 U/L (38-126); Blood Urea Nitrogen 29 mg/dl (9-20); Carbon Dioxide 31 mmol/L (22-30); Chloride 104 mmol/L (98-107); Estimated Creatinine Clearance 45 ml/min; Glucose 104 mg/dl (70-99); Magnesium 1.7 mg/dl (1.6-2.3); Sodium 139 mmol/L (135-145); Total Bilirubin 0.4 mg/dl (0.2-1.3); Total Protein 4.9 g/dl (6.3-8.2); eGFR 49.87
[2024-05-11] MEDS: DUONEB 3 ML INH ×4 (07:29→19:27)
[2024-05-11] MEDS: ASPIR LOW (ENTERIC COATED) 81 MG PO (08:55)
[2024-05-11] MEDS: FLOMAX 0.4 MG PO ×2 (08:55→20:12)
[2024-05-11] MEDS: EXELON 1.5 MG PO ×2 (08:55→20:10)
[2024-05-11] MEDS: EXELON 3 MG PO ×2 (08:55→20:10)
[2024-05-11] MEDS: OSCAL CAL 500 500 MG PO (08:55)
[2024-05-11] MEDS: TAMIFLU 30 MG PO ×2 (08:55→20:11)
[2024-05-11] MEDS: AUGMENTIN 875 MG/125 MG 1 TABLET PO ×2 (08:55→20:12)
[2024-05-11] MEDS: MUCINEX 600 MG PO (08:55)
[2024-05-11] MEDS: VITAMIN D3 (cholecalciferol) 25 MCG PO (08:55)
[2024-05-11] MEDS: FEOSOL 325 MG PO (08:55)
[2024-05-11] MEDS: LOPRESSOR 25 MG PO ×2 (08:56→20:12)
[2024-05-11] MEDS: COLACE PO ×2 (08:56→20:09)
[2024-05-11] MEDS: HEPARIN 5000 UNITS SC ×2 (08:56→20:16)
[2024-05-11] MEDS: LIORESAL 10 MG PO ×3 (08:56→21:22)
[2024-05-11] MEDS: TYLENOL 650 MG PO ×2 (09:04→16:13)
--- NOTE | 2024-05-11 09:13 | PN.CDI ---
CDI
- -
CDI:
Physician Documentation Request
Admit Date: 05/08/24 02:27
Dear Doctor Henry,
Please review the following and provide your response in the progress notes.
Clinical Indicators:
Laboratory Tests
05/09/24 05/09/24 05/10/24
12:40 19:52 01:54
Troponin I 0.109 H* 0.093 H* 0.083 H*
05/10/24
06:20
Troponin I 0.083 H*
Based on the above and your clinical assessment, please clarify in the progress notes, the appropriate diagnosis, if significant, that supports the above abnormalities and additional evaluation, monitoring and/or treatment rendered:
Non ischemic myocardial injury
Abnormal lab value, clinically insignificant
Other(please specify)
Use of terms such as suspected, likely, concern for, or probable (associated with a specific diagnosis that is being evaluated, monitored, or treated as if it exists) are acceptable and can be coded in the inpatient setting, when documented at the
time of discharge.
Thank you,
Caridad Anderson RN BSN CCDS
CDI Specialist
please contact via tiger text
Please use your independent medical judgment in providing your response.
--- NOTE | 2024-05-11 09:40 | W.PN.HOSP.TC ---
Today's Communication/Plan
-
See plan, continue current therapy
Assessment / Plan
Assessment / Plan
Physical Exam
General: No Apparent Distress
HEENT: Normocephalic
Respiratory: Rhonchi and Crackles
Cardiac: Regular Rhythm
GI: Soft, Nontender and Nondistended
Musculoskeletal: No Clubbing, No Cyanosis, Edema, Right Lower Extrem and Edema, Left Lower Extrem
Neuro: Awake and Alert; Negative Oriented
Psych: Calm and Apparent Dementia
Assessment/Plan
84yo M with COPD, dementia, HFpEF, CAD, HLD, WINSTON, anxiety, BPH, Hx of PPM, R CEA, CVA with residual L sided weakness broguht from [facility] with hypoxia, found Influenza A and CHF
#Acute hypoxic hypercapnic respiratory failure 2/2 Influenza A and acute on chronic HFpEF exacerbation
#Cannot exclude aspiration pneumonia
#Suspected LLL pneumonia
#Sepsis POA
Secretions have improved
CKD stage 3a
Tamiflu
Stopped Lasix on 05/09/24 due to hypotension -- patient was receiving IV Lasix since 05/08/24, last dose was on 05/09/24 morning
Droplet precautions
Augmentin
Speech consulted -- okay for regular, thin liquids diet with aspiration precautions
Continue to monitor on telemetry
wean off O2 as able
#Hypotension with a little dizziness on 05/09/24 morning - RESOLVED
-SBP in the upper 70s to 80s morning of 05/09/24 after working with physical therapy, when he sat up in bed, remaining vital signs are stable and unremarkable as per patient's nurse, NSS 500 cc IV fluid bolus ordered
-Continue to monitor BP closely
-Stoped IV Lasix
-Checked echocardiogram, EKG, troponins
#RV reduced systolic function on echo
-Could be from pneumonia/hypoxemia
-With elevation in proBNP and hypoxia, consulted Pulm to assess for possible PE, cannot do CT Chest PE study given elevated creatinine
-Cannot do V/Q scan either
-Lower extremity ultrasound negative for DVT, D-Dimer
-No concerns for CHF/CT/PE from cardio and pulm standpoint, appreciate their evaluation
#Non ischemic myocardial injury
#Hypertension
#History of coronary artery disease
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
#BPH - Continue tamsulosin. Bladder scan protocol.
#WINSTON
#Hx of PPM
#History of right bundle branch block
#Anxiety d/o
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
#History of carotid disease, right carotid endarterectomy
watch for urinary retention
FOllow Hgb
cont home meds
# History scrotal hernia
DVT ppx on SCDs. Heparin subq.
Speech/Diet: 05/09/24: ok for regular, thin liquid diet w/ 1:1 supervision and assistance when awake/alert, meds crushed in puree. No signs of aspiration at this time. Video swallow 03/28/2024 without dysphagia/aspiration.
DNR/DNI
Anticipated Discharge: > 48 hours
Subjective/Interval History
-
Date of Service: May 11, 2024
Patient was seen and examined. He was coughing up more mucus this morning, did not feel great.
Objective Data
-
Labs:
Laboratory Results
05/11/24
06:08
WBC 4.5 L
Hgb 9.9 L
Hct 30.9 L
Plt Count 243
Sodium 139
Potassium 4.0
Chloride 104
Carbon Dioxide 31 H
BUN 29 H
Creatinine 1.4 H
Glucose 104 H
Calcium 8.0 L
Total Bilirubin 0.4
AST 36
ALT 27
Alkaline Phosphatase 112
Vital Signs:
Vital Signs
Temp Pulse Resp BP Pulse Ox
98.3 F 86 18 137/70 93
05/11/24 07:28 05/11/24 07:30 05/11/24 07:30 05/11/24 07:28 05/11/24 07:30
I&O
05/10/24 05/11/24 05/12/24
06:59 06:59 06:59
Intake Total 1670 / 1670 330 / 330
Balance 1670 / 1670 330 / 330
[2024-05-11 10:33] LABS: Troponin I 0.065 ng/ml
--- NOTE | 2024-05-11 12:48 | CM ---
Spoke with admissions at [facility] who confirmed that she will take patient back when he is medically stable for discharge. Patient will need authorization prior to discharge. Sent updated clinical to Annette for review.
Plan: Case management will continue to follow and assist with discharge planning. Back to [facility] when medically cleared.
--- NOTE | 2024-05-11 13:28 | CON.CAR ---
Addendum entered and electronically signed by Claude Kincaid MD 05/11/24 15:34:
I saw and examined the patient.
The NURSE EPIDEMIOLOGIST's note was reviewed and I agree with the note.
Comment:
84 year old man (known to Dr. Cruz) with dementia, PAD, CKD, PPM, presumed CAD (medical mgmt) who presents with increased WOB and hypoxia from [facility] found to have influenza A and pneumonia. Cardiology is consulted for ongoing hypoxia,
elevated NT proBNP and concern for RV dysfunction on TTE. History is limited by dementia but patient reports he came because he feels 'terrible' and still has not gotten better. Has persistent cough, nausea, and SOB. No chest pain. He recieved IV
Lasix earlier this admission but became hypotensive. Exam notable for chronically ill appearing elderly gentleman, CV exam with RRR, no LE edema, rhonchorous lungs. Labs notable for Cr 1.4 (baseline), Trop 0.065 (downtrending), BNP 2190. CXR with
atelectasis vs pna. DVT study negative. ECG paced. Echo 05/09/24 was technically difficult with normal LV function, dilated RV with reduced function, cannot estimate R heart pressure. Overall, his hypoxic respiratory failure seems to be in proportion
to his known influenza A and pneumonia. I do not think there is a significant component of HF given his lack of LE edema, weight lowest it has ever been, and hypotension with diuresis. Elevated NTproBNP can be explained by CKD and acute illness. In
terms of RV dysfunction, there may be some component of PH due to acute pneumonia and/or obesity hypoventilation but there is no role for R heart catheterization as it will not jacquard loom card changer. He needs treatment of acute infection then can be
evaluated at a later time for PH. Agree with pulmonary that there is no need for further PE work-up as he has negative LE dopplers and a better alternate explanation for his respiratory failure. Cardiology will sign off. Please call with additional
questions or concerns.
Original Note:
Consultation
Consultation Request
Date/Time Consultation Requested: 05/11/24 2030
Date/Time Consultation Performed: 05/11/24 [id number]
Requesting Provider: Dr. Figueroa
Performing Provider: Saumya CAREY for Dr. Kincaid
Reason for Consultation: CAD, RV enlargment, question for RHC
Medical History
-
Chief Complaint: increased WOB, hypoxia per chart
History of Present Illness:
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
WOB and hypoxia noted at his NH. He has also had cough and fever. He is seen to have flu A and PNA. He was also felt to have acute HF at first due to elevated BNP, but developed hypotension with this and did not help hypoxia. Echo was TDS, but
showed evidence for RV dysfunction. Pulmonary is consulted. Patient is getting tamiflu and abx. He is a poor historian, but denies any CP or SOB at this time. HPI obtained from chart. He is in no distress at the time of my assessment.
Past Medical History
Past Medical History: Arrhythmias, CAD, HTN, Hypercholesterolemia and Other (s above)
Social History
Living: Intermediate
Family History
Family History: Reviewed & Not Pertinent
Allergies / Home Medications
Allergy/AdvReac Type Severity Reaction Status Date / Time
doxycycline monohydrate Allergy MIGRAINE Verified 05/07/24 23:28
[From Vibramycin]
Sulfa (Sulfonamide Allergy difficulty Verified 05/07/24 23:28
Antibiotics) breathing,
[Sulfa(Sulfonamide hives
Antibiotics)]
vancomycin Allergy dizziness,double Verified 05/07/24 23:28
vision
�Medication �Instructions �Recorded �Confirmed �Type
atorvastatin 80 mg tablet 40 mg PO QPM High Cholesterol 06/17/21 05/08/24 History
calcium carbonate 600 mg PO DAILY Supplement 06/17/21 05/08/24 History
baclofen 10 mg tablet 10 mg PO TID Muscle Spasms 09/26/22 05/08/24 History
aspirin 81 mg tablet,delayed 81 mg PO DAILY Blood Clot 10/12/23 05/08/24 History
release Prevention/Tx
rivastigmine tartrate 4.5 mg 4.5 mg PO BID memory/cognition 10/12/23 05/08/24 History
capsule
vitamin B complex 1 tab PO NOON Supplement 10/12/23 05/08/24 History
acetaminophen 325 mg tablet 650 mg PO Q6HPRN PRN mild 03/11/24 05/08/24 History
(Tylenol) pain/fever
albuterol sulfate 1.25 mg/3 mL 1.25 mg inhalation R BIDPRN PRN 03/11/24 05/08/24 History
solution for nebulization shortness of breath or wheezing
coenzyme Q10 100 mg-vitamin E 20 1 cap PO DAILY Supplement 03/26/24 05/08/24 History
mg-vitamin E mixed 15 mg capsule
milk thistle 150 mg capsule 300 mg PO HS Supplement 03/26/24 05/08/24 History
ferrous sulfate 325 mg (65 mg 325 mg PO DAILY anemia #30 tabs 03/30/24 05/08/24 Rx
iron) tablet
cholecalciferol (vitamin D3) 25 25 mcg PO DAILY #30 tabs 04/02/24 05/08/24 Rx
mcg (1,000 unit) tablet
docusate sodium 100 mg capsule 100 mg PO BID #60 caps 04/02/24 05/08/24 Rx
(Colace)
duloxetine 30 mg capsule,delayed 60 mg PO HS depression/anxiety 04/02/24 05/08/24 History
release
bisacodyl 10 mg rectal suppository 10 mg AK DAILYPRN PRN if no bm 04/20/24 05/08/24 History
(Dulcolax (bisacodyl)) aftr mom
cyanocobalamin (vitamin B-12) 1,000 mcg PO DAILY Supplement 04/20/24 05/08/24 History
1,000 mcg tablet
magnesium hydroxide 400 mg/5 mL 2,400 mg PO HSPRN PRN if no bm by 04/20/24 05/08/24 History
oral suspension (Milk of Magnesia) 3rd day
polyethylene glycol 3350 17 gram 17 g PO DAILYPRN PRN Constipation 04/20/24 05/08/24 History
oral powder packet (Miralax)
tamsulosin 0.4 mg capsule (Flomax) 0.4 mg PO BID Urinary Issue 04/20/24 05/08/24 History
metoprolol tartrate 25 mg tablet 25 mg PO BID 30 days #60 tabs 04/26/24 05/08/24 Rx
risperidone 0.25 mg tablet 0.25 mg PO Q6HPRN PRN agitation 04/26/24 05/08/24 Rx
#15 tabs
Review of Systems
-
Unable to obtain full review of systems at this time due to: Dementia
History Source: Other (chart)
Constitutional: Fever
Respiratory: Cough and Trouble Breathing
Physical Exam
Vital Signs
Temp Pulse Resp BP Pulse Ox
97.7 F 79 16 122/67 92
05/11/24 11:50 05/11/24 11:50 05/11/24 11:50 05/11/24 11:50 05/11/24 11:50
Lab Results
05/11/24 06:08
05/11/24 06:08
Troponin I 0.065 ng/ml H* 05/11/24 09:55
Nvr-Z-Wcofegpbdab Pept 2190 pg/ml 05/08/24 07:19
Physical Exam
General: Well Developed and No Apparent Distress
HEENT: Normocephalic and Anicteric
Respiratory: Wheezes, Rhonchi and Other (on O2 by NC)
Cardiac: Regular Rhythm
Musculoskeletal: No Edema
Skin: Warm
Neuro: Awake and Other (patient does not know where he is or why he is here, though I did tell him when I was in the room)
Impression / Plan
-
Acute hypoxemic respiratory failure:
-suspect related to flu A and PNA- he is on Tamiflu and Abx and O2 by NC
-primary team/pulm also looking into PE
-despite elevated NT-proBNP, he does not appear volume overloaded to my assessment- weight is lowest it's been in recent past, no edema. Lungs sound like wheezing and rhonchi, no rales. Lasix did not help and BP became low and required some IVF
back. I do not suspect CHF. There was question for RHC, but this would not be helpful or appropriate for this patient at this time.
Abnormal troponin:
-suspect acute, non-ischemic myocardial injury in setting of hypoxia
-trending down, so no need to continue to trend- will d/c
Presumed CAD (based on stress test):
-continue ASA and statin. On BB as OP.
Pacemaker:
-stable on monitor
HTN:
-stable
Data:
Echo 05/09/24: Very technically difficult study. In limited views normal LV size and function. LVEF is 55% by visual estimation. Possible apical hypokinesis. In limited views RV appears dilated with reduced systolic function. No significant valve
disease seen on limited echocardiogram. Right heart pressures could not be determined.
Data Reviewed
-
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
Radiology: Report Reviewed by me (Increased right parahilar airspace opacity which could be related to atelectasis or pneumonia.)
Medical Tests (Nuc Med, Echo etc): Report Reviewed by me (echo as above)
Labs: Labs Reviewed by me
--- NOTE | 2024-05-11 14:34 | W.PN.PUL3 ---
Today's Communication / Plan
-
Continue with current therapy
Wean off oxygen
Will not pursue thromboembolic event evaluation-less likely.
Will follow-up
Assessment
-
Patient is an 83-year-old male with previous history of hypertension, CVA left mid thyroid, heart block status post PPM, carotid stenosis status post CEA, frequent falls, dementia, [facility] from a [facility] for [facility]emia and coughing.
Found to have influenza positive. Hypoxemia started on Tamiflu and antibiotics. He also received diuretics. Due to persistent hypoxemia as well as RV dysfunction on echocardiogram we were consulted for evaluation.
Pt unable to provide history due to dementia. Confused at baseline.
Acute hypoxemic respiratory failure requiring 6 L- due to influenza A cannot rule out bacterial superinfection/aspiration pneumonitis.
Chest x-ray 05/08/2024: Left lower airspace consolidation. Possible right hilar fullness.
VB.35/52/58
Increased proBNP:2190
Echocardiogram 05/09/2024 --normal LVEF. 55%. Possible apical hypokinesis. Limited RV views-possible reduced systolic function. No significant valve abnormalities. Pacer wire in the right ventricle. Right heart pressures could not be
determined.
Acute kidney injury on CKD
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
History of ESBL UTI
Prior admission to the hospital 01/2024 heart failure cellulitis.
History of UTI (Aerococcus + 09/26/22, Morganella + 08/12/20, group D enterococcus 11/13/11)
Hypertension
Left Achilles Tear
Nephrolithiasis - Uric Acid (2016)
Large Left Inguinal Hernia s/p Open Inguinal Herniorrhaphy
Complete Heart Block-s/p PPM Placement, Medtronic, dual with 5086MRI leads 05/28/2012
Pacemaker pulse generator change, Medtronic, dual, model [id number] 06/17/2021
Hyperlipidemia
Carotid Stenosis s/p R CEA
CVA-Residual L Hemiparesis
Tonsillectomy
Left Orchiectomy
Left ureteroscopy 07/2013 and 08/2016
History of frequent falls
Dementia
Obesity BMI 31
Plan
Consulted for evaluation of hypoxemia in the setting of influenza A and possible aspiration pneumonia.
Echocardiogram performed due to increased proBNP and showed normal LVEF and possible RV dysfunction.
Whether there is pulm embolic disease or not it is not entirely clear.
-
He is currently on 2 L supplemental oxygen. Wean off as able.
-
High risk to receive contrast due to chronic kidney disease and acute kidney injury.
Developed hypotension after diuresis. Given her increased proBNP as above.
Unlikely to cooperate with VQ scan due to dementia/stroke.
Currently not tachycardic.
No JVD on exam
No shortness of breath with conversation. Able to speak in full sentences
Lower extremity Dopplers negative.
D-dimer elevated-likely in the setting of infection. Not reflective of ongoing thromboembolic disease.
Suspect some of the hypoxemia due to obesity and hypoventilatory changes. Patient is essentially bedbound.
Encourage incentive spirometry
-
Would not pursue thromboembolic event evaluation.
-
Continue ox supplementation to maintain pulse ox above 90%
Complete 7 days of Augmentin
Tamiflu
-
Part of her hypoxemia may be from subsegmental atelectasis due to immobility/morbid obesity.
RV dysfunction may be explained by hypoxemia from pneumonia as well.
proBNP may also be increased due to poor GFR of 45 chronically. Though, it is noted that is elevated compared to prior.
-
Will continue to follow.
-
Continue with current care as you are
Would not recommend thromboembolic event evaluation
Will follow
Hopefully discharge planning soon

Diagnostic Data
Chest X-Ray: 02/03/24- Trace bilateral pleural effusions with likely adjacent atelectasis.
Chest US 02/03/24- Trace right pleural effusion. Amount of fluid present not sufficient for safe thoracentesis.
09/08/22- Mild right perihilar pneumonia
07/01/22- No acute disease of the chest. Mild cardiomegaly. New.
CT Scan: AP 05/16/22- Lung Bases: Moderate changes of gravity dependent atelectasis. Lung bases otherwise clear. There is cardiomegaly.
Echo: 02/03/24- Normal left ventricular systolic function. Left ventricular ejection fraction is 55-60%. Apical septal hypokinesis. Compared to 10/13/23: no significant change was found.
PFT's:
Reports and relevant images were personally reviewed.
Subjective Data
-
Date of Service:
Date of Service: May 11, 2024
Chief Complaint: Pulmonary Follow Up (Mild hypoxemia)
Subjective:
Patient offers no pulmonary complaints
Underlying dementia-confused at baseline.
Review of Systems
General: Other (No reliable due to underlying dementia)
Objective Data
Data Reviewed
Vital Signs / I&O / Oxygen:
Vital Signs
Temp Pulse Resp BP Pulse Ox
97.7 F 79 16 122/67 92
05/11/24 11:50 05/11/24 11:50 05/11/24 11:50 05/11/24 11:50 05/11/24 11:50
Intake and Output
05/10/24 05/11/24 05/12/24
06:59 06:59 06:59
Intake Total 1670 / 1670 330 / 330
Balance 1670 / 1670 330 / 330
SaO2 92
Nasal Cannula flow liters per 4
minute
Physical Exam
General: Comfortable and Other (Speaks in full sentences, confused)
HEENT: Normocephalic
Cardiovascular: S1-S2
Respiratory: Non-Labored Respirations
GI: Soft and Distended (Obese-soft nontender)
Neurology: Awake, Alert, No Motor Deficits (Hemiparesis-chronic) and Other (Confused at baseline)
Skin: Warm
Labs/Micro/Reports
Lab Data
05/11/24 06:08
05/11/24 06:08
[2024-05-11] MEDS: ROBITUSSIN 300 MG PO ×2 (16:11→21:24)
[2024-05-11] MEDS: LIPITOR 40 MG PO (16:14)
[2024-05-11] MEDS: CYMBALTA DELAYED RELEASE 60 MG PO (21:22)
[2024-05-12] MEDS: DUONEB 3 ML INH ×5 (02:49→19:09)
[2024-05-12 03:00] VITALS: BP 136/66
[2024-05-12 04:06] VITALS: BMI 25.8
[2024-05-12 06:52] LABS: Hematocrit 28.8 % (39.0-52.0); Hemoglobin 9.5 g/dL (13.0-18.0); Mean Corpuscular Hgb 29.9 pg (27.0-31.0); Mean Corpuscular Volume 90.6 fL (80.0-94.0); Mean Platelet Volume 10.1 fL (7.4-10.4); Platelet Count 231 10^3/uL (130-400); Red Blood Cell Count 3.18 10^6/uL (4.70-6.10); Red Cell Dist. Width 13.4 % (11.5-14.5); White Blood Cell Count 4.5 10^3/uL (4.8-10.8)
[2024-05-12 07:58] VITALS: BP 126/64
[2024-05-12] MEDS: ASPIR LOW (ENTERIC COATED) 81 MG PO (08:26)
[2024-05-12] MEDS: LOPRESSOR 25 MG PO ×2 (08:26→21:32)
[2024-05-12] MEDS: EXELON 1.5 MG PO ×2 (08:27→21:36)
[2024-05-12] MEDS: COLACE 100 MG PO (08:27)
[2024-05-12] MEDS: AUGMENTIN 875 MG/125 MG 1 TABLET PO ×2 (08:28→21:30)
[2024-05-12] MEDS: LIORESAL 10 MG PO ×3 (08:28→21:36)
[2024-05-12] MEDS: ROBITUSSIN 300 MG PO ×4 (08:28→21:36)
[2024-05-12] MEDS: FEOSOL 325 MG PO (08:28)
[2024-05-12] MEDS: EXELON 3 MG PO ×2 (08:28→21:35)
[2024-05-12] MEDS: TAMIFLU 30 MG PO ×2 (08:28→21:30)
[2024-05-12] MEDS: VITAMIN D3 (cholecalciferol) 25 MCG PO (08:28)
[2024-05-12] MEDS: FLOMAX 0.4 MG PO ×2 (08:28→21:35)
[2024-05-12] MEDS: HEPARIN 5000 UNITS SC ×2 (08:31→21:37)
[2024-05-12] MEDS: OSCAL CAL 500 500 MG PO (08:33)
[2024-05-12 11:24] VITALS: BP 111/75
--- NOTE | 2024-05-12 15:03 | W.PN.PUL3 ---
Today's Communication / Plan
-
Continue with current plan as you are
Wean down oxygen as able
Encourage incentive spirometry-with underlying dementia not following instructions.
Hopefully discharge planning soon
Sign off
Assessment
-
Patient is an 83-year-old male with previous history of hypertension, CVA left mid thyroid, heart block status post PPM, carotid stenosis status post CEA, frequent falls, dementia, admitted from a intermediate facility for hypoxemia and coughing.
Found to have influenza positive. Hypoxemia started on Tamiflu and antibiotics. He also received diuretics. Due to persistent hypoxemia as well as RV dysfunction on echocardiogram we were consulted for evaluation.
Pt unable to provide history due to dementia. Confused at baseline.
Acute hypoxemic respiratory failure requiring 6 L- due to influenza A cannot rule out bacterial superinfection/aspiration pneumonitis.
Chest x-ray 05/08/2024: Left lower airspace consolidation. Possible right hilar fullness.
VB.35/52/58
Increased proBNP:2190
Echocardiogram 05/09/2024 --normal LVEF. 55%. Possible apical hypokinesis. Limited RV views-possible reduced systolic function. No significant valve abnormalities. Pacer wire in the right ventricle. Right heart pressures could not be
determined.
Acute kidney injury on CKD
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
History of ESBL UTI
Prior admission to the hospital 01/2024 heart failure cellulitis.
History of UTI (Aerococcus + 09/26/22, Morganella + 08/12/20, group D enterococcus 11/13/11)
Hypertension
Left Achilles Tear
Nephrolithiasis - Uric Acid (2016)
Large Left Inguinal Hernia s/p Open Inguinal Herniorrhaphy
Complete Heart Block-s/p PPM Placement, Medtronic, dual with 5086MRI leads 05/28/2012
Pacemaker pulse generator change, Medtronic, dual, model [id number] 06/17/2021
Hyperlipidemia
Carotid Stenosis s/p R CEA
CVA-Residual L Hemiparesis
Tonsillectomy
Left Orchiectomy
Left ureteroscopy 07/2013 and 08/2016
History of frequent falls
Dementia
Obesity BMI 31
Plan
Consulted for evaluation of hypoxemia in the setting of influenza A and possible aspiration pneumonia.
Echocardiogram performed due to increased proBNP and showed normal LVEF and possible RV dysfunction.
Whether there is pulm embolic disease or not it is not entirely clear.
-
Pulmonary status has not worsened.
remains on low rate supplemental oxygen.
High risk to receive contrast due to chronic kidney disease and acute kidney injury.
Developed hypotension after diuresis.
Diuresis given increased proBNP as above. Doubt any significant volume overload at this point.
Unlikely to cooperate with VQ scan due to dementia/stroke.
No significant tachycardia.
No distress at rest.
No JVD on exam
No shortness of breath with conversation. Able to speak in full sentences-baseline confused.
Lower extremity Dopplers negative.
D-dimer elevated-likely in the setting of infection. Not reflective of ongoing thromboembolic disease.
Suspect some of the hypoxemia due to obesity and hypoventilatory changes. Patient is essentially bedbound/flu pneumonitis.
Encourage incentive spirometry
-
Would not pursue thromboembolic event evaluation.
-
Continue ox supplementation to maintain pulse ox above 90%
Complete full course of Augmentin
Tamiflu
-
Part of her hypoxemia may be from subsegmental atelectasis due to immobility/morbid obesity.
RV dysfunction may be explained by hypoxemia from pneumonia as well.
proBNP may also be increased due to poor GFR of 45 chronically. Though, it is noted that is elevated compared to prior.
-
Will continue to follow.
-
Continue with current care as you are
Would not recommend thromboembolic event evaluation
Hopefully discharge planning soon
sign off

Diagnostic Data
Chest X-Ray: 02/03/24- Trace bilateral pleural effusions with likely adjacent atelectasis.
Chest US 02/03/24- Trace right pleural effusion. Amount of fluid present not sufficient for safe thoracentesis.
09/08/22- Mild right perihilar pneumonia
07/01/22- No acute disease of the chest. Mild cardiomegaly. New.
CT Scan: AP 05/16/22- Lung Bases: Moderate changes of gravity dependent atelectasis. Lung bases otherwise clear. There is cardiomegaly.
Echo: 02/03/24- Normal left ventricular systolic function. Left ventricular ejection fraction is 55-60%. Apical septal hypokinesis. Compared to 10/13/23: no significant change was found.
PFT's:
Reports and relevant images were personally reviewed.
Subjective Data
-
Date of Service:
Date of Service: May 12, 2024
Chief Complaint: Pulmonary Follow Up (Mild hypoxemia)
Subjective:
Patient offers no new complaints
Confused at baseline due to underlying dementia
Review of Systems
General: Fever (n)
Cardiopulmonary: Dyspnea (n)
Objective Data
Data Reviewed
Vital Signs / I&O / Oxygen:
Vital Signs
Temp Pulse Resp BP Pulse Ox
98.0 F 85 16 111/75 98
05/12/24 11:24 05/12/24 11:59 05/12/24 11:59 05/12/24 11:24 05/12/24 11:59
Intake and Output
05/11/24 05/12/24 05/13/24
06:59 06:59 06:59
Intake Total 330 / 330 480 / 480
Balance 330 / 330 480 / 480
SaO2 98
Nasal Cannula flow liters per 4
minute
Physical Exam
General: Comfortable and Other (Speaks in full sentences, confused)
HEENT: Normocephalic
Cardiovascular: S1-S2
Respiratory: Wheeze (Intermittent.) and Non-Labored Respirations
GI: Soft and Distended (Obese-soft nontender)
Neurology: Awake, Alert, No Motor Deficits (Hemiparesis-chronic) and Other (Confused at baseline)
Skin: Warm
Labs/Micro/Reports
Lab Data
05/12/24 06:33
05/11/24 06:08
[2024-05-12 15:28] VITALS: BP 134/64
[2024-05-12] MEDS: LIPITOR 40 MG PO (17:30)
--- NOTE | 2024-05-12 18:17 | W.PN.HOSP.TC ---
Today's Communication/Plan
-
Patient may need oxygen for discharge
Oxygen assessment tomorrow morning
Plan for SNF tomorrow
Assessment / Plan
Assessment / Plan
Physical Exam
General: No Apparent Distress
HEENT: Normocephalic
Respiratory: Rhonchi and Crackles
Cardiac: Regular Rhythm
GI: Soft, Nontender and Nondistended
Musculoskeletal: No Cyanosis. Edema, Right Lower Extrem and Edema, Left Lower Extrem
Neuro: Awake and Alert; Negative Oriented
Psych: Calm and Apparent Dementia
Assessment/Plan
84yo M with COPD, dementia, HFpEF, CAD, HLD, WINSTON, anxiety, BPH, Hx of PPM, R CEA, CVA with residual L sided weakness broguht from [facility] with hypoxia, found Influenza A and CHF
#Acute hypoxic hypercapnic respiratory failure 2/2 Influenza A and acute on chronic HFpEF exacerbation
#Cannot exclude aspiration pneumonia
#Suspected LLL pneumonia
#Sepsis POA
Secretions have improved
CKD stage 3a
Tamiflu
Stopped Lasix on 05/09/24 due to hypotension -- patient was receiving IV Lasix since 05/08/24, last dose was on 05/09/24 morning
Droplet precautions
Augmentin
Speech consulted -- okay for regular, thin liquids diet with aspiration precautions
Continue to monitor on telemetry
wean off O2 as able
#Hypotension with a little dizziness on 05/09/24 morning - RESOLVED
-SBP in the upper 70s to 80s morning of 05/09/24 after working with physical therapy, when he sat up in bed, remaining vital signs are stable and unremarkable as per patient's nurse, NSS 500 cc IV fluid bolus ordered
-Continue to monitor BP closely
-Stoped IV Lasix
-Checked echocardiogram, EKG, troponins, no concerns from cardio standpoint regarding RV systolic dysfunction
#RV reduced systolic function on echo
-Could be from pneumonia/hypoxemia
-With elevation in proBNP and hypoxia, consulted Pulm to assess for possible PE, cannot do CT Chest PE study given elevated creatinine
-Cannot do V/Q scan either
-Lower extremity ultrasound negative for DVT, D-Dimer
-No concerns for CHF/AK/PE from cardio and pulm standpoint, appreciate their evaluation
#Non ischemic myocardial injury
#Hypertension
#History of coronary artery disease
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
#BPH - Continue tamsulosin. Bladder scan protocol.
#WINSTON
#Hx of PPM
#History of right bundle branch block
#Anxiety d/o
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
#History of carotid disease, right carotid endarterectomy
watch for urinary retention
FOllow Hgb
cont home meds
# History scrotal hernia
DVT ppx on SCDs. Heparin subq.
Speech/Diet: 05/09/24: ok for regular, thin liquid diet w/ 1:1 supervision and assistance when awake/alert, meds crushed in puree. No signs of aspiration at this time. Video swallow 03/28/2024 without dysphagia/aspiration.
DNR/DNI
Anticipated Discharge: Within 24 hours
Subjective/Interval History
-
Date of Service: May 12, 2024
Patient was seen and examined. He denied any new complaints.
Objective Data
-
Labs:
Laboratory Results
05/12/24
06:33
WBC 4.5 L
Hgb 9.5 L
Hct 28.8 L
Plt Count 231
Vital Signs:
Vital Signs
Temp Pulse Resp BP Pulse Ox
97.9 F 71 18 134/64 90
05/12/24 15:28 05/12/24 15:58 05/12/24 15:58 05/12/24 15:28 05/12/24 15:58
I&O
05/11/24 05/12/24 05/13/24
06:59 06:59 06:59
Intake Total 330 / 330 480 / 480 480 / 480
Balance 330 / 330 480 / 480 480 / 480
[2024-05-12] MEDS: COLACE PO (21:30)
[2024-05-12] MEDS: CYMBALTA DELAYED RELEASE 60 MG PO (21:31)
[2024-05-12 23:47] VITALS: BP 136/64
[2024-05-13 06:00] VITALS: BMI 25.9
[2024-05-13] MEDS: DUONEB 3 ML INH ×4 (07:14→19:33)
[2024-05-13 07:47] VITALS: BP 144/79
[2024-05-13] MEDS: FEOSOL 325 MG PO (09:09)
[2024-05-13] MEDS: VITAMIN D3 (cholecalciferol) 25 MCG PO (09:09)
[2024-05-13] MEDS: OSCAL CAL 500 500 MG PO (09:09)
[2024-05-13] MEDS: COLACE 100 MG PO (09:09)
[2024-05-13] MEDS: EXELON 3 MG PO ×2 (09:10→21:16)
[2024-05-13] MEDS: LOPRESSOR 25 MG PO ×2 (09:10→21:16)
[2024-05-13] MEDS: FLOMAX 0.4 MG PO ×2 (09:10→21:17)
[2024-05-13] MEDS: EXELON 1.5 MG PO ×2 (09:10→21:18)
[2024-05-13] MEDS: LIORESAL 10 MG PO ×3 (09:10→21:17)
[2024-05-13] MEDS: AUGMENTIN 875 MG/125 MG 1 TABLET PO ×2 (09:11→21:14)
[2024-05-13] MEDS: ASPIR LOW (ENTERIC COATED) 81 MG PO (09:11)
[2024-05-13] MEDS: HEPARIN 5000 UNITS SC ×2 (09:11→21:33)
[2024-05-13] MEDS: ROBITUSSIN 300 MG PO ×4 (09:11→21:25)
[2024-05-13 09:13] LABS: Hematocrit 32.3 % (39.0-52.0); Hemoglobin 10.5 g/dL (13.0-18.0); Mean Corp Hgb Conc. 32.5 g/dL (33.0-37.0); Mean Corpuscular Hgb 29.5 pg (27.0-31.0); Mean Corpuscular Volume 90.7 fL (80.0-94.0); Platelet Count 237 10^3/uL (130-400); Red Blood Cell Count 3.56 10^6/uL (4.70-6.10); Red Cell Dist. Width 13.2 % (11.5-14.5); White Blood Cell Count 4.7 10^3/uL (4.8-10.8)
--- NOTE | 2024-05-13 13:19 | W.PN.HOSP.TC ---
Today's Communication/Plan
-
SNF auth pending
Please ensure patient does not take his oxygen off (assuming he needs oxygen) -- his nasal cannula oxygen was off this morning -- so this will have to be monitored closely
Assessment / Plan
Assessment / Plan
Physical Exam
General: No Apparent Distress
HEENT: Normocephalic
Respiratory: Rhonchi and Crackles
Cardiac: Regular Rhythm
GI: Soft, Nontender and Nondistended
Musculoskeletal: No Cyanosis. Edema, Right Lower Extrem and Edema, Left Lower Extrem
Neuro: Awake and Alert; Negative Oriented
Psych: Calm and Apparent Dementia
Assessment/Plan
84yo M with COPD, dementia, HFpEF, CAD, HLD, WINSTON, anxiety, BPH, Hx of PPM, R CEA, CVA with residual L sided weakness broguht from [facility] with hypoxia, found Influenza A and CHF
#Acute hypoxic hypercapnic respiratory failure 2/2 Influenza A and acute on chronic HFpEF exacerbation
#Cannot exclude aspiration pneumonia
#Suspected LLL pneumonia
#Sepsis POA
Secretions have improved
CKD stage 3a
Tamiflu
Stopped Lasix on 05/09/24 due to hypotension -- patient was receiving IV Lasix since 05/08/24, last dose was on 05/09/24 morning
Droplet precautions
Augmentin
Speech consulted -- okay for regular, thin liquids diet with aspiration precautions
Continue to monitor on telemetry
wean off O2 as able
#Hypotension with a little dizziness on 05/09/24 morning - RESOLVED
-SBP in the upper 70s to 80s morning of 05/09/24 after working with physical therapy, when he sat up in bed, remaining vital signs are stable and unremarkable as per patient's nurse, NSS 500 cc IV fluid bolus ordered
-Continue to monitor BP closely
-Stopped IV Lasix
-Checked echocardiogram, EKG, troponins, no concerns from cardio standpoint regarding RV systolic dysfunction
#RV reduced systolic function on echo
-Could be from pneumonia/hypoxemia
-With elevation in proBNP and hypoxia, consulted Pulm to assess for possible PE, cannot do CT Chest PE study given elevated creatinine
-Cannot do V/Q scan either
-Lower extremity ultrasound negative for DVT, D-Dimer
-No concerns for CHF/[place]/PE from cardio and pulm standpoint, appreciate their evaluation
#Non ischemic myocardial injury
#Hypertension
#History of coronary artery disease
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
#BPH - Continue tamsulosin. Bladder scan protocol.
#WINTSON
#Hx of PPM
#History of right bundle branch block
#Anxiety d/o
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
#History of carotid disease, right carotid endarterectomy
watch for urinary retention
FOllow Hgb
cont home meds
# History scrotal hernia
DVT ppx on SCDs. Heparin subq.
Speech/Diet: 05/09/24: ok for regular, thin liquid diet w/ 1:1 supervision and assistance when awake/alert, meds crushed in puree. No signs of aspiration at this time. Video swallow 03/28/2024 without dysphagia/aspiration.
DNR/DNI
Anticipated Discharge: 24 - 48 hours
Subjective/Interval History
-
Date of Service: May 13, 2024
Patient was seen and examined. He slid further down in the bed earlier and took off his oxygen. Otherwise was doing okay.
Objective Data
-
Labs:
Laboratory Results
05/13/24
08:29
WBC 4.7 L
Hgb 10.5 L
Hct 32.3 L
Plt Count 237
Vital Signs:
Vital Signs
Temp Pulse Resp BP Pulse Ox
97.7 F 88 16 144/79 94
05/13/24 07:47 05/13/24 11:22 05/13/24 11:22 05/13/24 07:47 05/13/24 11:22
I&O
05/12/24 05/13/24 05/14/24
06:59 06:59 06:59
Intake Total 480 / 480 480 / 480
Balance 480 / 480 480 / 480
[2024-05-13] MEDS: TYLENOL 650 MG PO (14:44)
[2024-05-13 14:45] VITALS: BP 141/79; PULSE 84; O2SAT 95
[2024-05-13 15:10] VITALS: BP 141/79
--- NOTE | 2024-05-13 15:20 | PTCARENOTE ---
patient reported pain (see MAR) in whole body, unable to rate pain level, administered PRN Tylenol, tolerating diet, no s/s of aspiration, turns with max assist x2, vss, at bedside, will continue to monitor.
[2024-05-13 15:45] VITALS: BP 141/79; PULSE 82; O2SAT 95
[2024-05-13] MEDS: RISPERDAL 0.25 MG PO (16:43)
--- NOTE | 2024-05-13 17:09 | CM ---
Patient to return to [facility] rehab.
Authorization obtained from [employer] at [facility]
Approved 5 days skilled rehab
Auth# [id number]
Start Date 05/14/24, LCD/NRD 05/18/24
Updates to P# [phone]
Auth called to [facility], left VM
Ambulance auth with [facility]
Authorization # [id number]
--- NOTE | 2024-05-13 17:14 | CM ---
Received notification that patient is cleared for discharge. Placed a call to Annette in admissions who confirmed that she can take patient tomorrow [facility] # For report [phone] and fax [phone]
supervisory air intercept controller obtaining auth from [employer]
Transfer and medical necessity will need to be provided to [facility] consultant if patient still cleared for discharge tomorrow.
Plan: Case management will continue to follow and assist with discharge planning. Back to [facility] tomorrow if still clear.
--- NOTE | 2024-05-13 17:45 | PTCARENOTE ---
patient asleep after Xanax
[2024-05-13] MEDS: LIPITOR 40 MG PO (18:48)
[2024-05-13] MEDS: CYMBALTA DELAYED RELEASE 60 MG PO (21:16)
[2024-05-13] MEDS: COLACE PO (21:20)
[2024-05-13 23:18] VITALS: BP 90/63
[2024-05-14] VITALS: BP 113/63
[2024-05-14 05:54] VITALS: BMI 26.1
[2024-05-14 07:00] VITALS: BP 153/83
[2024-05-14] MEDS: DUONEB 3 ML INH ×4 (07:19→19:34)
--- NOTE | 2024-05-14 07:21 | W.PN.HOSP.TC ---
Today's Communication/Plan
-
Awaiting SNF auth -- placement anticipated for Thursday05/16/24
Assessment / Plan
Assessment / Plan
Physical Exam
General: No Apparent Distress
HEENT: Normocephalic
Respiratory: Rhonchi and Crackles
Cardiac: Regular Rhythm
GI: Soft, Nontender and Nondistended
Musculoskeletal: No Cyanosis. Edema, Right Lower Extrem and Edema, Left Lower Extrem
Neuro: Awake and Alert; Negative Oriented
Psych: Calm and Apparent Dementia
Assessment/Plan
84yo M with COPD, dementia, HFpEF, CAD, HLD, WINSTON, anxiety, BPH, Hx of PPM, R CEA, CVA with residual L sided weakness broguht from [facility] with hypoxia, found Influenza A and CHF
#Acute hypoxic hypercapnic respiratory failure 2/2 Influenza A and acute on chronic HFpEF exacerbation
#Cannot exclude aspiration pneumonia
#Suspected LLL pneumonia
#Sepsis POA
Secretions have improved
CKD stage 3a
Tamiflu
Stopped Lasix on 05/09/24 due to hypotension -- patient was receiving IV Lasix since 05/08/24, last dose was on 05/09/24 morning
Droplet precautions
Augmentin
Speech consulted -- okay for regular, thin liquids diet with aspiration precautions
Continue to monitor on telemetry
wean off O2 as able
#Hypotension with a little dizziness on 05/09/24 morning - RESOLVED
-SBP in the upper 70s to 80s morning of 05/09/24 after working with physical therapy, when he sat up in bed, remaining vital signs are stable and unremarkable as per patient's nurse, NSS 500 cc IV fluid bolus ordered
-Continue to monitor BP closely
-Stopped IV Lasix
-Checked echocardiogram, EKG, troponins, no concerns from cardio standpoint regarding RV systolic dysfunction
#RV reduced systolic function on echo
-Could be from pneumonia/hypoxemia
-With elevation in proBNP and hypoxia, consulted Pulm to assess for possible PE, cannot do CT Chest PE study given elevated creatinine
-Cannot do V/Q scan either
-Lower extremity ultrasound negative for DVT, D-Dimer
-No concerns for CHF/[place]/PE from cardio and pulm standpoint, appreciate their evaluation
#Non ischemic myocardial injury
#Hypertension
#History of coronary artery disease
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
#BPH - Continue tamsulosin. Bladder scan protocol.
#WINSTON
#Hx of PPM
#History of right bundle branch block
#Anxiety d/o
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
#History of carotid disease, right carotid endarterectomy
watch for urinary retention
FOllow Hgb
cont home meds
# History scrotal hernia
DVT ppx on SCDs. Heparin subq.
Speech/Diet: 05/09/24: ok for regular, thin liquid diet w/ 1:1 supervision and assistance when awake/alert, meds crushed in puree. No signs of aspiration at this time. Video swallow 03/28/2024 without dysphagia/aspiration.
DNR/DNI
Anticipated Discharge: 24 - 48 hours
Subjective/Interval History
-
Date of Service: May 14, 2024
Patient was seen and examined. He was doing well, sitting in his bed and eating breakfast, no complaints this morning.
Objective Data
-
Vital Signs:
Vital Signs
Temp Pulse Resp BP Pulse Ox
99.3 F 77 18 113/63 98
05/13/24 23:18 05/13/24 23:18 05/13/24 23:18 05/14/24 00:00 05/13/24 23:18
I&O
05/13/24 05/14/24 05/15/24
06:59 06:59 06:59
Intake Total 480 / 480 240 / 240
Balance 480 / 480 240 / 240
[2024-05-14] MEDS: COLACE 100 MG PO ×2 (08:36→20:54)
[2024-05-14] MEDS: OSCAL CAL 500 500 MG PO (08:36)
[2024-05-14] MEDS: FEOSOL 325 MG PO (08:36)
[2024-05-14] MEDS: EXELON 3 MG PO ×2 (08:37→20:53)
[2024-05-14] MEDS: HEPARIN 5000 UNITS SC ×2 (08:37→20:54)
[2024-05-14] MEDS: LOPRESSOR 25 MG PO ×2 (08:37→20:53)
[2024-05-14] MEDS: FLOMAX 0.4 MG PO ×2 (08:37→20:54)
[2024-05-14] MEDS: VITAMIN D3 (cholecalciferol) 25 MCG PO (08:37)
[2024-05-14] MEDS: ASPIR LOW (ENTERIC COATED) 81 MG PO (08:37)
[2024-05-14] MEDS: ROBITUSSIN 300 MG PO ×4 (08:38→21:00)
[2024-05-14] MEDS: LIORESAL 10 MG PO ×3 (08:38→21:00)
[2024-05-14] MEDS: EXELON 1.5 MG PO ×2 (08:38→20:53)
[2024-05-14] MEDS: AUGMENTIN 875 MG/125 MG 1 TABLET PO (08:39)
--- NOTE | 2024-05-14 10:42 | CM ---
Patient from [facility] with Dx Influenza. O2 4L. Receiving Exelon, Risperdal. PT & OT; requires assist of 2, recommend skilled rehab.
Received phone call from [facility]; they will not accept this patient back for short term rehab because he was threatening to kill other patients there (roommates) and he had to be moved to another room ---> Dr Figueroa and nurse
Shayla made aware.
Spoke with patient's Sarah; made her aware that [facility] will not accept the patient back due to threatening to harm other patients. denies patient has had any agitation or threatening behaviors, and says he is sometimes confused and
sometimes not. Between the and sister patient is not left alone -24 hr care is provided for the patient at home (sister covers when is at work 3 days/week) and she would like him to return home after short term rehab. Sarah would like
the patient to go to [facility] or [facility] - she was made aware that we cannot get an answer from these facilities until Tuesday 05/16 about acceptance.
Plan follow up re; SNF responses on Thursday.
[2024-05-14 15:00] VITALS: BP 106/63
[2024-05-14] MEDS: LIPITOR 40 MG PO (17:58)
[2024-05-14] MEDS: CYMBALTA DELAYED RELEASE 60 MG PO (21:00)
[2024-05-14 23:00] VITALS: BP 122/65
[2024-05-15 06:00] VITALS: BMI 25.7
[2024-05-15] MEDS: RISPERDAL 0.25 MG PO (06:30)
[2024-05-15 07:00] VITALS: BP 100/45
--- NOTE | 2024-05-15 07:17 | W.PN.HOSP.TC ---
Today's Communication/Plan
-
Stable. SNF placement pending
Assessment / Plan
Assessment / Plan
Physical Exam
General: No Apparent Distress
HEENT: Normocephalic
Respiratory: Rhonchi and Crackles
Cardiac: S1 and S2. Regular Rate and Rhythm
GI: Soft, Nontender and Nondistended
Musculoskeletal: No Cyanosis. Edema, Right Lower Extrem and Edema, Left Lower Extrem
Neuro: Awake and Alert; Negative Oriented
Psych: Calm and Apparent Dementia
Assessment/Plan
84yo M with COPD, dementia, HFpEF, CAD, HLD, WINSTON, anxiety, BPH, Hx of PPM, R CEA, CVA with residual L sided weakness broguht from [facility] with hypoxia, found Influenza A and CHF
#Acute hypoxic hypercapnic respiratory failure 2/2 Influenza A and acute on chronic HFpEF exacerbation
#Cannot exclude aspiration pneumonia
#Suspected LLL pneumonia
#Sepsis POA
Secretions have improved
CKD stage 3a
Tamiflu
Stopped Lasix on 05/09/24 due to hypotension -- patient was receiving IV Lasix since 05/08/24, last dose was on 05/09/24 morning
Droplet precautions
Augmentin course completed
Speech consulted -- okay for regular, thin liquids diet with aspiration precautions
Continue to monitor on telemetry
wean off O2 as able -- today is down to 3 L
#Hypotension with a little dizziness on 05/09/24 morning - RESOLVED
-SBP in the upper 70s to 80s morning of 05/09/24 after working with physical therapy, when he sat up in bed, remaining vital signs are stable and unremarkable as per patient's nurse, NSS 500 cc IV fluid bolus ordered
-Continue to monitor BP closely
-Stopped IV Lasix
-Checked echocardiogram, EKG, troponins, no concerns from cardio standpoint regarding RV systolic dysfunction
#RV reduced systolic function on echo
-Could be from pneumonia/hypoxemia
-With elevation in proBNP and hypoxia, consulted Pulm to assess for possible PE, cannot do CT Chest PE study given elevated creatinine
-Cannot do V/Q scan either as per pulm
-Lower extremity ultrasound negative for DVT, D-Dimer
-No concerns for CHF/[place]/PE from cardio and pulm standpoint, appreciate their evaluation
#Non ischemic myocardial injury
#Hypertension
#History of coronary artery disease
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
#BPH - Continue tamsulosin. Bladder scan protocol.
#WINSTON
#Hx of PPM
#History of right bundle branch block
#Anxiety d/o
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
#History of carotid disease, right carotid endarterectomy
watch for urinary retention
FOllow Hgb
cont home meds
# History scrotal hernia
DVT ppx on SCDs. Heparin subq.
Speech/Diet: 05/09/24: ok for regular, thin liquid diet w/ 1:1 supervision and assistance when awake/alert, meds crushed in puree. No signs of aspiration at this time. Video swallow 03/28/2024 without dysphagia/aspiration.
DNR/DNI
Anticipated Discharge: 24 - 48 hours
Subjective/Interval History
-
Date of Service: May 15, 2024
Patient was seen and examined. He was eating breakfast this morning and reported no new symptoms.
Objective Data
-
Vital Signs:
Vital Signs
Temp Pulse Resp BP Pulse Ox
97.8 F 79 22 122/65 97
05/14/24 23:00 05/14/24 23:00 05/14/24 23:00 05/14/24 23:00 05/14/24 23:00
I&O
05/14/24 05/15/24 05/16/24
06:59 06:59 06:59
Intake Total 240 / 240 240 / 240
Balance 240 / 240 240 / 240
[2024-05-15] MEDS: DUONEB 3 ML INH ×4 (07:32→19:41)
[2024-05-15] MEDS: VITAMIN D3 (cholecalciferol) 25 MCG PO (07:52)
[2024-05-15] MEDS: FEOSOL 325 MG PO (07:52)
[2024-05-15] MEDS: EXELON 1.5 MG PO ×2 (07:52→22:04)
[2024-05-15] MEDS: COLACE 100 MG PO ×2 (07:52→22:04)
[2024-05-15] MEDS: ASPIR LOW (ENTERIC COATED) 81 MG PO (07:52)
[2024-05-15] MEDS: OSCAL CAL 500 500 MG PO (07:52)
[2024-05-15] MEDS: HEPARIN 5000 UNITS SC ×2 (07:53→22:05)
[2024-05-15] MEDS: LOPRESSOR 25 MG PO (07:53)
[2024-05-15] MEDS: LIORESAL 10 MG PO ×3 (07:53→22:04)
[2024-05-15] MEDS: ROBITUSSIN 300 MG PO ×4 (07:53→22:05)
[2024-05-15] MEDS: EXELON 3 MG PO ×2 (07:53→22:04)
[2024-05-15] MEDS: FLOMAX 0.4 MG PO ×2 (07:53→22:04)
[2024-05-15 15:00] VITALS: BP 108/67
[2024-05-15] MEDS: LIPITOR 40 MG PO (17:14)
[2024-05-15] MEDS: CYMBALTA DELAYED RELEASE 60 MG PO (22:04)
[2024-05-15] MEDS: LOPRESSOR PO (22:05)
[2024-05-15 23:09] VITALS: BP 101/60
[2024-05-16 04:14] VITALS: BMI 25.9
[2024-05-16] MEDS: DUONEB 3 ML INH ×4 (05:42→17:47)
[2024-05-16 07:44] VITALS: BP 110/58
[2024-05-16] MEDS: EXELON 1.5 MG PO ×2 (08:40→22:39)
[2024-05-16] MEDS: ROBITUSSIN 300 MG PO ×4 (08:41→22:39)
[2024-05-16] MEDS: HEPARIN 5000 UNITS SC ×2 (08:41→22:39)
[2024-05-16] MEDS: OSCAL CAL 500 500 MG PO (08:42)
[2024-05-16] MEDS: FEOSOL 325 MG PO (08:42)
[2024-05-16] MEDS: ASPIR LOW (ENTERIC COATED) 81 MG PO (08:42)
[2024-05-16] MEDS: EXELON 3 MG PO ×2 (08:42→22:38)
[2024-05-16] MEDS: VITAMIN D3 (cholecalciferol) 25 MCG PO (08:42)
[2024-05-16] MEDS: LIORESAL 10 MG PO ×3 (08:42→22:38)
[2024-05-16] MEDS: LOPRESSOR 25 MG PO ×2 (08:42→22:38)
[2024-05-16] MEDS: COLACE 100 MG PO ×2 (08:42→22:38)
[2024-05-16] MEDS: FLOMAX 0.4 MG PO ×2 (08:43→22:38)
--- NOTE | 2024-05-16 09:42 | W.PN.HOSP.TC ---
Today's Communication/Plan
-
Medically stable for d/c - CM aware
Assessment / Plan
Assessment / Plan
84yo M with COPD, dementia, HFpEF, CAD, HLD, WINSTON, anxiety, BPH, Hx of PPM, R CEA, CVA with residual L sided weakness broguht from [facility] with hypoxia, found Influenza A and CHF, completed diuresis with rapid volume correction. Pending
discharge to rehab
A.P:
#Acute hypoxic hypercapnic respiratory failure 2/2 Influenza A and acute on chronic HFpEF exacerbation
#Cannot exclude aspiration pneumonia
CKD stage 3a
Tamiflu
Completed diuretics
Echo with preserved EF
Droplet precautions
Unasyn completed
Pulm and Cardio evaluated, recommended to stop diuretics and no further thromboembolic w/u as LE doppler neg and patient will not cooperate with V/Q scan. Most likely hypoxemia 2/2 obesity and hypoventilation due to essentially bedbound status
Telemetry
wean off O2
follow [facility] with diuresis
#Advanced unspecified dementia
#BPH
#WINSTON
#Hx of PPM
#Anxiety d/o
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
watch for urinary retention
cont home meds
DVT ppx on hep
DNR/DNI
I have spent at least 37min reviewing chart, test results and providing direct patient care
Anticipated Discharge: Within 24 hours
Subjective/Interval History
-
Date of Service: May 16, 2024
Objective Data
-
Vital Signs:
Vital Signs
Temp Pulse Resp BP Pulse Ox
97 F 77 20 110/58 91
05/16/24 07:44 05/16/24 08:42 05/16/24 07:44 05/16/24 08:42 05/16/24 07:44
I&O
05/15/24 05/16/24 05/17/24
06:59 06:59 06:59
Intake Total 240 / 240 480 / 480
Balance 240 / 240 480 / 480
Review of Systems
-
Unable to obtain full review of systems at this time due to: Dementia
History Source: Patient and Family
Physical Exam
-
General: No Apparent Distress
HEENT: Normocephalic
Respiratory: Clear to Auscultation
Neuro: Awake and Alert
Psych: Calm and Apparent Dementia
[2024-05-16 15:05] VITALS: BP 97/53
--- NOTE | 2024-05-16 16:15 | CM ---
Reviewed [facility], [facility] accept when bed is available. Will call in am to determine what day admissions feels that they can accommodate as patient has been medically cleared for discharge.
Plan: Case management will continue to follow and assist with discharge planning. SNF when bed is found.
[2024-05-16] MEDS: LIPITOR 40 MG PO (17:57)
[2024-05-16] MEDS: CYMBALTA DELAYED RELEASE 60 MG PO (22:38)
[2024-05-16 23:00] VITALS: BP 121/64
[2024-05-17] MEDS: RISPERDAL 0.25 MG PO (04:15)
[2024-05-17 06:00] VITALS: BMI 26.0
[2024-05-17] MEDS: DUONEB 3 ML INH ×4 (07:33→19:39)
[2024-05-17 07:38] VITALS: BP 110/62
[2024-05-17] MEDS: FEOSOL 325 MG PO (08:54)
[2024-05-17] MEDS: EXELON 1.5 MG PO ×2 (08:54→21:58)
[2024-05-17] MEDS: VITAMIN D3 (cholecalciferol) 25 MCG PO (08:54)
[2024-05-17] MEDS: LIORESAL 10 MG PO ×3 (08:54→21:56)
[2024-05-17] MEDS: ROBITUSSIN 300 MG PO ×4 (08:54→21:55)
[2024-05-17] MEDS: FLOMAX 0.4 MG PO ×2 (08:55→21:59)
[2024-05-17] MEDS: COLACE 100 MG PO (08:55)
[2024-05-17] MEDS: LOPRESSOR 25 MG PO ×2 (08:55→22:02)
[2024-05-17] MEDS: OSCAL CAL 500 500 MG PO (08:55)
[2024-05-17] MEDS: EXELON 3 MG PO ×2 (08:56→22:02)
[2024-05-17] MEDS: HEPARIN 5000 UNITS SC ×2 (08:56→22:03)
--- NOTE | 2024-05-17 11:10 | W.PN.HOSP.TC ---
Today's Communication/Plan
-
remains medially stable for d/c -awaiting CM to establish
Wean off O2
Assessment / Plan
Assessment / Plan
84yo M with COPD, dementia, HFpEF, CAD, HLD, WINSTON, anxiety, BPH, Hx of PPM, R CEA, CVA with residual L sided weakness broguht from [facility] with hypoxia, found Influenza A and CHF, completed diuresis with rapid volume correction. Pending
discharge to rehab
A.P:
#Acute hypoxic hypercapnic respiratory failure 2/2 Influenza A and acute on chronic HFpEF exacerbation
#Cannot exclude aspiration pneumonia
CKD stage 3a
Tamiflu
Completed diuretics
Echo with preserved EF
Droplet precautions
Unasyn completed
Pulm and Cardio evaluated, recommended to stop diuretics and no further thromboembolic w/u as LE doppler neg and patient will not cooperate with V/Q scan. Most likely hypoxemia 2/2 obesity and hypoventilation due to essentially bedbound status
Telemetry
wean off O2
follow [facility] with diuresis
#Advanced unspecified dementia
#BPH
#WINSTON
#Hx of PPM
#Anxiety d/o
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
watch for urinary retention
cont home meds
DVT ppx on hep
DNR/DNI
I have spent at least 37min reviewing chart, test results and providing direct patient care
Anticipated Discharge: 24 - 48 hours
Subjective/Interval History
-
Date of Service: May 17, 2024
Objective Data
-
Vital Signs:
Vital Signs
Temp Pulse Resp BP Pulse Ox
98.5 F 91 16 110/62 94
05/17/24 07:38 05/17/24 07:38 05/17/24 07:38 05/17/24 07:38 05/17/24 09:21
I&O
05/16/24 05/17/24 05/18/24
06:59 06:59 06:59
Intake Total 480 / 480 340 / 340
Balance 480 / 480 340 / 340
Review of Systems
-
Unable to obtain full review of systems at this time due to: Dementia
History Source: Patient
Physical Exam
-
General: No Apparent Distress
HEENT: Normocephalic
Neuro: Awake and Alert
Psych: Calm
[2024-05-17] MEDS: ASPIR LOW (ENTERIC COATED) 81 MG PO (12:23)
--- NOTE | 2024-05-17 15:00 | PN.CDI ---
CDI
- -
CDI:
Physician Documentation Request
Admit Date: 05/08/24 02:27
Dear Doctor Joaquim,
Please review the following and provide your response in the progress notes.
Clinical Indicators:
Selected Entries
Nurses' Assessment, 05/08
05/08/24
20:00
Pressure injury stage [Present on admission Bilateral Buttock] Stage 1
Physician documentation of the type and location of wounds is required for compliant documentation. Based on the above clinical findings and your assessment, please provide the following in your progress note:
Yes, stage 1 pressure injury, bilateral buttock, POA
No, stage 1 pressure injury, bilateral buttock
Other(please specify)
Location of the ulcer/wound, including laterality.
Type (etiology) of ulcer/wound:
- Diabetic ulcer
- Arterial (ischemic) ulcer
- Traumatic wound
- Venous stasis ulcer
- Pressure (decubitus) ulcer
For a pressure ulcer, please also include the stage* of the ulcer:
- Stage 1 - Skin intact, non-blanchable redness
- Stage 2 - Partial thickness loss of dermis, includes intact or open blister
- Stage 3 - Full thickness tissue not including bone, tendon or muscle
- Stage 4 - Full thickness tissue loss, including exposed bone, tendon or muscle
Use of terms such as suspected, likely, concern for, or probable (associated with a specific diagnosis that is being evaluated, monitored, or treated as if it exists) are acceptable and can be coded in the inpatient setting, when documented at the
time of discharge.
Thank you,
Caridad Anderson RN BSN CCDS
CDI Specialist
please contact via tiger text
Please use your independent medical judgment in providing your response.
*Source: National Pressure Ulcer Advisory Panel (NPUAP)
[2024-05-17 15:10] VITALS: BP 117/49
--- NOTE | 2024-05-17 15:54 | CM ---
Addendum entered by RAYMOND Bernal 05/17/24 16:30:
Spoke with patient's who is [facility]able [facility] and [facility].
Original Note:
Placed a call to [facility] and spoke with Saumya who stated that she does not have a bed for patient. [facility] and [facility] also do not have beds for patient. Placed a call to patient's to determine alternate facilities. Had to leave a voice mail
message. Will make referrals to other facilities in [facility] as they will be close to facilities requested.
Plan: Case management will continue to follow and assist with discharge planning. Discharge upon available bed at SNF and auth.
[2024-05-17 15:55] VITALS: BP 115/57; PULSE 74; O2SAT 91
[2024-05-17 16:21] VITALS: BP 115/57; PULSE 74; O2SAT 91
[2024-05-17] MEDS: LIPITOR 40 MG PO (17:28)
[2024-05-17] MEDS: COLACE PO (21:55)
[2024-05-17] MEDS: CYMBALTA DELAYED RELEASE 60 MG PO (21:57)
[2024-05-17 23:00] VITALS: BP 107/55
[2024-05-18 04:01] VITALS: BMI 25.9
[2024-05-18] MEDS: DUONEB 3 ML INH ×4 (07:42→19:46)
[2024-05-18 07:50] VITALS: BP 92/51
--- NOTE | 2024-05-18 08:10 | RESPNOTE ---
attempt patient on RA. SpO2 86% RA after O2 off.
Started patient at 1L O2, SpO2 only 88% after 2 min, increased to 2L.
SpO2 to 90% within 2 minutes, on 2L O2.
[2024-05-18] MEDS: LIORESAL 10 MG PO ×2 (08:27→17:53)
[2024-05-18] MEDS: OSCAL CAL 500 500 MG PO (08:27)
[2024-05-18] MEDS: EXELON 1.5 MG PO ×2 (08:27→20:12)
[2024-05-18] MEDS: FEOSOL 325 MG PO (08:27)
[2024-05-18] MEDS: FLOMAX 0.4 MG PO ×2 (08:27→20:11)
[2024-05-18 08:30] VITALS: BP 96/54
[2024-05-18] MEDS: EXELON 3 MG PO ×2 (08:37→20:12)
[2024-05-18] MEDS: COLACE 100 MG PO (08:37)
[2024-05-18] MEDS: ASPIR LOW (ENTERIC COATED) 81 MG PO (08:37)
[2024-05-18] MEDS: VITAMIN D3 (cholecalciferol) 25 MCG PO (08:37)
[2024-05-18] MEDS: HEPARIN 5000 UNITS SC ×2 (08:38→20:09)
[2024-05-18] MEDS: ROBITUSSIN 300 MG PO ×3 (08:39→17:51)
[2024-05-18] MEDS: LOPRESSOR PO (08:45)
--- NOTE | 2024-05-18 11:14 | W.PN.HOSP.TC ---
Addendum entered and electronically signed by Caleb March MD 05/18/24 15:53:
Mild leukopenia
Follow with CBC in 1-2 weeks
Addendum entered and electronically signed by Caleb March MD 05/18/24 11:20:
#stage 1 pressure injury, bilateral buttock
wound care
Original Note:
Today's Communication/Plan
-
added ICS
medically stable for d/c
Assessment / Plan
Assessment / Plan
84yo M with COPD, dementia, HFpEF, CAD, HLD, WINSTON, anxiety, BPH, Hx of PPM, R CEA, CVA with residual L sided weakness broguht from [facility] with hypoxia, found Influenza A and CHF, completed diuresis with rapid volume correction. Pending
discharge to rehab
A.P:
#Acute hypoxic hypercapnic respiratory failure 2/2 Influenza A and acute on chronic HFpEF exacerbation
#Cannot exclude aspiration pneumonia
#COPD, without exacerbation
Bronchodilators, ICS
CKD stage 3a
Tamiflu
Completed diuretics
Echo with preserved EF
Droplet precautions
Unasyn completed
Pulm and Cardio evaluated, recommended to stop diuretics and no further thromboembolic w/u as LE doppler neg and patient will not cooperate with V/Q scan. Most likely hypoxemia 2/2 obesity and hypoventilation due to essentially bedbound status
Telemetry
wean off O2
follow [facility] with diuresis
#Advanced unspecified dementia
#BPH
#WINSTON
#Hx of PPM
#Anxiety d/o
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
watch for urinary retention
cont home meds
DVT ppx on hep
DNR/DNI
I have spent at least 37min reviewing chart, test results and providing direct patient care
Anticipated Discharge: Within 24 hours
Subjective/Interval History
-
Date of Service: May 18, 2024
Objective Data
-
Vital Signs:
Vital Signs
Temp Pulse Resp BP Pulse Ox
97.9 F 83 17 96/54 86
05/18/24 07:50 05/18/24 08:45 05/18/24 07:50 05/18/24 08:45 05/18/24 08:10
I&O
05/17/24 05/18/24 05/19/24
06:59 06:59 06:59
Intake Total 990 / 990
Balance 990 / 990
Review of Systems
-
Unable to obtain full review of systems at this time due to: Dementia
History Source: Patient
Physical Exam
-
General: No Apparent Distress
HEENT: Normocephalic
Respiratory: Wheezes
Cardiac: Regular Rhythm
GI: Soft, Nontender and Nondistended
Musculoskeletal: No Clubbing, No Cyanosis and No Edema
Neuro: Awake, Alert, Oriented and AO x 3
Psych: Calm
--- NOTE | 2024-05-18 11:32 | CM ---
Addendum entered by RAYMOND Bernal 05/18/24 16:16:
Spoke with patient's Sarah who is agreeable to transfer to [facility].
auth obtained
Spoke with Aidee in admissions who stated that # for report is [phone] and
Medical necessity and transfer completed.
IMM reviewed, signed and on chart.
Addendum entered by RAYMOND Bernal 05/18/24 12:29:
Aidee confirmed that she has a bed for patient # for [facility] [phone] Dr. Mcnamara [phone]
Original Note:
Received notification that patient is still medically cleared for discharge. Spoke with spouse who stated that she feels that patient would do better in private room. She requested that referral be sent to [facility]. Sent referral for review. Per
[facility] is able to be able to provide a bed.
Placed a call to Aidee in admissions to confirm that she can take patient today. Left voice mail message. Rested NPI numbers for authorization.
Will f/u with Aidee again in no return call has been received soon.
Plan: Case management will continue to follow and assist with discharge planning. Hopeful acceptance at [facility] once verification can be obtained about bed availability.
[2024-05-18] MEDS: PULMICORT INH (12:11)
[2024-05-18 15:00] VITALS: BP 108/56
--- NOTE | 2024-05-18 15:01 | CM ---
Authorization for skilled rehab initiated with Yaa from [facility]
Approved skilled rehab 6 days
Auth # [id number]
Start date 05/18/24, LCD and NRD 05/14/24
Updates to P# [phone]
Ambulance auth with Acute care
Auth# [id number]
A
--- NOTE | 2024-05-18 15:26 | PTCARENOTE ---
student nurse inadvertently documented vitals on wrong patient
--- NOTE | 2024-05-18 15:51 | W.DCSUMMARY ---
Discharge Summary
Discharge Data
Date of Admission: 05/08/24
Date of Discharge: 05/18/24
-
Pending Results: No
Hospital Course
84yo M with COPD, dementia, HFpEF, CAD, HLD, WINSTON, anxiety, BPH, Hx of PPM, R CEA, CVA with residual L sided weakness broguht from [facility] with hypoxia, found Influenza A and CHF, completed diuresis with rapid volume correction. Remained mildly
hypoxic, so continued on low O2. Medically stable for d/c
I have spent at least 37min reviewing chart, test results and providing direct patient care
Patient was managed for:
#Acute hypoxic hypercapnic respiratory failure 2/2 Influenza A and acute on chronic HFpEF exacerbation
#Cannot exclude aspiration pneumonia
#COPD, without exacerbation
#Advanced unspecified dementia
#BPH
#WINSTON
#Hx of PPM
#Anxiety d/o
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
Discharge Plan
-
Patient Disposition: [facility]/SNF
Discharge Diagnosis/Procedures: Influenza A
Diet: Low Sodium
Activity: As tolerated
Driving Restrictions: As prior to admission
Referrals:
Demetria Parsons PA-C [Family Provider] -
Prescriptions:
New
budesonide 0.5 mg/2 mL Suspension For Nebulization
0.5 mg inhalation R BID Qty: 60 0RF
Continued
calcium carbonate 600 MG tablet
600 mg PO DAILY
baclofen 10 MG tablet
10 mg PO TID
aspirin 81 mg Tablet,Delayed Release (Dr/Ec)
81 mg PO DAILY
vitamin B complex Tablet
1 tab PO NOON
rivastigmine tartrate 4.5 mg Capsule
4.5 mg PO BID
acetaminophen [Tylenol] 325 mg Tablet
650 mg PO Q6HPRN PRN (Reason: mild pain/fever)
albuterol sulfate 1.25 mg/3 mL solution for nebulization
1.25 mg inhalation R BIDPRN PRN (Reason: shortness of breath or wheezing)
milk thistle 150 mg Capsule
300 mg PO HS
coenzyme Q10-vit E-vit E mixed 100-20-15 mg Capsule
1 cap PO DAILY
ferrous sulfate 325 mg (65 mg iron) tablet
325 mg PO DAILY Qty: 30 0RF
docusate sodium [Colace] 100 mg capsule
100 mg PO BID Qty: 60 0RF
Rx Instructions:
Hold if diarrhea or regular bowel movements
cholecalciferol (vitamin D3) 25 mcg (1,000 unit) Tablet
25 mcg PO DAILY Qty: 30 0RF
duloxetine 30 mg Capsule,Delayed Release(Dr/Ec)
60 mg PO HS
cyanocobalamin (vitamin B-12) 1,000 mcg Tablet
1,000 mcg PO DAILY
magnesium hydroxide [Milk of Magnesia] 400 mg/5 mL Suspension
2,400 mg PO HSPRN PRN (Reason: if no bm by 3rd day)
tamsulosin [Flomax] 0.4 mg Capsule
0.4 mg PO BID
bisacodyl [Dulcolax (bisacodyl)] 10 mg Suppository
10 mg [place] DAILYPRN PRN (Reason: if no bm aftr mom)
polyethylene glycol 3350 [Miralax] 17 gram powder in packet
17 g PO DAILYPRN PRN (Reason: Constipation)
risperidone 0.25 mg Tablet
0.25 mg PO Q6HPRN PRN (Reason: agitation) Qty: 15 0RF
metoprolol tartrate 25 mg Tablet
25 mg PO BID 30 Days Qty: 60 0RF
atorvastatin 40 mg Tablet
40 mg PO HS
Discharge Orders:
Discharge Patient (As Directed); Ordered 05/18/24
Ordered By: Caleb March
Discharge Date and Time
Print Language: TAMAZIGHT
[2024-05-18] MEDS: LIPITOR 40 MG PO (17:52)
--- NOTE | 2024-05-18 18:39 | PTCARENOTE ---
Pt scheduled to leave @2100. No IV or telemetry. Discharge paperwork completed and sent to [facility]. Report called to Cesar. VS to be completed prior to d/c. Will pass on to next RN.
[2024-05-18] MEDS: PULMICORT 0.5 MG INH (19:46)
[2024-05-18 20:07] VITALS: BP 110/60
[2024-05-18] MEDS: LOPRESSOR 25 MG PO (20:12)
[2024-05-18] MEDS: COLACE PO (20:19)
== END 2024-05-18 20:40 | DRG 871 ==
LOC: 3 WEST ACU 02:27
PROVIDERS: Hospitalist; ADMITTING PHYSICIAN Hospitalist; ATTENDING PHYSICIAN Internal Medicine; CONSULT PHYSICIAN Internal Medicine Critical Care Medicine; CONSULT PHYSICIAN Student in an Organized Health Care Education/Training Program; EMERGENCY PHYSICIAN Emergency Medicine; FAMILY PHYSICIAN Physician Assistant
DX: A41.9 Sepsis, unspecified organism (principal); I50.33 Acute on chronic diastolic (congestive) heart failure; J10.00 Influenza due to other identified influenza virus with unspecified type of pneumonia; J96.01 Acute respiratory failure with hypoxia; J69.0 Pneumonitis due to inhalation of food and vomit; J44.0 Chronic obstructive pulmonary disease with (acute) lower respiratory infection; F03.918 Unspecified dementia, unspecified severity, with other behavioral disturbance; I69.354 Hemiplegia and hemiparesis following cerebral infarction affecting left non-dominant side; N39.0 Urinary tract infection, site not specified; Z16.12 Extended spectrum beta lactamase (ESBL) resistance; N17.9 Acute kidney failure, unspecified; I13.0 Hypertensive heart and chronic kidney disease with heart failure and stage 1 through stage 4 chronic kidney disease, or unspecified chronic kidney disease; F03.94 Unspecified dementia, unspecified severity, with anxiety; F03.93 Unspecified dementia, unspecified severity, with mood disturbance; I5A Non-ischemic myocardial injury (non-traumatic); J98.11 Atelectasis; J10.1 Influenza due to other identified influenza virus with other respiratory manifestations; Z87.440 Personal history of urinary (tract) infections; B96.20 Unspecified Escherichia coli [E. coli] as the cause of diseases classified elsewhere; D63.1 Anemia in chronic kidney disease; I25.10 Atherosclerotic heart disease of native coronary artery without angina pectoris; N40.0 Benign prostatic hyperplasia without lower urinary tract symptoms; Z66 Do not resuscitate; Z68.31 Body mass index [BMI] 31.0-31.9, adult; E66.9 Obesity, unspecified; N18.31 Chronic kidney disease, stage 3a; L89.321 Pressure ulcer of left buttock, stage 1; L89.311 Pressure ulcer of right buttock, stage 1; Z11.52 Encounter for screening for COVID-19
CPT/HCPCS: 71046; 80048; 80053; 82805; 83605; 83735; 83880; 84145; 84484; 85014; 85018; 85025; 85027; 85379; 87502; 87811; 92610; 93005; 93306; 93970; 94640; 96361; 96374; 97110; 97163; 97167; 97530; 97535; 99291; Q9950

== ENCOUNTER 2024-09-07 09:42 | Emergency (ER) | payer BC, MEDICARE, SELFPAY ==
[2024-09-07 09:47] VITALS: BP 154/75
[2024-09-07 10:00] VITALS: BP 153/81
--- NOTE | 2024-09-07 10:05 | ED.GENMED ---
Addendum entered and electronically signed by Basil Rudolph PA-C 09/09/24 11:40:
called as she reviewed urine culture. It does not appear patient was contacted about this. Culture is positive with ESBL E. coli resistant to many oral antibiotic regimens including cefdinir which was previously prescribed. Patient still
with change in mental status and therefore I recommended patient to return for IV antibiotics and further evaluation.
Original Note:
History of Present Illness
General
Chief Complaint: Breathing Problem
Source: spouse
Exam Limitations: dementia
Time Seen by Provider: 09/07/24 09:46
History of Present Illness
History of Present Illness:
Per the patient's spouse he complained of some increased shortness of breath this morning. Seem to cough and improved some. She also has noted some mental status change in the last 48 hours. Seems more confused. Patient is unsure why he is here
and has no specific complaints
Past History
Past History
ED Past Medical History: CVA (Left sided weakness, right parietal stroke in 2012), HTN, Hypercholesterolemia, Other (Renal calculus, UTi, Scrotal hernia, Cellulitis) and Other (Dementia)
ED Past Surgical History: Cardiac (pacemaker, RBBB), Tonsilectomy (and adnoids), Urological (Kidney stones) and Other (Right carotid endarterectomy herniorrhaphy, left orchiectomy)
Social History
Tobacco: Non-smoker
Alcohol: None
Drug: None
Personal:
Living: other (Rehab facility)
Employment: Retired
Family History
Family History: Hypertension
Review of Systems
Review of Systems
Unable to obtain full review of systems at this time due to: dementia
All Other Systems: Not applicable
Phy Exam
Physical Exam
Physical Exam:
GENERAL: Alert and oriented in no apparent distress
EYE: Orbits normal.
NECK: Supple, no significant adenopathy.
ENT: Pharynx without erythema
CARDIAC: Regular rate and rhythm without any obvious murmurs.
LUNGS: No respiratory distress. A few expiratory rhonchi at times. No rales. No wheezing
ABDOMEN: Soft, without focal tenderness or distention. Reducible periumbilical hernia
NEUROLOGICAL: Alert and oriented x 1, grossly non-focal
SKIN: Warm and dry, no rash or lesion, no discoloration, skin intact.
MUSCULOSKELETAL: No edema,no deformity.Good color
PSYCH: Normal and appropriate interaction.
Scores
Heart Failure Risk
Heart Failure Risk Score: Not Applicable
Course
Orders/Labs/Results
Orders:
Orders
09/07/24 09:52
EKG [Electrocardiogram (*1)] Urgent
Reason for Study: Shortness of Breath
EKG- Treatment ONCE
09/07/24 09:59
Cardiac Monitoring- Treatment ONCE
IV Insert/Care/Rem.- Treatment PRN
CXR2 [CR Chest - 2 Views ] Urgent
Comment:
Reason For Exam: sob
09/07/24 10:06
CT Head W/o Iv Contrast Urgent
Comment:
Reason For Exam: Change in mental status
09/07/24 10:08
Basic Metabolic Panel Urgent
COVID-19 Antigen Urgent
Source: Nasal Swab
Complete Blood Count/With Diff Urgent
NT-proBNP Urgent
Troponin I Urgent
Influenza A+B Rapid Molecular Urgent
VIKI Source: Nasal Swab
Specimen Description:
09/07/24 10:47
Urinalysis Reflex To Culture Urgent
Date Specimen was Collected: 09/07/24
Time Specimen was Collected: 10:25
Urine Microscopic Reflex Cult Urgent
Urine Culture Urgent
VIKI Source: U
Specimen Description:
Date Specimen was Collected: 09/07/24
Time Specimen was Collected: 10:25
09/07/24 12:32
CefTRIAXone [Rocephin] 1,000 mg IV NOW STA
Abnormal Lab Results
09/07/24 09/07/24
10:08 10:47
RBC 3.88 L 10^6/uL
(4.70-6.10)
Hgb 11.8 L g/dL
(13.0-18.0)
Hct 36.9 L %
(39.0-52.0)
MCV 95.1 H fL
(80.0-94.0)
MCHC 32.0 L g/dL
(33.0-37.0)
Absolute Monos (auto) 0.8 H 10^3/uL
(0.1-0.6)
Lymphocytes % 14.6 L %
(20.5-51.1)
Carbon Dioxide 31 H mmol/L
(22-30)
BUN 31 H mg/dl
(9-20)
Creatinine 1.4 H mg/dL
(0.7-1.3)
Glucose 153 H mg/dl
(70-99)
Troponin I 0.050 H* ng/ml
Ur Occult Blood Reflex 2+ A
(Negative)
Leukocyte Esterase Rfl 3+ A
(Negative)
Urine WBC (Reflex) >100 A /HPF
(0-5)
Urine Bacteria (Reflex) Moderate A
(Negative)
Urine Albumin (Reflex) 2+ A
(Neg - Trace)
09/07/24 10:08
09/07/24 10:08
Vital Signs
Initial and Last Documented VS:
Initial Vital Signs
Temp Pulse Resp BP Pulse Ox
97.7 F 62 22 154/75 96
09/07/24 09:47 09/07/24 09:47 09/07/24 09:47 09/07/24 09:47 09/07/24 09:47
Last Documented Vital Signs
Temp Pulse Resp BP Pulse Ox
97.7 F 61 21 153/81 96
09/07/24 09:47 09/07/24 10:01 09/07/24 10:01 09/07/24 10:00 09/07/24 10:06
MDM/Problems Addressed
Differential Diagnosis Includes:
Patient with transient shortness of breath. Clinically stable. Evaluate for cardiac or pulmonary etiology. Mild change in mental status likely related to his dementia. We will scan his head check a urine check electrolytes for any metabolic
encephalopathy. Workup in progress
*Radiology
Radiology exam reviewed: radiology read reviewed (No acute findings. Negative head CT)
*Pulse Oximetry
SaO2: 96
Nasal Cannula flow liters per minute: 2
Patient hypoxic: no
*EKG
Interpreted by ED Provider?: Yes
Interpretation: abnormal
Comparison EKG: changes noted
Heart Rate: 66
Rate: normal
Rhythm: other (Atrial sensed/ventricular paced)
*Rehabilitation Construction Specialist Interpretation
Rate: normal
Interpretation: normal
Heart Rate: 65
Rhythm: other (Atrial sensed/ventricular paced)
*Critical Care Note
Total Time (30-74mins, 75-104mins- exclusive of procedures): Not Applicable
Data Reviewed
Review of Other/Old Records Reveals: Labs, Records, Radiology Studies and Discharge Summary
Update Note
Update Note:
Patient has remained stable and nontoxic. Workup stable except for a positive urine. Troponin slightly above normal but historically has run in this range with no acute EKG changes and asymptomatic at this time. Feel repeat troponin testing is
not necessary. Discussed inpatient versus outpatient management. Medically comfortable with outpatient management, as is his
ED Attending Note
-
Portions of this chart may have been created with voice recognition software.� Occasional wrong word or��sound alike� substitutions may have occurred due to the inherent limitations of voice recognition software.
Discharge Plan
Departure
Patient Disposition: Home (Routine Discharge)
Date of Disposition: 09/07/24
Time of Disposition: 12:34
Patient with high blood pressure during this ER visit?: Yes
Discharge Problem:
Transient dyspnea, Chronic mild renal insufficiency, UTI
Instructions: Urinary tract infections in adults, Shortness of Breath (Dyspnea) (DC), BLOOD PRESSURE
Prescriptions:
New
cefdinir 300 mg capsule
300 mg PO BID 7 Days Qty: 14 0RF
No Action
calcium carbonate 600 MG tablet
600 mg PO QPM
baclofen 10 MG tablet
10 mg PO DAILY
aspirin 81 mg Tablet,Delayed Release (Dr/Ec)
81 mg PO DAILY
vitamin B complex Tablet
1 tab PO DAILY
rivastigmine tartrate 4.5 mg Capsule
4.5 mg PO BID
acetaminophen [Tylenol] 325 mg Tablet
650 mg PO Q6HPRN PRN (Reason: mild pain/fever)
albuterol sulfate 1.25 mg/3 mL solution for nebulization
1.25 mg inhalation R BIDPRN PRN (Reason: shortness of breath or wheezing)
ferrous sulfate 325 mg (65 mg iron) tablet
325 mg PO DAILY Qty: 30 0RF
cholecalciferol (vitamin D3) 25 mcg (1,000 unit) Tablet
25 mcg PO DAILY Qty: 30 0RF
duloxetine 30 mg Capsule,Delayed Release(Dr/Ec)
60 mg PO HS
tamsulosin [Flomax] 0.4 mg Capsule
0.4 mg PO BID
atorvastatin 40 mg Tablet
40 mg PO HS
aripiprazole 2 mg Tablet
2 mg PO HS
metoprolol tartrate 25 mg tablet
12.5 mg PO BID
baclofen 10 mg Tablet
10 mg PO DAILYPRN PRN (Reason: SPASMS)
Referrals:
UNKNOWN - PT NOT,INTERVIEWE [Unknown Provider]
Activity Restrictions/Additional Instructions:
The prescription was sent to your pharmacy
Start the oral antibiotics tomorrow
Return with any concerns including recurrent shortness of breath increased confusion fever chest pain etc.
Follow-up closely with your primary physician
Interventions
Interventions:
*General Assessment Last Done: 09/07/24 10:01
*ED COVID-19 Vaccine History Last Done: 09/07/24 10:03
Discharge Date and Time
Print Language: WALLISIAN
[2024-09-07 10:18] LABS: % Basophils 0.6 % (0-2); % Eosinophils 2.6 % (0-6); % Immature Granulocytes 0.4 % (0-0.5); % Lymphocytes 14.6 % (20.5-51.1); % Monocytes 9.2 % (1.7-9.3); % Neutrophils 72.6 % (42.2-75.2); Absolute Basophils 0.1 10^3/uL (0-0.2); Absolute Eosinophils 0.2 10^3/uL (0-0.7); Absolute Lymphocytes 1.2 10^3/uL (1.2-3.4); Absolute Monocytes 0.8 10^3/uL (0.1-0.6); Absolute Neutrophils 6.2 10^3/uL (1.4-6.5); Hematocrit 36.9 % (39.0-52.0); Hemoglobin 11.8 g/dL (13.0-18.0); Mean Corpuscular Hgb 30.4 pg (27.0-31.0); Mean Corpuscular Volume 95.1 fL (80.0-94.0); Mean Platelet Volume 9.3 fL (7.4-10.4); Nucleated Red Blood Cells % 0 % (-); Platelet Count 268 10^3/uL (130-400); Red Blood Cell Count 3.88 10^6/uL (4.70-6.10); Red Cell Dist. Width 13.6 % (11.5-14.5); White Blood Cell Count 8.5 10^3/uL (4.8-10.8)
[2024-09-07 10:31] LABS: Blood Urea Nitrogen 31 mg/dl (9-20); Calcium 8.8 mg/dl (8.4-10.2); Carbon Dioxide 31 mmol/L (22-30); Chloride 107 mmol/L (98-107); Estimated Creatinine Clearance 44 ml/min; Glucose 153 mg/dl (70-99); Sodium 142 mmol/L (135-145); eGFR 49.87
[2024-09-07 10:34] LABS: COVID-19 Antigen Negative (Negative)
[2024-09-07 10:47] LABS: NT-proBNP 1810 pg/ml
[2024-09-07 11:00] VITALS: BP 161/71
[2024-09-07 11:00] LABS: Urine Albumin 2+ (Neg - Trace); Urine Bilirubin Negative (Negative); Urine Character Cloudy (Clear); Urine Color Yellow; Urine Glucose Negative (Negative); Urine Ketone Negative (Negative); Urine Leukocyte 3+ (Negative); Urine Nitrite Negative (Negative); Urine Occult Blood 2+ (Negative); Urine Specific Gravity 1.015 (<1.030); Urine Urobilinogen Negative (Neg - 1+)
[2024-09-07 11:36] LABS: Urine Squamous Cell 0-2 /LPF (Few); Urine White Cell >100 /HPF (0-5)
[2024-09-07 11:37] LABS: Urine Bacteria Moderate (Negative); Urine Red Blood Cell 0-2 /HPF (0-2)
[2024-09-07] MEDS: ROCEPHIN 1000 MG IV (13:16)
== END 2024-09-07 16:30 | disposition home or self-care (01) ==
LOC: EMR 09:42
PROVIDERS: EMERGENCY PHYSICIAN Emergency Medicine; FAMILY PHYSICIAN Physician Assistant
DX: R06.00 Dyspnea, unspecified (principal); N39.0 Urinary tract infection, site not specified; I12.9 Hypertensive chronic kidney disease with stage 1 through stage 4 chronic kidney disease, or unspecified chronic kidney disease; N18.2 Chronic kidney disease, stage 2 (mild); E78.00 Pure hypercholesterolemia, unspecified; F03.90 Unspecified dementia, unspecified severity, without behavioral disturbance, psychotic disturbance, mood disturbance, and anxiety; Z86.73 Personal history of transient ischemic attack (TIA), and cerebral infarction without residual deficits; Z95.0 Presence of cardiac pacemaker; Z11.52 Encounter for screening for COVID-19
CPT/HCPCS: 99285; 96374; 70450; 71046; 80048; 81003; 81015; 83880; 84484; 85025; 87077; 87086; 87186; 87502; 87811; 93005

== ENCOUNTER 2024-09-09 16:46 | Inpatient (IN) | payer BC, MEDICARE, SELFPAY ==
[2024-09-09 13:36] VITALS: BP 150/72
[2024-09-09 13:38] VITALS: BP 150/70; BP 150/72; BMI 25.7
--- NOTE | 2024-09-09 14:00 | ED.GENMED ---
History of Present Illness
General
Chief Complaint: Male Genito-Urinary Symptoms
Source: patient
Exam Limitations: none
Time Seen by Provider: 09/09/24 13:52
Nursing documentation reviewed up to this point in time: agreed with
History of Present Illness
History of Present Illness:
84-year-old male with past medical history as noted presents to the emergency room from home via EMS; he presents with his who brought him in after abnormal urinalysis with resistant bacteria on urine culture. Patient was seen in this
emergency room 2 days ago that she presented with mild cough and confusion. His workup here was significant for an abnormal urinalysis and he was ultimately discharged on cefdinir to treat UTI. Today's urine culture returned and grew back ESBL E.
coli; they received a call to bring patient back to the ER for treatment. Patient says that he feels generally well he has no acute complaints�specifically denies abdominal or flank pain and has not noted any urinary symptoms. His does note
that he has a history of mild dementia. She says that he has been lethargic for about a week, sleeping much more than usual and mildly confused. Coughing/shortness of breath that was noted during prior visit seems to have resolved.
Past History
Past History
ED Past Medical History: CVA (Left sided weakness, right parietal stroke in 2011), HTN, Hypercholesterolemia, Other (Renal calculus, UTi, Scrotal hernia, Cellulitis) and Other (Dementia)
ED Past Surgical History: Cardiac (pacemaker, RBBB), Tonsilectomy (and adnoids), Urological (Kidney stones) and Other (Right carotid endarterectomy herniorrhaphy, left orchiectomy)
Social History
Tobacco: Non-smoker
Alcohol: None
Drug: None
Personal:
Living: other (Rehab facility)
Employment: Retired
Family History
Family History: Hypertension
Review of Systems
Review of Systems
All Other Systems: ROS reviewed and negative except as documented in HPI and ROS
Constitutional: Denies fever
Respiratory: Denies trouble breathing
Cardiac: Denies chest pain
ABD/GI: Denies abdominal pain
: Denies dysuria, flank pain or dark urine
Phy Exam
Physical Exam
Physical Exam:
General: Sleeping comfortably during my initial assessment but easily arousable, no acute distress
Head: Normocephalic, atraumatic
Eyes: Conjunctiva normal, sclera anicteric
Throat: Airway intact, handling secretions
Neck: Trachea midline, supple without meningismus
Lungs: Occasional scattered wheeze but no hypoxia or tachypnea
Heart: Regular rate and rhythm, no murmurs, gallops, or rubs
Abd: Soft, non distended, nontender, small reducible umbilical hernia
Back: No CVA tenderness
Skin: no rash
Extremities: No edema in extremities, equal pulses in all extremities
Scores
Heart Failure Risk
Heart Failure Risk Score: Not Applicable
Heart Score for Chest Pain Patients
STEMI patient?: Not applicable
Withdrawal Assessment of Alcohol
Withdrawal Assessment Completed?: Not applicable
Course
Orders/Labs/Results
Orders:
Orders
09/09/24 13:54
Complete Blood Count/With Diff Urgent
Comprehensive Metabolic Panel Urgent
Urinalysis Reflex To Culture Urgent
Meropenem [Merrem] 1,000 mg IV NOW STA
09/09/24 14:00
Blood Culture Q30M
VIKI Source: Blood/Venous
Specimen Description:
09/09/24 14:30
Blood Culture Q30M
VIKI Source: Blood/Venous
Specimen Description:
Vital Signs
Initial and Last Documented VS:
Initial Vital Signs
Temp Pulse Resp BP Pulse Ox
36.9 C 69 17 150/70 96
09/09/24 13:38 09/09/24 13:38 09/09/24 13:38 09/09/24 13:38 09/09/24 13:38
Last Documented Vital Signs
Temp Pulse Resp BP Pulse Ox
37.0 C 71 16 150/72 95
09/09/24 13:38 09/09/24 13:38 09/09/24 13:38 09/09/24 13:38 09/09/24 13:38
MDM/Problems Addressed
Differential Diagnosis Includes:
UTI
MDM/Problems Addressed:
84-year-old male presents to the ER with his �was called back for resistant bacteria noted on urine culture from 2 days ago. He has been increasing lethargic fatigued per . Vitals and exam as above. Will repeat labs, urinalysis/culture,
blood culture. Reviewed urine culture from 09/07 which showed ESBL E. coli�will treat with meropenem based on his culture. Plan for admission. Discussed with hospitalist.
Acute Exacerbation and/or Progression of Chronic Illness:
Acutely hypertensive
Acute Exacerbation and/or Progression of Chronic Illness: HTN
*Pulse Oximetry
SaO2: 95
Oxygen Mode of Delivery: Room air
Patient hypoxic: no (95%)
*Critical Care Note
Total Time (30-74mins, 75-104mins- exclusive of procedures): Not Applicable
Data Reviewed
Review of Other/Old Records Reveals: Labs and Records
Source: patient, records, spouse and ambulance crew
Patient Management
Discussion with other providers: Hospitalist (Discussed with hospitalist)
Escalation/DeEscalation of care consider admission/obs:
Admission indicated
ED Attending Note
-
Portions of this chart may have been created with voice recognition software.� Occasional wrong word or��sound alike� substitutions may have occurred due to the inherent limitations of voice recognition software.
Discharge Plan
Departure
Patient Disposition: Admit
Date of Disposition: 09/09/24
Time of Disposition: 14:18
Admit to doctor: Holley
Presentation/result/management discussed w/ accepting MD/DO: Hospitalist
Discharge Problem:
UTI due to extended-spectrum beta lactamase (ESBL) producing Escherichia coli
Prescriptions:
No Action
calcium carbonate 600 MG tablet
600 mg PO QPM
baclofen 10 MG tablet
10 mg PO DAILY
aspirin 81 mg Tablet,Delayed Release (Dr/Ec)
81 mg PO DAILY
vitamin B complex Tablet
1 tab PO DAILY
rivastigmine tartrate 4.5 mg Capsule
4.5 mg PO BID
acetaminophen [Tylenol] 325 mg Tablet
650 mg PO Q6HPRN PRN (Reason: mild pain/fever)
albuterol sulfate 1.25 mg/3 mL solution for nebulization
1.25 mg inhalation R BIDPRN PRN (Reason: shortness of breath or wheezing)
ferrous sulfate 325 mg (65 mg iron) tablet
325 mg PO DAILY Qty: 30 0RF
cholecalciferol (vitamin D3) 25 mcg (1,000 unit) Tablet
25 mcg PO DAILY Qty: 30 0RF
duloxetine 30 mg Capsule,Delayed Release(Dr/Ec)
60 mg PO HS
tamsulosin [Flomax] 0.4 mg Capsule
0.4 mg PO BID
atorvastatin 40 mg Tablet
40 mg PO HS
aripiprazole 2 mg Tablet
2 mg PO HS
metoprolol tartrate 25 mg tablet
12.5 mg PO BID
baclofen 10 mg Tablet
10 mg PO DAILYPRN PRN (Reason: SPASMS)
cefdinir 300 mg capsule
300 mg PO BID 7 Days Qty: 14 0RF
Interventions
Interventions:
*Risk Screen - Suicide Last Done: 09/09/24 13:38
*General Assessment Last Done: 09/09/24 13:38
*Neglect/Abuse Screening Last Done: 09/09/24 13:38
*ED- Fall Risk Assessment Last Done: 09/09/24 13:38
*ED COVID-19 Vaccine History Last Done: 09/09/24 13:38
ED-Male Genitourinary Assessment Last Done: 09/09/24 13:47
Discharge Date and Time
Print Language: WALLISIAN
[2024-09-09 14:26] LABS: Hematocrit 38.5 % (39.0-52.0); Hemoglobin 12.4 g/dL (13.0-18.0); Mean Corp Hgb Conc. 32.2 g/dL (33.0-37.0); Mean Corpuscular Volume 94.6 fL (80.0-94.0); Nucleated Red Blood Cells % 0 % (-); Platelet Count 260 10^3/uL (130-400); Red Cell Dist. Width 13.3 % (11.5-14.5)
[2024-09-09 14:59] LABS: ALT (SGPT) 19 U/L (0-50); AST (SGOT) 20 U/L (17-59); Albumin 3.8 g/dl (3.5-5.0); Alkaline Phosphatase 111 U/L (38-126); Blood Urea Nitrogen 35 mg/dl (9-20); Calcium 9.4 mg/dl (8.4-10.2); Carbon Dioxide 31 mmol/L (22-30); Chloride 106 mmol/L (98-107); Estimated Creatinine Clearance 44 ml/min; Glucose 108 mg/dl (70-99); Potassium 4.9 mmol/L (3.5-5.1); Sodium 142 mmol/L (135-145); Total Protein 6.6 g/dl (6.3-8.2); eGFR 49.87
[2024-09-09 15:09] LABS: Urine Character Cloudy (Clear)
[2024-09-09 15:30] LABS: Urine Squamous Cell 0-2 /LPF (Few); Urine White Cell >100 /HPF (0-5)
[2024-09-09] MEDS: MERREM 1000 MG IV (15:37)
--- NOTE | 2024-09-09 16:30 | W.PN.HOSP.TC ---
Today's Communication/Plan
-
empiric abx
Assessment / Plan
Assessment / Plan
Recurrent ESBL UTI
last episode 04/20/24
Dementia
Acute Metabolic Encephalopathy
mentation significantly worsened over past 2 weeks, especially past 7 days
CVA 2011
s/p PPM
P:IV Meropenem
consult ID and Urology
DNR
see dictated note
Anticipated Discharge: > 48 hours
Subjective/Interval History
-
Date of Service: September 09, 2024
recurrent ESBL UTI with change in mental status
Objective Data
-
Labs:
Laboratory Results
09/09/24
14:15
WBC 7.6
Hgb 12.4 L
Hct 38.5 L
Plt Count 260
Sodium 142
Potassium 4.9
Chloride 106
Carbon Dioxide 31 H
BUN 35 H
Creatinine 1.4 H
Glucose 108 H
Calcium 9.4
Total Bilirubin 0.5
AST 20
ALT 19
Alkaline Phosphatase 111
Vital Signs:
Vital Signs
Temp Pulse Resp BP Pulse Ox
98.6 F 64 21 150/72 93
09/09/24 13:38 09/09/24 14:30 09/09/24 14:30 09/09/24 13:38 09/09/24 14:30
Review of Systems
-
Unable to obtain full review of systems at this time due to: Dementia
History Source: Patient and Family ( at bedside)
Constitutional: Denies Fever
EENT: Reports No Symptoms Reported
Respiratory: Reports No Symptoms
Cardiac: Reports No Symptoms
Abdomen/GI: Reports No Symptoms
Genitourinary: Reports Dysuria and Frequency
Musculoskeletal: Reports No Symptoms
Neuro: Reports Weakness
Physical Exam
-
General: Well Developed, Well Nourished and No Apparent Distress
HEENT: Moist Mucous Membranes
Respiratory: Clear to Auscultation; Negative Wheezes, Rales or Rhonchi
Cardiac: Regular Rhythm and S1/S2
GI: Soft, Nontender and Nondistended
Musculoskeletal: No Clubbing, No Cyanosis and No Edema
Skin: Warm and Dry
[2024-09-09 18:14] VITALS: BP 161/83; BMI 28.8
--- NOTE | 2024-09-09 18:23 | PTCARENOTE ---
Pt received from ED. Pulled over from ER stretcher to bed in 326. Pt oriented to self. @bedside able to help with admission questions. VSS, BP elevated during transfer. Pt in bed with call urrutia in reach. POC ongoing.
[2024-09-09 19:11] VITALS: BP 157/68
[2024-09-09] MEDS: CYMBALTA DELAYED RELEASE 60 MG PO (20:16)
[2024-09-09] MEDS: LOPRESSOR 12.5 MG PO (20:16)
[2024-09-09] MEDS: ABILIFY 2 MG PO (20:16)
[2024-09-09] MEDS: LIPITOR 40 MG PO (20:17)
[2024-09-09] MEDS: OSCAL CAL 500 500 MG PO (20:17)
[2024-09-09] MEDS: EXELON 3 MG PO (20:18)
[2024-09-09] MEDS: EXELON 1.5 MG PO (20:18)
[2024-09-09] MEDS: FLOMAX 0.4 MG PO (20:19)
[2024-09-09] MEDS: HEPARIN 5000 UNITS SC (20:20)
[2024-09-09 23:26] VITALS: BP 160/90
[2024-09-10] MEDS: STERILE WATER FOR INJECTION 10 ML IV ×3 (00:58→17:09)
[2024-09-10] MEDS: MERREM 500 MG IV ×3 (00:59→17:09)
[2024-09-10 03:22] VITALS: BP 162/68
[2024-09-10 06:04] VITALS: BMI 28.6
[2024-09-10 07:00] VITALS: BP 130/65
[2024-09-10 07:06] LABS: Hematocrit 34.4 % (39.0-52.0); Hemoglobin 11.5 g/dL (13.0-18.0); Mean Corp Hgb Conc. 33.4 g/dL (33.0-37.0); Mean Corpuscular Volume 91.5 fL (80.0-94.0); Platelet Count 264 10^3/uL (130-400); Red Cell Dist. Width 13.1 % (11.5-14.5)
[2024-09-10 07:43] LABS: Blood Urea Nitrogen 29 mg/dl (9-20); Calcium 8.8 mg/dl (8.4-10.2); Carbon Dioxide 29 mmol/L (22-30); Chloride 107 mmol/L (98-107); Estimated Creatinine Clearance 45 ml/min; Glucose 112 mg/dl (70-99); Potassium 5.0 mmol/L (3.5-5.1); Sodium 141 mmol/L (135-145); eGFR > 60.00
[2024-09-10] MEDS: LOPRESSOR 12.5 MG PO ×2 (08:25→20:43)
[2024-09-10] MEDS: ASPIR LOW (ENTERIC COATED) 81 MG PO (08:25)
[2024-09-10] MEDS: B COMPLEX w/VITAMIN C 1 CAPLET PO (08:25)
[2024-09-10] MEDS: EXELON 1.5 MG PO ×2 (08:25→20:43)
[2024-09-10] MEDS: EXELON 3 MG PO ×2 (08:25→20:42)
[2024-09-10] MEDS: FLOMAX 0.4 MG PO ×2 (08:25→20:43)
[2024-09-10] MEDS: VITAMIN D3 (cholecalciferol) 25 MCG PO (08:25)
[2024-09-10] MEDS: LIORESAL 10 MG PO (08:26)
[2024-09-10] MEDS: HEPARIN 5000 UNITS SC ×2 (08:26→20:43)
[2024-09-10 10:29] VITALS: BMI 28.6
[2024-09-10 11:00] VITALS: BP 141/68
--- NOTE | 2024-09-10 11:51 | CONS.URO ---
Consultation
-
Date/Time Consultation Requested: 09/10
Date/Time Consultation Performed: 09/10
Requesting Provider: Manny
Performing Provider: Alma Rosa
Reason for Consultation: ESBL cUTI
Medical History
History of Present Illness
84M presenting w/ altered mental status (baseline moderate dementia).
Seen @[facility] ED on 09/07 - discharged home on empiric antibiotics based on UA.
UCx returned demonstrating ESBL E. Coli w/ MDR - patient asked to return to ED.
Lethargy noted in last 1-2 weeks w/ progressive worsening in last several days.
Scheduled for outpatient F/U w/ Dr. Rutledge w/n 1 month - previously had F/U scheduled but cancelled by patient several times (per daughter).
Past Medical History
Past Medical History: CVA (chronic left-sided weakness from right parietal stroke 2011), HTN and Other (HLD, nephrolithiasis, progressive dementia, scrotal hernias, cellulitis)
Past Surgical History: Urological (ULS, left orchiectomy) and Other (herniorrhaphy, right carotid endareterectomy, pacemaker placement)
Social History
Tobacco: Non-smoker
Alcohol: None
Drug: None
Personal:
Living: With Family
Employment: Retired
Family History
Family History: Reviewed & Not Pertinent
Allergies/Home Medications
Allergies
Allergy/AdvReac Type Severity Reaction Status Date / Time
doxycycline monohydrate Allergy MIGRAINE Verified 05/07/24 23:28
(From Vibramycin)
Sulfa (Sulfonamide Allergy difficulty Verified 05/07/24 23:28
Antibiotics) breathing,
(Sulfa(Sulfonamide hives
Antibiotics))
vancomycin Allergy dizziness,double Verified 05/07/24 23:28
vision
Home Medications
�Medication �Instructions �Recorded �Confirmed �Type
calcium carbonate 600 mg PO QPM Supplement 06/17/21 09/09/24 History
baclofen 10 mg tablet 10 mg PO DAILY Muscle Spasms 09/26/22 09/09/24 History
aspirin 81 mg tablet,delayed 81 mg PO DAILY Blood Clot 10/12/23 09/09/24 History
release Prevention/Tx
rivastigmine tartrate 4.5 mg 4.5 mg PO BID memory/cognition 10/12/23 09/09/24 History
capsule
ferrous sulfate 325 mg (65 mg 325 mg PO DAILY anemia #30 tabs 03/30/24 09/09/24 Rx
iron) tablet
cholecalciferol (vitamin D3) 25 25 mcg PO DAILY #30 tabs 04/02/24 09/09/24 Rx
mcg (1,000 unit) tablet
duloxetine 30 mg capsule,delayed 60 mg PO QPM depression/anxiety 04/02/24 09/09/24 History
release
tamsulosin 0.4 mg capsule (Flomax) 0.4 mg PO BID Urinary Issue 04/20/24 09/09/24 History
atorvastatin 40 mg tablet 40 mg PO QPM High Cholesterol 05/16/24 09/09/24 History
aripiprazole 2 mg tablet 2 mg PO QPM 09/07/24 09/09/24 History
baclofen 10 mg tablet 10 mg PO DAILYPRN PRN SPASMS 09/07/24 09/09/24 History
metoprolol tartrate 25 mg tablet 12.5 mg PO BID 09/07/24 09/09/24 History
B-complex with vitamin C 1 cap PO DAILY 09/09/24 09/09/24 History
acetaminophen 500 mg tablet 1,000 mg PO TIDPRN PRN mild pain 09/09/24 09/09/24 History
(Tylenol Extra Strength)
Review of Systems
-
History Source: Patient and Family
A 12 point Review of Systems was completed except as noted: Yes
Physical Exam
Vital Signs
Vital Signs
Temp Pulse Resp BP Pulse Ox
98.2 F 73 16 130/65 94
09/10/24 07:00 09/10/24 07:00 09/10/24 07:00 09/10/24 07:00 09/10/24 07:00
Lab / Testing Results
Laboratory Results
09/10/24 06:49
09/10/24 06:49
Physical Exam
General: Well Developed and Well Nourished
HEENT: Normocephalic and Anicteric
Respiratory: Non Labored Respirations
Cardiac: Regular Rhythm
Breast: N/A
GI: Soft, Non Tender and Non Distended
Rectal: Deferred by Provider
Genito-urinary: No Costovertebral Tend and Clear Urine
Musculoskeletal: No Edema
Skin: Warm and Dry
Neuro: Nonfocal/Grossly Intact
Hematologic/Lymphatic: No Lymphadenopathy
Psych: Calm and Apparent Dementia
Assessment / Plan
-
ESBL E. Coli cUTI
No evidence of urinary retention
Voiding w/o complaints
- Continue IV antibiotics w/ transition to PO course
- Post-void bladder scans q6hrs to ensure emptying (<200 cc ideal)
- F/U as scheduled as outpatient on discharge to discuss cystoscopy and urodynamic testing
D/w patient and daughter
D/w Dr. Bryant
Data Reviewed
-
Total Time Spent with Patient (in minutes): 45
Lab Data: Labs Reviewed, Discussed with Physician, Discussed with Patient and Discussed with Family
Old Records: Reviewed
--- NOTE | 2024-09-10 13:03 | CON.ID ---
Consultation
-
Date/Time Consultation Requested: 09/09/2024 1751
Date/Time Consultation Performed: 09/10/2024 1153
Requesting Provider: Dr. Bryant
Performing Provider: Dr. Hernandez
Reason for Consultation: Complicated urinary tract infection
Chief Complaint / Past History
History of Present Illness
Preet Linda is an 84-year-old man with a significant past medical history of underlying dementia prior CVA being evaluated at the request of Dr. Bryant regards to complicated urinary tract infection. History is obtained from chart review, along
with patient interview, although limited history is available from him due to underlying dementia. Additional history was obtained from the patient's who is at the bedside.
The patient's reports that since March the patient has had 3-4 urinary tract infections. She reports that in prior years he had been using the bathroom a little bit more frequently, but due to to medications he seems to have a more sedentary
life. Additionally, he drinks only about 316 ounce cups of water per day. His last urinary tract infection was approximately 2-1/2 months ago, and in the interim he has been quite stable, but last Thursday he was startled awake in the morning,
which was somewhat out of form for him. He saw his PCP several days ago for routine follow-up. 09/07 who presented to the emergency room with complaints of increased shortness of breath, but noted confusion over the prior 48 hours. Urine culture
was obtained at that time, which is now reveal the presence of ESBL E. coli. Patient was called back for treatment.
No history of fevers. No history of dysuria.
Past History
Additional Past Medical History:
Dementia
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
HTN
HLD
Nephrolithiasis
Additional Past Surgical History:
PPM
(R) CEA
Left orchiectomy
Allergy History:
doxycycline monohydrate (From Vibramycin) Allergy (Verified 05/07/24 23:28)
MIGRAINE
Sulfa (Sulfonamide Antibiotics) (Sulfa(Sulfonamide Antibiotics)) Allergy (Verified 05/07/24 23:28)
difficulty breathing, hives
vancomycin Allergy (Verified 05/07/24 23:28)
dizziness,double vision
Medications Reviewed: Yes
Current Antibiotics:
Meropenem 500 mg IV every 8 hours
Social History
Tobacco: Non-Smoker
Alcohol: None
Drug: None
Family History
Family History: Not Pertinent
Review of Systems
Vital Signs
Temp Pulse Resp BP Pulse Ox
98.5 F 65 17 141/68 96
09/10/24 11:00 09/10/24 11:00 09/10/24 11:00 09/10/24 11:00 09/10/24 11:00
Physical Exam
Physical Exam
Constitutional: No Acute Distress, Comfortable, Chronically Ill and Non-toxic
Eyes: No Conjunctival Hemorrhage and Sclera Anicteric
Oral: No Thrush and No Ulcers
Cardiovascular: S1/S2; Negative S3/S4
Pulmonary: Clear; Negative Wheezes or Rales
Gastrointestinal: Soft, Non Tender, Non Distended and Normal Bowel Sounds
Extremities: Venous Insufficiency (LE's)
Skin: Warm and Dry; Negative Rash or Jaundice
Neurological: Awake
Psychological: Calm and Confused
.
Lab / Diagnostic Study Results
09/10/24 06:49
09/10/24 06:49
Abs Immat Gran (auto) 0.0 10^3/uL (0-0.05) 09/09/24 14:15
Absolute Neuts (auto) 5.3 10^3/uL (1.4-6.5) 09/09/24 14:15
Absolute Lymphs (auto) 1.3 10^3/uL (1.2-3.4) 09/09/24 14:15
Absolute Monos (auto) 0.7 10^3/uL (0.1-0.6) H 06/27/25 14:15
Absolute Basos (auto) 0.1 10^3/uL (0-0.2) 09/09/24 14:15
Immature Gran % 0.3 % (0-0.5) 09/09/24 14:15
Neutrophils % 69.3 % (42.2-75.2) 09/09/24 14:15
Lymphocytes % 17.2 % (20.5-51.1) L 09/09/24 14:15
Monocytes % 9.1 % (1.7-9.3) 09/09/24 14:15
Eosinophils % 3.4 % (0-6) 09/09/24 14:15
Basophils % 0.7 % (0-2) 09/09/24 14:15
Ur Squamous Epith Cells 0-2 /LPF (Few) 09/09/24 14:28
Microbiology Results
Micro:
09/09/24 14:28 Urine Culture - Preliminary
Urine Gram negative bacilli
09/09/24 14:15 Blood Culture - Pending
Blood/Venous
09/09/24 14:15 Blood Culture - Pending
Blood/Venous
Assessment / Plan
Complicated urinary tract infection due to ESBL E. coli
Encephalopathy
WARD; improved
Dementia
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
HTN
HLD
Nephrolithiasis
Recommendations:
Continue with meropenem.
Monitor white count and temperature curve.
Follow pending cultures.
Further recommendations as additional data is returned.
--- NOTE | 2024-09-10 13:20 | PTOTSP ---
ST Acute Care Evaluation
Pt currently presents with fairly functional oral, pharyngeal, and esophageal swallowing parameters. No overt s/s of penetration or aspiration noted at bedside; however, silent aspiration cannot be ruled out at bedside.
Recommendations:
- Regular solids, thin liquids, meds whole with liquids one at a time (place in puree if needed).
- Aspiration precautions: HOB upright during all meals; tray set-up assistance (cut up foods); encourage alternating solids/liquids.
- INSPECTOR WATER POLLUTION CONTROL to f/u re: tolerance of diet upgrade and use of compensatory strategies.
--- NOTE | 2024-09-10 14:05 | W.PN.HOSP.TC ---
Today's Communication/Plan
-
continue current Tx
Assessment / Plan
Assessment / Plan
Recurrent ESBL UTI
last episode 04/20/24
Dementia
mild dehydration BUN/Creat 35/1.4-->29/1.2
Acute Metabolic Encephalopathy
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
showing improvement today, does not believe near pre-illness level
CVA 2011
s/p PPM
P:IV Meropenem
consulted ID and Urology, input appreciated
DNR
continue IV abx
Anticipated Discharge: > 48 hours
Subjective/Interval History
-
Date of Service: September 10, 2024
Much more alert, though conversation remains tangental
Objective Data
-
Labs:
Laboratory Results
09/10/24
06:49
WBC 9.1
Hgb 11.5 L
Hct 34.4 L
Plt Count 264
Sodium 141
Potassium 5.0
Chloride 107
Carbon Dioxide 29
BUN 29 H
Creatinine 1.2
Glucose 112 H
Calcium 8.8
Vital Signs:
Vital Signs
Temp Pulse Resp BP Pulse Ox
98.5 F 65 17 141/68 96
09/10/24 11:00 09/10/24 11:00 09/10/24 11:00 09/10/24 11:00 09/10/24 11:00
Review of Systems
-
Unable to obtain full review of systems at this time due to: Dementia
History Source: Patient and Family ( at bedside)
Constitutional: Denies Fever
EENT: Reports No Symptoms Reported
Respiratory: Reports No Symptoms
Cardiac: Reports No Symptoms
Abdomen/GI: Reports No Symptoms
Genitourinary: Reports Dysuria and Frequency
Musculoskeletal: Reports No Symptoms
Neuro: Reports Weakness
Physical Exam
-
General: Well Developed, Well Nourished and No Apparent Distress
HEENT: Moist Mucous Membranes
Respiratory: Clear to Auscultation; Negative Wheezes, Rales or Rhonchi
Cardiac: Regular Rhythm and S1/S2
GI: Soft, Nontender and Nondistended
Musculoskeletal: No Clubbing, No Cyanosis and No Edema
Skin: Warm and Dry
[2024-09-10 15:00] VITALS: BP 151/68
[2024-09-10] MEDS: ABILIFY 2 MG PO (17:08)
[2024-09-10] MEDS: LIPITOR 40 MG PO (17:09)
[2024-09-10] MEDS: CYMBALTA DELAYED RELEASE 60 MG PO (17:10)
[2024-09-10] MEDS: OSCAL CAL 500 500 MG PO (17:10)
--- NOTE | 2024-09-10 17:22 | CM ---
Patient seen at bedside with spouse
IA completed-obtained from
DX: ESBL UTI
Lives in a 2 story home with and son, 1st floor setup, ramp to enter home
PLOF: Independent with walker, mostly at this point wheelchair, can stand & pivot
DME: hospital bed, wheelchair, walker
Denies insecurities
CURRENT with [facility], referral entered in [facility] - Has been at [facility] in the past
PCP: Demetria Parsons
Pharmacy: [address], [place]
PLAN; TBD, watch hospital progression, home ?IV antibiotics, CM to follow for needs
[2024-09-10] MEDS: TYLENOL 1000 MG PO (18:42)
[2024-09-10 19:47] VITALS: BP 104/63
[2024-09-10 23:55] VITALS: BP 139/67
[2024-09-11] VITALS (7 sets, daily range): BP systolic 103–147; BP diastolic 50–70; PULSE 69; O2SAT 93; BMI 28.9
[2024-09-11] MEDS: MERREM 500 MG IV ×4 (00:07→23:08)
[2024-09-11] MEDS: FLUSH (NSS) 2 FLUSH IV (00:07)
[2024-09-11] MEDS: STERILE WATER FOR INJECTION 10 ML IV ×4 (00:07→23:07)
[2024-09-11] MEDS: TYLENOL 1000 MG PO (02:31)
[2024-09-11] MEDS: VITAMIN D3 (cholecalciferol) 25 MCG PO (07:38)
[2024-09-11] MEDS: ASPIR LOW (ENTERIC COATED) 81 MG PO (07:38)
[2024-09-11] MEDS: LOPRESSOR 12.5 MG PO ×2 (07:38→20:53)
[2024-09-11] MEDS: HEPARIN 5000 UNITS SC ×2 (07:38→20:51)
[2024-09-11] MEDS: B COMPLEX w/VITAMIN C 1 CAPLET PO (07:38)
[2024-09-11] MEDS: FLOMAX 0.4 MG PO ×2 (07:38→20:55)
[2024-09-11] MEDS: EXELON 3 MG PO ×2 (07:38→20:55)
[2024-09-11] MEDS: EXELON 1.5 MG PO ×2 (07:38→20:55)
[2024-09-11] MEDS: LIORESAL 10 MG PO (07:39)
--- NOTE | 2024-09-11 13:46 | W.PN.HOSP.TC ---
Today's Communication/Plan
-
Await input from ID regarding abx and length of time abx to be given to treat ESBL UTI
Assessment / Plan
Assessment / Plan
Recurrent ESBL UTI
last episode 04/20/24
Dementia
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
mild dehydration BUN/Creat 35/1.4-->29/1.2
Acute Metabolic Encephalopathy
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
showing further mild improvement today, does not believe near pre-illness level
CVA 2011
s/p PPM
P:IV Meropenem
consulted ID and Urology, input appreciated
DNR
continue IV abx
Anticipated Discharge: 24 - 48 hours
Subjective/Interval History
-
Date of Service: September 11, 2024
Mentation appears a little better today
Objective Data
-
Vital Signs:
Vital Signs
Temp Pulse Resp BP Pulse Ox
98.0 F 62 17 108/54 100
09/11/24 11:00 09/11/24 11:00 09/11/24 11:00 09/11/24 11:00 09/11/24 11:00
I&O
09/10/24 09/11/24 09/12/24
06:59 06:59 06:59
Intake Total 960 / 960
Balance 960 / 960
Review of Systems
-
Unable to obtain full review of systems at this time due to: Dementia
History Source: Patient and Family ( at bedside)
Constitutional: Denies Fever
EENT: Reports No Symptoms Reported
Respiratory: Reports No Symptoms
Cardiac: Reports No Symptoms
Abdomen/GI: Reports No Symptoms
Genitourinary: Reports Dysuria and Frequency
Musculoskeletal: Reports No Symptoms
Neuro: Reports Weakness
Physical Exam
-
General: Well Developed, Well Nourished and No Apparent Distress
HEENT: Moist Mucous Membranes
Respiratory: Clear to Auscultation; Negative Wheezes, Rales or Rhonchi
Cardiac: Regular Rhythm and S1/S2
GI: Soft, Nontender and Nondistended
Musculoskeletal: No Clubbing, No Cyanosis and No Edema
Skin: Warm and Dry
--- NOTE | 2024-09-11 14:03 | W.PN.ID1 ---
Date of Service
Date of Service: September 11, 2024
Today's Communication
Continue antibiotics.
Assessment / Plan
Complicated urinary tract infection due to ESBL E. coli
Encephalopathy
WARD; improved
Dementia
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
HTN
HLD
Nephrolithiasis
Recommendations:
Continue with meropenem.
Monitor white count and temperature curve.
Follow for clinical improvement.
����������������������������������������������������������
Chief Complaint
-: UTI
Subjective / Review of Systems
Review of Systems: No Fever
Vital Signs / Physical Exam
Vital Signs
Vital Signs
Temp Pulse Resp BP Pulse Ox
98.0 F 62 17 108/54 100
09/11/24 11:00 09/11/24 11:00 09/11/24 11:00 09/11/24 11:00 09/11/24 11:00
Physical Exam
Constitutional: No Acute Distress, Comfortable, Chronically Ill and Non-toxic
Eyes: Sclera Anicteric
Cardiovascular: S1/S2; Negative S3/S4
Pulmonary: Non Labored
Gastrointestinal: Soft, Non Tender and Non Distended
Neurological: Awake
Psychological: Calm and Confused
Objective Data
Lab Data
Lab Results
09/10/24 06:49
09/10/24 06:49
Estimated Creat Clear 45 ml/min 09/10/24 06:49
Total Bilirubin 0.5 mg/dl (0.2-1.3) 09/09/24 14:15
AST 20 U/L (17-59) 09/09/24 14:15
ALT 19 U/L (0-50) 09/09/24 14:15
Alkaline Phosphatase 111 U/L (38-126) 09/09/24 14:15
Most recent labs reviewed.
Micro Results:
09/09/24 14:15 Blood Culture - Preliminary
Blood/Venous No Growth in 24 hours- Final report to follow
09/09/24 14:28 Urine Culture - Final
Urine Escherichia coli - ESBL
09/09/24 14:15 Blood Culture - Preliminary
Blood/Venous No Growth in 24 hours- Final report to follow
[2024-09-11] MEDS: OSCAL CAL 500 500 MG PO (17:10)
[2024-09-11] MEDS: CYMBALTA DELAYED RELEASE 60 MG PO (17:11)
[2024-09-11] MEDS: ABILIFY 2 MG PO (17:11)
[2024-09-11] MEDS: LIPITOR 40 MG PO (17:11)
[2024-09-12 03:00] VITALS: BP 131/71
[2024-09-12 06:00] VITALS: BMI 28.7
[2024-09-12 07:00] VITALS: BP 125/37
[2024-09-12 07:06] LABS: Hematocrit 34.6 % (39.0-52.0); Hemoglobin 11.2 g/dL (13.0-18.0); Mean Corp Hgb Conc. 32.4 g/dL (33.0-37.0); Mean Corpuscular Volume 93.3 fL (80.0-94.0); Nucleated Red Blood Cells % 0 % (-); Platelet Count 268 10^3/uL (130-400); Red Cell Dist. Width 13.2 % (11.5-14.5)
[2024-09-12 07:42] LABS: ALT (SGPT) 16 U/L (0-50); AST (SGOT) 18 U/L (17-59); Albumin 3.0 g/dl (3.5-5.0); Alkaline Phosphatase 100 U/L (38-126); Blood Urea Nitrogen 33 mg/dl (9-20); Calcium 8.9 mg/dl (8.4-10.2); Carbon Dioxide 30 mmol/L (22-30); Chloride 104 mmol/L (98-107); Estimated Creatinine Clearance 42 ml/min; Glucose 107 mg/dl (70-99); Potassium 4.7 mmol/L (3.5-5.1); Sodium 139 mmol/L (135-145); Total Protein 5.4 g/dl (6.3-8.2); eGFR 54.51
[2024-09-12] MEDS: VITAMIN D3 (cholecalciferol) 25 MCG PO (08:25)
[2024-09-12] MEDS: MERREM 500 MG IV (08:26)
[2024-09-12] MEDS: LIORESAL 10 MG PO (08:26)
[2024-09-12] MEDS: EXELON 1.5 MG PO ×2 (08:26→21:05)
[2024-09-12] MEDS: EXELON 3 MG PO ×2 (08:26→21:06)
[2024-09-12] MEDS: LOPRESSOR 12.5 MG PO ×2 (08:26→21:08)
[2024-09-12] MEDS: FLOMAX 0.4 MG PO ×2 (08:26→21:05)
[2024-09-12] MEDS: STERILE WATER FOR INJECTION 10 ML IV (08:27)
[2024-09-12] MEDS: B COMPLEX w/VITAMIN C 1 CAPLET PO (08:27)
[2024-09-12] MEDS: HEPARIN 5000 UNITS SC ×2 (08:27→21:03)
[2024-09-12] MEDS: ASPIR LOW (ENTERIC COATED) 81 MG PO (08:27)
[2024-09-12] MEDS: FLUSH (NSS) 2 FLUSH IV (08:29)
--- NOTE | 2024-09-12 08:52 | VNURNOTE ---
Chart reviewed. Patient is current with VN. Will continue to follow hospital course and DC plans.
[2024-09-12] MEDS: TYLENOL 1000 MG PO (10:13)
[2024-09-12 11:03] VITALS: BP 119/57
--- NOTE | 2024-09-12 11:27 | W.PN.ID1 ---
Date of Service
Date of Service: September 12, 2024
Today's Communication
Continue abx. See below...
Assessment / Plan
Complicated urinary tract infection due to ESBL E. coli
Encephalopathy
WARD; improved
Dementia
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
HTN
HLD
Nephrolithiasis
Recommendations:
Currently meropenem (d#4)
Sensitivities of ESBL E. coli isolate reviewed, and unfortunately there are no good oral options.
Transition to once daily ertapenem, to continue 10 additional days of abx.
Monitor white count and temperature curve.
����������������������������������������������������������
Chief Complaint
-: UTI
Subjective / Review of Systems
Review of Systems: No Fever
Vital Signs / Physical Exam
Vital Signs
Vital Signs
Temp Pulse Resp BP Pulse Ox
97.6 F 69 18 119/57 95
09/12/24 11:03 09/12/24 11:03 09/12/24 11:03 09/12/24 11:03 09/12/24 11:03
Physical Exam
Constitutional: No Acute Distress, Comfortable, Chronically Ill and Non-toxic
Eyes: Sclera Anicteric
Cardiovascular: S1/S2; Negative S3/S4
Pulmonary: Non Labored
Gastrointestinal: Soft, Non Tender and Non Distended
Neurological: Awake
Psychological: Calm and Confused
Objective Data
Lab Data
Lab Results
09/12/24 06:43
09/12/24 06:43
Estimated Creat Clear 42 ml/min 09/12/24 06:43
Total Bilirubin 0.4 mg/dl (0.2-1.3) 09/12/24 06:43
AST 18 U/L (17-59) 09/12/24 06:43
ALT 16 U/L (0-50) 09/12/24 06:43
Alkaline Phosphatase 100 U/L (38-126) 09/12/24 06:43
Most recent labs reviewed.
Micro Results:
09/09/24 14:15 Blood Culture - Preliminary
Blood/Venous No Growth in 48 hours- Final report to follow
09/09/24 14:15 Blood Culture - Preliminary
Blood/Venous No Growth in 48 hours- Final report to follow
09/09/24 14:28 Urine Culture - Final
Urine Escherichia coli - ESBL
Care Review
Plan reviewed with: Physician (Hospitalist)
[2024-09-12] MEDS: INVANZ 60 MG IV (12:25)
--- NOTE | 2024-09-12 13:24 | W.PN.HOSP.TC ---
Addendum entered and electronically signed by Abel Lorenzo DO 09/14/24 11:17:
Additional diagnosis: Severe protein calorie malnutrition
Original Note:
Today's Communication/Plan
-
Assessment / Plan
Assessment / Plan
General: No Apparent Distress, Comfortable
HEENT: NormoCephalic, Moist mucous membranes, Atraumatic
Respiratory: Clear and Non Labored Respirations
Cardiac: S1/S2 and Regular Rhythm; No Rub or Gallop
GI: Soft, Non Tender, Non Distended and Normal Bowel Sounds
Musculoskeletal: No Edema, no deformity
: NO Wilson
Neuro: Awake, Alert, no tremor
Psych: Calm and cooperative
Mr. Linda is an 84-year-old medical history of HFpEF, COPD, dementia, CAD, carotid disease (status post right carotid endarterectomy), CVA (residual left-sided weakness), ESBL UTIs, and prostate enlargement who presented with encephalopathy. He
was found to have another UTI with urine cultures growing ESBL E. coli. He was started on meropenem and admitted for further evaluation and management.
Recurrent ESBL UTI
- last episode 04/20/24
- Urine cultures growing ESBL E. coli
- Has been improving with meropenem, now transitioning to ertapenem to complete 10 more days
- Planning midline placement in order to complete antibiotic course at home
- No current evidence of significant urinary retention, evaluated by urology, continue tamsulosin, monitor postvoid residuals, outpatient urology follow-up
WARD:
- Mild, likely prerenal due to poor p.o. intake in the setting of dementia and reduced p.o. intake because of encephalopathy due to UTI
- Resolved, monitor
Acute Metabolic Encephalopathy:
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
- showing further mild improvement today
Dementia
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
- Continue aripiprazole, duloxetine, and rivastigmine
Cerebrovascular disease:
- CVA 2011 with residual left-sided weakness
- Continue aspirin and statin
HFpEF:
- Chronic, stable
- Currently compensated
- Continue beta-blockade with metoprolol tartrate 12.5 mg p.o. twice daily
- Not on afterload reduction or diuretic at home, will monitor
DNR
continue IV abx for 10 more days
Anticipated Discharge: 24 - 48 hours
Subjective/Interval History
-
Date of Service: September 12, 2024
Patient was seen and examined at bedside this morning. No acute distress. Transitioning antibiotics to ertapenem per cultures and sensitivities. Will also check postvoid residuals.
Objective Data
-
Labs:
Laboratory Results
09/12/24
06:43
WBC 7.7
Hgb 11.2 L
Hct 34.6 L
Plt Count 268
Sodium 139
Potassium 4.7
Chloride 104
Carbon Dioxide 30
BUN 33 H
Creatinine 1.3
Glucose 107 H
Calcium 8.9
Total Bilirubin 0.4
AST 18
ALT 16
Alkaline Phosphatase 100
Vital Signs:
Vital Signs
Temp Pulse Resp BP Pulse Ox
97.6 F 69 18 119/57 95
09/12/24 11:03 09/12/24 11:03 09/12/24 11:03 09/12/24 11:03 09/12/24 11:03
I&O
09/11/24 09/12/24 09/13/24
06:59 06:59 06:59
Intake Total 960 / 960 960 / 960
Balance 960 / 960 960 / 960
Review of Systems
-
Unable to obtain full review of systems at this time due to: Dementia
Physical Exam
-
General: No Apparent Distress
[2024-09-12 15:00] VITALS: BP 101/53
--- NOTE | 2024-09-12 15:57 | CM ---
CM following for discharge planning.
Therapy recommends SNF, however pt's would prefer pt to go home and have home IV abx
feels that they have a good process at home, and Preet would do better in his home environment.
Plan: CM to follow up in AM to coordinate IV abx if going home; [facility] referral submitted in case pt's changes her mind about SNF.
[2024-09-12] MEDS: OSCAL CAL 500 500 MG PO (18:03)
[2024-09-12] MEDS: CYMBALTA DELAYED RELEASE 60 MG PO (18:03)
[2024-09-12] MEDS: LIPITOR 40 MG PO (18:03)
[2024-09-12] MEDS: ABILIFY 2 MG PO (18:03)
[2024-09-12 23:00] VITALS: BP 127/64
[2024-09-13 06:00] VITALS: BMI 28.3
[2024-09-13 07:00] VITALS: BP 159/72
[2024-09-13] MEDS: LOPRESSOR 12.5 MG PO ×2 (08:07→19:53)
[2024-09-13] MEDS: LIORESAL 10 MG PO (08:07)
[2024-09-13] MEDS: ASPIR LOW (ENTERIC COATED) 81 MG PO (08:07)
[2024-09-13] MEDS: B COMPLEX w/VITAMIN C 1 CAPLET PO (08:07)
[2024-09-13] MEDS: VITAMIN D3 (cholecalciferol) 25 MCG PO (08:07)
[2024-09-13] MEDS: EXELON 1.5 MG PO ×2 (08:07→19:53)
[2024-09-13] MEDS: HEPARIN 5000 UNITS SC ×2 (08:07→19:51)
[2024-09-13] MEDS: FLOMAX 0.4 MG PO ×2 (08:07→19:54)
[2024-09-13] MEDS: TYLENOL 1000 MG PO ×2 (08:07→18:27)
[2024-09-13] MEDS: EXELON 3 MG PO ×2 (08:07→19:53)
--- NOTE | 2024-09-13 09:14 | W.PN.ID1 ---
Date of Service
Date of Service: September 13, 2024
Today's Communication
Continue antibiotics. See below�
Assessment / Plan
Complicated urinary tract infection due to ESBL E. coli
Encephalopathy
WARD; improved
Dementia
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
HTN
HLD
Nephrolithiasis
Recommendations:
Currently meropenem (d#5)
Sensitivities of ESBL E. coli isolate reviewed, and unfortunately there are no oral options.
Continue ertapenem, to continue 10 additional days of abx.
Home IV abx sheet completed and given to CM.
Monitor white count and temperature curve.
����������������������������������������������������������
Chief Complaint
-: UTI
Subjective / Review of Systems
Review of Systems: No Fever and No Chills
Vital Signs / Physical Exam
Vital Signs
Vital Signs
Temp Pulse Resp BP Pulse Ox
97.7 F 74 17 159/72 95
09/13/24 07:00 09/13/24 08:07 09/13/24 07:00 09/13/24 08:07 09/13/24 07:00
Physical Exam
Constitutional: No Acute Distress, Comfortable, Chronically Ill and Non-toxic
Eyes: Sclera Anicteric
Pulmonary: Non Labored
Gastrointestinal: Soft, Non Tender and Non Distended
Extremities: Negative Edema, Cyanosis or Erythema
Neurological: Awake
Psychological: Calm and Confused
Objective Data
Lab Data
Lab Results
09/12/24 06:43
09/12/24 06:43
Estimated Creat Clear 42 ml/min 09/12/24 06:43
Total Bilirubin 0.4 mg/dl (0.2-1.3) 09/12/24 06:43
AST 18 U/L (17-59) 09/12/24 06:43
ALT 16 U/L (0-50) 09/12/24 06:43
Alkaline Phosphatase 100 U/L (38-126) 09/12/24 06:43
Most recent labs reviewed.
Micro Results:
09/09/24 14:15 Blood Culture - Preliminary
Blood/Venous No Growth in 72 hours- Final report to follow
09/09/24 14:15 Blood Culture - Preliminary
Blood/Venous No Growth in 72 hours- Final report to follow
09/09/24 14:28 Urine Culture - Final
Urine Escherichia coli - ESBL
Urine Culture Final 09/09/24
CC: Greater than 100,000 CFU/ML Escherichia coli - ESBL*
1. Escherichia coli - ESBL
M.I.C. RX
--------- ---
Amoxicillin/Potas. Clavulanate 16/8 I
Ampicillin >16 R
Ampicillin/Sulbactam >16/8 R
Aztreonam >16 R
Cefazolin >16 R
Cefepime >16 R
Ceftazidime >16 R
Ceftriaxone >2 R
Ertapenem <=0.5 S
Ciprofloxacin >2 R
Gentamicin >8 R
Meropenem <=1 S
Nitrofurantoin-Urine Only <=32 S
Piperacillin/Tazobactam 16 S
Tetracycline >8 R
Tobramycin >8 R
Trimethoprim/Sulfamethoxazole >2/38 R
--- NOTE | 2024-09-13 10:35 | CM ---
Addendum entered by Sandra Quintana 09/13/24 16:55:
Preet Linda approved for transfer to SNF. [facility] has accepted for admission today. Ambulance transport requested.
Authorization for [facility]: [id number]
Report: [phone]

Original Note:
Pt's is agreeable to transfer to [facility] for SNF today. Referral sent yesterday and pt accepted for transfer to [facility] with bed available today.
CM to contact pt's insurance, [employer], for SNF authorization.
Karishma Baptiste (accepting MD)
[facility] (accepting facility)
Abel Cr (attending MD): [phone]
[2024-09-13] MEDS: FLUSH (NSS) 1 FLUSH IV (11:47)
[2024-09-13] MEDS: INVANZ 60 MG IV (11:47)
--- NOTE | 2024-09-13 11:57 | W.DCSUMMARY ---
Discharge Summary
Discharge Data
Date of Admission: 09/09/24
Date of Discharge: 09/13/24
Total time spent discharging patient (in min): 45
-
Pending Results: No
Hospital Course
Mr. Linda is an 84-year-old medical history of HFpEF, COPD, dementia, CAD, carotid disease (status post right carotid endarterectomy), CVA (residual left-sided weakness), ESBL E. coli UTIs, and prostate enlargement who presented with
encephalopathy. He was found to have another UTI with urine cultures growing ESBL E. coli. He was started on meropenem and admitted for further evaluation and management.
Urine cultures grew ESBL E. coli sensitive to ertapenem. Midline was placed and he was started on ertapenem to complete 10 more days. His mental status improved with treatment of his UTI however overall he has been experiencing a cognitive decline
due to his progressive dementia. He would benefit from ongoing PT/OT at a prison facility where he can also complete his antibiotic course. Ultimately his is planning to care for him at home after his time at the prison
facility. He was evaluated by urology during this admission and found to be voiding spontaneously and adequately emptying his bladder. He will need outpatient urology follow-up. He also had a mild WARD during this admission which resolved with IV
fluids. At the time of hospital discharge he was medically stable. He will need ongoing follow-up with his primary care physician and with urology.
General: No Apparent Distress, Comfortable
HEENT: NormoCephalic, Moist mucous membranes, Atraumatic
Respiratory: Clear and Non Labored Respirations
Cardiac: S1/S2 and Regular Rhythm; No Rub or Gallop
GI: Soft, Non Tender, Non Distended and Normal Bowel Sounds
Musculoskeletal: No Edema, no deformity
: NO Wilson
Neuro: Awake, Alert, no tremor
Psych: Calm and cooperative
Discharge Plan
-
Patient Disposition: Assisted/SNF
Discharge Diagnosis/Procedures: ESBL E. coli UTI
Diet: Regular
Activity: With assistance and As tolerated
Activity Restrictions/Additional Instructions:
Mr. Linda is an 84-year-old medical history of HFpEF, COPD, dementia, CAD, carotid disease (status post right carotid endarterectomy), CVA (residual left-sided weakness), ESBL E. coli UTIs, and prostate enlargement who presented with
encephalopathy. He was found to have another UTI with urine cultures growing ESBL E. coli. He was started on meropenem and admitted for further evaluation and management.
Urine cultures grew ESBL E. coli sensitive to ertapenem. Midline was placed and he was started on ertapenem to complete 10 more days. His mental status improved with treatment of his UTI however overall he has been experiencing a cognitive decline
due to his progressive dementia. He would benefit from ongoing PT/OT at a prison facility where he can also complete his antibiotic course. Ultimately his is planning to care for him at home after his time at the prison
facility. He was evaluated by urology during this admission and found to be voiding spontaneously and adequately emptying his bladder. He will need outpatient urology follow-up. He also had a mild WARD during this admission which resolved with IV
fluids. At the time of hospital discharge he was medically stable. He will need ongoing follow-up with his primary care physician and with urology.
Referrals:
Demetria Parsons PA-C [Family Provider, Internal Medicine]
Prescriptions:
New
Ertapenem [Invanz] 1000 MG
0.9% Sodium Chloride [Nss] 50 ML
120 mls/hr IV Q24H
Ordered By: Abel Lorenzo DO
Last Taken: 09/13/24 11:47 60 mls
Continued
calcium carbonate 600 MG tablet
600 mg PO QPM
baclofen 10 MG tablet
10 mg PO DAILY
aspirin 81 mg Tablet,Delayed Release (Dr/Ec)
81 mg PO DAILY
rivastigmine tartrate 4.5 mg Capsule
4.5 mg PO BID
ferrous sulfate 325 mg (65 mg iron) tablet
325 mg PO DAILY Qty: 30 0RF
cholecalciferol (vitamin D3) 25 mcg (1,000 unit) Tablet
25 mcg PO DAILY Qty: 30 0RF
duloxetine 30 mg Capsule,Delayed Release(Dr/Ec)
60 mg PO QPM
tamsulosin [Flomax] 0.4 mg Capsule
0.4 mg PO BID
atorvastatin 40 mg Tablet
40 mg PO QPM
aripiprazole 2 mg Tablet
2 mg PO QPM
metoprolol tartrate 25 mg tablet
12.5 mg PO BID
baclofen 10 mg Tablet
10 mg PO DAILYPRN PRN (Reason: SPASMS)
acetaminophen [Tylenol Extra Strength] 500 mg Tablet
1,000 mg PO TIDPRN PRN (Reason: mild pain)
B-complex with vitamin C Capsule
1 cap PO DAILY
Discharge Orders:
Discharge Patient (As Directed); Ordered 09/13/24
Ordered By: Abel Lorenzo
Discharge Date and Time
Print Language: INDIAN
[2024-09-13 15:00] VITALS: BP 128/60
--- NOTE | 2024-09-13 16:08 | PN.CDI ---
CDI
- -
CDI:
Physician Documentation Request
Admit Date: 09/09/24 16:46
Dear Doctor Bj
09/10 [address] 09[address] notes states 'Pt did not eat as much during SNF admission due to lack of consistent feeding assistance...Significant 20lb, 10.6% weight loss over 6months...
Pt meets criteria for severe protein calorie malnutrition of chronic illness with >10% wt loss over 6 months & prolonged inadequate po intake <75% over >1 month'
Based on the above information and your assessment, which of the following most accurately represents the patient's nutritional status?
Severe protein calorie Malnutrition
No nutritional deficiency
[place] Criteria ([facility] Hospitalist 2017)
2 or more criteria must be present for either
non severe or severe malnutrition
Note that the criteria differs related to the
presence of an acute or chronic illness
Acute Illness Chronic Illness
Energy Intake Non Severe: <75% for >7 days Non Severe: <75% for >1 month
Severe: <50% for >5 days Severe: <75% for >1 month
Weight Loss Non Severe: 1-2% over 1 week Non Severe: 5% over 1 month
5% over 1 month 7.5% over 3 months
7.5% over 3 months 10% over 6 months
1 year N/A 20% over 1 year
Severe: >2% over 1 week Severe: >5% over 1 month
>5% over 1 month >7.5% over 3 months
>7.5% over 3 months >10% over 6 months
1 year N/A >20% over 1 year
Body Fat Non Severe: Mild Decrease Non Severe: Mild Loss
Severe: Moderate Decrease Severe: Severe Loss
Muscle Mass Non Severe: Mild Decrease Non Severe: Mild Loss
Severe: Moderate Decrease Severe: Severe Loss
Fluid Accumulation Non Severe: Mild Accumulation Non Severe: Mild Accumulation
Severe: Moderate to severe Severe: Moderate to severe
accumulation accumulation
Reduced Advisory Internship Strength Non Severe: N/A Non Severe: N/A
Severe: Measurably reduced Severe: Measurably reduced
Use of terms such as suspected, likely, concern for, or probable (associated with a specific diagnosis that is being evaluated, monitored, or treated as if it exists) are acceptable and can be coded in the inpatient setting, when documented at the
time of discharge.
Thank you,
Jazmín Lozano RN, BSN
CDI Specialist
tiger text
Please use your independent medical judgment in providing your response.
--- NOTE | 2024-09-13 16:56 | CM ---
Several attempts to reach pt's regarding approval for snf and plan for transfer this evening. Voicemails left and provided her with the phone number for the nursing unit.
Ambulance transport arranged; 8:30 continuous pickling line pickler via ambulance.
Saumya warner [employer] aware of transport time.
[2024-09-13] MEDS: OSCAL CAL 500 500 MG PO (17:42)
[2024-09-13] MEDS: CYMBALTA DELAYED RELEASE 60 MG PO (17:42)
[2024-09-13] MEDS: ABILIFY 2 MG PO (17:42)
[2024-09-13] MEDS: LIPITOR 40 MG PO (17:42)
[2024-09-13 19:42] VITALS: BP 148/68
== END 2024-09-13 20:53 | DRG 689 ==
LOC: 3 WEST ACU 16:46
PROVIDERS: ADMITTING PHYSICIAN Internal Medicine; ATTENDING PHYSICIAN Internal Medicine; CONSULT PHYSICIAN Surgery; EMERGENCY PHYSICIAN Emergency Medicine; FAMILY PHYSICIAN Physician Assistant; OTHER PHYSICIAN Internal Medicine Infectious Disease
DX: N39.0 Urinary tract infection, site not specified (principal); E43 Unspecified severe protein-calorie malnutrition; G93.41 Metabolic encephalopathy; N17.9 Acute kidney failure, unspecified; I50.32 Chronic diastolic (congestive) heart failure; Z66 Do not resuscitate; E78.00 Pure hypercholesterolemia, unspecified; I11.0 Hypertensive heart disease with heart failure; Z68.28 Body mass index [BMI] 28.0-28.9, adult
CPT/HCPCS: 80048; 80053; 81003; 81015; 85025; 85027; 87040; 87077; 87086; 87186; 92526; 92610; 96374; 97163; 97167; 97530; 99284; J1335; J2185

== ENCOUNTER → 2024-09-15 09:20 | Outpatient (REF) | payer OTHER, BC, MEDICARE, SELFPAY ==
[2024-09-15 11:56] LABS: Hematocrit 33.6 % (39.0-52.0); Hemoglobin 10.9 g/dL (13.0-18.0); Mean Corp Hgb Conc. 32.4 g/dL (33.0-37.0); Mean Corpuscular Volume 94.9 fL (80.0-94.0); Nucleated Red Blood Cells % 0 % (-); Platelet Count 292 10^3/uL (130-400); Red Cell Dist. Width 13.3 % (11.5-14.5)
[2024-09-15 12:14] LABS: Blood Urea Nitrogen 34 mg/dl (9-20); Calcium 8.8 mg/dl (8.4-10.2); Carbon Dioxide 30 mmol/L (22-30); Chloride 104 mmol/L (98-107); Glucose 93 mg/dl (70-99); Potassium 4.1 mmol/L (3.5-5.1); Sodium 138 mmol/L (135-145); eGFR 49.87
== END ==
LOC: OLABP 09:20
PROVIDERS: ATTENDING PHYSICIAN Family Medicine
DX: G92.8 Other toxic encephalopathy (principal); N39.0 Urinary tract infection, site not specified; Z16.12 Extended spectrum beta lactamase (ESBL) resistance; Z86.73 Personal history of transient ischemic attack (TIA), and cerebral infarction without residual deficits; G50.0 Trigeminal neuralgia; F03.A18 Unspecified dementia, mild, with other behavioral disturbance; I50.22 Chronic systolic (congestive) heart failure; J44.9 Chronic obstructive pulmonary disease, unspecified
CPT/HCPCS: 36415; 80048; 85025

== ENCOUNTER → 2024-09-23 10:07 | Outpatient (REF) | payer BC, MEDICARE, SELFPAY ==
[2024-09-23 11:29] LABS: Hematocrit 33.9 % (39.0-52.0); Hemoglobin 11.2 g/dL (13.0-18.0); Mean Corp Hgb Conc. 33.0 g/dL (33.0-37.0); Mean Corpuscular Volume 92.4 fL (80.0-94.0); Nucleated Red Blood Cells % 0 % (-); Platelet Count 254 10^3/uL (130-400); Red Cell Dist. Width 12.9 % (11.5-14.5)
== END ==
LOC: OLABP 10:07
PROVIDERS: ATTENDING PHYSICIAN Family Medicine
DX: G92.8 Other toxic encephalopathy (principal); N39.0 Urinary tract infection, site not specified; Z16.12 Extended spectrum beta lactamase (ESBL) resistance; F03.A18 Unspecified dementia, mild, with other behavioral disturbance; I50.22 Chronic systolic (congestive) heart failure; J44.9 Chronic obstructive pulmonary disease, unspecified
CPT/HCPCS: 36415; 85025

== ENCOUNTER → 2024-09-26 09:18 | Outpatient (REF) | payer BC, MEDICARE, SELFPAY ==
[2024-09-26 10:26] LABS: Blood Urea Nitrogen 38 mg/dl (9-20); Calcium 8.3 mg/dl (8.4-10.2); Carbon Dioxide 28 mmol/L (22-30); Chloride 108 mmol/L (98-107); Glucose 90 mg/dl (70-99); Potassium 4.4 mmol/L (3.5-5.1); Sodium 139 mmol/L (135-145); eGFR 45.91
== END ==
LOC: OLABP 09:18
PROVIDERS: ATTENDING PHYSICIAN Family Medicine
DX: G92.8 Other toxic encephalopathy (principal); N39.0 Urinary tract infection, site not specified; Z16.12 Extended spectrum beta lactamase (ESBL) resistance; Z86.73 Personal history of transient ischemic attack (TIA), and cerebral infarction without residual deficits; G50.0 Trigeminal neuralgia; F03.A18 Unspecified dementia, mild, with other behavioral disturbance; I50.22 Chronic systolic (congestive) heart failure; J44.9 Chronic obstructive pulmonary disease, unspecified
CPT/HCPCS: 36415; 80048

== ENCOUNTER 2024-10-30 05:09 | Observation (INO) | payer BC, MEDICARE, SELFPAY ==
[2024-10-29 19:53] VITALS: BP 162/76
[2024-10-29 19:55] VITALS: BP 162/76
[2024-10-29 20:00] VITALS: BP 167/72
[2024-10-29 20:04] VITALS: BMI 26.6
[2024-10-29 20:26] LABS: Hematocrit 37.8 % (39.0-52.0); Hemoglobin 12.4 g/dL (13.0-18.0); Mean Corp Hgb Conc. 32.8 g/dL (33.0-37.0); Mean Corpuscular Volume 91.7 fL (80.0-94.0); Nucleated Red Blood Cells % 0 % (-); Platelet Count 331 10^3/uL (130-400); Red Cell Dist. Width 12.9 % (11.5-14.5)
[2024-10-29 20:44] LABS: ALT (SGPT) 15 U/L (0-50); AST (SGOT) 18 U/L (17-59); Albumin 3.6 g/dl (3.5-5.0); Alkaline Phosphatase 129 U/L (38-126); Blood Urea Nitrogen 34 mg/dl (9-20); Calcium 8.9 mg/dl (8.4-10.2); Carbon Dioxide 29 mmol/L (22-30); Chloride 106 mmol/L (98-107); Estimated Creatinine Clearance 44 ml/min; Glucose 109 mg/dl (70-99); Potassium 4.7 mmol/L (3.5-5.1); Sodium 139 mmol/L (135-145); Total Protein 6.2 g/dl (6.3-8.2); eGFR 49.87
[2024-10-29 21:00] VITALS: BP 153/71
[2024-10-29 22:00] VITALS: BP 165/81
[2024-10-30] VITALS (25 sets, daily range): BP systolic 108–172; BP diastolic 56–120; PULSE 72; O2SAT 98; BMI 26.1
[2024-10-30 00:44] LABS: Urine Character Clear (Clear)
[2024-10-30 01:03] LABS: Troponin I 0.057 ng/ml
--- NOTE | 2024-10-30 02:50 | ED.GENMED ---
History of Present Illness
General
Chief Complaint: Weakness
Source: patient
Exam Limitations: none
Time Seen by Provider: 10/29/24 20:34
Nursing documentation reviewed up to this point in time: agreed with
History of Present Illness
History of Present Illness:
84-year-old male past medical history of dementia previous stroke, hypertension hyperlipidemia presenting to the emergency department today with concerns of difficulty ambulating at home. Does live at home with family. Could not stand and pivot
today. Seems to be weaker than usual.
Past History
Past History
ED Past Medical History: CVA (Left sided weakness, right parietal stroke in 2012), HTN, Hypercholesterolemia, Other (Renal calculus, UTi, Scrotal hernia, Cellulitis) and Other (Dementia)
ED Past Surgical History: Cardiac (pacemaker, RBBB), Tonsilectomy (and adnoids), Urological (Kidney stones) and Other (Right carotid endarterectomy herniorrhaphy, left orchiectomy)
Social History
Tobacco: Non-smoker
Alcohol: None
Drug: None
Personal:
Living: other (Rehab facility)
Employment: Retired
Family History
Family History: Hypertension
Review of Systems
Review of Systems
Allergies reviewed?: Yes
All Other Systems: ROS reviewed and negative except as documented in HPI and ROS
Phy Exam
Physical Exam
Physical Exam:
GENERAL: Alert , in no apparent distress
EYE: pupils equal and reactive
NECK: Supple, no significant adenopathy.
ENT: o/p clr, mmm.
CARDIAC: Regular rate and rhythm .
LUNGS: Clear breath sounds bilaterally, no acute respiratory distress, no wheezes/rales/rhonchi
ABDOMEN: Soft, without focal tenderness, no r/g, no cvat
NEUROLOGICAL: Alert no focal neuro deficits moving all extremities but does seem to have generalized weakness
SKIN: Warm and dry, skin intact.
MUSCULOSKELETAL: No edema, well perfused.
PSYCH: Normal and appropriate interaction.
Course
Orders/Labs/Results
Orders:
Orders
10/29/24 20:16
CMP [Comprehensive Metabolic Panel] Urgent
Complete Blood Count/With Diff Urgent
10/29/24 21:02
EKG [Electrocardiogram (*1)] Urgent
Reason for Study: Shortness of Breath
Chest [CR Chest - 2 Views ] Urgent
Comment:
Reason For Exam: sob
10/29/24 21:03
EKG- Treatment ONCE
10/29/24 23:11
Troponin I Urgent
Urinalysis Reflex To Culture Urgent
Date Specimen was Collected: 10/29/24
Time Specimen was Collected: 20:35
10/30/24 02:10
Case Management Consult ONCE
Case Management Consult: Discharge Planning
Pt Eval And Treat Urgent
Activity Level: Ambulate
Abnormal Lab Results
10/29/24 10/30/24
20:16 00:15
RBC 4.12 L 10^6/uL
(4.70-6.10)
Hgb 12.4 L g/dL
(13.0-18.0)
Hct 37.8 L %
(39.0-52.0)
MCHC 32.8 L g/dL
(33.0-37.0)
Abs Immat Gran (auto) 0.1 H 10^3/uL
(0-0.05)
Absolute Neuts (auto) 7.0 H 10^3/uL
(1.4-6.5)
Absolute Monos (auto) 0.8 H 10^3/uL
(0.1-0.6)
Lymphocytes % 15.3 L %
(20.5-51.1)
BUN 34 H mg/dl
(9-20)
Creatinine 1.4 H mg/dL
(0.7-1.3)
Glucose 109 H mg/dl
(70-99)
Alkaline Phosphatase 129 H U/L
(38-126)
Troponin I 0.057 H* ng/ml
Total Protein 6.2 L g/dl
(6.3-8.2)
10/29/24 20:16
10/29/24 20:16
Vital Signs
Initial and Last Documented VS:
Initial Vital Signs
Pulse Resp
83 15
10/29/24 19:47 10/29/24 19:47
Last Documented Vital Signs
Temp Pulse Resp BP Pulse Ox
98.8 F 62 19 160/80 97
10/29/24 19:53 10/30/24 01:30 10/30/24 01:30 10/30/24 01:00 10/30/24 01:30
MDM/Problems Addressed
MDM/Problems Addressed:
84-year-old male presenting to the emergency department with family with concerns of generalized weakness fatigue difficulty ambulating and performing daily activities at home. Blood pressure slightly elevated on arrival otherwise vital signs are
normal. Labs without specific findings does have baseline CKD which is at baseline. Troponin very mildly elevated but at patient's baseline elevation historically. Urinalysis without signs of infection. Chest x-ray without emergent findings.
This point patient with difficulty ambulating and standing and pivoting. Unsafe to go home at this point will need PT assessment and potential placement.
*Pulse Oximetry
SaO2: 97
Oxygen Mode of Delivery: Room air
Patient hypoxic: no (97)
*Critical Care Note
Total Time (30-74mins, 75-104mins- exclusive of procedures): Not Applicable
ED Attending Note
-
Portions of this chart may have been created with voice recognition software.� Occasional wrong word or��sound alike� substitutions may have occurred due to the inherent limitations of voice recognition software.
Discharge Plan
Departure
Patient Disposition: Admit
Date of Disposition: 10/30/24
Time of Disposition: 02:57
Admit to: Med/Surg
Admit to doctor: Vicki
Presentation/result/management discussed w/ accepting /DO: Hospitalist
Patient with high blood pressure during this ER visit?: No
Condition: Good
Covid-19: Not Applicable
Discharge Problem:
Ambulatory dysfunction, Generalized weakness
Prescriptions:
No Action
calcium carbonate 600 MG tablet
600 mg PO QPM
baclofen 10 MG tablet
10 mg PO DAILY
aspirin 81 mg Tablet,Delayed Release (Dr/Ec)
81 mg PO DAILY
rivastigmine tartrate 4.5 mg Capsule
4.5 mg PO BID
ferrous sulfate 325 mg (65 mg iron) tablet
325 mg PO DAILY Qty: 30 0RF
cholecalciferol (vitamin D3) 25 mcg (1,000 unit) Tablet
25 mcg PO DAILY Qty: 30 0RF
duloxetine 30 mg Capsule,Delayed Release(Dr/Ec)
60 mg PO QPM
tamsulosin [Flomax] 0.4 mg Capsule
0.4 mg PO BID
atorvastatin 40 mg Tablet
40 mg PO QPM
aripiprazole 2 mg Tablet
2 mg PO QPM
metoprolol tartrate 25 mg tablet
12.5 mg PO BID
baclofen 10 mg Tablet
10 mg PO DAILYPRN PRN (Reason: SPASMS)
acetaminophen [Tylenol Extra Strength] 500 mg Tablet
1,000 mg PO TIDPRN PRN (Reason: mild pain)
B-complex with vitamin C Capsule
1 cap PO DAILY
Ertapenem [Invanz] 1000 MG
0.9% Sodium Chloride [Nss] 50 ML
120 mls/hr IV Q24H
Ordered By: Abel Lorenzo DO
Last Taken: Unknown
Referrals:
Demetria Parsons PA-C [Family Provider, Internal Medicine]
Interventions
Interventions:
*Risk Screen - Suicide Last Done: 10/29/24 20:08
*General Assessment Last Done: 10/29/24 20:08
*Neglect/Abuse Screening Last Done: 10/29/24 20:08
*ED- Fall Risk Assessment Last Done: 10/29/24 20:08
*ED COVID-19 Vaccine History Last Done: 10/29/24 20:08
ED- Cardiac Assessment Last Done: 10/29/24 20:08
ED- Neurological Assessment Last Done: 10/29/24 20:08
ED- Pulmonary Assessment Last Done: 10/29/24 20:08
Discharge Date and Time
Print Language: ICELANDIC
--- NOTE | 2024-10-30 04:19 | HPS.HSE ---
Family Physician
-
Family Physician: Demetria Parsons
Chief Complaint
-
Weakness
History of Present Illness
This is a 84-year-old male with past medical history significant for dementia, CVA with residual left hemiparesis and ambulatory dysfunction, heart block status post pacemaker, BPH presenting to the emergency department with worsening weakness
compared to baseline.
He lives at home with his spouse. Despite poor ambulation at baseline he was weak for the last few days and was unable to stand and pivot at home today. Patient generally has been improving in terms of his physical status. Although he does not
ambulate but is able to use a 64 place to be from chair to wheelchair I was unable to do that today. In the past such not brought to the weakness is have been associated with a urinary tract infection and he was last hospitalized for urinary tract
infection recently. Simental reports that he has had occasional episodes of or rhonchorous respirations and desaturations to 90% that improves with a neb treatment and some home supplemental oxygen. He has not had any fevers. He has been recently
placed on methenamine for his recurrent urinary tract infections but no other medication changes. He had no fall. No other injuries noted. He has not been having any symptoms such as incontinence or diarrhea. He has not been having any nausea or
vomiting. There are no new medication changes. He has had no fevers or chills. He has no chest pain. Workup in the emergency department does not show any obvious cause of his weakness.
In the emergency department the patient was afebrile, blood pressure was 157/671, pulse 62, respiratory rate 20, oxygen saturation 96% on room air. Chest x-ray shows no acute infiltrates. UA was negative. ECG shows a sensed V paced rhythm at 70.
Troponin was 0.057. CBC was unremarkable. Electrolytes BUN and creatinine were unchanged from prior outlined in normal range.
Medical History
Past Medical History
Past Medical History: Reports Other
Additional Past Medical History:
ASCVD / Prior CVA / Carotid Stenosis
L Hemiparesis
Hypertension
Heart Block
Nephrolithiasis
Dementia
Past Surgical History: Reports Other
Additional Past Surgical History:
Right CEA
T&A
PPM Placement
Herniorrhaphy
Left Orchiectomy
Ureteroscopies
Social History
Unable to obtain full social history at this time due to: Other (Social history taken from previous records)
Tobacco: Non-smoker
Alcohol: None
Drug: None
Personal:
Living: Detention
Employment: Retired
Family History
Family History: Not pertinent
Allergies / Home Medications
Allergies reflects when Allergies were last updated in [employer].
Home Medications with original date entered in [employer]
Allergy/Medication List:
Allergies
Allergy/AdvReac Type Severity Reaction Status Date / Time
doxycycline monohydrate Allergy MIGRAINE Verified 05/07/24 23:28
[From Vibramycin]
Sulfa (Sulfonamide Allergy difficulty Verified 05/07/24 23:28
Antibiotics) breathing,
[Sulfa(Sulfonamide hives
Antibiotics)]
vancomycin Allergy dizziness,double Verified 05/07/24 23:28
vision
Home Medications
atorvastatin 80 mg tablet 40 mg PO QPM High Cholesterol 06/17/21
calcium carbonate 600 mg PO DAILY Supplement 06/17/21
baclofen 10 mg tablet 10 mg PO TID Muscle Spasms 09/26/22
aspirin 81 mg tablet,delayed release 81 mg PO DAILY Blood Clot Prevention/Tx 10/12/23
rivastigmine tartrate 4.5 mg capsule 4.5 mg PO BID memory 10/12/23
vitamin B complex 1 tab PO NOON Supplement 10/12/23
acetaminophen 325 mg tablet (Tylenol) 650 mg PO Q6HPRN PRN mild pain/fever 03/11/24
albuterol sulfate 1.25 mg/3 mL solution for nebulization 1.25 mg inhalation R BIDPRN PRN shortness of breath or wheezing 03/11/24
coenzyme Q10 100 mg-vitamin E 20 mg-vitamin E mixed 15 mg capsule 1 cap PO DAILY Supplement 03/26/24
milk thistle 150 mg capsule 300 mg PO HS Supplement 03/26/24
ferrous sulfate 325 mg (65 mg iron) tablet 325 mg PO DAILY anemia #30 tabs 03/30/24
cholecalciferol (vitamin D3) 25 mcg (1,000 unit) tablet 25 mcg PO DAILY #30 tabs 04/02/24
docusate sodium 100 mg capsule (Colace) 100 mg PO BID #60 caps 04/02/24
duloxetine 30 mg capsule,delayed release 60 mg PO HS 04/02/24
bisacodyl 10 mg rectal suppository (Dulcolax (bisacodyl)) 10 mg VT DAILYPRN PRN if no bm aftr mom 04/20/24
cyanocobalamin (vitamin B-12) 1,000 mcg tablet 1,000 mcg PO DAILY 04/20/24
magnesium hydroxide 400 mg/5 mL oral suspension (Milk of Magnesia) 2,400 mg PO HSPRN PRN if no bm by 3rd day 04/20/24
polyethylene glycol 3350 17 gram oral powder packet (Miralax) 17 g PO DAILYPRN PRN Constipation 04/20/24
tamsulosin 0.4 mg capsule (Flomax) 0.4 mg PO BID 04/20/24
metoprolol tartrate 25 mg tablet 25 mg PO BID 30 days #60 tabs 04/26/24
risperidone 0.25 mg tablet 0.25 mg PO Q6HPRN PRN agitation #15 tabs 04/26/24
Review of Systems
-
Unable to obtain full review of systems at this time due to: Dementia
Physical Exam
Vital Signs
Vital Signs
Temp Pulse Resp BP Pulse Ox
98.8 F 62 20 157/71 96
10/29/24 19:53 10/30/24 03:00 10/30/24 03:00 10/30/24 03:00 10/30/24 03:00
Physical Exam
General: Other (Ill-appearing 84y M. Wakes to verbal stimuli and follows commands. )
HEENT: Other (Dry MM. Neck supple.)
Respiratory: Other (Decreased BS at bases - otherwise clear.)
Cardiac: S1/S2 and Regular Rhythm
GI: Other (Obese, not tender, pos BS.)
Musculoskeletal: No Clubbing, No Cyanosis and Other (Nodular / brawny edema b/l LEs.)
Neuro: Alert, Oriented (Oriented to person) and Other (Chronic L hemiparesis. No new focal deficits.)
Psych: Apparent Dementia
Laboratory Results
-
10/29/24 20:16
10/29/24 20:16
Laboratory Results
Total Bilirubin 0.5 mg/dl (0.2-1.3) 10/29/24 20:16
AST 18 U/L (17-59) 10/29/24 20:16
ALT 15 U/L (0-50) 10/29/24 20:16
Alkaline Phosphatase 129 U/L (38-126) H 10/29/24 20:16
Troponin I 0.057 ng/ml H* 10/30/24 00:15
Data Reviewed
-
Diagnostic Radiology: Image Personally Visualized and interpreted
Medical Tests (Nuc Med, Echo, EKG etc): Image Personally Visualized and interpreted
Lab Data: Labs Reviewed by me
Old Records: Reviewed
Impression/Plan
-
IMPRESSION:
84-year-old past medical history of dementia with tremors, CVA with residual weakness, chronic tremors and ambulatory dysfunction who presents to the emergency department with a 1 week of for worsening weakness, inability to pivot, increasing
tremors, decreased appetite and reduced p.o. intake concerning for possible subacute or acute infection. However workup in the emergency department has been unremarkable. The only findings were slight elevation in his troponin to 0.057 and a
slight increased oxygen requirement compared to his baseline. No evidence of an obvious pneumonia or UTI. Patient is not on any medications and has no evidence of drug overdose.
PLAN:
Weakness -acute on chronic without any specific etiology. Given fairly subacute onset without any focal finding suspicion remains for possible infection of likely viral etiology given mild respiratory symptoms
- admit to med/surg
- check flu/covid
- check tsh,
- gently hydrate for now
- PT evaluation
- patient's famil ywishes to return home as they have adequate assist devices and services
Elevated troponin - No CP, N/V or diaphoresis. ECG paced rhythm.
- telemetry
- trend troponin
- aspirin 81, continue metoprolol and statin
- echo
- consult cardiology if rising trop
ASCVD
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
- Stable. No new focal neuro deficits.
- Continue current CV med regimen including ASA, statin, etc.
- Continue supportive care including baclofen, etc.
Senile Dementia with Behavioral Disturbance
- Stable. continue rivastigmine, duloxetine
BPH
- Stable. Continue tamsulosin.
DVT Prophylaxis: S/q heparin
Code Status: DNR
[2024-10-30 07:18] LABS: COVID-19 Antigen Negative (Negative)
[2024-10-30] MEDS: ASPIR LOW (ENTERIC COATED) 81 MG PO (09:43)
[2024-10-30] MEDS: FEOSOL 325 MG PO (09:43)
[2024-10-30] MEDS: FLOMAX 0.4 MG PO ×2 (09:44→20:19)
[2024-10-30] MEDS: LOPRESSOR 12.5 MG PO ×2 (09:44→20:17)
[2024-10-30] MEDS: EXELON 4.5 MG PO ×2 (09:45→20:19)
[2024-10-30] MEDS: DUONEB 3 ML INH ×3 (09:46→19:54)
[2024-10-30] MEDS: HEPARIN 5000 UNITS SC ×3 (09:47→23:10)
[2024-10-30] MEDS: NSS 500 IV (09:48)
--- NOTE | 2024-10-30 10:27 | CM ---
Addendum entered by Annette Blancas 10/30/24 10:49:
Patient needs ambulance transport to home when stable.
Original Note:
assistant accounting manager reviewed patient's chart and met with patient and spouse at bedside, patient was admitted under OBS, HOLT letter reviewed, patient lives with spouse in a 2 story home, patient has 1st floor set up and ramp to enter home, Patient has a
w/c, walker, michelle walker, chair lift, hospital bed and home oxygen, spouse does not know name of company. [facility] and plan will be to return to home with spouse and son Dez and [facility] when stable.
PCP: Demetria Parsons
Pharmacy: [facility] on [facility].
Plan; Home with spouse and son Dez and [facility], referral sent to [facility].
[2024-10-30] MEDS: DUONEB INH (15:34)
[2024-10-30] MEDS: NSS IV (16:52)
[2024-10-30] MEDS: HIPREX PO (16:52)
[2024-10-30] MEDS: ABILIFY 2 MG PO (16:53)
[2024-10-30] MEDS: CYMBALTA DELAYED RELEASE 60 MG PO (16:53)
[2024-10-30] MEDS: LIPITOR 40 MG PO (16:54)
[2024-10-30] MEDS: HIPREX 1 GRAM PO (20:19)
[2024-10-30] MEDS: TYLENOL 1000 MG PO (20:22)
[2024-10-31 03:25] VITALS: BP 107/53
[2024-10-31] MEDS: DUONEB 3 ML INH ×3 (07:03→14:51)
[2024-10-31 07:55] VITALS: BP 142/60
[2024-10-31] MEDS: FEOSOL 325 MG PO (08:07)
[2024-10-31] MEDS: ASPIR LOW (ENTERIC COATED) 81 MG PO (08:07)
[2024-10-31] MEDS: FLOMAX 0.4 MG PO (08:07)
[2024-10-31] MEDS: LOPRESSOR 12.5 MG PO (08:07)
[2024-10-31] MEDS: HEPARIN 5000 UNITS SC (08:08)
[2024-10-31] MEDS: HIPREX 1 GRAM PO (08:09)
[2024-10-31] MEDS: EXELON 4.5 MG PO (08:09)
[2024-10-31 08:11] LABS: Hematocrit 36.3 % (39.0-52.0); Hemoglobin 11.7 g/dL (13.0-18.0); Mean Corp Hgb Conc. 32.2 g/dL (33.0-37.0); Mean Corpuscular Volume 95.5 fL (80.0-94.0); Platelet Count 276 10^3/uL (130-400); Red Cell Dist. Width 12.9 % (11.5-14.5)
[2024-10-31 08:21] VITALS: BMI 26.1
[2024-10-31 08:32] LABS: Blood Urea Nitrogen 32 mg/dl (9-20); Calcium 8.9 mg/dl (8.4-10.2); Carbon Dioxide 31 mmol/L (22-30); Chloride 107 mmol/L (98-107); Estimated Creatinine Clearance 44 ml/min; Glucose 99 mg/dl (70-99); Magnesium 1.9 mg/dl (1.6-2.3); Potassium 4.7 mmol/L (3.5-5.1); Sodium 141 mmol/L (135-145); eGFR 49.87
[2024-10-31 08:42] LABS: Troponin I 0.052 ng/ml
--- NOTE | 2024-10-31 08:47 | VNURNOTE ---
Chart reviewed. Patient is current with [facility]. Will continue to follow hospital course and DC plans.
[2024-10-31 09:00] LABS: TSH 1.45 uIU/ml (0.47-4.68)
--- NOTE | 2024-10-31 09:57 | CM ---
Chart reviewed and patient to return to home with his spouse when stable, with [facility], PT/OT aide and nursing.
Patient will need ambulance transport max assist of 2.
Plan; Home with spouse and [facility], by ambulance.
[2024-10-31 11:16] VITALS: BP 109/51
--- NOTE | 2024-10-31 14:54 | W.PN.HOSP.TC ---
Addendum entered and electronically signed by Chuy Reed MD 10/31/24 15:44:
Spouse questioning if patient can be resumed back on Imdur,
Was planned to follow-up with cardiology in the office yesterday although needed to be hospitalized
Patient chart reviewed and based on nuclear stress test in the past patient was recommended to be kept on Imdur.
Resuming Imdur 30 mg daily
Original Note:
Today's Communication/Plan
-
d/c home
Assessment / Plan
Assessment / Plan
Generalized weakness
-acute on chronic without any specific etiology. Given fairly subacute onset without any focal finding suspicion remains for possible infection of likely viral etiology given mild respiratory symptoms
- Flu/covid neg
- TSH wnl
- gently hydrate for now
- PT evaluated and appropriate for HH
Elevated troponin
- Non mi
- No CP, N/V or diaphoresis. ECG paced rhythm.
- aspirin 81, continue metoprolol and statin
- consult cardiology if rising trop
ASCVD
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
- Stable. No new focal neuro deficits.
- Continue current CV med regimen including ASA, statin, etc.
- Continue supportive care including baclofen, etc.
Senile Dementia with Behavioral Disturbance
- Stable. continue rivastigmine, duloxetine
BPH
- Stable. Continue tamsulosin.
DVT Prophylaxis: S/q heparin
Code Status: DNR
More than 30 minutes spent in discharge including
Final examination of the patient
Summarizing hospital stay
Instructions for continuing care to all relevant caregivers
Preparation of discharge records, prescriptions, and referral forms
Total time spent (in minutes): 38mins
Anticipated Discharge: Today
Subjective/Interval History
-
Date of Service: October 31, 2024
no new issues overnight
Objective Data
-
Labs:
Laboratory Results
10/31/24
07:28
WBC 8.8
Hgb 11.7 L
Hct 36.3 L
Plt Count 276
Sodium 141
Potassium 4.7
Chloride 107
Carbon Dioxide 31 H
BUN 32 H
Creatinine 1.4 H
Glucose 99
Calcium 8.9
Vital Signs:
Vital Signs
Temp Pulse Resp BP Pulse Ox
98.4 F 77 16 109/51 96
10/31/24 11:16 10/31/24 14:52 10/31/24 14:52 10/31/24 11:16 10/31/24 14:52
I&O
10/30/24 10/31/24 11/01/24
06:59 06:59 06:59
Intake Total 880 / 880
Balance 880 / 880
Review of Systems
-
Unable to obtain full review of systems at this time due to: Dementia
Physical Exam
-
General: No Apparent Distress and Comfortable
HEENT: Negative Oxygen
Neuro: Awake, Alert, No Motor Deficits and Nonfocal/Grossly Intact
Psych: Calm
[2024-10-31 15:55] VITALS: BP 118/60
--- NOTE | 2024-10-31 16:01 | W.DCSUMMARY ---
Discharge Summary
Discharge Data
Date of Admission: 10/30/24
Date of Discharge: 10/31/24
-
Pending Results: No
Hospital Course
Discharging Physician : Dr Chuy Reed
Disposition : Home with home care
Primary care physician : Dr Demetria Parsons
Principal Discharge diagnosis :
Generalized weakness
Troponin elevation
Chronic Discharge diagnosis :
Coronary disease
History of stroke
Senile dementia
Benign prostatic hyperplasia
Hospital Course :
Patient is 84-year-old male with Hypotension past medical history was brought in by family after patient was noted to be more weak than usual. No reported complaints of cough/diarrhea/fever was reported. Patient have history of frequent UTI and
spouse was concerned about the repeat episode although this was proved to be negative on UA. Other workup with COVID/flu/CXR check rule out any other ongoing infection. Patient was monitored in the hospital and did not have any other signs of
suggestive of ongoing infection. No other clear reason for around for patient weakness. Patient was evaluated by physical therapy and was deemed appropriate for home-based therapy. Patient was discharged home with home health care.
Important imaging findings :
None
Procedure findings :
None
Discharge Plan
-
Patient Disposition: Home with Home Care
Discharge Diagnosis/Procedures: Generalized weakness
Condition: Fair
Diet: Regular
Activity: As tolerated
Driving Restrictions: No driving
Bathing Restrictions: OK to Shower
Referrals:
Demetria Parsons PA-C [Family Provider, Internal Medicine] - in one week
Prescriptions:
New
isosorbide mononitrate 30 mg tablet extended release 24 hr
30 mg PO DAILY Qty: 30 0RF
Continued
baclofen 10 MG tablet
10 mg PO DAILY
aspirin 81 mg Tablet,Delayed Release (Dr/Ec)
81 mg PO DAILY
rivastigmine tartrate 4.5 mg Capsule
4.5 mg PO BID
tamsulosin [Flomax] 0.4 mg Capsule
0.4 mg PO BID
atorvastatin 40 mg Tablet
40 mg PO QPM
aripiprazole 2 mg Tablet
2 mg PO QPM
metoprolol tartrate 25 mg tablet
12.5 mg PO BID
baclofen 10 mg Tablet
10 mg PO DAILYPRN PRN (Reason: SPASMS)
acetaminophen [Tylenol Extra Strength] 500 mg Tablet
1,000 mg PO DAILYPRN PRN (Reason: mild pain)
B-complex with vitamin C Capsule
1 cap PO DAILY
methenamine hippurate 1 gram Tablet
1 g PO BID
ferrous sulfate 325 mg (65 mg iron) Tablet
325 mg PO DAILY
duloxetine 60 mg capsule,delayed release(DR/EC)
60 mg PO QPM
cholecalciferol (vitamin D3) 25 mcg (1,000 unit) Tablet
25 mcg PO DAILY
albuterol sulfate 1.25 mg/3 mL solution for nebulization
1.25 mg inhalation R BIDPRN PRN (Reason: sob)
Discharge Orders:
Discharge Patient (As Directed); Ordered 10/31/24
Ordered By: Chuy Reed
Discharge Date and Time
Print Language: MONTENEGRIN
[2024-10-31 16:11] VITALS: BP 118/60
--- NOTE | 2024-11-03 14:43 | W.DCSUMMARY ---
Discharge Summary
Discharge Data
Date of Admission: 10/30/24
Date of Discharge: 10/31/24
-
Pending Results: No
Hospital Course
Discharging Physician : Dr Chuy Reed
Disposition : Home with HH
Primary care physician : Demetria Parsons
Principal Discharge diagnosis :
Generalized weakness
Chronic Discharge diagnosis :
Coronary artery disease
History of stroke
Essential hypertension
Kidney stone
Dementia
History of pacemaker placement
History of herniorrhaphy
History of orchiectomy
Hospital Course :
Patient is 84-year-old male with mentioned past medical history came to ER with new onset of generalized weakness compared to baseline. Patient was getting home therapy and in general was able to do certain activity although that was felt to be
different on the day of ER visit. A quick workup ruled out any ongoing infection. Patient did not have any major electrolyte imbalances. Flu/COVID was negative. No signs of volume depletion and patient was maintained on empiric IV hydration.
Patient was evaluated by physical therapy and was deemed appropriate for home health level physical therapy. Patient was discharged home with continuation of home health.
Important imaging findings :
None
Procedure findings :
None
Discharge Plan
-
Patient Disposition: Home with Home Care
Discharge Diagnosis/Procedures: Generalized weakness
Condition: Fair
Diet: Regular
Activity: As tolerated
Driving Restrictions: No driving
Bathing Restrictions: OK to Shower
Referrals:
Demetria Parsons PA-C [Family Provider, Internal Medicine] - in one week
Prescriptions:
New
isosorbide mononitrate 30 mg tablet extended release 24 hr
30 mg PO DAILY Qty: 30 0RF
Continued
baclofen 10 MG tablet
10 mg PO DAILY
aspirin 81 mg Tablet,Delayed Release (/Ec)
81 mg PO DAILY
rivastigmine tartrate 4.5 mg Capsule
4.5 mg PO BID
tamsulosin [Flomax] 0.4 mg Capsule
0.4 mg PO BID
atorvastatin 40 mg Tablet
40 mg PO QPM
aripiprazole 2 mg Tablet
2 mg PO QPM
metoprolol tartrate 25 mg tablet
12.5 mg PO BID
baclofen 10 mg Tablet
10 mg PO DAILYPRN PRN (Reason: SPASMS)
acetaminophen [Tylenol Extra Strength] 500 mg Tablet
1,000 mg PO DAILYPRN PRN (Reason: mild pain)
B-complex with vitamin C Capsule
1 cap PO DAILY
methenamine hippurate 1 gram Tablet
1 g PO BID
ferrous sulfate 325 mg (65 mg iron) Tablet
325 mg PO DAILY
duloxetine 60 mg capsule,delayed release(DR/EC)
60 mg PO QPM
cholecalciferol (vitamin D3) 25 mcg (1,000 unit) Tablet
25 mcg PO DAILY
albuterol sulfate 1.25 mg/3 mL solution for nebulization
1.25 mg inhalation R BIDPRN PRN (Reason: sob)
Discharge Orders:
Discharge Patient (As Directed); Ordered 10/31/24
Ordered By: Chuy Reed
Discharge Date and Time
Discharge Date/Time: 10/31/24 17:08
Print Language: MONGOLIAN
== END 2024-10-31 17:08 | disposition home health service (06) ==
LOC: 4 WEST ACU 05:09
PROVIDERS: Physician Assistant; ADMITTING PHYSICIAN Internal Medicine; ATTENDING PHYSICIAN Hospitalist; EMERGENCY PHYSICIAN Student in an Organized Health Care Education/Training Program; FAMILY PHYSICIAN Physician Assistant
DX: R53.1 Weakness (principal); R79.89 Other specified abnormal findings of blood chemistry; I10 Essential (primary) hypertension; N20.0 Calculus of kidney; I25.10 Atherosclerotic heart disease of native coronary artery without angina pectoris; N40.0 Benign prostatic hyperplasia without lower urinary tract symptoms; Z11.52 Encounter for screening for COVID-19; Z66 Do not resuscitate; Z79.899 Other long term (current) drug therapy; Z95.0 Presence of cardiac pacemaker; F03.918 Unspecified dementia, unspecified severity, with other behavioral disturbance; I69.354 Hemiplegia and hemiparesis following cerebral infarction affecting left non-dominant side; Z87.440 Personal history of urinary (tract) infections
CPT/HCPCS: 51701; 71046; 80048; 80053; 81003; 82550; 83735; 84443; 84484; 85025; 85027; 87502; 87811; 93005; 94640; 96360; 96361; 97163; 97530; 99285; G0378